=== PATIENT | female | born 1950 | race Caucasian/White ===

== ENCOUNTER 2020-07-03 08:08 | Outpatient (REF) | payer MEDICARE, SELFPAY ==
[2020-07-03 11:16] LABS: MANUAL DIFF FLAG NO
[2020-07-03 11:23] LABS: Basophils Percent Auto 0.4 % (0-2); Eosinophils Absolute Auto 0.3 X10*3/uL (0.0-0.4); Eosinophils Percent Auto 2.9 % (0-4); Hematocrit 43.4 % (37-47); Hemoglobin 14.5 g/dl (12.0-16.0); Imm Gran Abs Auto 0.11 X10*3/uL (0.00-0.03); Imm Gran Pct Auto 1.2 % (0.0-0.4); Lymphocytes Absolute Auto 2.3 X10*3/uL (1.2-4.9); Mean Corpuscular HGB Conc 33.4 g/dl (31.0-35.0); Mean Corpuscular Hemoglobin 30.3 pg (27.0-33.0); Mean Corpuscular Volume 90.6 fL (80-98); Mean Platelet Volume 9.4 fL (9.4-12.3); Monocytes Absolute Auto 0.6 X10*3/uL (0.1-1.2); Monocytes Percent Auto 6.3 % (2-11); Neutrophils Absolute Auto 5.8 X10*3/uL (2.0-8.3); Neutrophils Percent Auto 64.2 % (45-73); Platelet Count 336 X10*3/uL (160-400); Red Blood Count 4.79 X10*6/uL (4.20-5.50); Red Cell Distribution Width 13.3 % (11.0-16.0)
[2020-07-03 11:46] LABS: Alanine Aminotransferase 11 U/L (0-31); Albumin Level 4.7 g/dL (3.5-5.0); Alkaline Phosphatase 91 U/L (39-117); Anion Gap 15 (12-20); Aspartate Amino Transferase 17 U/L (5-31); Bilirubin Total 0.2 mg/dL (0.0-1.0); Blood Urea Nitrogen 10 mg/dL (9-16); Calcium 9.2 mg/dL (8.4-10.2); Carbon Dioxide 30 mmol/L (22-29); Chloride 93 mmol/L (96-108); Cholesterol 216 mg/dL; Estimated Glomerular Filt Rate > 60; Glucose Fasting 99 mg/dL (60-99); HDL Cholesterol 45 mg/dL; LDL Cholesterol Calculated 129 mg/dl; Potassium 4.6 mmol/l (3.3-5.1); Sodium 133 mmol/L (135-145); Total Protein 7.8 g/dL (6.5-8.0); Triglycerides 214 mg/dL
[2020-07-03 11:54] LABS: SARS COV2 IgG Negative (Negative)
[2020-07-03 12:07] LABS: Thyroid Stimulating Hormone 6.79 mIU/mL (0.32-4.0); Vitamin D 25-OH Total 70.8 ng/mL (>30)
== END 2020-07-03 08:09 | disposition home or self-care (01) ==
LOC: HO.HMGCLDS 08:08
PROVIDERS: PCP Internal Medicine; Visit Provider Internal Medicine
DX: I87.2 Venous insufficiency (chronic) (peripheral) (principal); I10 Essential (primary) hypertension; E78.00 Pure hypercholesterolemia, unspecified; E03.9 Hypothyroidism, unspecified; Z01.84 Encounter for antibody response examination
CPT/HCPCS: 36415; 80053; 80061; 82306; 84443; 85025; 86769

== ENCOUNTER 2020-10-31 12:43 | Outpatient (REF) | payer MEDICARE, SELFPAY ==
[2020-10-31 14:16] LABS: Glucose Urine UA NEG (NEG); Leukocyte Esterase Urine NEG (NEG); Nitrite Urine NEG (NEG); Urine Blood NEG (NEG); Urine Ketones 5 MG/DL (NEG); Urine Protein 1+ MG/DL (NEG-TRACE)
[2020-10-31 14:17] LABS: Appearance Urine CLEAR; Color Urine YELLOW
[2020-10-31 14:35] LABS: Bacteria Urine TRACE /LPF; RBC Urine 0 /HPF (0); Squamous Epithelial Cell Urine 2+ /LPF; WBC Urine 0 /HPF (0-4)
== END 2020-10-31 12:44 | disposition home or self-care (01) ==
LOC: HO.HMGCLDS 12:43
PROVIDERS: PCP Internal Medicine; Visit Provider Internal Medicine
DX: R30.0 Dysuria (principal)
CPT/HCPCS: 81001; 87086

== ENCOUNTER 2020-11-10 09:40 | Outpatient (REF) | payer MEDICARE, SELFPAY ==
--- NOTE | ~2020-11-10 | XR_ITS ---
EXAMINATION: XR CHEST CLINICAL INFORMATION: Shortness of breath on exertion COMPARISON: 11/03/2018 TECHNIQUE: 2 views of the chest were obtained. FINDINGS: Heart is mildly enlarged, stable. Mediastinal silhouette is within normal limits. There is airspace opacity in the left lower lung including in the retrocardiac space. Possible small left pleural effusion. No lobar consolidation in the right lung. No pulmonary edema or pneumothorax. Thoracic spine degenerative changes.. XR/XR chest 2V IMPRESSION: Left lower lobe airspace disease, concerning for pneumonia. Possible small left pleural effusion. Recommendation is for a follow-up chest series to be obtained following treatment and/or resolution of symptoms to assure resolution of this appearance.
[2020-11-10 11:10] LABS: MANUAL DIFF FLAG NO
[2020-11-10 11:28] LABS: Glucose Urine UA NEG (NEG); Leukocyte Esterase Urine NEG (NEG); Nitrite Urine NEG (NEG); Urine Blood NEG (NEG); Urine Ketones NEG (NEG); Urine Protein 1+ MG/DL (NEG-TRACE)
[2020-11-10 11:29] LABS: Basophils Percent Auto 0.3 % (0-2); Eosinophils Absolute Auto 0.1 X10*3/uL (0.0-0.4); Eosinophils Percent Auto 0.3 % (0-4); Hematocrit 37.6 % (37-47); Hemoglobin 12.9 g/dl (12.0-16.0); Imm Gran Abs Auto 0.32 X10*3/uL (0.00-0.03); Imm Gran Pct Auto 2.2 % (0.0-0.4); Lymphocytes Absolute Auto 1.7 X10*3/uL (1.2-4.9); Lymphocytes Percent Auto 11.9 % (20-40); Mean Corpuscular HGB Conc 34.3 g/dl (31.0-35.0); Mean Corpuscular Hemoglobin 29.5 pg (27.0-33.0); Mean Platelet Volume 8.8 fL (9.4-12.3); Monocytes Absolute Auto 0.9 X10*3/uL (0.1-1.2); Neutrophils Absolute Auto 11.3 X10*3/uL (2.0-8.3); Neutrophils Percent Auto 79.3 % (45-73); Platelet Count 511 X10*3/uL (160-400); Red Blood Count 4.37 X10*6/uL (4.20-5.50); Red Cell Distribution Width 12.8 % (11.0-16.0); White Blood Count 14.3 X10*3/uL (4.8-10.8)
[2020-11-10 11:30] LABS: Appearance Urine HAZY; Color Urine YELLOW
[2020-11-10 12:01] LABS: Alanine Aminotransferase 17 U/L (0-31); Albumin Level 4.2 g/dL (3.5-5.0); Alkaline Phosphatase 133 U/L (39-117); Anion Gap 16 (12-20); Aspartate Amino Transferase 18 U/L (5-31); Bilirubin Total 0.3 mg/dL (0.0-1.0); Blood Urea Nitrogen 6 mg/dL (9-16); C Reactive Protein 22.43 mg/dL (< or = 0.50); Calcium 9.3 mg/dL (8.4-10.2); Carbon Dioxide 27 mmol/L (22-29); Chloride 87 mmol/L (96-108); Estimated Glomerular Filt Rate > 60; Glucose Random 126 mg/dL (60-115); Lipase 18 U/L (8-78); Potassium 4.1 mmol/L (3.3-5.1); Sodium 126 mmol/L (135-145); Total Protein 7.4 g/dL (6.5-8.0)
[2020-11-10 12:16] LABS: RBC Urine 0-2 /HPF (0); Squamous Epithelial Cell Urine 2+ /LPF
[2020-11-10 13:37] LABS: Erythrocyte Sedimentation Rate 87 MM/HR (0-20)
== END 2020-11-10 09:41 | disposition home or self-care (01) ==
LOC: HO.HMGCLDS 09:40
PROVIDERS: PCP Internal Medicine; Visit Provider Internal Medicine
DX: R10.9 Unspecified abdominal pain (principal); R06.02 Shortness of breath
CPT/HCPCS: 36415; 71046; 80053; 81001; 83690; 85025; 85652; 86140

== ENCOUNTER 2020-12-13 08:03 | Outpatient (REF) | payer MEDICARE, SELFPAY ==
--- NOTE | ~2020-12-13 | XR_ITS ---
EXAMINATION: XR CHEST CLINICAL INFORMATION: Follow-up left lower lobe pneumonia COMPARISON: Previous chest x-ray 11/10/2020 TECHNIQUE: Two-view chest FINDINGS: The cardiac and mediastinal contours are stable. The lungs are clear. The previously identified left lower lobe pneumonia has resolved. There is no pleural effusion or pneumothorax. There are mild degenerative changes of the spine. XR/XR chest 2V IMPRESSION: Resolved left lower lobe pneumonia.
[2020-12-13 11:14] LABS: MANUAL DIFF FLAG NO
[2020-12-13 11:17] LABS: Glucose Urine UA NEG (NEG); Leukocyte Esterase Urine NEG (NEG); Nitrite Urine NEG (NEG); PH 6.5 (5.0-8.0); Specific Gravity - Urine <= 1.005 (1.005-1.025); Urine Blood NEG (NEG); Urine Ketones NEG (NEG); Urine Protein NEG (NEG-TRACE)
[2020-12-13 11:19] LABS: Appearance Urine CLEAR; Color Urine STRAW
[2020-12-13 11:27] LABS: Basophils Percent Auto 0.4 % (0-2); Eosinophils Absolute Auto 0.2 X10*3/uL (0.0-0.4); Eosinophils Percent Auto 2.5 % (0-4); Hemoglobin 13.8 g/dl (12.0-16.0); Imm Gran Abs Auto 0.12 X10*3/uL (0.00-0.03); Imm Gran Pct Auto 1.3 % (0.0-0.4); Lymphocytes Absolute Auto 2.3 X10*3/uL (1.2-4.9); Lymphocytes Percent Auto 25.4 % (20-40); Mean Corpuscular HGB Conc 32.1 g/dl (31.0-35.0); Mean Corpuscular Hemoglobin 29.6 pg (27.0-33.0); Mean Corpuscular Volume 92.1 fL (80-98); Mean Platelet Volume 9.6 fL (9.4-12.3); Monocytes Absolute Auto 0.5 X10*3/uL (0.1-1.2); Monocytes Percent Auto 5.6 % (2-11); Neutrophils Percent Auto 64.8 % (45-73); Platelet Count 320 X10*3/uL (160-400); Red Blood Count 4.67 X10*6/uL (4.20-5.50); Red Cell Distribution Width 14.7 % (11.0-16.0); White Blood Count 9.2 X10*3/uL (4.8-10.8)
[2020-12-13 11:32] LABS: RBC Urine 0-2 /HPF (0); Squamous Epithelial Cell Urine 1+ /LPF; WBC Urine 0 /HPF (0-4)
[2020-12-13 11:47] LABS: Alanine Aminotransferase 12 U/L (0-31); Albumin Level 4.6 g/dL (3.5-5.0); Alkaline Phosphatase 96 U/L (39-117); Anion Gap 18 (12-20); Aspartate Amino Transferase 17 U/L (5-31); Bilirubin Total 0.3 mg/dL (0.0-1.0); Blood Urea Nitrogen 9 mg/dL (9-16); C Reactive Protein 0.83 mg/dL (< or = 0.50); Carbon Dioxide 24 mmol/L (22-29); Chloride 98 mmol/L (96-108); Estimated Glomerular Filt Rate > 60; Glucose Random 95 mg/dL (60-115); Potassium 4.4 mmol/L (3.3-5.1); Sodium 136 mmol/L (135-145); Total Protein 7.6 g/dL (6.5-8.0)
[2020-12-13 13:44] LABS: Erythrocyte Sedimentation Rate 8 MM/HR (0-20)
== END 2020-12-13 08:04 | disposition home or self-care (01) ==
LOC: HO.HMGCX 08:03
PROVIDERS: PCP Internal Medicine; Visit Provider Internal Medicine
DX: J18.9 Pneumonia, unspecified organism (principal)
CPT/HCPCS: 36415; 71046; 80053; 81001; 85025; 85652; 86140

== ENCOUNTER 2021-03-29 08:05 | Outpatient (RCR) | payer MEDICARE, SELFPAY | END 2021-04-12 10:00 | disposition home or self-care (01) | LOC: HO.WCC 08:05 | PROVIDERS: PCP Internal Medicine; Visit Provider Surgery | DX: I87.312 Chronic venous hypertension (idiopathic) with ulcer of left lower extremity (principal); L97.822 Non-pressure chronic ulcer of other part of left lower leg with fat layer exposed; F17.210 Nicotine dependence, cigarettes, uncomplicated; I10 Essential (primary) hypertension; I73.9 Peripheral vascular disease, unspecified; Z79.899 Other long term (current) drug therapy | CPT/HCPCS: 99212; 99213 ==

== ENCOUNTER 2021-07-08 15:23 | Inpatient (IN) | payer MEDICARE, SELFPAY ==
[2021-07-08] VITALS (15 sets, daily range): BP systolic 107–219; BP diastolic 56–116; PULSE 67–135; RESP 16–21; TEMP 36.1–37.1; O2SAT 92–95; BMI 39.4
--- NOTE | 2021-07-08 | ECG_ITS ---
Test Reason : rhythm Blood Pressure : / mmHG Vent. Rate : 070 BPM Atrial Rate : 070 BPM P-R Int : 220 ms QRS Dur : 096 ms QT Int : 420 ms P-R-T Axes : 070 055 071 degrees QTc Int : 453 ms Sinus rhythm with 1st degree A-V block Otherwise normal ECG Sinus tachycardia is no longer Present Referred By: Yasmin Scott Electronically Signed By:MISSY JOHNSON MD
--- NOTE | ~2021-07-08 | XR_ITS ---
EXAMINATION: XR CHEST CLINICAL INFORMATION: SOB. COMPARISON: Chest 12/13/2020 TECHNIQUE: Frontal view of the chest was obtained. FINDINGS: The lungs are well-expanded and clear. The heart size and pulmonary vascularity is normal. No gross bony abnormality seen. XR/XR chest 1V IMPRESSION: Unremarkable chest exam.
--- NOTE | 2021-07-08 15:25 | ECG_ITS ---
Test Reason : TACARDYA Blood Pressure : / mmHG Vent. Rate : 134 BPM Atrial Rate : 268 BPM P-R Int : 000 ms QRS Dur : 096 ms QT Int : 316 ms P-R-T Axes : 256 -18 056 degrees QTc Int : 471 ms Atrial flutter with 2:1 A-V conduction Pulmonary disease pattern Minimal voltage criteria for LVH, may be normal variant ( Dragan product ) Abnormal ECG with 1st degree A-V block is no longer Present Heart rate has increased Referred By: Yasmin Scott Electronically Signed By:MISSY JOHNSON MD
--- NOTE | 2021-07-08 15:41 | ED.ARRPALP ---
HPI - Arrhythmia/Palpitations General Chief Complaint: Arrhythmia/Palpitations Stated Complaint: Tachycardia Time Seen by Provider: 07/08/21 15:25 Source: patient Mode of arrival: ambulatory Limitations: no limitations History of Present Illness HPI narrative: 70-year-old female with a history of hypertension, obesity, hypothyroidism, trigeminal neuralgia who presents to the ER with acute onset of fast heart rate and palpitations that woke her up out of sleep around 3 or 4 this morning. She states she can feel her pulse is rapid and regular, with rate of about 120-130. 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 She felt the rapid heart rate persists throughout the day so she called her doctor. Her doctor instructed her to come to the ER for further evaluation. She is not short of breath, having any chest pain, diaphoretic, or nauseous. She denies any history of AFib or a flutter. She is on atenolol chronically for high blood pressure. Of note patient reports that about a month ago she had noticed that she was starting to lose some hair. She read online that Synthroid can make you lose your hair, so she decided to stop taking it for 10 days. She resumed it at half of her usual dose and takes it 5 days per week. complaint: rapid heart beat Onset (ago): hour(s) (12) Duration: constant Severity: moderate Context: occurred during rest Associated symptoms: anxiety Related Data Home Medications Medication Instructions Recorded Confirmed aspirin 81 mg capsule 81 mg PO DAILY 07/08/21 07/08/21 atenolol 50 mg tablet 1 tab PO BID 07/08/21 07/08/21 carbamazepine 200 mg tablet 1 tab PO BID 07/08/21 07/08/21 levothyroxine 75 mcg tablet 1 tab PO DAILY 07/08/21 07/08/21 pravastatin 20 mg tablet 1 tab PO DAILY 07/08/21 07/08/21 Allergies Allergy/AdvReac Type Severity Reaction Status Date / Time Calcium Channel Blocking Allergy Unknown RESTLESSNES Verified 07/08/21 15:51 Agents-Dih S [CALCIUM CHANNEL BLOCKING AGENTS-DIH] meperidine [From DEMEROL] Allergy Unknown CRYING Verified 07/08/21 15:51 Neuromuscular Blockers, Allergy Unknown MOOD SWINGS Verified 07/08/21 15:51 Steroidal [STEROIDAL NEUROMUSCULAR BLOCKERS] tetracycline [TETRACYCLINE] Allergy Unknown NAUSEA/VOMI Verified 07/08/21 15:51 TING Review of Systems Review of Systems: Constitutional: No Fever, No Chills ENT/Mouth: No sore throat, No Rhinorrhea, No Swallowing Difficulty Cardiovascular: No Chest Pain, No SOB, No Orthopnea, + Edema (chronic), +palpitations Respiratory: No Cough, No Sputum, No Wheezing, No dyspnea Gastrointestinal: No Nausea, No Vomiting, No Diarrhea, No abdominal Pain Genitourinary: No Dysuria, No Urinary Frequency, No Hematuria Musculoskeletal: No joint pain, No Myalgias Skin: No Skin Lesions, No rash Neuro: No Weakness, No Numbness, No Dizziness, No Headache Psych: + Anxiety/Panic, No Depression Heme/Lymph: No Bruising, No Lymphadenopathy Endocrine: No Polyuria, No Polydipsia [facility] Social History Social History Advance Directives: No Advance Directives Information Provided: No Physical Exam Vital Signs: Vital Signs: Last Vital Signs Temp 98.7 F 07/08/21 16:00 Pulse 132 H 07/08/21 16:52 Resp 16 07/08/21 16:52 BP 166/97 H 07/08/21 16:52 Pulse Ox 94 07/08/21 16:03 Body Mass Index 39.4 Appearance: Alert. Oriented X3. No acute distress. Eyes: Pupils equal, round and reactive to light. ENT: Pharynx normal. Neck: Normal inspection. Neck supple. CVS: Tachycardic, regular rhythm.. No appreciable murmur. Pulses normal. Respiratory: No respiratory distress. Breath sounds with expiratory wheezes. Abdomen: Obese, Soft and nontender. +BS x4 Skin: Skin warm and dry. Normal skin color. Normal skin turgor. No rashes. Extremities: 1+ right lower extremity edema, LLE with chronic venous stasis changes and edema. Neuro: Oriented X 3. No motor deficit. No sensory deficit. Course Course Course Narrative: 70-year-old female presenting with acute onset of palpitations and tachycardia that started at 03:00 this morning. They woke her up out of sleep. EKG on arrival showing new onset atrial flutter with 2-1 conduction with a heart rate of 135. Her blood pressure is significantly elevated 214/115. She took her atenolol this morning. She admits to being very anxious and nervous. No headache or chest pain. Will give a dose of IV left Lopressor and reassess. Reevaluation(s) Reevaluation #1: No improvement in her HR after IV Lopressor. Dr. Liu from Cardiology was consulted. He recommends starting IV Cardizem infusion and giving her Eliquis once her blood pressure is stable below 200 systolic. Reevaluation #2: Blood pressure improved to 160 systolic. Will start Eliquis. IV Cardizem 15 mg has been given with minimal response and heart rate. Plan to start Cardizem infusion. TSH is elevated at 8 with normal T4. Will plan for admission. Consultations Consultation #1: Cardiology Dr. Liu MDM - Arrhythmia/Palpitations Differential Diagnosis Differential diagnosis: Likely palpitations, anxiety, sinus tachycardia, artial fibrillation, artial flutter, ventricular premature beats, supraventricular tachycardia, ventricular tachycardia and WPW Medical Records Attestation: I reviewed the patient's medical records. Lab Data Result diagrams: 07/08/21 15:43 07/08/21 15:43 Labs: Lab Results 07/08/21 07/08/21 07/08/21 Range/Units 15:42 15:42 15:42 WBC (4.8-10.8) X10*3/uL RBC (4.20-5.50) X10*6/uL Hgb (12.0-16.0) g/dl Hct (37-47) % MCV (80-98) fL MCH (27.0-33.0) pg MCHC (31.0-35.0) g/dl RDW (11.0-16.0) % Plt Count (160-400) X10*3/uL MPV (9.4-12.3) fL Immature Gran % (Auto) (0.0-0.4) % Neut % (Auto) (45-73) % Lymph % (Auto) (20-40) % [place] % (Auto) (2-11) % Eos % (Auto) (0-4) % Baso % (Auto) (0-2) % Lymph # (Auto) (1.2-4.9) X10*3/uL [place] # (Auto) (0.1-1.2) X10*3/uL Eos # (Auto) (0.0-0.4) X10*3/uL Baso # (Auto) (0.0-0.2) X10*3/uL Abs Immat Gran (auto) (0.00-0.03) X10*3/uL Absolute Neuts (auto) (2.0-8.3) X10*3/uL Absolute Nucleated RBC (0.0-0.012) X10*3/uL Nucleated RBC % (auto) (0.0-0.2) /100WBC Sodium (135-145) mmol/L Potassium (3.3-5.1) mmol/L Chloride (96-108) mmol/L Carbon Dioxide (22-29) mmol/L Anion Gap (12-20) BUN (9-16) mg/dL Creatinine (0.5-1.4) mg/dL Estim Creat Clear Calc Estimated GFR Random Glucose (60-115) mg/dL Calcium (8.4-10.2) mg/dL Magnesium (1.6-2.6) mg/dL Total Bilirubin (0.0-1.0) mg/dL Direct Bilirubin (0.0-0.5) mg/dL AST (5-31) U/L ALT (0-31) U/L Alkaline Phosphatase (39-117) U/L Troponin I High Sens 37.3 H* (<3.5-17.0) ng/L B-Natriuretic Peptide 223 H (<100) pg/mL Total Protein (6.5-8.0) g/dL Albumin (3.5-5.0) g/dL TSH 8.13 H (0.32-4.0) uIU/mL Free T4 0.80 (0.71-1.85) ng/dL COVID-19 (ELLE) Negative (Negative) COVID-19 Clin Com See Note 07/08/21 07/08/21 Range/Units 15:43 15:43 WBC 12.2 H (4.8-10.8) X10*3/uL RBC 5.24 (4.20-5.50) X10*6/uL Hgb 15.9 (12.0-16.0) g/dl Hct 47.5 H (37-47) % MCV 90.6 (80-98) fL MCH 30.3 (27.0-33.0) pg MCHC 33.5 (31.0-35.0) g/dl RDW 13.5 (11.0-16.0) % Plt Count 305 (160-400) X10*3/uL MPV 9.0 L (9.4-12.3) fL Immature Gran % (Auto) 0.7 H (0.0-0.4) % Neut % (Auto) 70.3 (45-73) % Lymph % (Auto) 21.9 (20-40) % [place] % (Auto) 5.9 (2-11) % Eos % (Auto) 0.9 (0-4) % Baso % (Auto) 0.3 (0-2) % Lymph # (Auto) 2.7 (1.2-4.9) X10*3/uL [place] # (Auto) 0.7 (0.1-1.2) X10*3/uL Eos # (Auto) 0.1 (0.0-0.4) X10*3/uL Baso # (Auto) 0.0 (0.0-0.2) X10*3/uL Abs Immat Gran (auto) 0.09 H (0.00-0.03) X10*3/uL Absolute Neuts (auto) 8.5 H (2.0-8.3) X10*3/uL Absolute Nucleated RBC 0.000 (0.0-0.012) X10*3/uL Nucleated RBC % (auto) 0.0 (0.0-0.2) /100WBC Sodium 136 (135-145) mmol/L Potassium 4.3 (3.3-5.1) mmol/L Chloride 99 (96-108) mmol/L Carbon Dioxide 25 (22-29) mmol/L Anion Gap 16 (12-20) BUN 9 (9-16) mg/dL Creatinine 0.76 (0.5-1.4) mg/dL Estim Creat Clear Calc 82.2 Estimated GFR > 60 Random Glucose 119 H (60-115) mg/dL Calcium 9.7 D (8.4-10.2) mg/dL Magnesium 1.9 (1.6-2.6) mg/dL Total Bilirubin 0.3 (0.0-1.0) mg/dL Direct Bilirubin < 0.2 (0.0-0.5) mg/dL AST 16 (5-31) U/L ALT 12 (0-31) U/L Alkaline Phosphatase 104 (39-117) U/L Troponin I High Sens (<3.5-17.0) ng/L B-Natriuretic Peptide (<100) pg/mL Total Protein 8.0 (6.5-8.0) g/dL Albumin 4.8 (3.5-5.0) g/dL TSH (0.32-4.0) uIU/mL Free T4 (0.71-1.85) ng/dL COVID-19 (ELLE) (Negative) COVID-19 Clin Com ECG Data Attestation: I personally reviewed and interpreted this ECG as follows: ECG interpretation date: 07/08/21 ECG interpretation time: 15:46 Prior ECG tracings: not available for review Interpretation: Atrial flutter with 2-1 conduction, heart rate 150 beats per minute, no ST segment elevations or depressions. Critical Care Time Critical Care Time Critical Care Time: Yes Total Critical Care Time: 42 Attestation: I have personally provided critical care time exclusive of time spent on separately billable procedures. Time includes review of lab data, radiology results, discussion with consultants, and monitoring for potential decompensation. Intervention performed as documented.
[2021-07-08 15:47] LABS: MANUAL DIFF FLAG NO
[2021-07-08 15:48] LABS: Basophils Percent Auto 0.3 % (0-2); Eosinophils Absolute Auto 0.1 X10*3/uL (0.0-0.4); Eosinophils Percent Auto 0.9 % (0-4); Hematocrit 47.5 % (37-47); Hemoglobin 15.9 g/dl (12.0-16.0); Imm Gran Abs Auto 0.09 X10*3/uL (0.00-0.03); Imm Gran Pct Auto 0.7 % (0.0-0.4); Lymphocytes Absolute Auto 2.7 X10*3/uL (1.2-4.9); Lymphocytes Percent Auto 21.9 % (20-40); Mean Corpuscular HGB Conc 33.5 g/dl (31.0-35.0); Mean Corpuscular Hemoglobin 30.3 pg (27.0-33.0); Mean Corpuscular Volume 90.6 fL (80-98); Monocytes Absolute Auto 0.7 X10*3/uL (0.1-1.2); Monocytes Percent Auto 5.9 % (2-11); Neutrophils Absolute Auto 8.5 X10*3/uL (2.0-8.3); Neutrophils Percent Auto 70.3 % (45-73); Platelet Count 305 X10*3/uL (160-400); Red Blood Count 5.24 X10*6/uL (4.20-5.50); Red Cell Distribution Width 13.5 % (11.0-16.0); White Blood Count 12.2 X10*3/uL (4.8-10.8)
[2021-07-08] MEDS: Metoprolol Tartrate 5 MG/5 ML VIAL IVPUSH ×2 (15:52→18:52)
[2021-07-08 16:06] LABS: Alanine Aminotransferase 12 U/L (0-31); Albumin Level 4.8 g/dL (3.5-5.0); Alkaline Phosphatase 104 U/L (39-117); Anion Gap 16 (12-20); Aspartate Amino Transferase 16 U/L (5-31); Bilirubin Direct < 0.2 mg/dL (0.0-0.5); Bilirubin Total 0.3 mg/dL (0.0-1.0); Blood Urea Nitrogen 9 mg/dL (9-16); Calcium 9.7 mg/dL (8.4-10.2); Carbon Dioxide 25 mmol/L (22-29); Chloride 99 mmol/L (96-108); Creatinine Clr Calc Pharmacy 82.2; Estimated Glomerular Filt Rate > 60; Glucose Random 119 mg/dL (60-115); Magnesium 1.9 mg/dL (1.6-2.6); Potassium 4.3 mmol/L (3.3-5.1); Sodium 136 mmol/L (135-145)
[2021-07-08 16:09] LABS: COVID-19 Test Negative (Negative)
[2021-07-08 16:14] LABS: B Type Natriuretic Peptide 223 pg/mL (<100); Troponin-I High Sensitivity 37.3 ng/L (<3.5-17.0)
[2021-07-08 16:26] LABS: TSH reflex Free T4 8.13 uIU/mL (0.32-4.0)
[2021-07-08] MEDS: dilTIAZem HCL 50 MG/10 ML VIAL 15 MG IVPUSH (16:39)
[2021-07-08] MEDS: Acetaminophen 325 MG TABLET 650 MG PO (16:53)
[2021-07-08] MEDS: LORazepam 0.5 MG TABLET PO ×2 (16:53→18:24)
[2021-07-08] MEDS: dilTIAZem HCL 125 MG in 0.9 % Sodium Chloride 100 ML 10 MG IVCONT (18:00)
--- NOTE | 2021-07-08 18:20 | PC.NURSE ---
BORIS WILSON [phone]
--- NOTE | 2021-07-08 18:40 | P.HPHOSP_ITS ---
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 She denies any feeling of palpitation before in her life. She feels stressed out since she came to the hospital Denies any new complaint of chest pain or shortness of breath or abdominal pain or fever or chills or nausea or vomiting Has some dry cough cough Denies any weakness or numbness or lightheadedness Past medical history: Hypertension, hypercholesteremia, trigeminal neurologia, smoker Past surgical history: Appendectomy, cholecystectomy, hysterectomy and oophorectomy, tonsillectomy Last surgery are more than 30 years ago. Social history: Lives with her , 50 pack year smoking history , no alcohol or recreation drug use. Allergy gonzalez: Says she has Keflex allergy-itching and numbness in the lips Tetracycline allergy-stomach upset ODILON, calcium channel lesley Body anxiety. family hx:Both parents had high blood pressure, father had amyloidosis related cardiomyopathy, mother due to old age as per the patient. Review of Systems Review of Systems: As above. Yes all other systems are reviewed and are negative PMFSH Pertinent family history: Both parents had high blood pressure, father had amyloidosis related cardiomyopathy, mother due to old age as per the patient. Social History Advance Directives: No Advance Directives Information Provided: No Meds Allergies Allergy/AdvReac Type Severity Reaction Status Date / Time Calcium Channel Blocking Allergy Unknown RESTLESSNES Verified 07/08/21 15:51 Agents-Dih S [CALCIUM CHANNEL BLOCKING AGENTS-DIH] meperidine [From DEMEROL] Allergy Unknown CRYING Verified 07/08/21 15:51 Neuromuscular Blockers, Allergy Unknown MOOD SWINGS Verified 07/08/21 15:51 Steroidal [STEROIDAL NEUROMUSCULAR BLOCKERS] tetracycline [TETRACYCLINE] Allergy Unknown NAUSEA/VOMI Verified 07/08/21 15:51 TING Active Medications: Current Medications Carbamazepine (Carbamazepine 200 Mg Tablet) 200 mg PO BID [facility] Diltiazem HCl 125 mg/ Sodium (Chloride) 125 mls @ 0 mls/hr IVCONT .Q0M [facility]; Protocol Last Titration: 07/08/21 18:20 Dose: 15 mg/hr, 15 mls/hr Documented by: Levothyroxine Sodium (Levothyroxine Sodium 75 Mcg Tablet) 75 mcg PO DAILY [facility] Pravastatin Sodium (Pravastatin Sodium 20 Mg Tablet) 20 mg PO DAILY [facility] Sodium Chloride (0.9 % Sodium Chloride Flush 3 Ml Syringe) 3 ml IVFLUSH QSHIFT [facility] Home Medications Medication Instructions Recorded Confirmed Last Taken Type aspirin 81 mg capsule 81 mg PO DAILY 07/08/21 07/08/21 Unknown History atenolol 50 mg tablet 1 tab PO BID 07/08/21 07/08/21 Unknown History carbamazepine 200 mg tablet 1 tab PO BID 07/08/21 07/08/21 Unknown History levothyroxine 75 mcg tablet 1 tab PO DAILY 07/08/21 07/08/21 Unknown History pravastatin 20 mg tablet 1 tab PO DAILY 07/08/21 07/08/21 Unknown History Physical Exam Vital Signs and Narrative: Vital Signs: Last Vital Signs Temp 98.7 F 07/08/21 16:00 Pulse 135 H 07/08/21 18:13 Resp 21 H 07/08/21 18:02 BP 174/107 H 07/08/21 18:13 Pulse Ox 94 07/08/21 16:03 Body Mass Index 39.4 Physical exam: Appearance: Alert.? Oriented X3.? not in distress.? Eyes: Pupils equal, round and reactive to light.? Sclera nonicteric.? ENT: Pharynx normal.? Moist mucous membranes. cvs: iregular rythem, [id number] , no murmur res: clear to auscultation ,no rhonchii or wheezing abd: no rebound or guarding ,nt, bs present. ext pulses present , no cyanosis ,Gait well balanced well coordinated. neuro: axo3 , nonfocal. psych : anxious Results Labs CBC and Chem 7: 07/08/21 15:43 07/08/21 15:43 Labs: Laboratory Results - last 24 hr 07/08/21 07/08/21 07/08/21 15:42 15:42 15:42 MCV MCH MCHC RDW Plt Count MPV Immature Gran % (Auto) Neut % (Auto) Lymph % (Auto) [place] % (Auto) Eos % (Auto) Baso % (Auto) Lymph # (Auto) [place] # (Auto) Eos # (Auto) Baso # (Auto) Abs Immat Gran (auto) Absolute Neuts (auto) Absolute Nucleated RBC Nucleated RBC % (auto) Anion Gap Estim Creat Clear Calc Estimated GFR Random Glucose Calcium Magnesium Total Bilirubin Direct Bilirubin AST ALT Alkaline Phosphatase Troponin I High Sens 37.3 H* B-Natriuretic Peptide 223 H Total Protein Albumin TSH 8.13 H Free T4 0.80 COVID-19 (ELLE) Negative COVID-19 Clin Com See Note 07/08/21 07/08/21 15:43 15:43 MCV 90.6 MCH 30.3 MCHC 33.5 RDW 13.5 Plt Count 305 MPV 9.0 L Immature Gran % (Auto) 0.7 H Neut % (Auto) 70.3 Lymph % (Auto) 21.9 [place] % (Auto) 5.9 Eos % (Auto) 0.9 Baso % (Auto) 0.3 Lymph # (Auto) 2.7 [place] # (Auto) 0.7 Eos # (Auto) 0.1 Baso # (Auto) 0.0 Abs Immat Gran (auto) 0.09 H Absolute Neuts (auto) 8.5 H Absolute Nucleated RBC 0.000 Nucleated RBC % (auto) 0.0 Anion Gap 16 Estim Creat Clear Calc 82.2 Estimated GFR > 60 Random Glucose 119 H Calcium 9.7 D Magnesium 1.9 Total Bilirubin 0.3 Direct Bilirubin < 0.2 AST 16 ALT 12 Alkaline Phosphatase 104 Troponin I High Sens B-Natriuretic Peptide Total Protein 8.0 Albumin 4.8 TSH Free T4 COVID-19 (ELLE) COVID-19 Clin Com Imaging Radiologist's Impressions: Impressions Chest X-Ray 07/08/21 15:35 IMPRESSION: Unremarkable chest exam. Assessment and Plan 1. New onset AFib, patient has history of hypertension and hypercholesteremia: new onset atrial flutter with 2-1 conduction with a heart rate of 135.? her chadvasc score is at least3. Electrolytes gonzalez potassium 4.3 ,magnesium 1.9 ED physician discussed the case with Cardiology-patient is started on Cardizem drip also received IV metoprolol time 1 does as well as are we Cardizem dose Blood pressure is fluctuating between 150-170 range Continue Cardizem drip, Crow ordered but patient still want to decide about the blood thinner, risk of stroke discussed with her, she still thinking about it if she decides then we can start it. she said she is tolerating cardizem drip fine , just feels anxious because in the hospital. Added IV magnesium since magnesium is 1.9 will keep it about 2. trops : 37.3 next trops pending echo cardio eval 2. Uncontrolled Hypertension: Blood pressure fluctuating also may be having anxiety component Given Ativan. Also received the metoprolol Blood pressure seems fluctuating IV Cardizem drip is to be titrated as per blood pressure/rate control, may need to add additional antihypertensive if blood pressure still persistently high. 3. Hypercholesteremia: Continue statin 4. Trigeminal neuralgia: Continue carbamazepine. 5. Smoker: Will add nicotine patch. 6. Leukocytosis: Probably reactive, UA negative and chest x-ray negative, has dry cough she says it has not changed. 7. Hypothyroidism: TSH is 8, free T4 is normal Continue levothyroxine. DVT prophylaxis: Eliquis ordered for AFib if she agrees will continue that if she does not agree we will need to add subQ Lovenox. Quality Stroke Does the patient have a stroke diagnosis?: No VTE Prior VTE?: No VTE Risk Level:: Medical - moderate - high VTE Device Contraindication: N/A - Device Ordered VTE Drug Contraindication: N/A - Med Ordered
--- NOTE | 2021-07-08 19:40 | PC.NURSE ---
PT CONVERTED TO NTV16-03 BPM AT APPROX 1908. PT DILTIAZEM TITRATED DOWN TO 10MG
[2021-07-08 20:10] LABS: Troponin-I High Sensitivity 68.3 ng/L (<3.5-17.0)
[2021-07-08] MEDS: Magnesium Sulfate/D5W 1 GM/100 ML PIGGYBACK IV (20:33)
[2021-07-08] MEDS: carBAMazepine 200 MG TABLET PO (21:38)
[2021-07-08 22:49] LABS: Troponin-I High Sensitivity 70.5 ng/L (<3.5-17.0)
[2021-07-09] VITALS (10 sets, daily range): BP systolic 129–187; BP diastolic 65–83; PULSE 61–80; RESP 16–19; TEMP 36.1–36.8; O2SAT 90–94
--- NOTE | 2021-07-09 00:21 | PC.NURSE ---
This RN got report from [facility] and was told pt converted to normal sinus at approximately 1900. Pt arrived to floor at 2100 on Cardizem gtt at 5mg/hr and was normal sinus on tele. Pt denied any chest pain, palpitations, dizziness or SOB. made aware, EKG obtained and pt's Cardizem gtt was paused at 2120. Pt is laying in bed, states she is comfortable. Pt is on continuous cardiac monitoring.
[2021-07-09] MEDS: 0.9 % Sodium Chloride Flush 3 ML SYRINGE IVFLUSH ×4 (06:41→21:29)
[2021-07-09 07:15] LABS: Hematocrit 43.2 % (37-47); Hemoglobin 14.3 g/dl (12.0-16.0); Mean Corpuscular HGB Conc 33.1 g/dl (31.0-35.0); Mean Corpuscular Hemoglobin 30.2 pg (27.0-33.0); Mean Corpuscular Volume 91.1 fL (80-98); Mean Platelet Volume 9.2 fL (9.4-12.3); Platelet Count 277 X10*3/uL (160-400); Red Blood Count 4.74 X10*6/uL (4.20-5.50); Red Cell Distribution Width 13.5 % (11.0-16.0); White Blood Count 9.3 X10*3/uL (4.8-10.8)
[2021-07-09 07:49] LABS: Anion Gap 14 (12-20); Blood Urea Nitrogen 9 mg/dL (9-16); Calcium 9.4 mg/dL (8.4-10.2); Carbon Dioxide 28 mmol/L (22-29); Chloride 98 mmol/L (96-108); Creatinine Clr Calc Pharmacy 93.2; Estimated Glomerular Filt Rate > 60; Glucose Random 96 mg/dL (60-115); Potassium 4.5 mmol/L (3.3-5.1); Sodium 135 mmol/L (135-145)
[2021-07-09] MEDS: carBAMazepine 200 MG TABLET PO ×2 (07:53→21:28)
[2021-07-09 08:30] LABS: Alanine Aminotransferase 12 U/L (0-31); Albumin Level 4.4 g/dL (3.5-5.0); Alkaline Phosphatase 92 U/L (39-117); Aspartate Amino Transferase 16 U/L (5-31); Bilirubin Direct 0.2 mg/dL (0.0-0.5); Bilirubin Total 0.5 mg/dL (0.0-1.0); Magnesium 2.1 mg/dL (1.6-2.6); Total Protein 7.2 g/dL (6.5-8.0)
--- NOTE | 2021-07-09 09:30 | CA_ITS ---
Transthoracic Echocardiogram Patient (Last, First, Middle): Mary Beth Ware C Gender: Female Date of : 1950 Age: 70 Procedure Date: 07/09/2021 Procedure Type: Transthoracic Echocardiogram [place] [facility] [place] Height: 162.56 cm Weight: 104.33 kg BSA: 2.08 m2 Heart Rate: bpm BP: 129 / 65 mmHg Extension Service Advisor: CAMILLE/ANGELICA Referring MD: Yasmeen Jernigan MD Symptoms: afib with rvr Study Quality: Fair Conclusions: - is normal left ventricular wall thickness. The left ventricular systolic function is hyperdynamic. The visually estimated ejection fraction is >70%. - Normal right ventricular cavity size and systolic function. - There is mild aortic valve stenosis. Findings Left Ventricle Normal left ventricular cavity size. There is normal left ventricular wall thickness. The left ventricular systolic function is hyperdynamic. The visually estimated ejection fraction is >70%. There is no evidence of regional wall motion abnormalities. Abnormal diastolic function is noted. Spectral Doppler is indicative of a pseudonormal filling pattern. Elevated filling pressures. Right Ventricle Normal right ventricular cavity size and systolic function. Atria The left atrium is mildly dilated. The right atrium is normal in size. Aortic Valve There is a normal trileaflet aortic valve. There is mild calcification of the aortic valve. There is mild aortic valve stenosis. There is no aortic valve regurgitation. Mitral Valve There is moderate mitral annular calcification. There is no mitral valve regurgitation. There is no mitral valve stenosis. Pulmonic Valve The pulmonic valve is likely normal. Tricuspid Valve Normal tricuspid valve structure and function. There is trace tricuspid valve regurgitation. Tricuspid regurgitation envelope is inadequate for calculation of right ventricular systolic pressure. Normal right atrial pressure. Great Vessels All visible segments of the aorta are normal in size. The visualized portions of the pulmonary artery and branches are normal. Venous The inferior vena cava is normal in size and collapses greater than 50% with inspiration. Pericardium/Pleural There is no evidence of pericardial effusion. Prior Study Comparison No significant change compared to prior study dated: 12/09/2017. Measurements 2D Linear Measurements IVSd: 0.86 0.6-0.9/0.6-1.0 cm LVIDd: 5.84 3.9-5.3/4.2-5.9 cm LVIDd Index: 2.81 2.4-3.2/2.2-3.1 cm/m2 LVIDs: 3.56 2.0-3.6 cm LVPWd: 0.87 0.7-1.1 cm Ao Root: 3.30 2.1-3.5 cm LA Diam: 4.30 2.7-3.8/3.0-4.0 cm LAIDs Index: 2.07 1.5-2.3 cm/m2 LV Mass: 243.65 67-162/88-224 g LV Mass Index: 117.14 43-95/49-115 g/m2 LVOT Diam: 2.00 3.0+(-)1.3 cm 2D Systolic Function EF 4C: 57.70 >55% EF 2C: 61.30 >55% EF BiP: 59.50 >55% Mitral Valve MV Pk E: 1.16 MV PK A: 0.86 MV Decel Time: 320.00 E/A: 1.30 E'Lateral: 6.20 E'Medial: 5.55 E/E' Med: 20.90 E/E' Lat: 18.70 PHT: 94.00 MVA PHT: 2.34 Decel Patrick: 3.62 Aortic Valve AoV Pk Lennox: 2.59 AoV Mn Lennox: 1.81 AoV VTI: 0.46 AoV Pk Grad: 27.00 Aov Mn Grad: 14.00 WEN Cont.VTI: 2.34 LVOT LVOT Pk Lennox: 1.64 LVOT Mn Lennox: 1.00 LVOT VTI: 0.34 LVOT Pk Grad: 11.00 LVOT Mn Grad: 5.00 LVOT Diam: 2.00 LVOT Area: 3.14 Diastolic Function MV Pk E: 1.16 MV Pk A: 0.86 E/A: 1.30 E'Medial: 5.55 E/E' Med: 20.90 E' Laterial: 6.20 E/E' Lat: 18.70 Right Ventricle TAPSE (mm): 3.13 TVS' Lennox: 15.00 Tricuspid Valve RA Press: 8.00 Great Vessels Aorta Ao Root-2D: 3.30 2.0-3.7 cm Ao Asc: 3.40 2.1-3.4 cm Ao Arch: 2.30 Updated in Other Vendor System with Status of Final Tera Brooke MD electronically signed on 07/09/2021 3:02:55 PM with status of Final
--- NOTE | 2021-07-09 09:53 | MHC.CM.PN ---
met with pt who expectes to be dcd today pt lives with her hiusband and does not anticipate needing services when dcd
[2021-07-09] MEDS: atenoloL 50 MG TABLET PO ×2 (10:04→21:28)
[2021-07-09] MEDS: LORazepam 0.5 MG TABLET PO (10:09)
--- NOTE | 2021-07-09 11:06 | P.PNIM_ITS ---
Subjective Subjective Date of Service: 07/09/21 Interval History: afib , uncontrolled hypertension Review of Systems Denies any new complaint Denies any new complaint of chest pain or shortness of breath or abdominal pain or fever or chills or nausea or vomiting Denies any cough Denies any weakness or numbness. Physical Exam Vital Signs: Vital Signs: Last Vital Signs Temp 97.3 F 07/09/21 08:00 Pulse 80 07/09/21 08:00 Resp 18 07/09/21 08:00 BP 187/83 H 07/09/21 09:29 Pulse Ox 94 07/09/21 08:00 Body Mass Index 39.4 Appearance: Alert.? Oriented X3.? not in distress.? Eyes: Pupils equal, round and reactive to light.? Sclera nonicteric.? ENT: Pharynx normal.? Moist mucous membranes. cvs: rrr, [id number] , no murmur res: clear to auscultation ,no rhonchii or wheezing abd: no rebound or guarding ,nt, bs present. ext pulses present , no cyanosis ,Gait well balanced well coordinated. neuro: axo3 , nonfocal. Objective Data Active Medications Atenolol (Atenolol 50 Mg Tablet) 50 mg PO BID [facility]; Protocol Last Admin: 07/09/21 10:04 Dose: 50 mg Documented by: CHRISTINA Carbamazepine (Carbamazepine 200 Mg Tablet) 200 mg PO BID [facility] Last Admin: 07/09/21 07:53 Dose: 200 mg Documented by: CHRISTINA Diltiazem HCl 125 mg/ Sodium (Chloride) 125 mls @ 0 mls/hr IVCONT .Q0M [facility]; Protocol Last Titration: 07/08/21 21:20 Dose: 0 mg/hr, 0 mls/hr Documented by: JEWELL Levothyroxine Sodium (Levothyroxine Sodium 75 Mcg Tablet) 75 mcg PO DAILY [facility] Last Admin: 07/09/21 07:54 Dose: Not Given Documented by: CHRISTINA Non-Admin Reason: Patient Refused Pravastatin Sodium (Pravastatin Sodium 20 Mg Tablet) 20 mg PO DAILY [facility] Last Admin: 07/09/21 07:54 Dose: Not Given Documented by: CHRISTINA Non-Admin Reason: Patient Refused Sodium Chloride (0.9 % Sodium Chloride Flush 3 Ml Syringe) [facility] Admin: 07/09/21 07:54 Dose: 3 ml Documented by: CHRISTINA Labs CBC & Chem 7: 07/09/21 06:42 07/09/21 06:42 Labs: Laboratory Results - last 24 hr 07/08/21 07/08/21 07/08/21 15:42 15:42 15:42 MCV MCH MCHC RDW Plt Count MPV Immature Gran % (Auto) Neut % (Auto) Lymph % (Auto) [place] % (Auto) Eos % (Auto) Baso % (Auto) Lymph # (Auto) [place] # (Auto) Eos # (Auto) Baso # (Auto) Abs Immat Gran (auto) Absolute Neuts (auto) Absolute Nucleated RBC Nucleated RBC % (auto) Anion Gap Estim Creat Clear Calc Estimated GFR Random Glucose Calcium Magnesium Total Bilirubin Direct Bilirubin AST ALT Alkaline Phosphatase Troponin I High Sens 37.3 H* B-Natriuretic Peptide 223 H Total Protein Albumin TSH 8.13 H Free T4 0.80 COVID-19 (ELLE) Negative COVID-19 [employer] See Note 07/08/21 07/08/21 07/08/21 15:43 15:43 19:16 MCV 90.6 MCH 30.3 MCHC 33.5 RDW 13.5 Plt Count 305 MPV 9.0 L Immature Gran % (Auto) 0.7 H Neut % (Auto) 70.3 Lymph % (Auto) 21.9 [place] % (Auto) 5.9 Eos % (Auto) 0.9 Baso % (Auto) 0.3 Lymph # (Auto) 2.7 [place] # (Auto) 0.7 Eos # (Auto) 0.1 Baso # (Auto) 0.0 Abs Immat Gran (auto) 0.09 H Absolute Neuts (auto) 8.5 H Absolute Nucleated RBC 0.000 Nucleated RBC % (auto) 0.0 Anion Gap 16 Estim Creat Clear Calc 82.2 Estimated GFR > 60 Random Glucose 119 H Calcium 9.7 D Magnesium 1.9 Total Bilirubin 0.3 Direct Bilirubin < 0.2 AST 16 ALT 12 Alkaline Phosphatase 104 Troponin I High Sens 68.3 H* D B-Natriuretic Peptide Total Protein 8.0 Albumin 4.8 TSH Free T4 COVID-19 (ELLE) COVID-19 [employer] 07/08/21 07/09/21 07/09/21 22:07 06:42 06:42 MCV 91.1 MCH 30.2 MCHC 33.1 RDW 13.5 Plt Count 277 MPV 9.2 L Immature Gran % (Auto) Neut % (Auto) Lymph % (Auto) [place] % (Auto) Eos % (Auto) Baso % (Auto) Lymph # (Auto) [place] # (Auto) Eos # (Auto) Baso # (Auto) Abs Immat Gran (auto) Absolute Neuts (auto) Absolute Nucleated RBC 0.000 Nucleated RBC % (auto) 0.0 Anion Gap 14 Estim Creat Clear Calc 93.2 Estimated GFR > 60 Random Glucose 96 Calcium 9.4 Magnesium 2.1 Total Bilirubin 0.5 Direct Bilirubin 0.2 AST 16 ALT 12 Alkaline Phosphatase 92 Troponin I High Sens 70.5 H* B-Natriuretic Peptide Total Protein 7.2 Albumin 4.4 TSH Free T4 COVID-19 (ELLE) COVID-19 Clin Com Assessment and Plan (1) Atrial flutter: Status: Acute (2) Palpitations: Status: Acute (3) Hypertensive urgency: Status: Acute Assessment and Plan: ?1. New onset AFib, patient has history of hypertension and hypercholesteremia: new onset atrial flutter with 2-1 conduction with a heart rate of 135.? her chadvasc score is at least3. teops flat range 70's, converted back to sinus echo, continue atenolol. 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 2. Uncontrolled Hypertension: Improving,Continued atenolol, added hctz-but patient says that she has hyponatremia due to that and was removed from her list 3-4 months ago by PCP Will add Cardizem for the morning and if she tolerates heart rate gonzalez and her blood pressure stays stable then we can plan discharge. 3. Hypercholesteremia:? Continue statin 4. Trigeminal neuralgia:? Continue carbamazepine. 5. Smoker:? Will add nicotine patch. 6. Leukocytosis:? Probably reactive, UA negative and chest x-ray negative, has dry cough she says it has not changed. 7. Hypothyroidism:? TSH is 8, free T4 is normal 8. anxiety: Refuses care team evaluation. Currently seems less anxious if needed we will add small doses anxiolytics medication Continue levothyroxine. Quality Stroke Does the patient have a stroke diagnosis?: No VTE Prior VTE?: No VTE Risk Level:: Medical - moderate - high VTE Device Contraindication: N/A - Device Ordered VTE Drug Contraindication: N/A - Med Ordered
[2021-07-09] MEDS: Aspirin Enteric Coated 81 MG TABLET.DR PO (11:55)
[2021-07-09] MEDS: Enoxaparin Sodium 40 MG/0.4 ML SYRINGE SUBCUT (11:55)
--- NOTE | 2021-07-09 12:00 | P.CONCA_ITS ---
History of Present Illness History of Present Illness Date of Service: 07/09/21 Requesting physician: Yasmeen Jernigan Chief complaint: uncontrolled htn, new aflutter Narrative: 70-year-old female with background history of hypertension who is here for palpitations. She was found to be in atrial flutter. She was started on Cardizem drip and overnight reverted back to sinus rhythm. Denying any chest discomfort or shortness of breath. Has been on baby aspirin. No bleeding issues. [facility] 3[facility] Social [facility] Social History Household Members: Spouse Housing: House Do you presently have visiting nurse or other home services: No Patient Tobacco Use Status: Current everyday Tobacco user Tobacco use type: Cigarette Cigarettes Per Day: 7 Smoked in Last 30 Days: Yes Patient Interested in Nicotine Replacement: No Use of substances other than those prescribed or required for medical reasons: No Currently Displaying Signs/Symptoms of Drug Intoxication Withdrawal: No Have you been hit, kicked, punched, or otherwise hurt by someone within the past year? If so, by whom?: No Do you feel safe in your current relationship?: Yes Is there a partner from a previous relationship who is making you feel unsafe now?: No Are you made to feel afraid or neglected: No Advance Directives: No Advance Directives Information Provided: No Do you have thoughts of harming others: None Do you have a plan to hurt others: No Plan Recently lost weight without trying: Unsure Eating poorly because of decreased appetite: No Nutrition Risks: No Nutritional Risk Patient : No : No Poor oral hygiene: No service: No Meds Allergies Allergy/AdvReac Type Severity Reaction Status Date / Time Calcium Channel Blocking Allergy Unknown RESTLESSNES Verified 07/08/21 15:51 Agents-Dih S [CALCIUM CHANNEL BLOCKING AGENTS-DIH] meperidine [From DEMEROL] Allergy Unknown CRYING Verified 07/08/21 15:51 Neuromuscular Blockers, Allergy Unknown MOOD SWINGS Verified 07/08/21 15:51 Steroidal [STEROIDAL NEUROMUSCULAR BLOCKERS] tetracycline [TETRACYCLINE] Allergy Unknown NAUSEA/VOMI Verified 07/08/21 15:51 TING Active Medications: Current Medications Aspirin (Aspirin Enteric Coated 81 Mg Tablet.Dr) 81 mg PO DAILY ROD Last Admin: 07/09/21 11:55 Dose: 81 mg Documented by: Atenolol (Atenolol 50 Mg Tablet) 50 mg PO BID [facility]; Protocol Last Admin: 07/09/21 10:04 Dose: 50 mg Documented by: Carbamazepine (Carbamazepine 200 Mg Tablet) 200 mg PO BID [facility] Last Admin: 07/09/21 07:53 Dose: 200 mg Documented by: Enoxaparin Sodium (Enoxaparin Sodium 40 Mg/0.4 Ml Syringe) 40 mg SUBCUT Q24H [facility] Last Admin: 07/09/21 11:55 Dose: 40 mg Documented by: Diltiazem HCl 125 mg/ Sodium (Chloride) 125 mls @ 0 mls/hr IVCONT .Q0M [facility]; Protocol Last Titration: 07/08/21 21:20 Dose: 0 mg/hr, 0 mls/hr Documented by: Levothyroxine Sodium (Levothyroxine Sodium 75 Mcg Tablet) 75 mcg PO DAILY [facility] Last Admin: 07/09/21 07:54 Dose: Not Given Documented by: Pravastatin Sodium (Pravastatin Sodium 20 Mg Tablet) 20 mg PO DAILY [facility] Last Admin: 07/09/21 07:54 Dose: Not Given Documented by: Sodium Chloride (0.9 % Sodium Chloride Flush 3 Ml Syringe) 3 ml IVFLUSH QSHIFT [facility] Last Admin: 07/09/21 07:54 Dose: 3 ml Documented by: Home Medications Medication Instructions Recorded Confirmed Last Taken Type aspirin 81 mg capsule 81 mg PO DAILY 07/08/21 07/08/21 Unknown History atenolol 50 mg tablet 1 tab PO BID 07/08/21 07/08/21 Unknown History carbamazepine 200 mg tablet 1 tab PO BID 07/08/21 07/08/21 Unknown History levothyroxine 75 mcg tablet 1 tab PO DAILY 07/08/21 07/08/21 Unknown History pravastatin 20 mg tablet 1 tab PO DAILY 07/08/21 07/08/21 Unknown History Physical Exam Vital Signs: Vital Signs: Last Vital Signs Temp 97.8 F 07/09/21 11:56 Pulse 65 07/09/21 11:56 Resp 16 07/09/21 11:56 BP 175/78 H 07/09/21 11:56 Pulse Ox 94 07/09/21 11:56 Body Mass Index 39.4 GENERAL APPEARANCE: in no acute distress, pleasant. NECK: no carotid bruit, no jugular venous distention. SKIN: no suspicious lesions, warm and dry. HEART: no murmurs, regular rate and rhythm. LUNGS: Bilateral mild expiratory wheezes. ABDOMEN: soft, nontender. EXTREMITIES: no edema. PERIPHERAL PULSES: equal. NEUROLOGIC: No gross deficits, AAO X 3 Results Labs and Meds Result diagrams: 07/09/21 06:42 07/09/21 06:42 Lab results: Laboratory Results - last 24 hr 07/08/21 07/08/21 07/08/21 15:42 15:42 15:42 WBC RBC Hgb Hct MCV MCH MCHC RDW Plt Count MPV Immature Gran % (Auto) Neut % (Auto) Lymph % (Auto) [place] % (Auto) Eos % (Auto) Baso % (Auto) Lymph # (Auto) [place] # (Auto) Eos # (Auto) Baso # (Auto) Abs Immat Gran (auto) Absolute Neuts (auto) Absolute Nucleated RBC Nucleated RBC % (auto) Sodium Potassium Chloride Carbon Dioxide Anion Gap BUN Creatinine Estim Creat Clear Calc Estimated GFR Random Glucose Calcium Magnesium Total Bilirubin Direct Bilirubin AST ALT Alkaline Phosphatase Troponin I High Sens 37.3 H* B-Natriuretic Peptide 223 H Total Protein Albumin TSH 8.13 H Free T4 0.80 COVID-19 (ELLE) Negative COVID-19 Clin Com See Note 07/08/21 07/08/21 07/08/21 15:43 15:43 19:16 WBC 12.2 H RBC 5.24 Hgb 15.9 Hct 47.5 H MCV 90.6 MCH 30.3 MCHC 33.5 RDW 13.5 Plt Count 305 MPV 9.0 L Immature Gran % (Auto) 0.7 H Neut % (Auto) 70.3 Lymph % (Auto) 21.9 [place] % (Auto) 5.9 Eos % (Auto) 0.9 Baso % (Auto) 0.3 Lymph # (Auto) 2.7 [place] # (Auto) 0.7 Eos # (Auto) 0.1 Baso # (Auto) 0.0 Abs Immat Gran (auto) 0.09 H Absolute Neuts (auto) 8.5 H Absolute Nucleated RBC 0.000 Nucleated RBC % (auto) 0.0 Sodium 136 Potassium 4.3 Chloride 99 Carbon Dioxide 25 Anion Gap 16 BUN 9 Creatinine 0.76 Estim Creat Clear Calc 82.2 Estimated GFR > 60 Random Glucose 119 H Calcium 9.7 D Magnesium 1.9 Total Bilirubin 0.3 Direct Bilirubin < 0.2 AST 16 ALT 12 Alkaline Phosphatase 104 Troponin I High Sens 68.3 H* D B-Natriuretic Peptide Total Protein 8.0 Albumin 4.8 TSH Free T4 COVID-19 (ELLE) COVID-19 Clin Com 07/08/21 07/09/21 07/09/21 22:07 06:42 06:42 WBC 9.3 RBC 4.74 Hgb 14.3 Hct 43.2 MCV 91.1 MCH 30.2 MCHC 33.1 RDW 13.5 Plt Count 277 MPV 9.2 L Immature Gran % (Auto) Neut % (Auto) Lymph % (Auto) [place] % (Auto) Eos % (Auto) Baso % (Auto) Lymph # (Auto) [place] # (Auto) Eos # (Auto) Baso # (Auto) Abs Immat Gran (auto) Absolute Neuts (auto) Absolute Nucleated RBC 0.000 Nucleated RBC % (auto) 0.0 Sodium 135 Potassium 4.5 Chloride 98 Carbon Dioxide 28 Anion Gap 14 BUN 9 Creatinine 0.67 Estim Creat Clear Calc 93.2 Estimated GFR > 60 Random Glucose 96 Calcium 9.4 Magnesium 2.1 Total Bilirubin 0.5 Direct Bilirubin 0.2 AST 16 ALT 12 Alkaline Phosphatase 92 Troponin I High Sens 70.5 H* B-Natriuretic Peptide Total Protein 7.2 Albumin 4.4 TSH Free T4 COVID-19 (ELLE) COVID-19 Clin Com Imaging Radiologist's impression: Impressions Chest X-Ray 07/08/21 15:35 IMPRESSION: Unremarkable chest exam. Assessment and Plan (1) Atrial flutter: Qualifiers: Atrial flutter type: unspecified Qualified Code(s): I48.92 - Unspecified atrial flutter Status: Acute (2) Hypertensive urgency: Status: Acute Pleasant 70-year-old female here for palpitations and atrial flutter. She has reverted back to sinus rhythm at this stage. She has chads Vasc score of 3 and should be anticoagulated. Baby aspirin can be discontinued if she agrees to anticoagulation. Her blood pressure is elevated. Continue the atenolol as before. Would consider adding hydrochlorothiazide 12.5 mg once a day to her regimen. Will check echocardiogram to assess LV for any structural issues. She would benefit from sleep study as outpatient. Thank you for allowing me to participate in the care of your patient. Please feel free to contact me if you have any questions. Procedures Date of Service Date of Service: 07/09/21
--- NOTE | 2021-07-09 12:56 | P.DS_ITS ---
DS: Providers Provider Date of Service: 07/09/21 Date of admission: 07/08/21 18:39 Date of discharge: 07/09/21 Primary care physician: Santos Otoole MD, DO Admitting clinician: Yasmeen Jernigan Consults: 07/08/21 16:44 Consult to Cardiology Stat Consulting Provider: Valente Liu Reason for consultation: new onset aflutter Has provider been notified: Yes 07/08/21 18:19 Consult to Cardiology Routine Consulting Provider: Valente Liu Reason for consultation: new onset afib Has provider been notified: No DS: Diagnosis Discharge Diagnosis (1) Atrial flutter: Status: Acute (2) Palpitations: Status: Acute (3) Hypertensive urgency: Status: Acute DS: Summary Hospital Course Hospital Course: 70-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 She denies any feeling of palpitation before in her life. She feels stressed out since she came to the hospital Denies any new complaint of chest pain or shortness of breath or abdominal pain or fever or chills or nausea or vomiting Has some dry cough cough Denies any weakness or numbness or lightheadedness. Hospital course: Patient came to the hospital with new onset AFib with RVR, hypertension urgency- started on Cardizem drip ,heart rate and blood pressure improved,Elevated troponin thought to be related to AFib and uncontrolled hypertension. Echo showed stable EF greater than 70%, mild aortic stenosis, no evidence of wall motion abnormality noted, since patient chads vascular score is 3 she has been started on Eliquis and aspirin has been discontinued, due to elevated blood pressure Cardizem CD 120 mg has been added, previously patient was on hydrochlorothiazide but due to hyponatremia that was discontinued, patient will require close outpatient blood pressure monitoring therefore recommend close outpatient Cardiology follow-up. TSH within normal range. In regard to smoking she has been strongly recommend to abstain from smoking, Time Spent with Patient Time attestation: Total time spent providing and/or coordinating discharge services: Discharge coordination time: Greater than 30 minutes Physical Exam Vital Signs: Vital Signs: Last Vital Signs Temp 97.8 F 07/09/21 11:56 Pulse 65 07/09/21 11:56 Resp 16 07/09/21 11:56 BP 175/78 H 07/09/21 11:56 Pulse Ox 94 07/09/21 11:56 Body Mass Index 39.4 Physical exam: Appearance: Alert.? Oriented X3.? not in distress.? Eyes: Pupils equal, round and reactive to light.? Sclera nonicteric.? ENT: Pharynx normal.? Moist mucous membranes. cvs: rrr, [id number] , no murmur res: clear to auscultation ,no rhonchii or wheezing abd: no rebound or guarding ,nt, bs present. ext pulses present , no cyanosis ,Gait well balanced well coordinated. neuro: axo3 , nonfocal. DS: Data Data Completed and Pending Labs on day of discharge: Laboratory Results - last 24 hr 07/08/21 07/08/21 07/08/21 15:42 15:42 15:42 WBC RBC Hgb Hct MCV MCH MCHC RDW Plt Count MPV Immature Gran % (Auto) Neut % (Auto) Lymph % (Auto) [place] % (Auto) Eos % (Auto) Baso % (Auto) Lymph # (Auto) [place] # (Auto) Eos # (Auto) Baso # (Auto) Abs Immat Gran (auto) Absolute Neuts (auto) Absolute Nucleated RBC Nucleated RBC % (auto) Sodium Potassium Chloride Carbon Dioxide Anion Gap BUN Creatinine Estim Creat Clear Calc Estimated GFR Random Glucose Calcium Magnesium Total Bilirubin Direct Bilirubin AST ALT Alkaline Phosphatase Troponin I High Sens 37.3 H* B-Natriuretic Peptide 223 H Total Protein Albumin TSH 8.13 H Free T4 0.80 COVID-19 (ELLE) Negative COVID-19 Clin Com See Note 07/08/21 07/08/21 07/08/21 15:43 15:43 19:16 WBC 12.2 H RBC 5.24 Hgb 15.9 Hct 47.5 H MCV 90.6 MCH 30.3 MCHC 33.5 RDW 13.5 Plt Count 305 MPV 9.0 L Immature Gran % (Auto) 0.7 H Neut % (Auto) 70.3 Lymph % (Auto) 21.9 [place] % (Auto) 5.9 Eos % (Auto) 0.9 Baso % (Auto) 0.3 Lymph # (Auto) 2.7 [place] # (Auto) 0.7 Eos # (Auto) 0.1 Baso # (Auto) 0.0 Abs Immat Gran (auto) 0.09 H Absolute Neuts (auto) 8.5 H Absolute Nucleated RBC 0.000 Nucleated RBC % (auto) 0.0 Sodium 136 Potassium 4.3 Chloride 99 Carbon Dioxide 25 Anion Gap 16 BUN 9 Creatinine 0.76 Estim Creat Clear Calc 82.2 Estimated GFR > 60 Random Glucose 119 H Calcium 9.7 D Magnesium 1.9 Total Bilirubin 0.3 Direct Bilirubin < 0.2 AST 16 ALT 12 Alkaline Phosphatase 104 Troponin I High Sens 68.3 H* D B-Natriuretic Peptide Total Protein 8.0 Albumin 4.8 TSH Free T4 COVID-19 (ELLE) COVID-19 [employer] 07/08/21 07/09/21 07/09/21 22:07 06:42 06:42 WBC 9.3 RBC 4.74 Hgb 14.3 Hct 43.2 MCV 91.1 MCH 30.2 MCHC 33.1 RDW 13.5 Plt Count 277 MPV 9.2 L Immature Gran % (Auto) Neut % (Auto) Lymph % (Auto) [place] % (Auto) Eos % (Auto) Baso % (Auto) Lymph # (Auto) [place] # (Auto) Eos # (Auto) Baso # (Auto) Abs Immat Gran (auto) Absolute Neuts (auto) Absolute Nucleated RBC 0.000 Nucleated RBC % (auto) 0.0 Sodium 135 Potassium 4.5 Chloride 98 Carbon Dioxide 28 Anion Gap 14 BUN 9 Creatinine 0.67 Estim Creat Clear Calc 93.2 Estimated GFR > 60 Random Glucose 96 Calcium 9.4 Magnesium 2.1 Total Bilirubin 0.5 Direct Bilirubin 0.2 AST 16 ALT 12 Alkaline Phosphatase 92 Troponin I High Sens 70.5 H* B-Natriuretic Peptide Total Protein 7.2 Albumin 4.4 TSH Free T4 COVID-19 (ELLE) COVID-19 [employer] Discharge Plan Discharge Patient Disposition: Home, Self-Care Discharge Diagnosis: htn urgency, new onset afib Referrals: Santos Otoole MD, DO [Primary Care Provider] - 1 Week Discharge Medications: New Eliquis 5 mg tablet 5 mg PO BID Qty: 60 RF: 0 diltiazem HCl [Cardizem CD] 120 mg Capsule,Extended Release 24hr 120 mg PO DAILY Qty: 30 RF: 0 Continued levothyroxine 75 mcg tablet 1 tab PO DAILY RF: 0 carbamazepine 200 mg tablet 1 tab PO BID RF: 0 pravastatin 20 mg tablet 1 tab PO DAILY RF: 0 atenolol 50 mg tablet 1 tab PO BID RF: 0 Discontinued aspirin 81 mg Capsule 81 mg PO DAILY RF: 0 Discharge Orders: Discharge Order (Routine); Ordered 07/10/21 Ordered By: Andree Batres Diet: advance to usual diet, low fat, low cholesterol and low salt diet Activity on Discharge: As tolerated Stand Alone Forms: Patient Portal Discharge page Care Plan Goals: Patient came to the hospital with new onset AFib with RVR, hypertension urgency- started on Cardizem drip and heart rate and blood pressure improved started on Eliquis /stop aspirin. Hypertension: Continue atenolol/ started on Cardizem CD. Please monitor BMP in 1 week with PCP outpatient. Health Concerns: As above. Plan of Treatment: Outpatient follow-up with primary care physician in [address] Brooke within 1-2 weeks Assessment: As above. Discharge Date/Time: 07/10/21 13:16
[2021-07-09] MEDS: hydroCHLOROthiazide 25 MG TABLET PO (13:51)
[2021-07-09] MEDS: Apixaban 5 MG TABLET PO (21:28)
[2021-07-09] MEDS: Pravastatin Sodium 20 MG TABLET PO (21:28)
[2021-07-09] MEDS: Acetaminophen 325 MG TABLET 650 MG PO (22:11)
[2021-07-10 04:00] VITALS: BP 152/94; O2SAT 95
[2021-07-10 04:06] VITALS: PULSE 64; RESP 20; TEMP 37
[2021-07-10 07:44] VITALS: BP 196/88; PULSE 58; RESP 20; TEMP 36.8; O2SAT 94
[2021-07-10 08:50] VITALS: BP 196/88; PULSE 65
[2021-07-10] MEDS: carBAMazepine 200 MG TABLET PO (08:50)
[2021-07-10] MEDS: atenoloL 50 MG TABLET PO (08:50)
[2021-07-10] MEDS: dilTIAZem HCL CD 120 MG CAP.ER.DEG PO (08:50)
[2021-07-10] MEDS: 0.9 % Sodium Chloride Flush 3 ML SYRINGE IVFLUSH (08:51)
[2021-07-10] MEDS: Apixaban 5 MG TABLET PO (08:51)
[2021-07-10 10:36] VITALS: BP 164/86
--- NOTE | 2021-07-10 11:53 | P.PNCA_ITS ---
Subjective Subjective Date of Service: 07/10/21 Principal diagnosis: atrial flutter, HTN urgency Interval history: cardiology follow up for the above. Seen at 1115. Today she reports feeling well and is hoping to go home. She denies any heart palpitations, chest discomfort or sob. No dizziness, presyncope, syncope, PND, orthopnea. Has chronic lower leg edema, L>R. No reports of bleeding. Does not believe she has any sleep apnea. Describes herself as healthy . Review of Systems Review of Systems as above Yes all other systems are reviewed and are negative Physical Exam Vital Signs: Last Vital Signs Temp 98.2 F 07/10/21 07:44 Pulse 65 07/10/21 08:50 Resp 20 07/10/21 07:44 BP 164/86 H 07/10/21 10:36 Pulse Ox 94 07/10/21 07:44 Body Mass Index 39.4 Const General: cooperative, healthy appearing, no acute distress, alert and awake Orientation/consciousness: patient oriented x3 Neck Neck: Yes normal visual inspection and Yes no JVD Resp Effort & Inspection: normal respiratory effort, able to speak in complete sentences and not labored Auscultation: clear to auscultation bilaterally, no rales, no rhonchi and no wheezes Cardio Palpation: normal PMI Rate: regular rate Rhythm: regular rhythm Heart sounds: S1 normal heart sound present and S2 normal heart sound present GI Inspection: Yes normal to inspection Neuro General: patient oriented x3 Extrem Other: nonpitting lower leg edema, left lower leg with discoloration, venous stasis changes from remote injury Results Labs and Meds Result diagrams: 07/09/21 06:42 07/09/21 06:42 Progress Note: A&P Assessment and plan (1) Atrial flutter: Status: Acute Assessment and Plan: Admit with palpitations and new finding of atrial flutter RVR. She was treated with IV diltiazem initially and converted to SR. She has remained in SB/ SR since then. Tele today shows SB 50-60s. Echo shows EF > 70%, LA mildly dilated, RA normal, mild . No reports of palpitation, dizziness. Has been started on Eliquis for anticoagulation. No reports of bleeding. Ambulating in room without symptoms. Continue on usual home Atenolol 50mg bid and the new Diltiazem CD 120mg daily. Continue Eliquis 5 mg bid. Troponin mildly elevated on admit, which could be related to demand from aflutter RVR. Will plan for outpt Pharmacological nuclear stress test to eval for any ischemia. Pt does not believe she has LEISA as her and her watch each other sleep , looking for apnea issues. Will hold on ordering outpt sleep study at present. Will arrange for cadiology follow up. She is requesting that her follow up be in 1 month. Reviewed diagnosis of aflutter, stroke risk, anticoagulation. ED care if needed for recurrent symptoms. (2) Palpitations: Status: Acute (3) Hypertensive urgency: Status: Acute Assessment and Plan: BP elevated this admit. Diltiazem has been added for heart rate control. Continues on home Atenolol. Plan was to start on HCTZ however she states she was on it in the past and it depleted her sodium. Kidney function is normal. Can start on low dose Avinash/ Arb unless known contraindication. Would then need BMP recheck in 5-7 days. (4) Elevated troponin: Status: Acute Fall Risk Details Current Medications: Current Medications Acetaminophen (Acetaminophen 325 Mg Tablet) 650 mg PO Q6H PRN PRN Reason: pain/fever Last Admin: 07/09/21 22:11 Dose: 650 mg Documented by: Apixaban (Apixaban 5 Mg Tablet) 5 mg PO BID [facility] Last Admin: 07/10/21 08:51 Dose: 5 mg Documented by: Atenolol (Atenolol 50 Mg Tablet) 50 mg PO BID [facility]; Protocol Last Admin: 07/10/21 08:50 Dose: 50 mg Documented by: Carbamazepine (Carbamazepine 200 Mg Tablet) 200 mg PO BID [facility] Last Admin: 07/10/21 08:50 Dose: 200 mg Documented by: Diltiazem HCl (Diltiazem Hcl Cd 120 Mg Cap.Er.Deg) 120 mg PO DAILY [facility]; Protocol Last Admin: 07/10/21 08:50 Dose: 120 mg Documented by: Levothyroxine Sodium (Levothyroxine Sodium 75 Mcg Tablet) 75 mcg PO DAILY [facility] Last Admin: 07/10/21 08:56 Dose: Not Given Documented by: Pravastatin Sodium (Pravastatin Sodium 20 Mg Tablet) 20 mg PO BEDTIME [facility] Last Admin: 07/09/21 21:28 Dose: 20 mg Documented by: Sodium Chloride (0.9 % Sodium Chloride Flush 3 Ml Syringe) 3 ml IVFLUSH QSHIFT [facility] Last Admin: 07/10/21 08:51 Dose: 3 ml Documented by: Time Spent With Patient Time: Total time spent is greater than 50% in coordination of care (as documented) at patient's floor/unit and/or counseling patient: Time with patient: 15 - 24 minutes Progress Note: Quality Stroke Does the patient have a stroke diagnosis?: No Procedures Date of Service Date of Service: 07/10/21
[2021-07-10 11:56] VITALS: BP 170/82; PULSE 55; RESP 20; TEMP 36.9; O2SAT 93
--- NOTE | 2021-07-10 12:04 | MHC.CM.PN ---
pt dcd home no skilled servceis ordered by
--- NOTE | 2021-07-10 14:12 | P.DS_ITS ---
DS: Providers Provider Date of Service: 07/10/21 Date of admission: 07/08/21 18:39 Primary care physician: Santos Otoole MD, DO Consults: 07/08/21 16:44 Consult to Cardiology Stat Consulting Provider: Valente Liu Reason for consultation: new onset aflutter Has provider been notified: Yes 07/08/21 18:19 Consult to Cardiology Routine Consulting Provider: Valente Liu Reason for consultation: new onset afib Has provider been notified: No DS: Diagnosis Discharge Diagnosis (1) Atrial flutter: Status: Acute (2) Palpitations: Status: Acute (3) Hypertensive urgency: Status: Acute (4) Elevated troponin: Status: Acute DS: Summary Hospital Course Hospital Course: 70-year-old female 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 She denies any feeling of palpitation before in her life. She feels stressed out since she came to the hospital Denies any new complaint of chest pain or shortness of breath or abdominal pain or fever or chills or nausea or vomiting Has some dry cough cough Denies any weakness or numbness or lightheadedness. Hospital course: Patient came to the hospital with new onset AFib with RVR, hypertension urgency- started on Cardizem drip ,heart rate and blood pressure improved,Elevated troponin thought to be related to AFib and uncontrolled hypertension. Echo showed stable EF greater than 70%, mild aortic stenosis, no evidence of wall motion abnormality noted, since patient chads vascular score is 3 she has been started on Eliquis and aspirin has been discontinued, due to elevated blood pressure Cardizem CD 120 mg has been added, previously patient was on hydrochlorothiazide but due to hyponatremia that was discontinued, patient will require close outpatient blood pressure monitoring therefore recommend close outpatient Cardiology follow-up. TSH within normal range. In regard to smoking she has been strongly recommend to abstain from smoking, Time Spent with Patient Time attestation: Total time spent providing and/or coordinating discharge services: Discharge coordination time: Greater than 30 minutes Quality: Stroke Does the patient have a stroke diagnosis?: No Physical Exam Vital Signs: Vital Signs: Last Vital Signs Temp 98.4 F 07/10/21 11:56 Pulse 55 07/10/21 11:56 Resp 20 07/10/21 11:56 BP 170/82 H 07/10/21 11:56 Pulse Ox 93 07/10/21 11:56 Body Mass Index 39.4 General alert oriented x3,no acute distress. Neck is supple no JVD. CVS regular rate rhythm, Respiratory lungs clear to auscultation, no respiratory distress, no wheeze, no rhonchi. Gastrointestinal abdomen soft, nontender, bowel sounds audible, no guarding , no rigidity. Extremities no clubbing cyanosis or edema. Neuro nonfocal , speech clear. Skin no rash Psych appropriate affect Discharge Plan Discharge Patient Disposition: Home, Self-Care Discharge Diagnosis: htn urgency, new onset afib Referrals: Santos Otoole MD, DO [Primary Care Provider] - 1 Week Discharge Medications: New Eliquis 5 mg tablet 5 mg PO BID Qty: 60 RF: 0 diltiazem HCl [Cardizem CD] 120 mg Capsule,Extended Release 24hr 120 mg PO DAILY Qty: 30 RF: 0 Continued levothyroxine 75 mcg tablet 1 tab PO DAILY RF: 0 carbamazepine 200 mg tablet 1 tab PO BID RF: 0 pravastatin 20 mg tablet 1 tab PO DAILY RF: 0 atenolol 50 mg tablet 1 tab PO BID RF: 0 Discontinued aspirin 81 mg Capsule 81 mg PO DAILY RF: 0 Discharge Orders: Discharge Order (Routine); Ordered 07/10/21 Ordered By: Andree Batres Diet: advance to usual diet, low fat, low cholesterol and low salt diet Activity on Discharge: As tolerated Stand Alone Forms: Patient Portal Discharge page Care Plan Goals: Patient came to the hospital with new onset AFib with RVR, hypertension urgency- started on Cardizem drip and heart rate and blood pressure improved started on Eliquis /stop aspirin. Hypertension: Continue atenolol/ started on Cardizem CD. Please monitor BMP in 1 week with PCP outpatient. Health Concerns: As above. Plan of Treatment: Outpatient follow-up with primary care physician in 1 week and medical sales associate Dr. Edwardo within 1-2 weeks Assessment: As above. Discharge Date/Time: 07/10/21 13:16
== END 2021-07-10 13:16 | disposition home or self-care (01) | DRG 310 ==
LOC: HO.ED 17:37 → HO.EDOVER 18:55 → HO.IMC 20:03
PROVIDERS: Internal Medicine; Physician Assistant; Admitting Provider Internal Medicine; Emergency Provider Emergency Medicine; PCP Internal Medicine; Visit Provider Hospitalist
DX: I48.92 Unspecified atrial flutter (principal); E03.9 Hypothyroidism, unspecified; I16.0 Hypertensive urgency; F41.9 Anxiety disorder, unspecified; D72.829 Elevated white blood cell count, unspecified; G50.0 Trigeminal neuralgia; R79.89 Other specified abnormal findings of blood chemistry; F17.210 Nicotine dependence, cigarettes, uncomplicated; Z20.822 Contact with and (suspected) exposure to COVID-19; Z71.6 Tobacco abuse counseling; Z79.01 Long term (current) use of anticoagulants; Z79.890 Hormone replacement therapy; Z79.899 Other long term (current) drug therapy
CPT/HCPCS: 36415; 71045; 80048; 80076; 83735; 83880; 84439; 84443; 84484; 85025; 85027; 87635; 93005; 93306; 99285; J1650; J3475

== ENCOUNTER → 2021-07-27 09:20 | Outpatient (REF) | payer MEDICARE, SELFPAY ==
--- NOTE | ~2021-07-27 | NM_ITS ---
Myocardial perfusion study Indication: Atrial fibrillation to evaluate for myocardial ischemia Technique: The patient was brought in for a Lexiscan perfusion study on 07/27/2021. Patient performed low-level exercise and was injected 0.4 mg of Lexiscan intravenously. Within a minute of injection, 35 mCi of sestamibi was given intravenously. Images were obtained using the SPECT gamma camera interlaced with the gating device. Images were obtained in supine position. Resting perfusion study was performed on 07/30/2021. Patient was administered 35 mCi of sestamibi intravenously at rest. Images were then obtained in supine position. Images obtained with and without CT attenuation. Total DLP 132 mGy-cm. Images were processed with the software and compared side to side in short axis, horizontal long axis and vertical long axis views. Findings: The stress perfusion study showed nonattenuated images show minimal thinning of the distal anterior wall of the LV myocardium. Remainder of the LV myocardium is normally perfused. Attenuation corrected images show mildly reduced uptake in the distal septum and apex of the LV myocardium.. The gated study shows normal LV systolic function with calculated LVEF of 66%. LV cavity is normal in size. The gated study shows normal systolic wall thickening and contraction of segments. Resting study shows no change in perfusion pattern compared to stress perfusion study. Gating at rest reveals normal systolic wall motion with ejection fraction at 64%. The findings are consistent with normal myocardial perfusion. NM/NM jammie perf SPECT rest & str Impression: 1. Myocardial perfusion imaging study shows normal myocardial perfusion 2. Gated LVEF is 66% 3. Transient ischemic dilatation not present EKG is nondiagnostic for ischemia
--- NOTE | 2021-07-27 09:24 | CA_ITS ---
Acquisition Time: 2021-07-27 09:31:39 Total Exercise Time: 00:02:00 Test Indications: I48.92, R77.8 Medications: SEE CHART Protocol: LEXISCAN Max HR: 090 BPM 59% of Pred: 151 BPM Max BP: 140/088 mmHG Max Work Load: 1.0 METS Pharmacological stress test with Lexiscan injection, while sitting and kicking her legs, without anginal symptoms, without arrythmia, with normotensive response to injection, with nondiagnostic EKG for ischemia. Nuclear images pending. Test reviewed with Dr Liu. Referred By: Lisa Castrejon Overread By: LISA CASTREJON
== END ==
LOC: HO.CARD 09:20
PROVIDERS: PCP Internal Medicine; Visit Provider Nurse Practitioner Family
DX: R77.8 Other specified abnormalities of plasma proteins (principal); I48.92 Unspecified atrial flutter
CPT/HCPCS: 78452; 93017; A9500; J0280; J2785

== ENCOUNTER 2021-08-03 07:49 | Outpatient (REF) | payer MEDICARE, SELFPAY ==
[2021-08-03 11:28] LABS: MANUAL DIFF FLAG NO
[2021-08-03 11:34] LABS: Basophils Absolute Auto 0.1 X10*3/uL (0.0-0.2); Basophils Percent Auto 0.6 % (0-2); Eosinophils Absolute Auto 0.1 X10*3/uL (0.0-0.4); Eosinophils Percent Auto 1.7 % (0-4); Hematocrit 44.6 % (37.0-47.0); Hemoglobin 14.8 g/dl (12.0-16.0); Imm Gran Abs Auto 0.07 X10*3/uL (0.00-0.03); Imm Gran Pct Auto 0.8 % (0.0-0.4); Lymphocytes Absolute Auto 2.1 X10*3/uL (1.2-4.9); Lymphocytes Percent Auto 25.4 % (20-40); Mean Corpuscular HGB Conc 33.2 g/dl (31.0-35.0); Mean Corpuscular Hemoglobin 30.3 pg (27.0-33.0); Mean Corpuscular Volume 91.2 fL (80.0-98.0); Mean Platelet Volume 9.6 fL (9.4-12.3); Monocytes Absolute Auto 0.5 X10*3/uL (0.1-1.2); Monocytes Percent Auto 5.9 % (2-11); Neutrophils Absolute Auto 5.5 x10*3/uL (2.0-8.3); Neutrophils Percent Auto 65.6 % (45-73); Platelet Count 310 X10*3/uL (160-400); Red Blood Count 4.89 X10*6/uL (4.20-5.50); Red Cell Distribution Width 13.2 % (11.0-16.0); White Blood Count 8.4 X10*3/uL (4.8-10.8)
[2021-08-03 11:58] LABS: Alanine Aminotransferase 12 U/L (0-31); Albumin Level 4.6 g/dL (3.5-5.0); Alkaline Phosphatase 99 U/L (39-117); Anion Gap 15 (12-20); Aspartate Amino Transferase 16 U/L (5-31); Bilirubin Total 0.4 mg/dL (0.0-1.0); Blood Urea Nitrogen 7 mg/dL (9-16); Calcium 9.3 mg/dL (8.4-10.2); Carbon Dioxide 26 mmol/L (22-29); Chloride 99 mmol/L (96-108); Cholesterol 224 mg/dL; Estimated Glomerular Filt Rate > 60; Glucose Fasting 97 mg/dL (60-99); HDL Cholesterol 44 mg/dL; LDL Cholesterol Calculated 141 mg/dl; Potassium 4.2 mmol/L (3.3-5.1); Sodium 136 mmol/L (135-145); Total Protein 7.8 g/dL (6.5-8.0); Triglycerides 198 mg/dL
[2021-08-03 12:21] LABS: Thyroid Stimulating Hormone 7.87 uIU/mL (0.32-4.0)
== END 2021-08-03 07:50 | disposition home or self-care (01) ==
LOC: HO.HMGCLDS 07:49
PROVIDERS: PCP Internal Medicine; Visit Provider Internal Medicine
DX: I48.3 Typical atrial flutter (principal); I10 Essential (primary) hypertension; E03.9 Hypothyroidism, unspecified; E78.00 Pure hypercholesterolemia, unspecified
CPT/HCPCS: 36415; 80053; 80061; 84443; 85025

== ENCOUNTER 2021-10-25 12:36 | Outpatient (RCR) | payer MEDICARE, SELFPAY | END 2021-11-08 15:00 | disposition home or self-care (01) | LOC: HO.WCC 12:36 | PROVIDERS: PCP Internal Medicine; Visit Provider Surgery | DX: I87.312 Chronic venous hypertension (idiopathic) with ulcer of left lower extremity (principal); L97.822 Non-pressure chronic ulcer of other part of left lower leg with fat layer exposed; I73.9 Peripheral vascular disease, unspecified; I48.91 Unspecified atrial fibrillation; J40 Bronchitis, not specified as acute or chronic; F17.210 Nicotine dependence, cigarettes, uncomplicated; Z79.899 Other long term (current) drug therapy | CPT/HCPCS: 29581; 99212 ==

== ENCOUNTER 2021-11-19 07:47 | Outpatient (REF) | payer MEDICARE, SELFPAY ==
[2021-11-19 12:08] LABS: Cholesterol 201 mg/dL; HDL Cholesterol 42 mg/dL; LDL Cholesterol Calculated 120 mg/dl; Triglycerides 195 mg/dL
[2021-11-19 12:37] LABS: Thyroid Stimulating Hormone 7.22 uIU/mL (0.32-4.0)
== END 2021-11-19 07:48 | disposition home or self-care (01) ==
LOC: HO.HMGCLDS 07:47
PROVIDERS: Visit Provider Internal Medicine
DX: I48.3 Typical atrial flutter (principal); I10 Essential (primary) hypertension; E78.00 Pure hypercholesterolemia, unspecified; E03.9 Hypothyroidism, unspecified; E66.01 Morbid (severe) obesity due to excess calories
CPT/HCPCS: 36415; 80061; 84443

== ENCOUNTER → 2021-12-17 12:24 | Outpatient (BNVA) | payer MEDICARE, SELFPAY | PROVIDERS: PCP Internal Medicine; Visit Provider Internal Medicine Cardiovascular Disease | DX: I48.92 Unspecified atrial flutter (principal); I10 Essential (primary) hypertension | CPT/HCPCS: 99212 ==

== ENCOUNTER 2021-12-25 09:22 | Outpatient (REF) | payer MEDICARE, SELFPAY ==
[2021-12-25 11:53] LABS: Anion Gap 13 (12-20); Blood Urea Nitrogen 14 mg/dL (9-16); Calcium 9.9 mg/dL (8.4-10.2); Carbon Dioxide 28 mmol/L (22-29); Chloride 90 mmol/L (96-108); Estimated Glomerular Filt Rate > 60; Glucose Random 114 mg/dL (60-115); Potassium 3.9 mmol/L (3.3-5.1); Sodium 127 mmol/L (135-145)
== END 2021-12-25 09:23 | disposition home or self-care (01) ==
LOC: HO.HMGCLDS 09:22
PROVIDERS: Visit Provider Internal Medicine
DX: I10 Essential (primary) hypertension (principal)
CPT/HCPCS: 36415; 80048

== ENCOUNTER → 2022-03-25 10:51 | Outpatient (BNVA) | payer MEDICARE, SELFPAY | PROVIDERS: PCP Internal Medicine; Referring Provider Internal Medicine; Visit Provider Internal Medicine Cardiovascular Disease | DX: I10 Essential (primary) hypertension (principal); I48.92 Unspecified atrial flutter; Z79.899 Other long term (current) drug therapy | CPT/HCPCS: 93005; 99212 ==

== ENCOUNTER 2022-05-13 08:27 | Outpatient (REF) | payer MEDICARE, SELFPAY ==
[2022-05-13 12:02] LABS: Alanine Aminotransferase 16 U/L (0-31); Albumin Level 4.8 g/dL (3.5-5.0); Alkaline Phosphatase 84 U/L (39-117); Anion Gap 17 (12-20); Aspartate Amino Transferase 21 U/L (5-31); Bilirubin Total 0.5 mg/dL (0.0-1.0); Blood Urea Nitrogen 10 mg/dL (9-16); Calcium 9.5 mg/dL (8.4-10.2); Carbon Dioxide 26 mmol/L (22-29); Chloride 89 mmol/L (96-108); Cholesterol 186 mg/dL; Estimated Glomerular Filt Rate > 60; Glucose Fasting 114 mg/dL (60-99); HDL Cholesterol 50 mg/dL; LDL Cholesterol Calculated 108 mg/dl; Potassium 4.1 mmol/L (3.3-5.1); Sodium 128 mmol/L (135-145); Total Protein 7.9 g/dL (6.5-8.0); Triglycerides 141 mg/dL
[2022-05-13 12:25] LABS: Thyroid Stimulating Hormone 8.87 uIU/mL (0.32-4.0); Vitamin D 25-OH Total 90.9 ng/mL (>30)
== END 2022-05-13 08:28 | disposition home or self-care (01) ==
LOC: HO.HMGCLDS 08:27
PROVIDERS: PCP Internal Medicine; Visit Provider Internal Medicine
DX: I10 Essential (primary) hypertension (principal); I48.3 Typical atrial flutter; E78.00 Pure hypercholesterolemia, unspecified; E03.9 Hypothyroidism, unspecified; E66.01 Morbid (severe) obesity due to excess calories; F41.9 Anxiety disorder, unspecified
CPT/HCPCS: 36415; 80053; 80061; 82306; 84443

== ENCOUNTER 2022-06-06 15:38 | Outpatient (REF) | payer MEDICARE, SELFPAY ==
--- NOTE | ~2022-06-06 | XR_ITS ---
EXAMINATION: XR CHEST CLINICAL INFORMATION: Atrial flutter COMPARISON: 07/08/2021 TECHNIQUE: 2 views of the chest were obtained. FINDINGS: Linear density in the right midlung radiating to the hilum is likely a small area of atelectasis. Right hilum is mildly prominent. Lung huizar are otherwise stable. Density at the medial left base was present previously. No convincing evidence for an acute process otherwise. The cardiac silhouette is within normal limits. XR/XR chest 2V IMPRESSION: No failure or effusion. Some linear change in the right midlung radiating to the hilum may represent a small area of atelectasis. The right hilum is mildly prominent. I would recommend a follow-up film after treatment to assess for resolution and establish this patient's baseline. There is no effusion.
== END 2022-06-06 15:39 | disposition home or self-care (01) ==
LOC: HO.HMGCX 15:38
PROVIDERS: PCP Internal Medicine; Visit Provider Internal Medicine
DX: I48.3 Typical atrial flutter (principal)
CPT/HCPCS: 71046

== ENCOUNTER → 2022-06-10 10:06 | Outpatient (REF) | payer MEDICARE, SELFPAY ==
--- NOTE | 2022-06-10 10:09 | CA_ITS ---
Transthoracic Echocardiogram Patient (Last, First, Middle): Mary Beth Ware C Gender: Female Date of : 1950 Age: 71 Procedure Date: 06/10/2022 Procedure Type: Transthoracic Echocardiogram Location: OP Height: 162.56 cm Weight: 108.86 kg BSA: 2.11 m2 Heart Rate: 74 bpm BP: 154 / 80 mmHg Data Management Specialist: SB Referring MD: Santos Otoole DO Symptoms: TYPICAL ATRIAL FLUTTER Study Quality: Fair, patient declined Definity. ECG Rhythm: Sinus Conclusions: - The left ventricular systolic function is normal. The calculated ejection fraction is 65% by biplane method. - There is mild calcification of the aortic valve. - There is moderate mitral annular calcification. Findings Left Ventricle Normal left ventricular cavity size. There is normal left ventricular wall thickness. The left ventricular systolic function is normal. The calculated ejection fraction is 65% by biplane method. There is no evidence of regional wall motion abnormalities. E/E prime ratio is >15, consistent with elevated filling pressures. Evidence suggests grade I (mild) diastolic dysfunction. Right Ventricle Normal right ventricular cavity size and systolic function. Atria Both atria are normal in size. Aortic Valve There is a normal trileaflet aortic valve. There is mild calcification of the aortic valve. There is no aortic valve stenosis. There is no aortic valve regurgitation. Mitral Valve There is moderate mitral annular calcification. There is no mitral valve regurgitation. There is no mitral valve stenosis. Pulmonic Valve The pulmonic valve is likely normal. Tricuspid Valve There is trace tricuspid valve regurgitation. There is no evidence of pulmonary hypertension. Great Vessels The aortic annulus, sinuses of valsalva, and asc aorta are normal in size. Venous The inferior vena cava is normal in size and collapses greater than 50% with inspiration. Pericardium/Pleural There is no evidence of pericardial effusion. Prior Study Comparison No significant change compared to prior study dated: 07/09/2021. Measurements 2D Linear Measurements IVSd: 0.91 0.6-0.9/0.6-1.0 cm LVIDd: 5.15 3.9-5.3/4.2-5.9 cm LVIDd Index: 2.44 2.4-3.2/2.2-3.1 cm/m2 LVIDs: 3.57 2.0-3.6 cm LVPWd: 0.82 0.7-1.1 cm LA Diam: 4.00 2.7-3.8/3.0-4.0 cm LAIDs Index: 1.90 1.5-2.3 cm/m2 LV Mass: 196.78 67-162/88-224 g LV Mass Index: 93.26 43-95/49-115 g/m2 LVOT Diam: 2.10 3.0+(-)1.3 cm 2D Systolic Function EF 4C: 63.90 >55% EF 2C: 64.10 >55% EF BiP: 64.90 >55% Mitral Valve MV Pk E: 1.18 MV PK A: 1.32 MV Decel Time: 337.00 E/A: 0.90 E'Lateral: 6.53 E'Medial: 5.77 E/E' Med: 20.50 E/E' Lat: 18.10 PHT: 99.00 MVA PHT: 2.22 Decel Addison: 3.51 Aortic Valve AoV Pk Lennox: 2.22 AoV Mn Lennox: 1.55 AoV VTI: 0.45 AoV Pk Grad: 20.00 Aov Mn Grad: 11.00 WEN Cont.VTI: 2.83 LVOT LVOT Pk Lennox: 1.70 LVOT Mn Lennox: 1.16 LVOT VTI: 0.37 LVOT Pk Grad: 12.00 LVOT Mn Grad: 6.00 LVOT Diam: 2.10 LVOT Area: 3.46 Diastolic Function MV Pk E: 1.18 MV Pk A: 1.32 E/A: 0.90 E'Medial: 5.77 E/E' Med: 20.50 E' Laterial: 6.53 E/E' Lat: 18.10 Right Ventricle TAPSE (mm): 27.70 TVS' Lennox: 15.20 Tricuspid Valve RA Press: 3.00 Great Vessels Aorta Sinus of Valsalva: 3.00 2.0-3.5 cm Ao Asc: 3.10 2.1-3.4 cm Pulmonary Veins Pulm Vein S/D 1.70 Pulmonary Valve PV Pk Lennox: 1.26 Peak PV Grad: 6.00 Updated in Other Vendor System with Status of Final Valente Liu MD electronically signed on 06/10/2022 4:08:38 PM with status of Final
--- NOTE | 2022-06-10 10:10 | ECG_ITS ---
Test Reason : atrial flutter Blood Pressure : / mmHG Vent. Rate : 076 BPM Atrial Rate : 076 BPM P-R Int : 242 ms QRS Dur : 118 ms QT Int : 402 ms P-R-T Axes : 073 030 047 degrees QTc Int : 452 ms Sinus rhythm with 1st degree A-V block Non-specific intra-ventricular conduction delay Minimal voltage criteria for LVH, may be normal variant ( Dragan product ) Borderline ECG When compared with ECG of 08-JUL-2021 21:17, No significant change was found Referred By: Santos Otoole Electronically Signed By:SANTOS FLOYD
== END ==
LOC: HO.CARD 10:06
PROVIDERS: PCP Internal Medicine; Visit Provider Internal Medicine
DX: I48.3 Typical atrial flutter (principal)
CPT/HCPCS: 93005; 93306

== ENCOUNTER 2022-08-13 08:45 | Outpatient (REF) | payer MEDICARE, SELFPAY ==
--- NOTE | ~2022-08-13 | XR_ITS ---
EXAMINATION: XR CHEST CLINICAL INFORMATION: Typical atrial flutter. COMPARISON: Chest 06/06/2022 TECHNIQUE: 2 views of the chest were obtained. FINDINGS: The lungs are expanded with left lower lobe posterior basilar segment atelectasis. Heart size and perivascular is normal. No gross bony or the body seen. XR/XR chest 2V IMPRESSION: Chronic left basilar atelectasis and/or scarring. No acute pneumonic process seen.
[2022-08-13 11:36] LABS: MANUAL DIFF FLAG NO
[2022-08-13 11:59] LABS: Basophils Absolute Auto 0.1 X10*3/uL (0.0-0.2); Basophils Percent Auto 0.4 % (0-2); Eosinophils Absolute Auto 0.1 X10*3/uL (0.0-0.4); Eosinophils Percent Auto 0.7 % (0-4); Hemoglobin 13.5 g/dl (12.0-16.0); Imm Gran Abs Auto 0.26 X10*3/uL (0.00-0.03); Imm Gran Pct Auto 1.9 % (0.0-0.4); Lymphocytes Absolute Auto 2.3 X10*3/uL (1.2-4.9); Lymphocytes Percent Auto 16.8 % (20-40); Mean Corpuscular HGB Conc 33.8 g/dl (31.0-35.0); Mean Corpuscular Volume 88.9 fL (80.0-98.0); Mean Platelet Volume 9.2 fL (9.4-12.3); Monocytes Absolute Auto 0.7 X10*3/uL (0.1-1.2); Monocytes Percent Auto 5.4 % (2-11); Neutrophils Absolute Auto 10.3 x10*3/uL (2.0-8.3); Neutrophils Percent Auto 74.8 % (45-73); Platelet Count 420 X10*3/uL (160-400); Red Cell Distribution Width 12.9 % (11.0-16.0); White Blood Count 13.7 X10*3/uL (4.8-10.8)
[2022-08-13 12:27] LABS: Alanine Aminotransferase 16 U/L (0-31); Albumin Level 4.9 g/dL (3.5-5.0); Alkaline Phosphatase 91 U/L (39-117); Anion Gap 18 (12-20); Aspartate Amino Transferase 22 U/L (5-31); Bilirubin Total 0.5 mg/dL (0.0-1.0); Blood Urea Nitrogen 11 mg/dL (9-16); Calcium 9.9 mg/dL (8.4-10.2); Carbon Dioxide 25 mmol/L (22-29); Chloride 88 mmol/L (96-108); Estimated Glomerular Filt Rate > 60; Glucose Fasting 139 mg/dL (60-99); Potassium 3.9 mmol/L (3.3-5.1); Sodium 127 mmol/L (135-145); Total Protein 8.3 g/dL (6.5-8.0)
== END 2022-08-13 08:46 | disposition home or self-care (01) ==
LOC: HO.HMGCX 08:45
PROVIDERS: PCP Internal Medicine; Visit Provider Internal Medicine
DX: I10 Essential (primary) hypertension (principal); I48.3 Typical atrial flutter; E03.9 Hypothyroidism, unspecified
CPT/HCPCS: 36415; 71046; 80053; 84443; 85025

== ENCOUNTER 2022-11-14 10:41 | Outpatient (REF) | payer MEDICARE, SELFPAY ==
[2022-11-14 13:56] LABS: MANUAL DIFF FLAG NO
[2022-11-14 14:26] LABS: Basophils Absolute Auto 0.1 X10*3/uL (0.0-0.2); Basophils Percent Auto 0.7 % (0-2); Eosinophils Absolute Auto 0.2 X10*3/uL (0.0-0.4); Eosinophils Percent Auto 1.6 % (0-4); Hematocrit 39.7 % (37.0-47.0); Hemoglobin 13.1 g/dl (12.0-16.0); Imm Gran Abs Auto 0.13 X10*3/uL (0.00-0.03); Imm Gran Pct Auto 1.2 % (0.0-0.4); Lymphocytes Absolute Auto 2.7 X10*3/uL (1.2-4.9); Lymphocytes Percent Auto 25.5 % (20-40); Mean Corpuscular Volume 87.8 fL (80.0-98.0); Mean Platelet Volume 9.3 fL (9.4-12.3); Monocytes Absolute Auto 0.7 X10*3/uL (0.1-1.2); Monocytes Percent Auto 6.6 % (2-11); Neutrophils Absolute Auto 6.9 x10*3/uL (2.0-8.3); Neutrophils Percent Auto 64.4 % (45-73); Platelet Count 363 X10*3/uL (160-400); Red Blood Count 4.52 X10*6/uL (4.20-5.50); Red Cell Distribution Width 13.3 % (11.0-16.0); White Blood Count 10.7 X10*3/uL (4.8-10.8)
[2022-11-14 14:39] LABS: Alanine Aminotransferase 15 U/L (0-31); Albumin Level 4.6 g/dL (3.5-5.0); Alkaline Phosphatase 65 U/L (39-117); Anion Gap 15 (12-20); Aspartate Amino Transferase 20 U/L (5-31); Bilirubin Total 0.3 mg/dL (0.0-1.0); Blood Urea Nitrogen 13 mg/dL (9-16); C Reactive Protein 1.11 mg/dL (< or = 0.50); Calcium 9.5 mg/dL (8.4-10.2); Carbon Dioxide 26 mmol/L (22-29); Chloride 92 mmol/L (96-108); Estimated Glomerular Filt Rate > 60; Glucose Random 118 mg/dL (60-115); Potassium 3.8 mmol/L (3.3-5.1); Sodium 129 mmol/L (135-145); Total Protein 7.8 g/dL (6.5-8.0)
[2022-11-14 14:57] LABS: Thyroid Stimulating Hormone 8.99 uIU/mL (0.32-4.0)
[2022-11-14 15:31] LABS: Erythrocyte Sedimentation Rate 14 MM/HR (0-20)
== END 2022-11-14 10:42 | disposition home or self-care (01) ==
LOC: HO.HMGCLDS 10:41
PROVIDERS: PCP Internal Medicine; Visit Provider Internal Medicine
DX: I10 Essential (primary) hypertension (principal); E78.00 Pure hypercholesterolemia, unspecified; E03.9 Hypothyroidism, unspecified; I48.3 Typical atrial flutter; F41.9 Anxiety disorder, unspecified; D72.829 Elevated white blood cell count, unspecified
CPT/HCPCS: 36415; 80053; 84443; 85025; 85652; 86140

== ENCOUNTER → 2022-12-19 13:25 | Outpatient (BNVA) | payer MEDICARE, SELFPAY | PROVIDERS: PCP Internal Medicine; Referring Provider Internal Medicine; Visit Provider Nurse Practitioner Family | DX: I48.92 Unspecified atrial flutter (principal); I35.0 Nonrheumatic aortic (valve) stenosis; I10 Essential (primary) hypertension | CPT/HCPCS: 93005; 99212 ==

== ENCOUNTER 2023-01-09 12:41 | Outpatient (RCR) | payer MEDICARE, SELFPAY | END 2023-03-28 09:34 | disposition home or self-care (01) | LOC: HO.WCC 12:41 | PROVIDERS: PCP Internal Medicine; Visit Provider Surgery | DX: Z09 Encounter for follow-up examination after completed treatment for conditions other than malignant neoplasm (principal); I87.302 Chronic venous hypertension (idiopathic) without complications of left lower extremity; Q82.0 Hereditary lymphedema; I73.9 Peripheral vascular disease, unspecified; I48.91 Unspecified atrial fibrillation; Z79.899 Other long term (current) drug therapy; Z87.891 Personal history of nicotine dependence; Z87.2 Personal history of diseases of the skin and subcutaneous tissue | CPT/HCPCS: 11042; 11045; 97597; 99212 ==

== ENCOUNTER 2023-02-15 11:27 | Outpatient (REF) | payer MEDICARE, SELFPAY ==
[2023-02-15 13:56] LABS: Alanine Aminotransferase 15 U/L (0-31); Albumin Level 4.5 g/dL (3.5-5.0); Alkaline Phosphatase 73 U/L (39-117); Anion Gap 17 (12-20); Aspartate Amino Transferase 21 U/L (5-31); Bilirubin Total 0.4 mg/dL (0.0-1.0); Blood Urea Nitrogen 12 mg/dL (9-16); Calcium 9.8 mg/dL (8.4-10.2); Carbon Dioxide 25 mmol/L (22-29); Chloride 93 mmol/L (96-108); Estimated Glomerular Filt Rate > 60; Glucose Random 162 mg/dL (60-115); Potassium 3.9 mmol/L (3.3-5.1); Sodium 131 mmol/L (135-145); Total Protein 7.8 g/dL (6.5-8.0)
[2023-02-15 14:12] LABS: Thyroid Stimulating Hormone 8.52 uIU/mL (0.32-4.0)
== END 2023-02-15 11:28 | disposition home or self-care (01) ==
LOC: HO.HMGCLDS 11:27
PROVIDERS: PCP Internal Medicine; Visit Provider Internal Medicine
DX: I10 Essential (primary) hypertension (principal); E03.9 Hypothyroidism, unspecified
CPT/HCPCS: 36415; 80053; 84443

== ENCOUNTER 2023-05-06 09:46 | Outpatient (REF) | payer MEDICARE, SELFPAY ==
--- NOTE | ~2023-05-06 | XR_ITS ---
EXAMINATION: XR CHEST CLINICAL INFORMATION: Dyspnea on exertion. COMPARISON: 08/13/2022 chest radiographs. TECHNIQUE: 2 views of the chest were obtained. FINDINGS: Increased markings are seen in the left infrahilar region. The right lung is clear. There are no pleural effusions. The heart and mediastinal structures are unremarkable. XR/XR chest 2V IMPRESSION: Increased markings in the left infrahilar region appear increased from the 2021 study. This could be projectional however increased atelectasis/infiltrate cannot be excluded. Short-term PA and lateral views of the chest are recommended in one month to reassess these findings for change.
== END 2023-05-06 09:47 | disposition home or self-care (01) ==
LOC: HO.HMGCX 09:46
PROVIDERS: PCP Internal Medicine; Visit Provider Internal Medicine
DX: R06.09 Other forms of dyspnea (principal)
CPT/HCPCS: 71046

== ENCOUNTER 2023-08-14 13:42 | Outpatient (REF) | payer MEDICARE, SELFPAY ==
--- NOTE | 2023-08-14 14:00 | PFT_ITS ---
Indication: Dyspnea Spirometry [FEV1 to FVC 64% predicted; FEV1 0.99 L which is 104% predicted; FVC 1.5 L which is 102% predicted. No significant response to bronchodilators noted. Maximum voluntary ventilation 52% predicted.] Lung Volumes [Total lung capacity 66% predicted; expiratory reserve volume 22% predicted. Patient noted to have an elevated BMI] Diffusion Capacity [DLCO 61% predicted] Comparisons [None] Interpretation [There is an obstructive ventilatory defect consistent mild COPD. No significant response to bronchodilators noted. There is a moderate decrease in the maximum voluntary ventilation secondary to likely deconditioning. The patient also has a restrictive ventilatory defect consistent moderate restrictive lung disease. Need to consider underlying neuromuscular conditions and or parenchymal lung disease. Although he has a significantly decreased expiratory reserve volume a likely his elevated BMI is contributing to some degree of his restriction. The patient does have a mild diffusion impairment, but, it does correct to normal when corrected for potential hypo-expansion of the lungs. Clinical correlation warranted.] MTDD
--- NOTE | 2023-08-14 15:39 | PFT_ITS ---
Spirometry [] Lung Volumes [] Diffusion Capacity [] Methacholine Challenge [] Flow Volume Loops [] MVV [] MIP/MEP(Max inspiratory pressure/Max expiratory pressure) [] 6 Minute Walk Test [] ABG [] Interpretation [] MTDD
== END 2023-08-14 13:43 | disposition home or self-care (01) ==
LOC: HO.RESP 13:42
PROVIDERS: PCP Internal Medicine; Visit Provider Internal Medicine
DX: R06.09 Other forms of dyspnea (principal)
CPT/HCPCS: 94010; 94727; 94729

== ENCOUNTER 2023-08-25 12:01 | Emergency (ER) | payer MEDICARE, SELFPAY ==
--- NOTE | ~2023-08-25 | XR_ITS ---
EXAMINATION: X-ray left shoulder X-ray left humerus X-ray left elbow CLINICAL INFORMATION: Injury COMPARISON: None TECHNIQUE: Shoulder 3 views. Humerus 2 views. Elbow 3 views. FINDINGS: Left shoulder: Mild acromioclavicular arthritis. Slight inferior subluxation of the humeral head with respect to the glenoid. This could reflect sequela of intra-articular derangement/soft tissue injury or joint effusion. There is apparent bony irregularity and cortical disruption of the inferior glenoid, concerning for a glenoid fracture. Subcortical cysts and sclerosis in the greater tuberosity, could reflect degenerative changes. Left clavicle appears intact. No acute displaced rib fracture is identified. Left humerus: No evidence of acute humeral fracture or malalignment. Greater tuberosity subcortical cyst/sclerosis. Left elbow: Anatomic alignment. No acute fracture or dislocation is identified. No significant joint effusion is seen. Medial humeral epicondyle spurring. XR/XR humerus LT IMPRESSION: Left shoulder: *Findings suspicious for a fracture. Further evaluation with CT scan, as clinically indicated. *Inferior subluxation of the humeral head, could reflect joint effusion, soft tissue injury/derangement. Left humerus: No radiographic evidence of acute fracture or malalignment. Left elbow: No radiographic evidence of acute fracture or dislocation.
--- NOTE | ~2023-08-25 | XR_ITS ---
EXAMINATION: X-ray left shoulder X-ray left humerus X-ray left elbow CLINICAL INFORMATION: Injury COMPARISON: None TECHNIQUE: Shoulder 3 views. Humerus 2 views. Elbow 3 views. FINDINGS: Left shoulder: Mild acromioclavicular arthritis. Slight inferior subluxation of the humeral head with respect to the glenoid. This could reflect sequela of intra-articular derangement/soft tissue injury or joint effusion. There is apparent bony irregularity and cortical disruption of the inferior glenoid, concerning for a glenoid fracture. Subcortical cysts and sclerosis in the greater tuberosity, could reflect degenerative changes. Left clavicle appears intact. No acute displaced rib fracture is identified. Left humerus: No evidence of acute humeral fracture or malalignment. Greater tuberosity subcortical cyst/sclerosis. Left elbow: Anatomic alignment. No acute fracture or dislocation is identified. No significant joint effusion is seen. Medial humeral epicondyle spurring. XR/XR elbow LT 2V IMPRESSION: Left shoulder: *Findings suspicious for a fracture. Further evaluation with CT scan, as clinically indicated. *Inferior subluxation of the humeral head, could reflect joint effusion, soft tissue injury/derangement. Left humerus: No radiographic evidence of acute fracture or malalignment. Left elbow: No radiographic evidence of acute fracture or dislocation.
--- NOTE | ~2023-08-25 | CT_ITS ---
EXAMINATION: CT left shoulder CLINICAL INFORMATION: Question fracture, dislocation, fall. COMPARISON: X-rays 08/25/2023 TECHNIQUE: Axial imaging. Sagittal and coronal reconstruction. FINDINGS: There is an acute, comminuted displaced intra-articular fracture of the anterior/inferior glenoid. There are comminuted displaced fracture fragments.. This includes a fracture fragment having a maximum measurement of 2.1 cm craniocaudal, is displaced medially and inferiorly. There is marked disruption of the glenoid articular surface. No coracoid fracture or scapular body fracture is identified. The humeral head articulates with the glenoid. Greater tuberosity subcortical cysts and sclerosis. No acute humeral fracture is identified. Mild glenohumeral joint arthritis. Moderate-large glenohumeral joint effusion. Mild acromioclavicular arthritis. The acromioclavicular distance is maintained. Intact right clavicle. Mild right sternoclavicular arthritis. No acute displaced rib fracture is seen. No adenopathy in the left axilla or partially visualized mediastinum. Mild nonspecific stranding in the left axilla. CT/CT shoulder LT wo IV con IMPRESSION: 1. Comminuted displaced intra-articular fracture of the anterior/inferior glenoid. Marked disruption of the glenoid articular surface, detailed above. 2. Mild glenohumeral joint arthritis. Moderate-large glenohumeral joint effusion.
--- NOTE | ~2023-08-25 | XR_ITS ---
EXAMINATION: X-ray left shoulder X-ray left humerus X-ray left elbow CLINICAL INFORMATION: Injury COMPARISON: None TECHNIQUE: Shoulder 3 views. Humerus 2 views. Elbow 3 views. FINDINGS: Left shoulder: Mild acromioclavicular arthritis. Slight inferior subluxation of the humeral head with respect to the glenoid. This could reflect sequela of intra-articular derangement/soft tissue injury or joint effusion. There is apparent bony irregularity and cortical disruption of the inferior glenoid, concerning for a glenoid fracture. Subcortical cysts and sclerosis in the greater tuberosity, could reflect degenerative changes. Left clavicle appears intact. No acute displaced rib fracture is identified. Left humerus: No evidence of acute humeral fracture or malalignment. Greater tuberosity subcortical cyst/sclerosis. Left elbow: Anatomic alignment. No acute fracture or dislocation is identified. No significant joint effusion is seen. Medial humeral epicondyle spurring. XR/XR shoulder LT min 2V IMPRESSION: Left shoulder: *Findings suspicious for a fracture. Further evaluation with CT scan, as clinically indicated. *Inferior subluxation of the humeral head, could reflect joint effusion, soft tissue injury/derangement. Left humerus: No radiographic evidence of acute fracture or malalignment. Left elbow: No radiographic evidence of acute fracture or dislocation.
[2023-08-25 12:12] VITALS: BP 196/105; PULSE 112; RESP 21; TEMP 36.6; O2SAT 94; BMI 39.5
--- NOTE | 2023-08-25 12:16 | ED.EXTPRO ---
HPI - Extremity Problem General Chief complaint: Fall Stated complaint: Fall/L shoulder inj Time Seen by Provider: 08/25/23 15:48 Source: patient Mode of arrival: ambulatory Limitations: no limitations History of Present Illness HPI Narrative: 73 yold female with pmh of HTN, paroxysmal atrial flutter, and aortic stenosis presents to the ED for left shoulder pain after fall unto left shoulder 6 days ago. Patient states she tripped and fell unto her left shoulder. Patient denies hitting head or loss of concssiousness. Patient denies any abdominal pain, chest pain, vomiting blood, rectal bleeding bloody urine, back pain, nausea, or vomiting. Patient states no fever or chills. Patient denies any chest pain, shortness of breath, headache, or abdominal pain before falling. Patient states she tripped and fell onto left shoulder. Related Data Home Medications Medication Instructions Recorded Confirmed pravastatin 40 mg tablet 40 mg PO DAILY 12/17/21 12/19/22 chlorthalidone 50 mg tablet 50 mg PO DAILY 03/25/22 12/19/22 levothyroxine 75 mcg tablet 37.5 mcg PO DAILY 03/25/22 12/19/22 valsartan 80 mg tablet 80 mg PO DAILY 03/25/22 12/19/22 amlodipine 10 mg tablet 10 mg PO DAILY 12/19/22 12/19/22 atenolol 50 mg tablet 50 mg PO BID 12/19/22 12/19/22 carbamazepine 200 mg tablet 200 mg PO BID 12/19/22 12/19/22 Previous Rx's Medication Instructions Recorded apixaban 5 mg tablet 5 mg PO BID 30 days #60 tabs 08/04/23 oxycodone 5 mg capsule 5 mg PO TID PRN pain 3 days #9 caps 08/25/23 oxycodone 5 mg tablet 5 mg PO Q6H PRN pain #9 tabs 08/26/23 Allergies Allergy/AdvReac Type Severity Reaction Status Date / Time Calcium Channel Blocking Allergy Unknown RESTLESSNES Verified 08/25/23 12:18 Agents-Dih S [CALCIUM CHANNEL BLOCKING AGENTS-DIH] meperidine [From DEMEROL] Allergy Unknown CRYING Verified 08/25/23 12:18 Neuromuscular Blockers, Allergy Unknown MOOD SWINGS Verified 08/25/23 12:18 Steroidal [STEROIDAL NEUROMUSCULAR BLOCKERS] tetracycline [TETRACYCLINE] Allergy Unknown NAUSEA/VOMI Verified 08/25/23 12:18 TING Review of Systems Review of Systems: left shoulder pain after falling Yes all other systems are reviewed and are negative FORMERLY [facility] Past Medical History Surgical History History of appendectomy History of cholecystectomy History of hysterectomy History of tonsillectomy Family History Family History Mother Graves' disease Father English type familial amyloid cardiomyopathy Renal failure Social History Social History Household Members: Spouse Housing: House Do you presently have visiting nurse or other home services: No Alcohol intake: never Patient Tobacco Use Status: Former Tobacco user Quit Date: 2021 Smoked: 50 +/- Advance Directives: Yes Advance Directives on File: Yes Advance Directives Date on File: 07/11/21 service: No Physical Exam Vital Signs: Vital Signs: Last Vital Signs Temp 97.9 F 08/25/23 12:12 Pulse 96 08/25/23 18:35 Resp 18 08/25/23 18:35 BP 187/86 H 08/25/23 18:35 Pulse Ox 95 08/25/23 18:35 O2 Del Method Room Air 08/25/23 18:35 BMI result Body Mass Index 39.5 Const: General: cooperative, healthy appearing, comfortable, no acute distress, well developed, alert, awake and Physically active Orientation/consciousness: oriented to person, oriented to place, oriented to time and patient oriented x3 HEENT: Head: Yes normal to inspection, Yes No palpable skull fracture present, Yes normocephalic and Yes atraumatic Ears: hearing grossly normal bilaterally, external ears normal, TM's normal bilaterally, TM normal on the right, TM normal on the left, EAC's normal, mastoids normal and no periauricular adenopathy Eyes: General: appearance normal, both eyes and all related structures Neck: Neck: Yes normal visual inspection, Yes full ROM, Yes no lymphadenopathy, Yes no meningeal signs, Yes trachea midline, Yes supple, No anterior neck swelling and No tender Chest: Chest palpation & inspection: normal inspection of the chest and normal palpation of entire chest wall Resp: Effort & Inspection: normal respiratory effort and able to speak in complete sentences Auscultation: clear to auscultation bilaterally Cardio: Jugular venous distension: no JVD Heart sounds: S1 normal heart sound present and S2 normal heart sound present GI: Inspection: Yes normal to inspection Palpation (GI): Soft to palpation, not firm, nontender, no guarding and not rigid : General: No CVA tenderness and Yes no CVA tenderness Back/Spine/Pelvis: Back: no CVA tenderness, No CVA tenderness and No back tenderness Skin: General skin exam: no rashes or lesions noted, elasticity normal and turgor normal Neuro: General: oriented to person, oriented to place, oriented to time, patient oriented x3, gait normal, tone normal, moves all extremities, Normal light touch and pain sensation, no meningeal signs, no focal motor deficits, CN's II-XI intact bilaterally and normal sensation to monofilament Extrem: General: Yes normal to inspection and Yes full ROM Shoulder/upper arm images: 1. Positive for tenderness on palpation. Negative for crepitus, ecchymosis, or obvious deformity. motor exam intact but limited due to pain. Vascular neuro exam intact of extremity intact. 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 Oxycodone tablets sent over to her pharmacy. Medications Administered Discontinued Medications Generic Name Dose Route Start Last Admin Trade Name Oriq PRN Reason Stop Dose Admin Acetaminophen 975 mg 08/25/23 14:40 08/25/23 14:43 Acetaminophen 325 Mg Tablet PO 08/25/23 14:41 975 mg ONCE ONE Administration Medical Decision Making Medical Decision Making [facility] Narrative: 73 Year old female with history of atrial flutter, index noses, and hypertension and baseline elevated troponins presents to ED for left shoulder pain after falling onto the shoulder due to mechanical fall. Patient states she slipped. Patient states this occurred 6 days ago. Patient denies any other complaints. X-ray states suspecting shoulder fracture with slight inferior humeral head subluxation possible joint effussion. radiologist recommend CT scan of shoulder. Patient pain improved with Tylenol. Case and imaging was discussed with Dr. Knott of Orthopedic surgeon who states if shoulder CT scan confirms fracture and slight inferior humeral head subluxation patient can be discharged with sling. 7:06pm: CT scan shows committed glenoid for intra-ocular fracture. Case was discussed with Dr. Knott of Orthopedic surgeon who states patient could be discharged in a sling with follow-up. Patient's blood pressure elevated due to patient not taking her blood pressure meds today and patient in pain. will discharge with pain medication. Patient is able to take oxycodone. Negative any neuro deficits. Differential Diagnosis Differential Diagnoses: The differential diagnosis associated with the presentation includes ( Shoulder fracture, shoulder dislocation, humerus fracture) Consult Healthcare Provider Management of the patient was discussed with: Car Repairer (Dr. [facility]) Independent Interpretation I performed an independent interpretation of an: Plain X-Ray and CT Scan Radiology Impression Discussion of test interpretation with radiology: I have reviewed the radiologist's reading. External Record Review External record reviewed: Other (Prior Visits) Prescription Management I considered prescription management with: Pain Medication Discharge Plan Discharge Clinical Impression: Glenoid fracture of shoulder, Comminuted fracture Patient Disposition: Home, Self-Care Instructions: Scapular Fracture (ED) Additional Instructions: recommend follow-up with Dr. Knott of [facility]. CT scan shows comminuted anterior/inferior glenoid fracture. You will be placed in the sling. Return to the ED immediately for worsening pain, bluish black discoloration of the extremity, swelling, chest pain, shortness of breath, redness, or any other concerning symptoms. Prescriptions: New oxycodone 5 mg capsule 5 mg PO TID PRN (Reason: pain) 3 Days Qty: 9 0RF Rx Instructions: Partial Fill upon patient request. Side effect is drowsiness. oxycodone 5 mg tablet 5 mg PO Q6H PRN (Reason: pain) Qty: 9 0RF Rx Instructions: Partial Fill upon patient request. No Action apixaban 5 mg tablet 5 mg PO BID 30 Days Qty: 60 6RF levothyroxine 75 mcg tablet 37.5 mcg PO DAILY atenolol 50 mg tablet 50 mg PO BID carbamazepine 200 mg tablet 200 mg PO BID pravastatin 40 mg tablet 40 mg PO DAILY chlorthalidone 50 mg tablet 50 mg PO DAILY valsartan 80 mg tablet 80 mg PO DAILY amlodipine 10 mg tablet 10 mg PO DAILY Referrals: [facility] [Provider Group] (GLenoid comminuted fracture) Stand Alone Forms: Work/School Release Interventions: ED Discharge Assessment Last Done: 08/25/23 19:38 Discharge Date/Time: 08/25/23 19:38 Print Language: Indonesian
[2023-08-25] MEDS: Acetaminophen 325 MG TABLET 975 MG PO (14:43)
[2023-08-25 18:35] VITALS: BP 187/86; PULSE 96; RESP 18; O2SAT 95
== END 2023-08-25 19:38 | disposition home or self-care (01) ==
PROVIDERS: Emergency Provider Emergency Medicine; PCP Internal Medicine
DX: S42.142A Displaced fracture of glenoid cavity of scapula, left shoulder, initial encounter for closed fracture (principal); W01.0XXA Fall on same level from slipping, tripping and stumbling without subsequent striking against object, initial encounter; I48.0 Paroxysmal atrial fibrillation; I10 Essential (primary) hypertension; Z87.891 Personal history of nicotine dependence; Z79.01 Long term (current) use of anticoagulants; Z79.899 Other long term (current) drug therapy; Y93.9 Activity, unspecified; Y92.018 Other place in single-family (private) house as the place of occurrence of the external cause; Y99.9 Unspecified external cause status
CPT/HCPCS: 73030; 73060; 73070; 73200; 99284

== ENCOUNTER 2023-09-04 14:13 | Outpatient (AMB) | payer MEDICARE, SELFPAY ==
--- NOTE | 2023-09-04 14:45 | A.OFFVIS_ITS ---
Intake Intake Visit Reasons: FC-Lt shoulder glenoid fracture ER follow up Intake Note: Mary Beth is a 73 year old female who presents today for a evaluation of her left shoulder pain, DOI 08/29/23. Allergies Calcium Channel Blocking Agents-Dih [CALCIUM CHANNEL BLOCKING AGENTS-DIH] Allergy (Unknown, Verified 08/25/23 12:18) RESTLESSNESS meperidine [From DEMEROL] Allergy (Unknown, Verified 08/25/23 12:18) CRYING Neuromuscular Blockers, Steroidal [STEROIDAL NEUROMUSCULAR BLOCKERS] Allergy (Unknown, Verified 08/25/23 12:18) MOOD SWINGS tetracycline [TETRACYCLINE] Allergy (Unknown, Verified 08/25/23 12:18) NAUSEA/VOMITING HPI FC-Lt shoulder glenoid fracture ER follow up HPI Details 73-year-old female who presents in the [facility] today, as a new patient, for an evaluation of left shoulder pain. The patient presented to the ED on 08/25/2023 status post a trip and fall onto her left shoulder which occurred on 08/19/2023. X-rays and CT of the left shoulder were obtained. She was placed in a sling and referred to orthopedics. FORMERLY [facility], [facility] Surgical History History of appendectomy History of cholecystectomy History of hysterectomy History of tonsillectomy Family History Mother Graves' disease Father [place] type familial amyloid cardiomyopathy Renal failure Social History Household Members: Spouse Housing: House Do you presently have visiting nurse or other home services: No Alcohol intake: never Patient Tobacco Use Status: Former Tobacco user Quit Date: 2021 Years Smoked: 50 +/- Advance Directives Date on File: 07/11/21 service: No Review of Systems Const All systems reviewed & are unremarkable except as noted in HPI and below Physical Exam Const General: cooperative, healthy appearing and no acute distress Resp Effort & Inspection: normal respiratory effort and able to speak in complete sentences Cardio Rate: regular rate Peripheral pulses: Peripheral pulses 2+ throughout GI Palpation (GI): Soft to palpation Skin Lesions: no lesions Rashes: no rashes Extrem Other: Left shoulder: Normal to inspection. No ecchymosis, erythema, or edema. Patient is unable to demonstrate any active shoulder ROM forward flexion or abduction due to pain. Able to perform external rotation to neutral. Left hand: Normal to inspection. No ecchymosis, erythema, or edema. Full wrist flexion and extension. Able to perform full finger flexion, extension, abduction, adduction, finger cross, okay sign, and thumbs up without deficit. Able to make a closed fist. Sensation intact. Capillary refill is brisk. Radial pulse intact. Office Procedures Fracture Care Fracture Billing Code: Fracture Billing Code Assessment & Plan Assessment & Plan (1) Fracture of glenoid cavity of left scapula: Code(s): S42.142A - Displaced fracture of glenoid cavity of scapula, left shoulder, initial encounter for closed fracture Qualifiers: Encounter type: initial encounter Fracture alignment: nondisplaced Fra cture type: closed Qualified Code(s): S42.145A - Nondisplaced fracture of glenoid cavity of scapula, left shoulder, initial encounter for closed fracture Plan Ms. Ware is a 73-year-old female who presents in the office today, as a new patient, for an evaluation of left shoulder pain. The patient presented to the ED on 08/25/2023 status post a trip and fall onto her left shoulder which occurred on 08/19/2023. X-rays and CT of the left shoulder were obtained. She was placed in a sling and referred to orthopedics. Dr. Knott was available to review the CT and x-rays with me and a collaborative treatment plan was made. It was recommend for the patient to remain in the sling for comfort and physical therapy. I discussed with the patient the role of physical therapy and she is hesitant for any outpatient physical therapy due to a per-existing left lower extremity injury that makes ambulating difficult. I discussed the role of home VNA, but she is uncomfortable with having anyone coming to her house. I demonstrated shoulder pendulums while in the office today for her to work on at home. I educated the patient on motions she should avoid at this time such as external rotation or abduction with external rotation. She was explained this may compromise the stability of the left shoulder. Follow up will be in 4-6 weeks, or sooner if needed. CT of the left shoulder, obtained on 08/25/2023, revealed: 1. Comminuted displaced intra-articular fracture of the anterior/inferior glenoid. Marked disruption of the glenoid articular surface, detailed above. 2. Mild glenohumeral joint arthritis. Moderate-large glenohumeral joint effusion. X-rays of the left shoulder, obtained on 08/25/2023, revealed: *Findings suspicious for a fracture. Further evaluation with CT scan, as clinically indicated. *Inferior subluxation of the humeral head, could reflect joint effusion, soft tissue injury/derangement. Left humerus: No radiographic evidence of acute fracture or malalignment. Left elbow: No radiographic evidence of acute fracture or dislocation. Patient Instructions: Scribed for Heather Molina PA-C by dena Cedeño scribe, on 09/04/2023 at 2:14 pm, EST. Coding Level of Care Code New Pt Level 4 (06926) Diagnoses Closed nondisplaced fracture of glenoid cavity of left scapula, initial encounter S42.145A Encounter type: initial encounter Fracture alignment: nondisplaced Fracture type: closed CPT Codes Fracture Care - Fracture Billing Code: Fracture Billing Code ([id number])
== END 2023-09-04 15:04 | disposition home or self-care (01) ==
PROVIDERS: PCP Internal Medicine; Visit Provider Physician Assistant
DX: S42.145A Nondisplaced fracture of glenoid cavity of scapula, left shoulder, initial encounter for closed fracture (principal); W01.0XXA Fall on same level from slipping, tripping and stumbling without subsequent striking against object, initial encounter
CPT/HCPCS: 99204

== ENCOUNTER → 2023-09-04 14:13 | Outpatient (BNVA) | payer MEDICARE, SELFPAY | PROVIDERS: PCP Internal Medicine; Visit Provider Physician Assistant | DX: S42.145A Nondisplaced fracture of glenoid cavity of scapula, left shoulder, initial encounter for closed fracture (principal) | CPT/HCPCS: 99202 ==

== ENCOUNTER 2023-10-09 12:43 | Outpatient (REF) | payer MEDICARE, SELFPAY | END 2023-10-09 12:44 | disposition home or self-care (01) | LOC: HO.HOSX 12:43 | PROVIDERS: Visit Provider Physician Assistant | DX: Z13.89 Encounter for screening for other disorder (principal) ==

== ENCOUNTER 2023-10-13 06:21 | Outpatient (REF) | payer MEDICARE, SELFPAY | END 2023-10-13 06:22 | disposition home or self-care (01) | LOC: HO.HOSX 06:21 | PROVIDERS: Visit Provider Physician Assistant | DX: Z13.89 Encounter for screening for other disorder (principal) ==

== ENCOUNTER 2023-10-16 09:38 | Outpatient (REF) | payer MEDICARE, SELFPAY ==
--- NOTE | ~2023-10-16 | XR_ITS ---
EXAMINATION: XR SHOULDER, LEFT CLINICAL INFORMATION: Left shoulder pain COMPARISON: 08/25/2023 TECHNIQUE: AP external rotation, Grashey, scapular Y, and axillary views of the left shoulder. FINDINGS: Redemonstration of minimally displaced fracture of the glenoid surface, predominantly at inferiorly. Degenerative changes of the glenohumeral joint again noted. XR/XR shoulder LT min 2V IMPRESSION: Redemonstration of minimally displaced fracture of the glenoid surface, predominantly at inferiorly.
== END 2023-10-16 09:39 | disposition home or self-care (01) ==
LOC: HO.HOSX 09:38
PROVIDERS: Visit Provider Physician Assistant
DX: S42.145D Nondisplaced fracture of glenoid cavity of scapula, left shoulder, subsequent encounter for fracture with routine healing (principal)
CPT/HCPCS: 73030; 99212

== ENCOUNTER 2023-10-16 13:20 | Outpatient (AMB) | payer MEDICARE, SELFPAY ==
[2023-10-16 13:37] VITALS: BMI 39.5
--- NOTE | 2023-10-16 13:37 | A.OFFVIS_ITS ---
Intake Vital Signs 10/16/23 13:37 Height 5 ft 4 in Weight 230 lb BMI 39.5 Intake Visit Reasons: OV - Lt scapula glenoid fx,DOI 08/29/23 Intake Note: Mary Beth is a 73 year old right hand dominant female who presents today for a follow up of her Lt scapula glenoid fx,DOI 08/29/23. Patient reports she is doing well, however she rates her pain 1-2/10 on the pain scale. Allergies Calcium Channel Blocking Agents-Dih [CALCIUM CHANNEL BLOCKING AGENTS-DIH] Allergy (Unknown, Verified 10/16/23 13:42) RESTLESSNESS meperidine [From DEMEROL] Allergy (Unknown, Verified 10/16/23 13:42) CRYING Neuromuscular Blockers, Steroidal [STEROIDAL NEUROMUSCULAR BLOCKERS] Allergy (Unknown, Verified 10/16/23 13:42) MOOD SWINGS tetracycline [TETRACYCLINE] Allergy (Unknown, Verified 10/16/23 13:42) NAUSEA/VOMITING HPI OV - Lt scapula glenoid fx,DOI 08/29/23 2 HPI Details 73-year-old right hand dominant female w michel presents in the office today for a follow up of a left scapula glenoid cavity fracture, which occurred on 08/19/2023 status post a trip and fall on to the left shoulder. I last saw the patient in the office on 09/04/2023 where the sling was recommended for comfort and physical therapy. I discussed with the patient the role of physical therapy and she is hesitant for any outpatient physical therapy due to a per-existing left lower extremity injury that makes ambulating difficult. I discussed the role of home VNA, but she is uncomfortable with having anyone coming to her house. I demonstrated shoulder pendulums while in the office today for her to work on at home. I educated the patient on motions she should avoid at this time such as external rotation or abduction with external rotation. She was explained this may compromise the stability of the left shoulder. The patient reports she is doing well. She rates her pain as a 1-2/140 while in the office today. [facility] Surgical History History of appendectomy History of cholecystectomy History of hysterectomy History of tonsillectomy Family History Mother Graves' disease Father [place] type familial amyloid cardiomyopathy Renal failure Social History Household Members: Spouse Housing: House Do you presently have visiting nurse or other home services: No Alcohol intake: never Patient Tobacco Use Status: Former Tobacco user Quit Date: 2021 Years Smoked: 50 +/- Advance Directives Date on File: 07/11/21 service: No Review of Systems Const All systems reviewed & are unremarkable except as noted in HPI and below Physical Exam Vital Signs: BMI result Body Mass Index 39.5 Const General: cooperative, healthy appearing and no acute distress Resp Effort & Inspection: normal respiratory effort and able to speak in complete sentences Cardio Rate: regular rate Peripheral pulses: Peripheral pulses 2+ throughout GI Palpation (GI): Soft to palpation Skin Lesions: no lesions Rashes: no rashes Extrem Other: Left shoulder: Forward flexion to 90 degrees. Abduction to 80 degrees. Able to reach back pocket. NVI. Assessment & Plan Assessment & Plan (1) Fracture of glenoid cavity of left scapula: Code(s): S42.142A - Displaced fracture of glenoid cavity of scapula, left shoulder, initial encounter for closed fracture Qualifiers: Encounter type: initial encounter Fracture alignment: nondisplaced Fracture type: closed Qualified Code(s): S42.145A - Nondisplaced fracture of glenoid cavity of scapula, left shoulder, initial encounter for closed fracture Plan Ms. Ware is a 73-year-old right hand dominant female who presents in the office today for a follow up of a left scapula glenoid cavity fracture, which occurred on 08/19/2023 status post a trip and fall on to the left shoulder. I last saw the patient in the office on 09/04/2023 where the sling was recommended for comfort and physical therapy. I discussed with the patient the role of physical therapy and she is hesitant for any outpatient physical therapy due to a per-existing left lower extremity injury that makes ambulating difficult. I discussed the role of home VNA, but she is uncomfortable with having anyone coming to her house. I demonstrated shoulder pendulums while in the office today for her to work on at home. I educated the patient on motions she should avoid at this time such as external rotation or abduction with external rotation. She was explained this may compromise the stability of the left shoulder. The patient reports she is doing well. She rates her pain as a 1-2/140 while in the office today. I recommended physical therapy to the patient, however she did not want to attend out patient therapy at this time. I offered the patient home physical therapy, but she declined for any one come to her home. I demonstrated exercises to work on while in the office today. At this point with the patient performing exercises on her own should she be disappointed with her progress or not happy overall she should reach out to me and we will send a referral to formal physical therapy. Follow up will be PRN, or sooner if needed. X-rays of the left shoulder which were obtained while in the office today and were reviewed by me, Heather Molina PA-C, revealed routine healing of a left scapula glenoid cavity fracture. Orders: Orders XR shoulder LT min 2V Today M25.519 - Pain in unspecified shoulder Patient Instructions: Scribed for Heather Molina PA-C by Coty Nichole medical records specialist, on 10/16/2023 at 1:30 pm, EST. Coding Level of Care Code Global (78070) Diagnoses Closed nondisplaced fracture of glenoid cavity of left scapula, initial enco unter S42.145A Encounter type: initial encounter Fracture alignment: nondisplaced Fracture type: closed
== END 2023-10-16 13:54 | disposition home or self-care (01) ==
PROVIDERS: PCP Internal Medicine; Visit Provider Physician Assistant
DX: S42.145A Nondisplaced fracture of glenoid cavity of scapula, left shoulder, initial encounter for closed fracture (principal)
CPT/HCPCS: 99213

== ENCOUNTER 2024-01-12 07:58 | Outpatient (AMB) | payer MEDICARE, SELFPAY ==
[2024-01-12 08:11] VITALS: BP 150/72; PULSE 95; BMI 43.4
--- NOTE | 2024-01-12 08:11 | MHC.OFFVIS ---
Vital Signs 01/12/24 08:11 Height 5 ft 4 in Weight 252 lb 10.396 oz BMI 43.4 BP 150/72 H Blood Pressure Location Rt brachial Position Sitting Pulse 95 Pulse Source Monitor Intake Visit Reasons: r/s 1 year followup w/ekg Claim Attorney Required: No Allergies Calcium Channel Blocking Agents-Dih [CALCIUM CHANNEL BLOCKING AGENTS-DIH] Allergy (Unknown, Verified 01/12/24 08:15) RESTLESSNESS meperidine [From DEMEROL] Allergy (Unknown, Verified 01/12/24 08:15) CRYING Neuromuscular Blockers, Steroidal [STEROIDAL NEUROMUSCULAR BLOCKERS] Allergy (Unknown, Verified 01/12/24 08:15) MOOD SWINGS tetracycline [TETRACYCLINE] Allergy (Unknown, Verified 01/12/24 08:15) NAUSEA/VOMITING Medication List - Last Reconciled 01/12/24 by Lisa Castrejon NP-C amlodipine 10 mg PO DAILY apixaban 5 mg PO BID 30 days atenolol 50 mg PO BID carbamazepine 200 mg PO BID chlorthalidone 50 mg PO DAILY levothyroxine 37.5 mcg PO DAILY pravastatin 40 mg PO DAILY valsartan 80 mg PO DAILY HPI HPI r/s 1 year followup w/ekg: Details: Mary Beth is a 73 yo female with past medical history of morbid obesity, HTN, HLD, mild calcification of aortic valve, PAF who presents for follow up. Today she states that she believe she went into atrial fibrillation in August. She did not feel heart palpitations. She noticed she had difficulty feeling her radial pulse and was able to get it brachial only. She notices that it is. She tells me her heart rates typically are in the 70s and 80s. She has not recorded heart rates over 100. She denies chest discomfort at rest or with activity. No concerning shortness of breath, lightheadedness, presyncope, syncope, PND, orthopnea. Chronic lower leg edema, left greater than right due to prior injury. No bleeding issues reported. Taking meds as directed. [facility] Surgical History History of tonsillectomy History of cholecystectomy History of hysterectomy History of appendectomy Family History Mother Graves' disease Father [place] type familial amyloid cardiomyopathy Renal failure Social History Household Members: Spouse Housing: House Do you presently have visiting nurse or other home services: No Alcohol intake: never Patient Tobacco Use Status: Former Tobacco user Quit Date: 2021 Smoked: 50 +/- Advance Directives Date on File: 07/11/21 service: No Review of Systems Const All systems reviewed & are unremarkable except as noted in HPI and below ENT Denies dizziness Card Details: irregular pulse, not feeling palpitations Denies chest pain, Denies chest pain at rest, Denies chest pain with activity, Denies rapid heart rate, Denies pedal edema, Denies edema, Denies leg edema, Denies lightheadedness, Denies palpitations, Reports dyspnea, Denies dyspnea on exertion and Denies orthopnea Resp Denies cough, Reports dyspnea and Denies dyspnea on exertion GI Denies hematochezia and Denies change in stool character Musc Denies abnormal gait, Denies limited range of motion, Denies muscle cramps, Denies muscle weakness, Denies numbness, Denies radiating pain into limb, Denies stiffness and Denies tingling Neuro Denies abnormal gait, Denies dizziness, Denies numbness and Denies tingling Endo Denies palpitations Physical Exam Vital Signs: Last Vital Signs Pulse 95 01/12/24 08:11 BP 150/72 H 01/12/24 08:11 BMI result Body Mass Index 43.4 Const General: cooperative, healthy appearing, comfortable and no acute distress Orientation/consciousness: patient oriented x3 Neck Neck: Yes normal visual inspection and Yes no JVD Resp Effort & Inspection: normal respiratory effort Auscultation: clear to auscultation bilaterally, no crackles, no rales, no rhonchi and no wheezes Cardio Jugular venous distension: no JVD Rate: regular rate Rhythm: abnormal rhythm Heart sounds: S1 normal heart sound present, S2 normal heart sound present, no gallops, no murmurs and no rubs Neuro General: patient oriented x3 Extrem Other: Bilateral lower leg edema, left greater than right. Psych Appearance: grossly normal Mental Status: mental status grossly normal Speech and movement: Normal speech and movement present Office Procedures EKG Details: Today, read by me, atrial fibrillation, right axis deviation, septal Q-wave, rate 95, QTC 444 milliseconds [id number], Complete Assessment & Plan Assessment & Plan (1) Paroxysmal atrial flutter: Code(s): I48.92 - Unspecified atrial flutter Category: Medical Plan: History of paroxysmal atrial flutter, last documented in 2020. Echocardiogram done 07/09/2021 shows EF greater than 70%, hyperdynamic, mild aortic stenosis. Last echo 06/10/2022 shows EF 65%, mild calcification of the aortic valve, no stenosis and moderate mitral annular calcification. Today she reports she believe she has been in atrial fibrillation since August 2023. She feels that her brachial pulse is irregular with controlled heart rate. She does not notice heart palpitations, chest discomfort or shortness of breath. EKG done today showing atrial fibrillation, right axis, septal Q-wave, rate 95. She is on atenolol for heart rate control. She is on Eliquis for anticoagulation. Last labs done 02/15/2023 showed creatinine 0.75. No bleeding issues reported. Will continue on current meds. Will check a Holter monitor to assess for paroxysmal nature to her rhythm and average heart rates. Will check echocardiogram to assess EF and wall motion. Going forward she may benefit from cardioversion to restore rhythm control. Informed her of this and she is agreeable. Cardiology follow-up in 4-6 weeks, sooner if needed. (2) Aortic stenosis: Code(s): I35.0 - Nonrheumatic aortic (valve) stenosis Category: Medical Plan: Echo from 2020 does show mild however repeat on 06/10/2022 only shows mild calcification of the aortic valve with no stenosis. There is a faint systolic murmur noted on examination. Will be updating echo. (3) Essential hypertension: Code(s): I10 - Essential (primary) hypertension Category: Medical Plan: Mild elevation today. Discussed her current med management and she does not wish to change anything. She says her meds are managed by her PCP. She will continue on her usual chlorthalidone, atenolol, valsartan and amlodipine. She tells me she has an upcoming visit with her PCP and will be having updated labs. (4) Paroxysmal atrial fibrillation: Code(s): I48.0 - Paroxysmal atrial fibrillation Category: Medical Plan: History of paroxysmal atrial flutter. Now with atrial fibrillation which may be persistent. Checking Holter. Plan Time spent on chart review, documentation, interview and assessment. Orders: Orders CA echo transthoracic complete Today I48.0 - Paroxysmal atrial fibrillation ECG 3 day holter monitor Today I48.0 - Paroxysmal atrial fibrillation Coding Level of Care Code Est Pt Level 4 (07631) Diagnoses Paroxysmal atrial flutter I48.92 Aortic stenosis I35.0 Essential hypertension I10 Paroxysmal atrial fibrillation I48.0 CPT Codes EKG - CPT: 45236-[id number], Complete ([id number]) Time Spent (min) 30
== END 2024-01-12 08:49 | disposition home or self-care (01) ==
PROVIDERS: PCP Internal Medicine; Visit Provider Nurse Practitioner Family
DX: I48.92 Unspecified atrial flutter (principal); I35.0 Nonrheumatic aortic (valve) stenosis; I10 Essential (primary) hypertension; I48.0 Paroxysmal atrial fibrillation
CPT/HCPCS: 93010; 99214

== ENCOUNTER → 2024-01-12 07:58 | Outpatient (BNVA) | payer MEDICARE, SELFPAY | PROVIDERS: PCP Internal Medicine; Visit Provider Nurse Practitioner Family | DX: I48.92 Unspecified atrial flutter (principal); I35.0 Nonrheumatic aortic (valve) stenosis; I48.0 Paroxysmal atrial fibrillation; I10 Essential (primary) hypertension; Z79.01 Long term (current) use of anticoagulants; Z79.899 Other long term (current) drug therapy | CPT/HCPCS: 93005; 99212 ==

== ENCOUNTER 2024-01-30 08:52 | Outpatient (REF) | payer MEDICARE, SELFPAY ==
--- NOTE | ~2024-01-30 | XR_ITS ---
EXAMINATION: XR CHEST 2 VIEW CLINICAL INFORMATION: Hypertension COMPARISON: Prior studies dating to 2018 TECHNIQUE: PA and lateral views of the chest obtained. FINDINGS: The lungs are clear. There are no pleural effusions. The cardiomediastinal silhouette is normal. Rounded opacity is evident in the retrocardiac left lower lobe, measuring up to 6 cm. There are no pleural effusions. The cardiac silhouette is not enlarged. Hilar and mediastinal contours are normal. XR/XR chest 2V IMPRESSION: 1. Retrocardiac 6 cm masslike opacity in the left lower lung zone for which thoracic CT is recommended for further assessment and characterization.
[2024-01-30 10:32] LABS: MANUAL DIFF FLAG NO
[2024-01-30 10:37] LABS: Basophils Absolute Auto 0.1 X10*3/uL (0.0-0.2); Basophils Percent Auto 0.5 % (0-2); Eosinophils Absolute Auto 0.1 X10*3/uL (0.0-0.4); Eosinophils Percent Auto 0.8 % (0-4); Hematocrit 40.6 % (37.0-47.0); Hemoglobin 13.8 g/dl (12.0-16.0); Imm Gran Abs Auto 0.11 X10*3/uL (0.00-0.03); Lymphocytes Absolute Auto 2.1 X10*3/uL (1.2-4.9); Lymphocytes Percent Auto 19.8 % (20-40); Mean Corpuscular Hemoglobin 29.2 pg (27.0-33.0); Mean Corpuscular Volume 85.8 fL (80.0-98.0); Mean Platelet Volume 9.7 fL (9.4-12.3); Monocytes Absolute Auto 0.7 X10*3/uL (0.1-1.2); Monocytes Percent Auto 6.6 % (2-11); Neutrophils Absolute Auto 7.7 x10*3/uL (2.0-8.3); Neutrophils Percent Auto 71.3 % (45-73); Platelet Count 364 X10*3/uL (160-400); Red Blood Count 4.73 X10*6/uL (4.20-5.50); White Blood Count 10.8 X10*3/uL (4.8-10.8)
[2024-01-30 10:50] LABS: Appearance Urine Clear; Color Urine Yellow; Glucose Urine UA Negative (Negative); Leukocyte Esterase Urine Negative (Negative); Nitrite Urine Negative (Negative); PH 6.5 (5.0-9.0); Specific Gravity - Urine 1.015 (1.005-1.025); UMIC TRIGGER UA YES; Urine Blood Negative (Negative); Urine Ketones Negative (Negative); Urine Protein 30 (1+) mg/dL (Neg-Trace)
[2024-01-30 10:55] LABS: Bacteria Urine None Seen (None Seen); Hyaline Casts Urine 0-2 /LPF (0-2); RBC Urine 0-2 /HPF (0-2); WBC Urine 0-5 /HPF (0-5)
[2024-01-30 11:02] LABS: Estimated Average Glucose 128 mg/dL; Hemoglobin A1c % 6.1 % (<6.0)
[2024-01-30 11:19] LABS: Alanine Aminotransferase 13 U/L (0-31); Albumin Level 4.7 g/dL (3.5-5.0); Alkaline Phosphatase 68 U/L (39-117); Anion Gap 17 (12-20); Aspartate Amino Transferase 20 U/L (5-31); Bilirubin Total 0.6 mg/dL (0.0-1.0); Blood Urea Nitrogen 12 mg/dL (9-16); Calcium 9.8 mg/dL (8.4-10.2); Carbon Dioxide 23 mmol/L (22-29); Chloride 91 mmol/L (96-108); Cholesterol 159 mg/dL (<200); Estimated Glomerular Filt Rate > 60; Glucose Fasting 122 mg/dL (60-99); HDL Cholesterol 45 mg/dL (>40); LDL Cholesterol Calculated 87 mg/dL (<100); Sodium 127 mmol/L (135-145); Total Protein 8.3 g/dL (6.5-8.0); Triglycerides 135 mg/dL (<150)
[2024-01-30 11:21] LABS: Thyroid Stimulating Hormone 6.28 uIU/mL (0.32-4.0)
[2024-01-30 11:35] LABS: Creatinine Urine 82.81 mg/dL
== END 2024-01-30 08:53 | disposition home or self-care (01) ==
LOC: HO.HMGCX 08:52
PROVIDERS: PCP Internal Medicine; Visit Provider Internal Medicine
DX: Z13.89 Encounter for screening for other disorder (principal)
CPT/HCPCS: 36415; 71046; 80053; 80061; 81001; 82043; 82570; 83036; 84443; 85025

== ENCOUNTER → 2024-01-30 10:57 | Outpatient (REF) | payer MEDICARE, SELFPAY ==
--- NOTE | 2024-01-30 11:02 | CA_ITS ---
Transthoracic Echocardiogram Patient (Last, First, Middle): Mary Beth Ware C Gender: Female Date of : 1950 Age: 73 Procedure Date: 01/30/2024 Procedure Type: Transthoracic Echocardiogram Location: OP Height: 162.56 cm Weight: 104.33 kg BSA: 2.08 m2 Heart Rate: bpm BP: 150 / 70 mmHg Forestry Professor: TO Referring MD: Lisa ALEXANDER Power Saw Mechanic: Robert Davis MD Symptoms: I48.0 - Paroxysmal atrial fibrillation Study Quality: Technically Difficult ECG Rhythm: Atrial Fibrillation Conclusions: - 1. Normal LV ejection fraction 55-60% 2. Moderate left atrial enlargement 3. Severe mitral annular calcification with cardiac valvular Doppler is within normal limits 4. Technically limited study Findings Procedure Information The patient declines contrast. Left Ventricle Normal left ventricular size, thickness, and systolic function. The visually estimated ejection fraction is between 55-60%. Regional wall motion abnormalities can not be excluded due to suboptimal endocardial definition. Diastolic function is indeterminate on the basis of available data. There is mild septal asymmetric hypertrophy. Right Ventricle The right ventricle was not well visualized. Atria The left atrium is moderately dilated. Interatrial shunt cannot be excluded. The right atrium was not well visualized. Aortic Valve The aortic valve was not well visualized. There is no aortic valve stenosis. There is no aortic valve regurgitation. Mitral Valve The mitral valve was not well visualized. There is severe posterior mitral leaflet thickening. There is severe mitral annular calcification. There is trace mitral valve regurgitation. There is no mitral valve stenosis. Pulmonic Valve The pulmonic valve was not well visualized. Tricuspid Valve The tricuspid valve was not well visualized. Tricuspid regurgitation envelope is inadequate for calculation of right ventricular systolic pressure. Indeterminate right atrial pressure. Great Vessels The aorta was not well visualized. The pulmonary artery was not well visualized. Venous The inferior vena cava was not well visualized. Pericardium/Pleural The pericardium was not well visualized. Prior Study Comparison No significant change compared to prior study dated: 06/10/2022. Measurements 2D Linear Measurements IVSd: 1.39 0.6-0.9/0.6-1.0 cm LVIDd: 4.48 3.9-5.3/4.2-5.9 cm LVIDd Index: 2.15 2.4-3.2/2.2-3.1 cm/m2 LVIDs: 2.64 2.0-3.6 cm LVPWd: 1.01 0.7-1.1 cm LA Diam: 4.70 2.7-3.8/3.0-4.0 cm LAIDs Index: 2.26 1.5-2.3 cm/m2 LV Mass: 245.18 67-162/88-224 g LV Mass Index: 117.87 43-95/49-115 g/m2 LVOT Diam: 2.00 3.0+(-)1.3 cm 2D Systolic Function EF 4C: 59.40 >55% Mitral Valve MV VTI: 0.39 MV Pk Lennox: 1.66 MV Mn Lennox: 0.90 MV Pk Grad: 11.00 MV Mn Grad: 4.00 MV Pk E: 1.26 MV Decel Time: 232.00 E'Lateral: 8.52 E'Medial: 6.89 E/E' Med: 18.30 E/E' Lat: 14.80 PHT: 68.00 MVA PHT: 3.24 MVA Continuity: 2.02 Decel [place]: 5.48 Aortic Valve AoV Pk Lennox: 1.95 AoV Mn Lennox: 1.33 AoV VTI: 0.40 AoV Pk Grad: 15.00 Aov Mn Grad: 8.00 WEN Cont.VTI: 1.97 LVOT LVOT Pk Lennox: 1.21 LVOT Mn Lennox: 0.81 LVOT VTI: 0.25 LVOT Pk Grad: 6.00 LVOT Mn Grad: 3.00 LVOT Diam: 2.00 LVOT Area: 3.14 Diastolic Function MV Pk E: 1.26 E'Medial: 6.89 E/E' Med: 18.30 E' Laterial: 8.52 E/E' Lat: 14.80 Right Ventricle TAPSE (mm): 19.40 TVS' Lennox: 10.70 Tricuspid Valve RA Press: 3.00 Great Vessels Aorta Sinus of Valsalva: 3.00 2.0-3.5 cm Ao Asc: 3.30 2.1-3.4 cm Updated in Other Vendor System with Status of Final Robert Davis MD electronically signed on 01/31/2024 4:19:32 PM with status of Final
--- NOTE | 2024-01-30 11:02 | HM_ITS ---
* Total monitoring time 3 days. * Underlying rhythm is atrial fibrillation. Average ventricular rate 73/Min. * About 8 pauses noted, longest 3.3 seconds at 10:33. * Rare ventricular ectopy. * Patient marker used once in association with atrial fibrillation. * Mild shortness of breath described in diary associated with atrial fibrillation. MTDD
== END ==
LOC: HO.CARD 10:57
PROVIDERS: PCP Internal Medicine; Visit Provider Nurse Practitioner Family
DX: I48.0 Paroxysmal atrial fibrillation (principal); I10 Essential (primary) hypertension; E03.9 Hypothyroidism, unspecified; E78.00 Pure hypercholesterolemia, unspecified; I48.3 Typical atrial flutter
CPT/HCPCS: 36415; 71046; 80053; 80061; 81001; 82043; 82570; 83036; 84443; 85025; 93242; 93306

== ENCOUNTER → 2024-01-30 11:02 | Outpatient (BNV) | payer MEDICARE, SELFPAY | PROVIDERS: PCP Internal Medicine; Visit Provider Internal Medicine Cardiovascular Disease | DX: I48.91 Unspecified atrial fibrillation (principal) | CPT/HCPCS: 93244; 93306 ==

== ENCOUNTER 2024-02-24 09:18 | Outpatient (AMB) | payer MEDICARE, SELFPAY ==
[2024-02-24 09:42] VITALS: BP 160/82; PULSE 80; BMI 43.9
--- NOTE | 2024-02-24 09:42 | MHC.OFFVIS ---
Vital Signs 02/24/24 09:42 Height 5 ft 4 in Weight 255 lb 11.779 oz BMI 43.9 BP 160/82 H Blood Pressure Location Lt brachial Position Sitting Pulse 80 Pulse Source Pulse Oximeter Intake Visit Reasons: 6 wk f/up echo/ holter Materials Handling Equipment Operator Required: No Allergies Calcium Channel Blocking Agents-Dih [CALCIUM CHANNEL BLOCKING AGENTS-DIH] Allergy (Unknown, Verified 02/24/24 09:45) RESTLESSNESS meperidine [From DEMEROL] Allergy (Unknown, Verified 02/24/24 09:45) CRYING Neuromuscular Blockers, Steroidal [STEROIDAL NEUROMUSCULAR BLOCKERS] Allergy (Unknown, Verified 02/24/24 09:45) MOOD SWINGS tetracycline [TETRACYCLINE] Allergy (Unknown, Verified 02/24/24 09:45) NAUSEA/VOMITING Medication List - Last Reconciled 02/24/24 by Lisa Castrejon, DRY WALL FINISHER-C amlodipine 10 mg PO DAILY apixaban 5 mg PO BID 30 days atenolol 50 mg PO BID carbamazepine 100 mg PO BID chlorthalidone 50 mg PO DAILY levothyroxine 37.5 mcg PO DAILY pravastatin 40 mg PO DAILY valsartan 80 mg PO DAILY HPI HPI 6 wk f/up echo/ holter: Details: Mary Beth is a 73 yo female with past medical history of morbid obesity, HTN, HLD, mild calcification of aortic valve, PAF who presents for follow up. Today she states that she has been doing well since her last visit in December. She believes she has been in AFib right along since August. She monitors her heart rate regularly and is very familiar with AFib and the pulse variations. She does have some shortness of breath but relates this to allergies and asthma. She does not feel the AFib is causing her any symptoms. She denies any heart palpitations. She tells me her heart rates typically are in the 70s and 80s. She has not recorded heart rates over 100. She denies chest discomfort at rest or with activity. No lightheadedness, presyncope, syncope, PND, orthopnea. Chronic lower leg edema, left greater than right due to prior injury. No bleeding issues reported. Taking meds as directed. [facility] Surgical History History of tonsillectomy History of cholecystectomy History of hysterectomy History of appendectomy Family History Mother Graves' disease Father [place] type familial amyloid cardiomyopathy Renal failure Social History Household Members: Spouse Housing: House Do you presently have visiting nurse or other home services: No Alcohol intake: never Patient Tobacco Use Status: Former Tobacco user Years Smoked: 50 +/- Advance Directives Date on File: 07/11/21 service: No Review of Systems Const All systems reviewed & are unremarkable except as noted in HPI and below ENT Denies dizziness Card Details: sob related to asthma and allergies, no palpitations. Denies chest pain, Denies chest pain at rest, Denies chest pain with activity, Denies rapid heart rate, Denies pedal edema, Denies edema, Denies leg edema, Denies lightheadedness, Denies palpitations, Reports dyspnea, Reports dyspnea on exertion and Denies orthopnea Resp Denies cough, Reports dyspnea and Reports dyspnea on exertion GI Denies hematochezia and Denies change in stool character Musc Reports abnormal gait, Reports limited range of motion, Denies muscle cramps, Denies muscle weakness, Denies numbness, Denies radiating pain into limb, Denies stiffness and Denies tingling Neuro Reports abnormal gait, Denies dizziness, Denies numbness and Denies tingling Endo Denies palpitations Physical Exam Vital Signs: Last Vital Signs Pulse 80 02/24/24 09:42 BP 160/82 H 02/24/24 09:42 BMI result Body Mass Index 43.9 Const General: cooperative, healthy appearing, comfortable and no acute distress Orientation/consciousness: patient oriented x3 Neck Neck: Yes normal visual inspection and Yes no JVD Resp Effort & Inspection: normal respiratory effort Auscultation: clear to auscultation bilaterally, no crackles, no rales, no rhonchi and no wheezes Cardio Jugular venous distension: no JVD Rate: regular rate Rhythm: abnormal rhythm Heart sounds: S1 normal heart sound present, S2 normal heart sound present, no gallops, no murmurs and no rubs Neuro General: patient oriented x3 Extrem Other: nonpitting, Bilateral lower leg edema, left greater than right. Psych Appearance: grossly normal Mental Status: mental status grossly normal Speech and movement: Normal speech and movement present Assessment & Plan Assessment & Plan (1) Paroxysmal atrial flutter: Code(s): I48.92 - Unspecified atrial flutter Category: Medical Plan: History of paroxysmal atrial flutter, last documented in 2020. On last visit she did report the belief that she was in atrial fibrillation since August 2023. She noted that her heart rate was irregular but did not notice any other symptoms. EKG done last visit confirmed atrial fibrillation, right axis, septal Q-wave, rate 95. She was on atenolol for heart rate control which was continued. She has been on on Eliquis for anticoagulation. Last labs done 01/30/2024 shows creatinine 0.71. No bleeding issues reported. Holter monitor done on 01/30/2024 for 3 days shows atrial fibrillation with average heart rate 73, longest pause 3.3 seconds. Echocardiogram done 01/30/2024 shows EF 55-60%, moderate left atrial enlargement , severe mitral annular calcification. Spent time discussing treatment options for atrial fibrillation and pursuit of rhythm control. At this time she tells me she is feeling well and would like to just continue what she is on. She is not interested in cardioversion procedure. Discussed use of anti arrhythmics and again she declines. Will have her continue on current atenolol and Eliquis. Cardiology follow-up in 6 months, sooner if needed. (2) Aortic stenosis: Code(s): I35.0 - Nonrheumatic aortic (valve) stenosis Category: Medical Plan: Echocardiogram done 07/09/2021 shows EF greater than 70%, hyperdynamic, mild aortic stenosis. Last echo 06/10/2022 shows EF 65%, mild calcification of the aortic valve, no stenosis and moderate mitral annular calcification. Echocardiogram done 01/30/2024 shows EF 55-60%, no aortic stenosis, severe mitral annular calcification. At this time no definitive aortic stenosis. (3) Essential hypertension: Code(s): I10 - Essential (primary) hypertension Category: Medical Plan: Mild elevation today. She reports compliance with her medications however does not take her chlorthalidone when she is going out. She says she will take it when she gets home. Otherwise she has been taking her amlodipine, atenolol, valsartan. She is not interested in medication changes at this time. She says she is very sensitive to medications and does not want to disrupt anything. Instructed on low-salt diet, home blood pressure monitoring, increasing physical activity, weight loss. She states understanding. She is followed closely by her PCP as well. (4) Paroxysmal atrial fibrillation: Code(s): I48.0 - Paroxysmal atrial fibrillation Category: Medical Plan: History of paroxysmal atrial flutter. Now with atrial fibrillation which may be persistent. Checking Holter. Plan Time spent on chart review, documentation, interview and assessment. Coding Level of Care Code Est Pt Level 4 (48766) Diagnoses Paroxysmal atrial flutter I48.92 Aortic stenosis I35.0 Essential hypertension I10 Paroxysmal atrial fibrillation I48.0 Time Spent (min) 30
== END 2024-02-24 10:29 | disposition home or self-care (01) ==
PROVIDERS: PCP Internal Medicine; Visit Provider Nurse Practitioner Family
DX: I48.92 Unspecified atrial flutter (principal); I35.0 Nonrheumatic aortic (valve) stenosis; I10 Essential (primary) hypertension; I48.0 Paroxysmal atrial fibrillation
CPT/HCPCS: 99214

== ENCOUNTER → 2024-02-24 09:18 | Outpatient (BNVA) | payer MEDICARE, SELFPAY | PROVIDERS: PCP Internal Medicine; Visit Provider Nurse Practitioner Family | DX: I48.92 Unspecified atrial flutter (principal); I35.0 Nonrheumatic aortic (valve) stenosis; I10 Essential (primary) hypertension; I48.0 Paroxysmal atrial fibrillation | CPT/HCPCS: 99212 ==

== ENCOUNTER 2024-03-12 10:52 | Outpatient (REF) | payer MEDICARE, SELFPAY ==
--- NOTE | ~2024-03-12 | CT_ITS ---
EXAMINATION: CT CHEST WITHOUT CONTRAST CLINICAL INFORMATION: Left lung mass. COMPARISON: Chest x-ray of 01/30/2024. TECHNIQUE: Multidetector volumetric CT imaging of the chest was done. Axial MIP volume rendering provided. Sagittal and coronal reformatted images were obtained. This CT examination was performed using dose optimization techniques as appropriate, variously including the following: *Automated exposure control *Adjustment of mA and/or kV according to patient size (this includes techniques or standardized protocols for targeted exams where dose is matched to indication/reason for exam; i.e. extremities or head) *Use of iterative reconstruction technique DLP: 267 mGy-cm FINDINGS: LUNGS: The central airways are patent. No bronchiectasis appreciated. There are numerous sub-4 mm densities seen with a few, which appear to be calcified. Within the left lower lobe, there is an approximately 7.5 x 6.2 x 8.5 cm soft tissue density, which extends to the posterior and medial pleural surface and left infrahilar region. There is some adjacent pleural and lobular densities present. MEDIASTINUM: Heart mildly enlarged. No pericardial effusion. Mild thoracic aortic calcification. No thoracic aortic aneurysm. There is a 1.3 cm azygos lymph node. There is an approximately 7 mm left prevascular space lymph node. No internal mammary lymphadenopathy is seen. Mitral annular calcification present. Visualized thyroid gland unremarkable. CORONARY ARTERY CALCIFICATION: Present. PLEURA: There is no pleural effusion. AXILLA: No lymphadenopathy. Question possible 1 cm left breast lesion. UPPER ABDOMEN: Unremarkable. No adrenal gland mass. Status post cholecystectomy. OSSEOUS STRUCTURES: No destructive bony lesions identified. CT/CT chest wo IV con IMPRESSION: Left lower lobe mass density, which could represent malignancy or consolidated lung and for which PET/CT or biopsy is recommended. Cardiomegaly. A 1.3 cm azygous lymph node. Fleischner guidelines were followed.
== END 2024-03-12 10:53 | disposition home or self-care (01) ==
LOC: HO.CT 10:52
PROVIDERS: PCP Internal Medicine; Visit Provider Internal Medicine
DX: R91.8 Other nonspecific abnormal finding of lung field (principal)
CPT/HCPCS: 71250

== ENCOUNTER 2024-05-10 12:56 | Outpatient (AMB) | payer MEDICARE, SELFPAY ==
--- NOTE | 2024-05-10 13:10 | MHC.OFFVIS ---
Vital Signs 05/10/24 13:19 Height 5 ft 4 in Weight 255 lb BMI 43.8 Blood Pressure Location Rt brachial Position Sitting Intake Visit Reasons: Lung mass Intake Note: Patient referred by pcp Dr. Otoole for Lt lower lobe mass. Found on recent chest CT on 03-12-2024. Patietn c/o: SOB. Wheezing. Train Starter Required: No Allergies Calcium Channel Blocking Agents-Dih [CALCIUM CHANNEL BLOCKING AGENTS-DIH] Allergy (Unknown, Verified 05/10/24 13:17) RESTLESSNESS meperidine [From DEMEROL] Allergy (Unknown, Verified 05/10/24 13:17) CRYING Neuromuscular Blockers, Steroidal [STEROIDAL NEUROMUSCULAR BLOCKERS] Allergy (Unknown, Verified 05/10/24 13:17) MOOD SWINGS tetracycline [TETRACYCLINE] Allergy (Unknown, Verified 05/10/24 13:17) NAUSEA/VOMITING Medication List - Last Reconciled 05/10/24 by Roland Luque MD amlodipine 10 mg PO DAILY apixaban 5 mg PO BID 30 days atenolol 50 mg PO BID carbamazepine 100 mg PO BID chlorthalidone 50 mg PO DAILY levothyroxine 37.5 mcg PO DAILY pravastatin 40 mg PO DAILY valsartan 80 mg PO DAILY HPI Comments Details: Patient presents here for evaluation status post incidental finding of left lower lobe lung mass on workup for other issues. 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 She now presents here with the above-mentioned problem. She has moderate shortness of breath secondary to marked emphysema . Patient has 55+ year history of 1 pack per day. She discontinued smoking 2 years ago. Aside from the dyspnea on exertion, patient has no history of chronic cough, hemoptysis, chest pain, and occasional wheeze. Her weight, energy and appetite are stable. Chart was reviewed and patient evaluated [facility] Surgical History History of tonsillectomy History of cholecystectomy History of hysterectomy History of appendectomy Family History Mother Graves' disease Father [place] type familial amyloid cardiomyopathy Renal failure Social History Household Members: Spouse Housing: House Do you presently have visiting nurse or other home services: No Alcohol intake: never Patient Tobacco Use Status: Former Tobacco user Years Smoked: 50 +/- Advance Directives Date on File: 07/11/21 service: No Physical Exam Vital Signs: BMI result Body Mass Index 43.8 Neck Other: No obvious cervical, periclavicular, or axillary adenopathy bilaterally. Chest Other: Chest breath sounds bilaterally, consistent with COPD, HS 1 in 2 GI Other: Abdomen Dhaval, soft, benign Assessment & Plan Assessment & Plan (1) Cavitating mass in left lower lung lobe: Code(s): J98.4 - Other disorders of lung Category: Surgical Plan: The reviewed with the patient's CT scan findings which is highly suggestive of a neoplastic process involving left lower lobe. Current plan is to arrange for a PET scan for staging as well as a CT-guided biopsy for tissue diagnosis. Patient will see me after the studies. Patient had pulmonary function tests last which were consistent with mild COPD. Orders: Orders PET CT fusion skull to thigh Today J98.4 - Other disorders of lung CT biopsy lung LT Today J98.4 - Other disorders of lung Coding Level of Care Code New Pt Level 4 (13307) Diagnoses Cavitating mass in left lower lung lobe J98.4
[2024-05-10 13:19] VITALS: BMI 43.8
== END 2024-05-10 13:33 | disposition home or self-care (01) ==
PROVIDERS: PCP Internal Medicine; Visit Provider Surgery
DX: J98.4 Other disorders of lung (principal)
CPT/HCPCS: 99204

== ENCOUNTER → 2024-05-10 12:56 | Outpatient (BNVA) | payer MEDICARE, SELFPAY | PROVIDERS: PCP Internal Medicine; Visit Provider Surgery | DX: J98.4 Other disorders of lung (principal) | CPT/HCPCS: 99202 ==

== ENCOUNTER 2024-06-22 08:59 | Outpatient (REF) | payer MEDICARE, SELFPAY ==
--- NOTE | ~2024-06-22 | PE_ITS ---
EXAMINATION: Fluorine-18 FDG PET/CT Scan CLINICAL INDICATION: Initial treatment management. Left lung mass. PROCEDURE: 68 minutes following the intravenous administration of 22.3 mCi of fluorine 18 FDG, images from the base of the skull to the mid thighs were obtained using a combined PET/CT scanner with CT scan based attenuation correction. No oral contrast was administered. No intravenous contrast was administered. Transverse, coronal, sagittal, and volume reconstruction projections were obtained. The patient's blood glucose as determined by a finger stick, was 128 mg/dl immediately prior to injection. Total CT exam dose-length product 1146.17 mGy-cm * These CT images were obtained using dose optimization techniques as appropriate, variously including the following: Automated exposure control * Adjustment of mA and/or kV according to patient size (this includes techniques or standardized protocols for targeted exams where dose is matched to indication/reason for exam; i.e. extremities or head) * Use of iterative reconstruction technique COMPARISON: No previous PET CT scan is available for comparison. CT scan of the chest dated 03/12/2024 is available for comparison. FINDINGS: NECK AND VISUALIZED HEAD: No foci of abnormal FDG activity are noted. The distribution of FDG activity is physiological. There is no cervical lymphadenopathy. THORAX: An intensely FDG avid left lower lobe lung mass is present. This shows SUVmax 19.6, slice 77/223. On the CT images this measures 6.9 x 5.7 cm in largest transverse dimensions, and approximately 8.5 cm cephalocaudal. This abuts the medial and posterior pleural surfaces of the left lower lobe. This does not appear significantly changed on the CT images compared to the 03/12/[address] There are no additional foci of abnormal FDG activity in the chest. No additional suspicious pulmonary nodules are visualized. There is no pleural or pericardial fluid, or pneumothorax. There is a single enlarged mediastinal lymph node, and upper right pretracheal 1.6 x 1.2 cm lymph node that shows no abnormal FDG activity, slice 49/223. There is no additional mediastinal, supraclavicular, or axillary lymphadenopathy. ABDOMEN AND PELVIS: There are no foci of abnormal FDG activity in the abdomen or pelvis. There is mild FDG activity throughout the gastrointestinal tract without a suspicious focal component. There is diverticulosis without evidence of diverticulitis. The hollow viscera are otherwise unremarkable. The liver and spleen are unremarkable. The gallbladder has been resected and there are metallic surgical clips in the gallbladder bed. The kidneys, adrenal glands, and pancreas are unremarkable. There is no retroperitoneal, mesenteric, pelvic or inguinal lymphadenopathy. MUSCULOSKELETAL: There are no foci of abnormal FDG activity in the osseous structures. There are mild degenerative changes in the spine, most prominently in the mid thoracic spine. There are no suspicious sclerotic or lytic lesions visualized. There is some mild FDG activity bilaterally in musculature posterolaterally in the lower cervical and upper thoracic levels, probably physiological. VASCULAR: Diffuse vascular calcifications including coronary are noted. There is ectasia of the infrarenal abdominal aorta measuring 2.7 cm in largest AP diameter. Reference SUVmax Levels: Mediastinal Blood Pool: 2.3, Slice 62/223 Liver: 5.3, Slice 111/223 PET/PET CT fusion skull to thigh IMPRESSION: 1. An intensely FDG avid left lower lobe pulmonary mass is present and is most likely a primary malignancy. Biopsy is recommended, if clinically indicated. 2. No additional abnormalities suspicious for metastatic or other malignant lesions are noted. 3. Diffuse vascular calcifications including coronary. Electronically signed by: Haresh Kaiser MD 06/29/2024 02:10 PM EDT
== END 2024-06-22 09:00 | disposition home or self-care (01) ==
LOC: HO.PET 08:59
PROVIDERS: PCP Internal Medicine; Visit Provider Surgery
DX: Z13.89 Encounter for screening for other disorder (principal)

== ENCOUNTER 2024-07-19 08:58 | Day surgery (SDC) | payer MEDICARE, SELFPAY ==
[2024-07-19] VITALS (9 sets, daily range): BP systolic 113–165; BP diastolic 72–92; PULSE 76–92; RESP 18–20; TEMP 36.6–36.7; O2SAT 91–94; BMI 42.9
--- NOTE | ~2024-07-19 | CT_ITS ---
73-year-old female with a PET avid left lower lobe lung mass PROCEDURES: 1. Limited preprocedure CT of the chest. Permanent images saved in PACS. 2. CT-guided biopsy of the left lung mass. 3. Limited postprocedure CT of the chest. Permanent images saved in PACS. CLINICIANS: Abner Weems PA-C MEDICATIONS: -Versed 1.5 mg, Fentanyl 75 mcg, and lidocaine 1% 10 mL SQ -Antibiotics: None -For additional details, please see nursing flowsheet. COMPLICATIONS: None ESTIMATED BLOOD LOSS: < 5 ml CONTRAST: None SPECIMENS: 5 x 20 g cores were sent for pathology. 22-gauge FNA was sent for cytology. MODERATE SEDATION TIME: 23 min PROCEDURE NOTE: The procedure, risks, benefits, and alternatives were carefully explained to the patient and written informed consent was obtained. The patient was placed in the right lateral decubitus position on the CT table. A timeout was performed. A limited CT of the chest was performed to localize the left lower lobe lung mass and choose appropriate needle entry and trajectory. The patient was prepped and draped in usual sterile fashion. The skin and deeper soft tissues were anesthetized with lidocaine. Under CT guidance, a19 gauge trocar needle was advanced to the left lung mass. A 20 gauge biopsy device was inserted through the trocar needle and advanced into the mass. A total of 5 cores were performed. The specimens were placed in formalin and sent to pathology. Next, a 22-gauge Chiba needle was inserted through the trocar needle advanced into the lesion. A fine-needle aspiration was performed and sent for cytology. The biopsy needle was removed. A dry dressing was applied and secured with Tegaderm. A limited postprocedure CT of the chest was performed, which did not demonstrate any pneumothorax or hemothorax. There were no immediate complications. The patient was stable after the procedure and was transferred to the post anesthesia care unit. The procedure was done under moderate sedation with a dedicated nurse for monitoring of vital signs. CT/CT guided FNA Impression: CT-guided left lung mass biopsy This procedure was performed by Abner Weems PA-C and supervised by Dr. Grant. Electronically signed by: Amador Dooley MD 07/20/2024 01:44 PM [facility] [place]
--- NOTE | ~2024-07-19 | CT_ITS ---
73-year-old female with a PET avid left lower lobe lung mass PROCEDURES: 1. Limited preprocedure CT of the chest. Permanent images saved in PACS. 2. CT-guided biopsy of the left lung mass. 3. Limited postprocedure CT of the chest. Permanent images saved in PACS. CLINICIANS: Abner Weems PA-C MEDICATIONS: -Versed 1.5 mg, Fentanyl 75 mcg, and lidocaine 1% 10 mL SQ -Antibiotics: None -For additional details, please see nursing flowsheet. COMPLICATIONS: None ESTIMATED BLOOD LOSS: < 5 ml CONTRAST: None SPECIMENS: 5 x 20 g cores were sent for pathology. 22-gauge FNA was sent for cytology. MODERATE SEDATION TIME: 23 min PROCEDURE NOTE: The procedure, risks, benefits, and alternatives were carefully explained to the patient and written informed consent was obtained. The patient was placed in the right lateral decubitus position on the CT table. A timeout was performed. A limited CT of the chest was performed to localize the left lower lobe lung mass and choose appropriate needle entry and trajectory. The patient was prepped and draped in usual sterile fashion. The skin and deeper soft tissues were anesthetized with lidocaine. Under CT guidance, a19 gauge trocar needle was advanced to the left lung mass. A 20 gauge biopsy device was inserted through the trocar needle and advanced into the mass. A total of 5 cores were performed. The specimens were placed in formalin and sent to pathology. Next, a 22-gauge Chiba needle was inserted through the trocar needle advanced into the lesion. A fine-needle aspiration was performed and sent for cytology. The biopsy needle was removed. A dry dressing was applied and secured with Tegaderm. A limited postprocedure CT of the chest was performed, which did not demonstrate any pneumothorax or hemothorax. There were no immediate complications. The patient was stable after the procedure and was transferred to the post anesthesia care unit. The procedure was done under moderate sedation with a dedicated nurse for monitoring of vital signs. CT/CT biopsy lung LT Impression: CT-guided left lung mass biopsy This procedure was performed by Abner Weems PA-C and supervised by Dr. Grant. Electronically signed by: Amador Dooley MD 07/20/2024 01:44 PM [facility] [place]
[2024-07-19 09:31] LABS: MANUAL DIFF FLAG NO
[2024-07-19 09:34] LABS: Basophils Percent Auto 0.2 % (0-2); Eosinophils Percent Auto 0.2 % (0-4); Hematocrit 40.6 % (37.0-47.0); Hemoglobin 13.9 g/dl (12.0-16.0); Imm Gran Abs Auto 0.11 X10*3/uL (0.00-0.03); Imm Gran Pct Auto 0.9 % (0.0-0.4); Lymphocytes Absolute Auto 1.5 X10*3/uL (1.2-4.9); Lymphocytes Percent Auto 12.4 % (20-40); Mean Corpuscular HGB Conc 34.2 g/dl (31.0-35.0); Mean Corpuscular Hemoglobin 30.2 pg (27.0-33.0); Mean Corpuscular Volume 88.3 fL (80.0-98.0); Mean Platelet Volume 8.8 fL (9.4-12.3); Monocytes Absolute Auto 0.6 X10*3/uL (0.1-1.2); Monocytes Percent Auto 5.2 % (2-11); Neutrophils Absolute Auto 9.8 x10*3/uL (2.0-8.3); Neutrophils Percent Auto 81.1 % (45-73); Platelet Count 307 X10*3/uL (160-400); Red Cell Distribution Width 14.3 % (11.0-16.0); White Blood Count 12.1 X10*3/uL (4.8-10.8)
[2024-07-19 09:41] LABS: Prothrombin Time 11.9 SEC (10.9-12.4)
[2024-07-19 09:43] LABS: Partial Thromboplastin Time 27.9 SEC (26.0-36.8)
--- NOTE | 2024-07-19 10:38 | MHC.SHP ---
Pre-Procedural Eval Section A - 24 Hr Update-Section A only Date of Service: 07/19/24 Section B - Complete if H&P > 30 days Chief Complaint: CAVITATING MASS IN LEFT LOWER LUNG LOBE Details of Present Illness: 73 y/o female with a PET avid LLL lung mass. Relevant Family History (Specify if Yes): No Relevant Social History: Tobacco Use (quit 2 yr ago) Present Medications: see Short Stay Collaborative assessment Medical History: Significant History History of Previous Operations: Relevant previous surgery/procedure and date(s) Allergies: Allergies Allergy/AdvReac Type Severity Reaction Status Date / Time Calcium Channel Blocking Allergy Unknown RESTLESSNES Verified 07/19/24 09:19 Agents-Dih S [CALCIUM CHANNEL BLOCKING AGENTS-DIH] meperidine [From DEMEROL] Allergy Unknown CRYING Verified 07/19/24 09:19 Neuromuscular Blockers, Allergy Unknown MOOD SWINGS Verified 07/19/24 09:19 Steroidal [STEROIDAL NEUROMUSCULAR BLOCKERS] tetracycline [TETRACYCLINE] Allergy Unknown NAUSEA/VOMI Verified 07/19/24 09:19 TING Review of Systems Sugical H&P ROS: Negative: Constitution, Cardiovascular and Integumentary and Yes, Specify: Respiratory (chronic dyspnea) Exam Surgical H&P Exam: Normal: Heart, Normal: Lungs, Normal: Skin and Normal: Neurological Exam Comment: BMI>40 Plan Diagnosis/Plan: Unchanged 73 y/o female with PET avid LLL lung mass -CT Left lung mass biopsy Time Spent With Patient Time: Total time managing care of this patient today ____ minutes.
== END 2024-07-19 14:17 | disposition home or self-care (01) ==
LOC: HO.SSS 09:00
PROVIDERS: Physician Assistant Surgical; Radiology Vascular & Interventional Radiology; PCP Internal Medicine; Visit Provider Surgery
DX: C34.32 Malignant neoplasm of lower lobe, left bronchus or lung (principal); J98.4 Other disorders of lung; Z87.891 Personal history of nicotine dependence
CPT/HCPCS: 10009; 32408; 36415; 71045; 85025; 85610; 85730; 88173; 88305; 88341; 88342; 99152; 99153; J2003; J2250; J2310; J3010

== ENCOUNTER → 2024-07-19 10:26 | Outpatient (BNV) | payer MEDICARE, SELFPAY | PROVIDERS: PCP Internal Medicine; Visit Provider Physician Assistant Surgical | DX: J98.4 Other disorders of lung (principal) | CPT/HCPCS: 10009; 32408; 99152 ==

== ENCOUNTER 2024-08-03 11:03 | Outpatient (AMB) | payer MEDICARE, SELFPAY ==
[2024-08-03 11:10] VITALS: BP 162/80; PULSE 80
--- NOTE | 2024-08-03 11:10 | MHC.OFFVIS ---
Vital Signs 08/03/24 11:10 Weight 255 lb BP 162/80 H Blood Pressure Location Lt brachial Position Sitting Pulse 80 Intake Visit Reasons: s/p Ct lung biopsy Intake Note: Patient here to discuss fine needle Lt lower lobe bx from 07-19-2024. Reports incision healing well. Patient c/o: shortness of breath. 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 She admits/week's appointment because she was feeling unwell. Patient presents here. She is very anxious short of breath but once she calmed down she was able to converse with no dyspnea. O2 saturation was 96%. In the meantime, we discussed the results of her lung biopsy which is consistent with lung cancer. PET scan demonstrates this to be an isolated process. Pulmonary function tests are actually not too bad . [facility] Medical History (Updated 07/19/24 @ 09:18 by Shanique Henderson RN) Hypercholesteremia Hypothyroid Atrial fibrillation Hypertension Surgical History (Updated 08/03/24 @ 11:26 by Roland Luque MD) History of tonsillectomy History of cholecystectomy History of hysterectomy History of appendectomy Family History Mother Graves' disease Father Georgian type familial amyloid cardiomyopathy Renal failure Social History Household Members: Spouse Housing: House Are you a primary care connector to a significant other at home: No Do you presently have visiting nurse or other home services: No Alcohol intake: never Patient Tobacco Use Status: Former Tobacco user Years Smoked: 50 +/- Advance Directives Date on File: 07/11/21 service: No Physical Exam Vital Signs: Last Vital Signs Pulse 80 08/03/24 11:10 BP 162/80 H 11/19/24 11:10 Chest Other: Exam is status quo Assessment & Plan Assessment & Plan (1) Primary cancer of left lower lobe of lung: Code(s): C34.32 - Malignant neoplasm of lower lobe, left bronchus or lung Category: Surgical (2) Cavitating mass in left lower lung lobe: Code(s): J98.4 - Other disorders of lung Category: Surgical Plan In broad terms, I discussed with the patient therapeutic options which include surgery, radiation therapy, chemotherapy or combination of these. Based on preoperative studies, she has a localized left lower lobe lung lesion which from a surgical perspective would be a left lower lobectomy with mediastinal lymph node sampling. Patient would like to consider her options. Arrangements will be made for oncologic consultation with Dr. Cruz per patient's request and further plan will be formulated based on consensus of opinion. Coding Level of Care Code Est Pt Level 4 (69968) Diagnoses Primary cancer of left lower lobe of lung C34.32 Cavitating mass in left lower lung lobe J98.4
== END 2024-08-03 11:26 | disposition home or self-care (01) ==
PROVIDERS: PCP Internal Medicine; Visit Provider Surgery
DX: C34.32 Malignant neoplasm of lower lobe, left bronchus or lung (principal); J98.4 Other disorders of lung
CPT/HCPCS: 99214

== ENCOUNTER → 2024-08-03 11:03 | Outpatient (BNVA) | payer MEDICARE, SELFPAY | PROVIDERS: PCP Internal Medicine; Visit Provider Surgery | DX: C34.32 Malignant neoplasm of lower lobe, left bronchus or lung (principal); J98.4 Other disorders of lung | CPT/HCPCS: 99212 ==

== ENCOUNTER → 2024-08-09 09:52 | Outpatient (BNV) | payer MEDICARE, SELFPAY | PROVIDERS: PCP Internal Medicine; Referring Provider Internal Medicine; Visit Provider Internal Medicine | DX: C34.32 Malignant neoplasm of lower lobe, left bronchus or lung (principal); Z87.891 Personal history of nicotine dependence | CPT/HCPCS: 99205 ==

== ENCOUNTER → 2024-08-23 14:04 | Outpatient (BNVA) | payer MEDICARE, SELFPAY | PROVIDERS: PCP Internal Medicine; Visit Provider Nurse Practitioner Family ==

== ENCOUNTER 2024-08-23 14:53 | Outpatient (AMB) | payer MEDICARE, SELFPAY ==
--- NOTE | 2024-08-23 12:18 | A.OFFVIS_ITS ---
Intake Visit Reasons: COPD/Lung CA Allergies cephalexin [From Keflex] Allergy (Mild, Verified 08/23/24 14:11) Numbness of the Lips Calcium Channel Blocking Agents-Dih [CALCIUM CHANNEL BLOCKING AGENTS-DIH] Allergy (Unknown, Verified 08/23/24 14:10) RESTLESSNESS meperidine [From DEMEROL] Allergy (Unknown, Verified 08/23/24 14:10) CRYING Neuromuscular Blockers, Steroidal [STEROIDAL NEUROMUSCULAR BLOCKERS] Allergy (Unknown, Verified 08/23/24 14:10) MOOD SWINGS tetracycline [TETRACYCLINE] Allergy (Unknown, Verified 08/23/24 14:10) NAUSEA/VOMITING HPI HPI COPD/Lung CA: Details: Mary Beth is a pleasant 74-year-old female, former smoker with 50 pyh, quit 2 years ago with underlying invasive squamous cell carcinoma dx 07/2024, atrial fibrillation on eliquis dx 2022, HTN and hypothyroidism. She was referred by oncology for pulmonary evaluation. She requested telephone visit to be performed today due to issues with transportation. She reports dyspnea on minimal exertion affecting ADLs with associated productive cough with white sputum. She feels since dx with afib respiratory symptoms have become more noticeable. 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 CT chest without contrast on 03/12/2024 revealed a 6.2 x 7.5 x 8.5 cm soft tissue density extending to posterior and medial pleural surface and left infrahilar region. PET-CT on 06/22/2024 revealed intensely FDG avid left lower lobe mass measuring 8.5 x 6.9 x 5.7 cm, SUV 19.6. Not significantly changed from CT scan of February. No FDG avid lymphadenopathy, no FDG activity in abdomen/pelvis or musculoskeletal system. Oncology recommended surgery and chemotherapy/radiation however at this time patient has decided against these options and unfortunately she is not a candidate for immunotherapy. Per the last note she was requesting referral to [facility] radiation oncology. Prior PFT revealed mild obstructive defect consistent with COPD and patient not currently on any inhalers. Per pt PCP recommended against any albuterol components as she has atrial fibrillation and is not on any rate controlling mediations, only eliquis. She also notes significant mood changes with oral steroids and would like to avoid any ICS if possible. She reports h/o seasonal allergies however mild after completing allergent immunotherapy years ago. She denies any occupational exposures, worked as a RN for many years. She reports maternal cousin never smoker with lung cancer otherwise no pertinent family history. [facility] Medical History (Updated 08/23/24 @ 12:19 by Audrey Pierre NP) Hypercholesteremia Hypothyroid Atrial fibrillation Hypertension Surgical History (Updated 08/09/24 @ 10:16 by Annette Hampton MD) History of tonsillectomy History of cholecystectomy History of hysterectomy History of appendectomy Family History Mother Graves' disease Father [place]or[place] type familial amyloid cardiomyopathy Renal failure Social History Household Members: Spouse Housing: House Are you a primary career professional to a significant other at home: No Do you presently have visiting nurse or other home services: No Alcohol intake: never Patient Tobacco Use Status: Former Tobacco user Tobacco use type: Cigarette Years Smoked: 50 +/- Advance Directives Date on File: 07/11/21 service: No Current occupational status: retired Gender identity: Female Review of Systems Const All systems reviewed & are unremarkable except as noted in HPI and below Denies excessive sweating, Denies fever(s) and Denies headache(s) Eyes Denies dry eyes, Denies irritation and Denies itchy eyes ENT Reports Normal hearing present, Denies headache(s), Denies nasal congestion, Denies nasal discharge, Denies post nasal drip and Denies sore throat Card Denies chest pain, Denies chest pain at rest, Denies chest pain with activity, Denies claudication, Denies leg edema, Denies orthopnea and Denies paroxysmal nocturnal dyspnea Resp Denies chest congestion, Denies excessive phlegm production, Denies pain on inspiration, Denies pain with cough, Denies stridor and Denies wheezing Musc Denies myalgias Neuro Reports Normal hearing present and Denies headache(s) Endo Denies excessive sweating Aller/Immun Denies itchy eyes, Denies seasonal rhinorrhea and Denies wheezing Physical Exam Const General: cooperative and no acute distress Orientation/consciousness: patient oriented x3 Resp Effort & Inspection: normal respiratory effort, able to speak in complete sentences and no audible wheezes Neuro General: patient oriented x3 Cranial nerves: Yes Normal hearing present Psych Mental Status: mental status grossly normal Speech and movement: Clear speech present Attitude: cooperative Thought process: Normal thought process present Thought content: Normal thought content present Insight: Good insight present (Psych) Judgement: Good judgement present (Psych) Telehealth Telehealth Telehealth Platform: Telephone Location of provider rendering services: practice address Location of patient: address on file Patient Identification confirmed using: Name, : Yes Telehealth method: voice only Patient verbally consented to treatment: Yes Patient verbally consented to billing insurance company: Yes Patient informed of any privacy concerns related to visit: Yes Assessment & Plan Assessment & Plan (1) Non-small cell cancer of left lung: Code(s): C34.92 - Malignant neoplasm of unspecified part of left bronchus or lung Category: Medical (2) COPD (chronic obstructive pulmonary disease): Code(s): J44.9 - Chronic obstructive pulmonary disease, unspecified Category: Medical Plan Mary Beth's symptoms are likely multifactorial with contribution from COPD and lung cancer. Will trial Spiriva as patient would like to avoid steroid component due to mood changes and LABA due to atrial fibrillation. Will also send levalbuterol 1 inhalation q4-6 hours PRN. Advised to discuss with PCP regarding LABA component as spiriva may not provide significant benefit, as triple therapy inhalers are best for COPD patients. No further imaging needed at this time. All questions were answered and patient is in agreement of plan. Will follow up in office in 6-8 weeks or sooner if needed. Medications: New tiotropium bromide 2.5 mcg/actuation (Spiriva Respimat) 2 puffs inhalation DAILY 4 grams 6RF levalbuterol tartrate 45 mcg/actuation 1 puff inhalation Q4-6H PRN 15 grams 3RF shortness of breath Scribe Plan - Not visible on output: I spent 24 minutes speaking with the patient on the phone plus an additional 10 minutes reviewing and updating records for a total of 34 minutes Coding Level of Care Code Tele New Pt Level 4 (80495) Diagnoses Non-small cell cancer of left lung C34.92 COPD (chronic obstructive pulmonary disease) J44.9
== END 2024-08-23 14:59 | disposition home or self-care (01) ==
PROVIDERS: PCP Internal Medicine; Visit Provider Nurse Practitioner Family
DX: C34.92 Malignant neoplasm of unspecified part of left bronchus or lung (principal); J44.9 Chronic obstructive pulmonary disease, unspecified
CPT/HCPCS: 99443

== ENCOUNTER 2024-10-12 12:00 | Outpatient (REF) | payer MEDICARE, SELFPAY ==
--- NOTE | ~2024-10-12 | PE_ITS ---
EXAMINATION: FLUORINE-18 FDG PET/CT SCAN CLINICAL INFORMATION: Left lung mass. Restaging. TECHNIQUE: 90 minutes following the intravenous administration of 21.3 mCi of fluorine 18 FDG, images from the skull base to proximal thigh were obtained using a combined PET/CT scanner with CT scan based attenuation correction. No intravenous or oral contrast was administered. Transverse, coronal, sagittal, and volume reconstruction projections were obtained. The patient's blood glucose as determined by a finger stick, was 107 mg/dL immediately prior to injection. The radiotracer was injected intravenously through left antecubital vein, without any complications. Total CT exam dose-length product 1158 mGy-cm. * These CT images were obtained using dose optimization techniques as appropriate, variously including the following: Automated exposure control * Adjustment of mA and/or kV according to patient size (this includes techniques or standardized protocols for targeted exams where dose is matched to indication/reason for exam; i.e. extremities or head) * Use of iterative reconstruction technique COMPARISON: PET/CT 06/22/2024. FINDINGS: HEAD AND NECK: No abnormal radiotracer uptake. No large intracranial hemorrhage, acute territorial infarct or significant shift of midline structures. No neck mass or abnormal lymphadenopathy seen. The pharyngeal airway is widely patent. There are dental amalgam hardware related artifact on CT. CHEST: Ports and Devices: None Lungs: There is a large area of FDG avid mass in the left lower lobe similar intensity to previous study. The size of the mass is slightly larger. It measures 6.5 x 5.[address] slice 144/2. At the same level previously it measured 4.9 x 4.9 cm. There is atelectatic changes posterior to the large mass likely from compression of the bronchial and infrahilar segment. No additional areas of FDG activity seen. No active mediastinal or hilar lymph nodes seen. No metabolic active axillary lymph nodes seen. Pleura: No significant pleural effusion. Lymph Nodes: No tracer-avid mediastinal, hilar or internal mammary or axillary lymphadenopathy. Mediastinum: Size and the great vessels are normal caliber. Dense mitral valve calcification. No pericardial effusion seen. Central trachea and the bronchi are widely patent. Breasts/Chest Wall: No abnormal radiotracer uptake. ABDOMEN/PELVIS: Liver/Biliary System: No focal tracer-avid liver lesion. The gallbladder appears unremarkable. Pancreas: Normal. Spleen: No abnormal radiotracer uptake. No evidence of splenomegaly. Adrenal Glands: No abnormal radiotracer uptake. Kidneys: No hydronephrosis, hydroureter or renal calculi bilaterally. Bowel: There is no significant bowel dilatation to suggest obstruction. Lymph Nodes: No tracer avid retroperitoneal, mesenteric or pelvic and/or groin lymphadenopathy. Pelvic Organs: The urinary bladder is underdistended. MUSCULOSKELETAL: No abnormal FDG activity seen. Mild degenerative disc changes L4-5 and L5-S1 disc levels with spondylosis and vacuum disc phenomenon noted. There is ventral spondylosis throughout mid and lower dorsal spine. VASCULAR: Unremarkable PET/PET CT fusion skull to thigh IMPRESSION: Again visualizes a intensely FDG avid left lower lobe mass which has increased in size on CT compared to previous PET CT exam 06/22/2024. Postobstructive atelectasis or consolidation seen in the left lower lobe. No FDG active abnormal chest, neck or abdomen lymphadenopathy. No osseous caliectasis seen. Mild degenerative disc changes L4-5 and L5-S1 disc levels. Electronically signed by: Ezra Sutton MD 10/12/2024 04:38 PM EST
--- OUTSIDE RECORDS SUMMARY | 2024-10-12 13:03 | XMS_ITS ---
Author Organization Santos Otoole DO, FACP Address [address], [place] [id number] Care Team Providers Care Shrub Grower Name Role Phone Santos Otoole Primary Care Provider ALLERGIES Allergen (clinical drug ingredient) Drug/Non Drug Allergy documented on EMR Reaction Allergy Type Onset Date Status calcium channel lesley (FN) calcium channel blockers (uncoded) akathesia Allergy Active meperidine demerol (uncoded) crying Allergy A ctive talwin (uncoded) hallucinations Allergy Active cephalexin Cephalexin itchy roof of mo uth, numbness of lips Drug Allergy Active tetracycline Tetracycline HCl abdominal cramps Drug Allergy Active losartan Losartan Potassium depression, hopelessness Drug Allergy Active Steroids steroids (uncoded) mood swings Allergy Active REASON FOR VISIT 3 month f/u, Follow up Lung mass, Typical atrial flutter MEDICATIONS Medication SIG (Take, Route, Frequency, Duration) Notes Start Date End Date Status amLODIPine Besylate 10 MG 1 tablet Orall y Once a day for 30 day(s) 09/01/2024 Active Chlorthalidone 25 MG 2 tablets in the mo rning with food Orally Once a day Active amLODIPine Besylate 10 MG 1 tablet Orall y Once a day for 90 days Active Valsartan 80 MG 1 tablet Orally Once a day Active Pravastatin Sodium 20 MG tablet Orally Once a day Active carBAMazepine 200 MG 0.5 tablet Orally T wice a day Active Levothyroxine Sodium 75 MCG 1 tablet in the morning on an empty stomach Orally Once a day Active Apixaban 5 MG 1 tablet Orally Twic e a day Active D3-50 1.25 MG (32296 UT) 1 capsule Orall y Twice a week Active ALPRAZolam 0.5 MG 1 tablet as needed Orally Once a day 05/12/2024 Active Atenolol 50 MG 2 tablets Orally Onc e a day Active SOCIAL HISTORY Tobacco Use: Social History Observation Description Date Details (start date - stop date) Former Smoker NA - NA Sex Assigned At : Social History Observation Description Sex Assigned At Unknown Tobacco Use/Smoking Question Answer Notes Patient is a former smoker How long has it been since y ou last smoked? 1-5 years Additional Findings: Tobacco Non-User Fo rmer smoker, currently using no form of tobacco Alcohol Screen Question Answer Notes Did you have a drink containing alcohol in the p ast year? No Points 0 Interpretation Negative PROBLEMS Problem Type ICD Code Onset Dates Problem Status W/U Status Risk SNOMED Code Notes Problem Malignant neoplasm of lower lobe of left lung (C34.32) Active confirmed 361658024 VITAL SIGNS BMI 44.63 kg/m2 09/01/2024 Blood pressure systolic 154 mm Hg 09/01/20 24 Blood pressure diastolic 72 mm Hg 024 Height 63.50 in 09/01/2024 Weight 256 lbs 09/01/2024 Encounters Encounter Location Date Provider Diagnosis Santos Otoole DO, [address] [phone] 09/01/2024 Santos Brooksman Malignant neoplasm o f lower lobe of left lung C34.32 ; Essential hypertension I10 ; Hypercholesterolemia E78.00 ; Acquired hypothyroidism E03.9 ; Typical atrial flutter I48.3 and Anxiety F41.9 ASSESSMENTS Encounter Date Diagnosis Assessment Notes Treatment Notes Treatment Clinical Notes 09/01/2024 Malignant neoplasm o f lower lobe of left lung (ICD-10 - C34.32) Follow up with Oncology, Dr. Hampton 09/01/2024 Essential hypertensi on (ICD-10 - I10) 09/01/2024 Hypercholesterolemia (ICD-10 - E78.00) 09/01/2024 Acquired hypothyroid ism (ICD-10 - E03.9) 09/01/2024 Typical atrial flutt er (ICD-10 - I48.3) 09/01/2024 Anxiety (ICD-10 - F41.9) PLAN OF TREATMENT Medication Medication Name Sig Start Date Stop Date Notes amLODIPine Besylate 10 MG 1 tablet Orall y Once a day for 30 day(s) 09/01/2024 Chlorthalidone 25 MG 2 tablets in the mo rning with food Orally Once a day Valsartan 80 MG 1 tablet Orally Once a day Pravastatin Sodium 20 MG tablet Orally Once a day carBAMazepine 200 MG 0.5 tablet Orally Twice a day Levothyroxine Sodium 75 MCG 1 tablet in the morning on an empty stomach Orally Once a day Apixaban 5 MG 1 tablet Orally Twice a day D3-50 1.25 MG (78114 UT) 1 capsule Orally Twice a week ALPRAZolam 0.5 MG 1 tablet as needed O rally Once a day 05/12/2024 Atenolol 50 MG 2 tablets Orally Once a day Treatment Notes Assessment Notes Malignant neoplasm of lower lobe of left lung Follow up with Oncology, Dr. Hampton Next Appt Details Follow Up: 2 Months, Reason: follow up visit Provider Name:Santos crawford, 11/03/2024 01:30:00 PM, [address] [place] [address], [phone], Progress Notes * Examination Category Sub-Category Detail Notes General Examination GENERAL APPEARANCE: in no ac wilton distress, well developed, well nourished HEAD: normocephalic, atrau matic HEART: no murmurs, regular rate and rhythm, S1, S2 normal LUNGS: clear to auscultatio n bilaterally ABDOMEN: normal, bowel sounds present, soft, nontender, nondistended SKIN: warm and dry EXTREMITIES: no edema PSYCH: alert, oriented, cog nitive function intact
--- OUTSIDE RECORDS SUMMARY | 2024-10-12 13:03 | XMS_ITS ---
Author Organization [facility] Address [address] [facility] [place] [address] [facility] [place] [address] Care Team Providers Care Senior Sales Director Name Role Phone Santos Otoole MD Primary Care Provider Unavail able Meg Rasheed Unavailable [phone] Sourav Tang Unavailable [phone] Allergies Allergen (clinical drug ingredient) Drug/Non Drug Allergy documented on EMR Reaction Allergy Type Onset Date Status Calcium & Magnesium Carbonates Unknown Drug Allergy Active meperidine Demerol Unknown Drug Allergy Active Keflex Unknown Drug Allergy Active lisinopril Lisinopril Unknown Drug Allergy Activ e tetracycline Tetracycline HCl Unknown Drug Allergy Active angiotensin-converting enzyme inhibitor (FN) ODILON Inhibitors Unknown Drug Allergy Acti ve dexamethasone Dexamethasone Unknown Drug Allergy Active REASON FOR VISIT Pcp-03/01/24, Wart(s), Painful nail(s) aggrevated by shoes and causing difficulty standing/walking. Medications Medication SIG (Take, Route, Frequency, Duration) Notes Start Date End Date Status Chlorthalidone Not-T aking Pravachol 20 MG 1 tablet Orally Once a day for 30 day(s) Not-Taking Aspirin 81 MG 1 tablet Orally Once a day for 30 day(s) Not-Taking Vitamin D (Ergocalciferol) vit D2 Not-Taking Synthroid Not-Taking Pravastatin Sodium A ctive TEGretol 200 MG Orally Twice a day Active Vitamin D Active Valsartan Active carBAMazepine 120mg once a day Not-Taking Levothyroxine Sodium 25 MCG 1 tablet every morning on an empty stomach Orally Once a day for 30 day(s) Active amLODIPine Besylate Active Eliquis 5 MG Oral for 90 Activ e Atenolol 25 MG 1 tablet Orally Once a day for 30 day(s) Active Social History Tobacco Use: Social History Observation Description Date Details (start date - stop date) Former Smoker NA - NA Tobacco Use/Smoking Question Answer Notes Are you a: former smoker Additional Findings: Tobacco Non-User Current no n-smoker Tobacco use other than smoking: Question Answer Notes Are you an other tobacco user? 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, bilateral legs I70.203 Assessments Encounter Date Diagnosis (ICD Code) Assessment Notes Treatment Notes Treatment Clinical Notes Section Notes 04/22/2024 Tinea unguium (ICD-10 - B35.1) 04/22/2024 Pain in right toe(s) (ICD-10 - M79.674) 04/22/2024 Pain in left toe(s) (ICD-10 - M79.675) 04/22/2024 Other viral warts (ICD-10 - B07.8) 04/22/2024 Pain in left foot (ICD-10 - M79.672) 04/22/2024 Pain in right foot (ICD-10 - M79.671) 04/22/2024 Unspecified atherosclerosis of hughes arteries of extremities, bilateral legs (ICD-10 - I70.203) Plan Of Treatment Next Appt Details Follow Up: 4 Months, Reason: Provider Name:Meg damian, 01/03/2025 11:30:00 AM, [address] [place], [address], Procedure Notes * Category Sub-Category Detail Notes Wart Treatment Procedure Verrucae(s) were debrided to pin-point bleeding margins with sterile surgical blade (08298), silver nitrate chemocautery applied Debride Nail 6-10 Nail debridement Nail debridem ent performed extensively to reduce/remove overall nail length and girth, subungual debris, and necrotic tissue, by manual and electrical means with use of a nail nipper and/or dremel, to more viable healthy nail plate or bed tissue 6-10. Silver nitrate used for any petechial bleeding as necessary. Patient chooses, no pharmaceutical tx (10364) Keratoma Treatment Parring or Cutting o f Benign Hyperkeratotic Lesion(s) 85234 (2-4 Lesions) - The Benign hyperkeratotic lesions, as described above were pared, and/or cut utilizing a sterile #15 blade, tissue nippers, and/or dremel, Q8 Progress Notes * BALDOCecelia Linan CDOB:[birth year] (73 yo F)Acc No.[id number]:04/22/2024 Progress Note Patient:?Mary Beth Ware Provider:?Sourav Tang DPM :1950???Age:73 Y???Sex:Female D ate:04/22/2024 Address:[address] [place], [place] [id number] Pcp:Santos Otoole MD Subjective: * Chief Complaints: * ???Pcp-03/01/24Wart(s) Painf ul nail(s) aggrevated by shoes and causing difficulty standing/walking. * HPI: ???Wart:?Pt States Last PCP Visit:?Date:?06/16/2023 ???Skin problems:?Nature:?dryness.?Location:?B/L , Heel/Rearfoot, Midfoot.?Duration:?several months.?Treatments:?poor compliance with moisturizer.? * ROS:?General/Constitutional:?Nausea?denies, denies.?Vomiting?denies, denies.?Hunger Thirst?denies, denies.?Loss appetite?denies, denies.?Chills?denies, denies.?Fatigue?denies, denies.?Fever?denies, denies.?Night Sweats denies, denies.?Unexplained weight loss?denies, denies.?Unexplained weight gain?denies, denies.?HEENTM:?Dentures?denies, denies.?Dizziness?denies, denies.?Glasses/contacts?denies, denies.?Retinopathy?denies, denies.?Blurred/double vision?denies, denies.?TMJ?denies, denies.?Discharge/drainage?denies, denies.?Implants?denies, denies.?Sore throat?denies, denies.?Dental implants?denies, denies.?Hard of hearing ?denies, denies.?Difficulty chewing/swallowing/speaking?denies, denies.?Nose bleeds?denies, denies.?Sore mouth?denies, denies.?Respiratory:?On Oxygen?denies, denies.?Pneumonia/pleurisy?denies, denies.?Bronchitis?denies, denies.?Emphysema?denies, denies.?Coughing?denies, denies.?Cough blood?denies, denies.?Shortness of breath?denies, denies.?Wheezing?denies, denies.?Cardiovascular:?Pacemaker?denies, denies.?MVP?denies, denies.?WPW?denies, denies.?CHF?denies, denies.?Heart attack?denies, denies.?Septal defect?denies, denies.?Rapid beat?denies, denies.?Chest pain ?denies, denies.?Atrial Fib.?denies, denies.?Murmur/Palpitations?denies, denies.?Gastrointestinal:?Hemorrhoids?denies, denies.?Stomach/Abdominal pain?denies, denies.?Dark blood stool?denies, denies.?Irritable bowel ?denies, denies.?Constipation?denies, denies.?Diarrhea?denies, denies.?Hematology:?Swelling?admits, admits.?Clots?denies, denies.?Varicose Veins?denies, denies.?Bruising?denies, denies.?Bleeding problem?denies, denies.?Genitourinary:?Blood urine?denies, denies.?Frequent/Painfu/urination/bladder control?denies, denies.?Kidney stones?denies, denies.?Infection (UTI)?denies, denies.?Nephropathy?denies, denies.?sex trans dis (STD)?denies, denies.?Prostate?denies, denies.?Musculoskeletal:?Hammertoes?denies, denies.?Bunions?denies, denies.?Back Pain?denies, denies.?Muscle Cramps/ Resting?denies, denies.?Muscle cramps / walking?denies, denies.?Generalized aches and pains?admits, admits.?Weakness?denies, denies.?Integ.:?Harvey?denies, denies.?Scars?denies, denies.?Corns/calluses?admits, admits.?Ingrown nails?denies, denies.?Painful nails?denies, denies.?Open Sores?denies, denies.?Rashes?denies, denies.?Neurologic:?Difficulty sleeping?denies, denies.?Brain disorder?denies, denies.?Numbness?denies, denies.?Balance trouble?denies, denies.?Confusion?denies, denies.?Fainting/blackouts?denies, denies.?Tingling?denies, denies.?Tremors?denies, denies.? * Medical History:? * Surgical History:?appendecto my tonsillectomy colon/intestinal surgery hysterectomy Lens replacement * [place]/Major Diagno stic [place] [place] [place]- left 09/06 * Family History:?Mother: dece ased, diagnosed with Unspecified essential hypertension.?Father: , diagnosed with Unspecified essential hypertension.? * Social History:?Tobacco Use:?Tobacco Use/Smoking?Are you a:?former smoker ?Additional Findings: Tobacco Non-User?Current non-smoker ?Tobacco use other than smoking?Are you an other tobacco user??No ???Miscellaneous:?Caffeine: yes, 2-3 cups per day. ?no Children. ?no Exercise. ?Marital status: . ?Occupation: Retired, RN,. * Medications:?TakingamLODIPin e Besylate Atenolol 25 MG Tablet 1 tablet Orally Once a dayEliquis 5 MG Tablet Oral Levothyroxine Sodium 25 MCG Tablet 1 tablet every morning on an empty stomach Orally Once a dayPravastatin Sodium TEGretol 200 MG Tablet Orally Twice a dayValsartan Vitamin D Taking amLODIPine Besylate Taking Atenolol 25 MG Tablet 1 tablet Orally Once a dayTaking Eliquis 5 MG Tablet Oral Taking Levothyroxine Sodium 25 MCG Tablet 1 tablet every morning on an empty stomach Orally Once a dayTaking Pravastatin Sodium Taking TEGretol 200 MG Tablet Orally Twice a dayTaking Valsartan Taking Vitamin D Not-Taking/PRNcarBAMazepine , Notes: 120mg once a dayChlorthalidone Aspirin 81 MG Tablet Chewable 1 tablet Orally Once a dayPravachol 20 MG Tablet 1 tablet Orally Once a daySynthroid Vitamin D (Ergocalciferol) , Notes: vit [id number] List reviewed and reconciled with the patientNot-Taking/PRN carBAMazepine , Notes: 120mg once a dayNot-Taking/PRN Chlorthalidone Not- Taking/PRN Aspirin 81 MG Tablet Chewable 1 tablet Orally Once a dayNot-Taking/PRN Pravachol 20 MG Tablet 1 tablet Orally Once a dayNot-Taking/PRN Synthroid Not-Taking/PRN Vitamin D (Ergocalciferol) , Notes: vit [id number] List reviewed and reconciled with the patient * Allergies:?Tetracycline HClD emerolCalcium & Magnesium CarbonatesLisinoprilKeflexACE InhibitorsDexamethasoneyes[Allergies Verified] Objective: * Vitals:?Ht: 5ft4in, Wt:230, BMI:39.48, Shoe size: 8, BP:150/70 mm Hg, Ht-cm: 162.56 cm, Wt-k.33 kg. * Examination: ???Vascular: ?DP PULSES:? 1/4, B/L.?PT PULSES:? 0/4, B/L.?CAPILLARY FILL TIME:?3 secs. per digit, B/L.?SKIN TEMPERTURE GRADIENT OF THE LOWER EXTERMITIES:?warm to cool, proximal to distal, B/L.?HAIR GROWTH/TEXTURE/ELASTICITY/TURGOR:?normal, B/L.?PIGMENTATION:? rubrous, B/L.?EDEMA:? 3/4, Left, 2/4, Right, B/L, Feet, Ankle(s), Leg(s) , no edema.?TELANGECTASIA:? severe .?VARICOSITIES:? present, moderate, nonpainful, B/L .?Neurological: ?SENSORY:?Neurological exam reveals intact sensorium, pain sensation normal, vibration sensation intact, pinprick sensation is normal in the lower extremities, Pt denies, anesthesia, burning, paresthesia, tingling, B/L , Neurological exam reveals intact sensorium, pain sensation normal, vibration sensation intact, pinprick sensation is normal in the lower extremities, pt denies, anesthesia, burning, paresthesia, tingling, B/L.?TINEL'S COMPRESSION:?Negative tarsal tunnel, magui pedis, and medial calcaneal nerves, B/L.?BABINSKI REFLEX:?Absent, B/L.?Nails: ?NAILS are:?Elongated, overgrown, dystrophic, lytic, greater than 3mm thick, discolored and friable with crumbly malodorous subungual debris, with pain on palpation, 1-5 Left foot, T5, T9 .?General Examination: ?GENERAL APPEARANCE:?pleasant, alert, well nourished, well developed, well hydrated, with good attention to hygene/body habitus, and in no acute distress.?ORIENTED:?person,place, and time.?Orthopedic: ?MUSCLE STRENGTH:?5/5 all groups in a symmetrical fashion B/L.?GAIT ABNORMALITY:?pronated, abducted, B/L.?Dermatologic: ?SKIN FINDINGS:?Skin shows sign(s) of, dryness, scaling, in a stocking fashion, no fissure(s) present, B/L, Skin exam reveals Keratotic lesion(s) located at, Plantar, Heel(s), B/L .?VERRUCA:?Reveals a Single , multi-loculated , mosaically patterned, round, raised, flat-topped, petechial bleeding papulae(s), with cauliflower appearance and interrruption of skin lines, pain to lateral compression, and size estimated at __3__ mm diameter, plantar Forefoot, RIGHT.? Assessment: * Assessment: 1.?Tinea unguium - B35.1 (Pr imary)?2.?Pain in right toe(s) - M79.674?3.?Pain in left toe(s) - M79.675?4.?Other viral warts - B07.8?5.?Pain in left foot - M79.672?6.?Pain in right foot - M79.671?7.?Unspecified atherosclerosis of hughes arteries of extremities, bilateral legs - I70.203? Plan: * Treatment: * Procedures:?Debride Nail 6-10:?Nail debridement?Nail debridement performed extensively to reduce/remove overall nail length and girth, subungual debris, and necrotic tissue, by manual and electrical means with use of a nail nipper and/or dremel, to more viable healthy nail plate or bed tissue 6-10. Silver nitrate used for any petechial bleeding as necessary. Patient chooses, no pharmaceutical tx (39532).?Keratoma Treatment:?Parring or Cutting of Benign Hyperkeratotic Lesion(s)?22607 (2-4 Lesions) - The Benign hyperkeratotic lesions, as described above were pared, and/or cut utilizing a sterile #15 blade, tissue nippers, and/or dremel, Q8.?Wart Treatment:?Procedure?Verrucae(s) were debrided to pin-point bleeding margins with sterile surgical blade (35199), silver nitrate chemocautery applied.? * Procedure Codes:?73181 DEBRI DE NAIL, 6 OR MORE, Modifiers: XS 80523 Wart Destruction, 1-14, Modifiers: XS 04907 TRIM SKIN LESIONS, 2 TO 4, Modifiers: Q8 * Follow Up:?4 Months * Images: * Sign off status: Completed true * Provider:?oSurav Tang DPM Date:? 024 Generated for Seng sears/Candy/Marilyn on:?10/12/2024 01:03 PM EST History and Physical Notes * [...]
--- OUTSIDE RECORDS SUMMARY | 2024-10-12 13:04 | XMS_ITS ---
Author Organization [facility] Address [address] [facility] [place] [address] Care Team Providers Care Furnace Feeder Name Role Phone Santos Otoole MD Primary Care Provider Unavail able Meg Rasheed Unavailable [phone] Allergies Allergen (clinical drug ingredient) Drug/Non Drug [...] Unknown Drug Allergy Active REASON FOR VISIT At Risk Footcare, Painful Nail(s) aggravated by shoes and causing difficulty standing/walking., Wart(s) Medications Medication SIG (Take, Route, Frequency, Duration) Notes Start Date End Date Status Vitamin D (Ergocalciferol) vit D2 Not-Taking Synthroid Not-Taking amLODIPine Besylate Active Pravachol 20 MG 1 tablet Orally Once a day for 30 day(s) Not-Taking Aspirin 81 MG 1 tablet Orally Once a day for 30 day(s) Not-Taking TEGretol 200 MG Orally Twice a day Active Chlorthalidone Not-T aking carBAMazepine 120mg once a day Not-Taking Vitamin D Active Valsartan Active Eliquis 5 MG Oral for 90 Activ e Atenolol 25 MG 1 tablet Orally Once a day for 30 day(s) Active Pravastatin Sodium A ctive Levothyroxine Sodium 25 MCG 1 tablet every morning on an empty stomach Orally Once a day for 30 day(s) Active Social History Tobacco Use: Social History Observation Description Date Details (start date - stop date) Former Smoker NA - NA Tobacco Use/Smoking Question Answer Notes Are you a: former smoker Additional Findings: Tobacco Non-User Current no n-smoker Alcohol Screen Question Answer Notes Did you have a drink containing alcohol in the p ast year? No Points 0 Interpretation Negative Tobacco use other than smoking: Question Answer Notes Are you an other tobacco user? No Problems Problem Type SNOMED Code ICD Code Onset Dates Problem Status W/U Status Risk Notes Problem Atherosclerosis of pilot point artery of both lower extremities, with unspecified presence of clinical manifestation (I70.203) Active confirmed Q7(A), Q8(2B), Q9(1B,2C ) Problem Plantar wart (15003020) Plantar wart (B07.0) Active confirmed Vital Signs Height 5ft4in in 2024 Weight 230 lbs 2024 BMI 39.48 kg/m2 2024 Blood pressure systolic 150 mm Hg 08/23/20 24 Blood pressure diastolic 70 mm Hg 024 Procedures Procedure Date Ordered Date Performed Result Body Sit e 57071-XNHHVJC NAIL, 6 OR MORE 2024 N/A 26291-Astp Destruction, 1-14 2024 N/A 85755-NXAV SKIN LESIONS, 2 TO 4 2024 N/A Encounters Encounter Location Date Provider Diagnosis [facility] [address] [place] [address] 2024 Meg Rasheed Atherosclerosis of pilot point artery of both lower extremities, with unspecified presence of clinical manifestation I70.203 ; Tinea unguium B35.1 ; Pain in right toe(s) M79.674 ; Pain in left toe(s) M79.675 ; Right foot pain M79.671 and Plantar wart B07.0 Assessments Encounter Date Diagnosis (ICD Code) Assessment Notes Treatment Notes Treatment Clinical Notes Section Notes 2024 Atherosclerosis of pilot point artery of both lower extremities, with unspecified presence of clinical manifestation (ICD-10 - I70.203) Q7(A), Q8(2B), Q9(1B,2C) 2024 Tinea unguium (ICD-10 - B35.1) 2024 Pain in right toe(s) (ICD-10 - M79.674) 2024 Pain in left toe(s) (ICD-10 - M79.675) 2024 Right foot pain (ICD-10 - M79.671) 2024 Plantar wart (ICD-10 - B07.0) Plan Of Treatment Pending Test Test Name Order Date 54824-VZHDUIQ NAIL, 6 OR MORE 2024 86020-Rizz Destruction, 1-14 2024 63689-LPJI SKIN LESIONS, 2 TO 4 08/23/20 24 Next Appt Details Follow Up: 3 Months, Reason: Provider Name:Meg damian, 01/03/2025 11:30:00 AM, [address] [place] [address], [phone], Procedure Notes * Category Sub-Category Detail Notes Wart Treatment Procedure Verruca, as desc ribed in exam, were debrided to pin-point bleeding margins with sterile 15 surgical blade, silver nitrate chemocautery applied, recomm. immune-boosting meds such as zinc, recomm. follow up with topical chemosurgical agents, Pt defers any other forms of tx - 36296 Debride Nail 6-10 Nail debridement Due to the cl inical pathology outlined in the exam findings, performance of this nail treatment is medically necessary as its management by an unskilled/untrained nonprofessional would put this patients foot and overall health at risk. Therefore, debridement to affected nail(s), as described in exam, was performed extensively to reduce/remove overall nail length, girth, thickness, subungual debris, and necrotic tissue, by manual and/or electrical means through the use of a nail nipper and/or dremel-type bark grinder, to a more viable healthy nail plate or bed tissue 6-10 nails in total. Silver nitrate was used for any petechial bleeding as necessary. Definitive antifungal treatment options, both pharmaceutical and surgical, have been reviewed and discussed with the patient. The patient solely prefers the use of intermittent/as needed professional debridement services for their nail condition and understands the need for additional periodic treatments to maintain effectiveness in symptomatic relief - Keratoma Treatment Parring or Cutting o f Benign Hyperkeratotic Lesion(s) (-56) 2-4 Lesions - Due to the at risk nature of the patients medical condition as documented in the exam findings, performance of this keratoderma treatment is medically necessary as its management by an unskilled/untrained nonprofessional would put this patients foot and overall health at risk. Therefore, the benign hyperkeratotic lesions, ( 2_ ) in total, locations as stated and described in the exam, were pared, and/or cut utilizing a sterile 15 blade, tissue nippers, and/or power dremel instrumentation - 45499, Q8 Progress Notes * Mary Beth ROSENTHAL CDOB:[birth year] (74 yo F)Acc No.[id number]:[id number] Progress Note Patient:?Mary Beth ROSENTHAL Provider:?Meg Rasheed DPM :1950???Age:74 Y???Sex:Female D ate:2024 Address:[address] [place], [place] [id number] Pcp:Santos Otoole MD Subjective: * Chief Complaints: * ???At Risk FootcarePainful N ail(s) aggravated by shoes and causing difficulty standing/walking.Wart(s) * HPI: ???At Risk footcare:?Pt States Last PCP Visit:?Date?07/13/2024 ???Skin problems:?Pt States PCP Visit: ?DATE?07/13/2024 * ROS:?General/Constitutional:?Nausea?denies, denies.?Vomiting?denies, denies.?Hunger Thirst?denies, denies.?Loss appetite?denies, [...] hysterectomy Lens replacement * Hospitalization/Major Diagno stic Procedure:?[facility] - AFib 2 days 06/2021[facility]- Fx shoulder- left 09/06 * Family History:?Mother: dece ased, diagnosed with Unspecified essential hypertension.?Father: , diagnosed with Unspecified essential hypertension.? * Social History:?Tobacco Use:?Tobacco Use/Smoking?Are you a:?former smoker ?Additional Findings: Tobacco Non-User?Current non-smoker ?Tobacco use other than smoking?Are you an other tobacco user??No ???Drugs/Alcohol:?Drugs?Have you used drugs other than those for medical reasons in the past 12 months??No ?Alcohol Screen?Did you have a drink containing alcohol in the past year??No ?Points?0 ?Interpretation?Negative ???Miscellaneous:?Caffeine: yes, 2-3 cups per day. ?Children: no. ?Exercise: no. ?Marital status: . ?Occupation: Retired, RN,. * Medications:?TakingamLODIPin e Besylate Atenolol 25 MG Tablet 1 tablet Orally Once a day Eliquis 5 MG Tablet Oral Levothyroxine Sodium 25 MCG Tablet 1 tablet every morning on an empty stomach Orally Once a day Pravastatin Sodium TEGretol 200 MG Tablet Orally Twice a day Valsartan Vitamin D Taking amLODIPine Besylate Taking Atenolol 25 MG Tablet 1 tablet Orally Once a day Taking Eliquis 5 MG Tablet Oral Taking Levothyroxine Sodium 25 MCG Tablet 1 tablet every morning on an empty stomach Orally Once a day Taking Pravastatin Sodium Taking TEGretol 200 MG Tablet Orally Twice a day Taking Valsartan Taking Vitamin D Not-Taking/PRNcarBAMazepine , Notes to Pharmacist: 120mg once a dayChlorthalidone Aspirin 81 MG Tablet Chewable 1 tablet Orally Once a day Pravachol 20 MG Tablet 1 tablet Orally Once a day Synthroid Vitamin D (Ergocalciferol) , Notes to Pharmacist: vit [id number] List reviewed and reconciled with the patientNot-Taking/PRN carBAMazepine , Notes to Pharmacist: 120mg once a dayNot-Taking/PRN Chlorthalidone Not-Taking/PRN Aspirin 81 MG Tablet Chewable 1 tablet Orally Once a day Not-Taking/PRN Pravachol 20 MG Tablet 1 tablet Orally Once a day Not-Taking/PRN Synthroid Not-Taking/PRN Vitamin D (Ergocalciferol) , Notes to Pharmacist: vit [id number] List reviewed and reconciled with the patient * Allergies:?Tetracycline HClD emerolCalcium & Magnesium CarbonatesLisinoprilKeflexACE InhibitorsDexamethasoneyes[Allergies Verified] Objective: * Vitals:?Ht:5ft4in, Wt:230, B VT:39.48, Shoe size:8, BP:150/70mm Hg, Ht-cm: 162.56 cm, Wt-k.33 kg. * Examination: ???General Examination: ?GENERAL APPEARANCE:?Reveals a pleasant, alert, well nourished, well- developed, well hydrated individual, who demonstrates proper attention to hygiene/body habitus, and is in no acute distress, Pt serves as own historian for office visit today.?ORIENTED:?person, place, and time.?Vascular: ?DP PULSES(B):? 0/4, B/L.?PT PULSES(B):? 0/4, B/L.?CAPILLARY FILL TIME:? delayed, all digits, B/L.?TROPHIC CONDITION-TEXTURE/ELASTICITY/TURGOR/HAIR GROWTH(B):? decreased, fragile, thin, shiny skin, with sparse to absent hair growth, B/L.?TEMPERTURE GRADIENT(C):? decreased, cool to cool, proximal to distal, B/L.?PIGMENTATION:?rubrous, B/L.?EDEMA(C):?3/4, pitting, without aching pain.?CLAUDICATION(C):?denies, B/L.?REST PAIN:?denies, B/L.?PARESTHESIA(C):?absent, B/L.?BURNING(C):?absent, B/L.?Nails: ?NAILS are:?Elongated, overgrown, dystrophic, lytic, greater than 3mm thick, discolored and friable with crumbly malodorous subungual debris, with pain on palpation, 1-5 B/L.?Dermatologic: ?SKIN FINDINGS:?Skin exam reveals Keratotic lesion(s) located at plantar heels B/L.?VERRUCA:?Reveals a Single , multi-loculated , mosaic-patterned, round, raised, flat-topped, petechial bleeding papule(s), with cauliflower appearance and interruption of skin lines, pain to lateral compression, and size estimated at _4_ mm diameter, plantar lateral right forefoot.?Orthopedic: ?MUSCLE STRENGTH:?5/5 all groups in a symmetrical fashion, B/L.?Neurological: ?SENSORY:?Neurological exam reveals intact sensorium, pain sensation normal, vibration sensation intact, pinprick sensation is normal in the lower extremities, Pt denies, anesthesia, burning, paresthesia, tingling, B/L.? Assessment: * Assessment: 1.?Tinea unguium - B35.1???2 .?Atherosclerosis of pilot point artery of both lower extremities, with unspecified presence of clinical manifestation - I70.203 (Primary)???Notes :Q7(A), Q8(2B), Q9(1B,2C)???3.?Pain in right toe(s) - M79.674???4.?Pain in left toe(s) - M79.675???5.?Right foot pain - M79.671???6.?Plantar wart - B07.0??? Plan: * Treatment: 2.?Tinea unguium?Procedure: 92708-KECADUH NAIL, 6 OR MORE 3.?Plantar wart?Procedure: 33287-Oyay Destruction, 1-14 * Procedures:?Debride Nail 6-10:?Nail debridement?Due to the clinical pathology outlined in the exam findings, performance of this nail treatment is medically necessary as its management by an unskilled/untrained nonprofessional would put this patients foot and overall health at risk. Therefore, debridement to affected nail(s), as described in exam, was performed extensively to reduce/remove overall nail length, girth, thickness, subungual debris, and necrotic tissue, by manual and/or electrical means through the use of a nail nipper and/or dremel-type bark grinder, to a more viable healthy nail plate or bed tissue 6-10 nails in total. Silver nitrate was used for any petechial bleeding as necessary. Definitive antifungal treatment options, both pharmaceutical and surgical, have been reviewed and discussed with the patient. The patient solely prefers the use of intermittent/as needed professional debridement services for their nail condition and understands the need for additional periodic treatments to maintain effectiveness in symptomatic relief - 86331.?Keratoma Treatment:?Parring or Cutting of Benign Hyperkeratotic Lesion(s)?(-56) 2-4 Lesions - Due to the at risk nature of the patients medical condition as documented in the exam findings, performance of this keratoderma treatment is medically necessary as its management by an unskilled/untrained nonprofessional would put this patients foot and overall health at risk. Therefore, the benign hyperkeratotic lesions, ( 2_ ) in total, locations as stated and described in the exam, were pared, and/or cut utilizing a sterile 15 blade, tissue nippers, and/or power dremel instrumentation - 10562, Q8.?Wart Treatment:?Procedure?Verruca, as described in exam, were debrided to pin-point bleeding margins with sterile 15 surgical blade, silver nitrate chemocautery applied, recomm. immune-boosting meds such as zinc, recomm. follow up with topical chemosurgical agents, Pt defers any other forms of tx - 46914.? * Procedure Codes:?85412 DEBRI DE NAIL, 6 OR MORE, Modifiers: XS 66079 Wart Destruction, 1-14, Modifiers: XS 06170 TRIM SKIN LESIONS, 2 TO 4, Modifiers: XS , Q8 * Follow Up:?3 Months * Images: * Sign off status: Completed true * Provider:?Meg Rasheed DPM Date:?1 10/24/2023 Generated for Seng sears/Candy/eTsukhjinder on:?10/12/2024 01:04 PM EST History and Physical Notes * HPI (History of Present Illness) Category Sub-Category Detail Notes Category Not es Skin problems Pt States PCP Visit: DATE: 07/13/2024 At Risk footcare Pt States Last PCP Visit: Date: Examination Category Sub-Category Detail Notes Category Not es Neurological SENSORY: Neurological exa m reveals intact sensorium, pain sensation normal, vibration sensation intact, pinprick sensation is normal in the lower extremities, Pt denies, anesthesia, burning, paresthesia, tingling, B/L Dermatologic SKIN FINDINGS: Skin exam reveal s Keratotic lesion(s) located at plantar heels B/L VERRUCA: Reveals a Single , m ulti-loculated , mosaic-patterned, round, raised, flat-topped, petechial bleeding papule(s), with cauliflower appearance and interruption of skin lines, pain to lateral compression, and size estimated at _4_ mm diameter, plantar lateral right forefoot Orthopedic MUSCLE STRENGTH: 5/5 all groups in a symm etrical fashion, B/L General Examination GENERAL APPEARANCE: Reveals a pleasant, alert, well nourished, well-developed, well hydrated individual, who demonstrates proper attention to hygiene/body habitus, and is in no acute distress, Pt serves as own historian for office visit today ORIENTED: person, place, and t parviz Vascular DP PULSES (B): 0/4, B/L PT PULSES (B): 0/4, B/L CAPILLARY FILL TIME: delayed, all digits , B/L TEMPERTURE GRADIENT (C): decreased, cool to cool, proximal to distal, B/L TROPHIC CONDITION-TEXTURE/ELASTICITY/TURGOR/HAIR GROWTH (B): decreased, fragile, thin, shiny skin, wi th sparse to absent hair growth, B/L EDEMA (C): 3/4, pitting, withou t aching pain CLAUDICATION (C): denies, B/L REST PAIN: denies, B/L PIGMENTATION: rubrous, B/L PARESTHESIA (C): absent, B/L BURNING (C): absent, B/L Nails NAILS are: Elongated, overg rown, dystrophic, lytic, greater than 3mm thick, discolored and friable with crumbly malodorous subungual debris, with pain on palpation, 1-5 B/L
--- OUTSIDE RECORDS SUMMARY | 2024-10-12 13:04 | XMS_ITS ---
Author Organization Santos Otoole DO, FACP Address [address] [place] [phone] Care Team Providers Care Medical Or Surgical Instrument Maker Name Role Phone Santos Otoole Primary Care Provider [phone] REASON FOR VISIT Needs call back from MD Encounters Encounter Location Date Provider Diagnosis Santos Otoole DO, FACP [address] [place] [phone] 06/30/2024 Santos Otoole PLAN OF TREATMENT Next Appt Details Provider Name:Santos crawford, 11/03/2024 01:30:00 PM, [address] [place] [address], [phone],
--- OUTSIDE RECORDS SUMMARY | 2024-10-12 13:04 | XMS_ITS ---
Author Organization Santos Otoole DO, FACP Address [address] [place], [place] [id number] Care Team Providers Care Radio Performer Name Role Phone Santos Otoole Primary Care [...] mood swings Allergy Active REASON FOR VISIT Follow up Lung mass MEDICATIONS Medication SIG (Take, Route, Frequency, Duration) Notes Start Date End Date Status amLODIPine Besylate 10 MG 1 tablet Orall y Once a day Active amLODIPine Besylate 10 MG 1 tablet Orall y Once a day for 30 day(s) 06/02/2024 Active Valsartan 80 MG 1 tablet Orally Once a day Active Chlorthalidone 25 MG 2 tablets in the mo rning with food Orally Once a day Active ALPRAZolam 0.5 MG 1 tablet as needed Orally Once a day 05/12/2024 Active Apixaban 5 MG 1 tablet Orally Twic e a day Active Levothyroxine Sodium 75 MCG 1 tablet in the morning on an empty stomach Orally Once a day Active D3-50 1.25 MG (12420 UT) 1 capsule Orall y Twice a week Active carBAMazepine 200 MG 0.5 tablet Orally T wice a day Active Pravastatin Sodium 40 MG 1 tablet Orally Once a day Active Atenolol 50 MG 2 tablets Orally [...] smoker, currently using no form of tobacco VITAL SIGNS BMI 44.46 kg/m2 06/02/2024 Blood pressure systolic 140 mm Hg 06/02/20 24 Blood pressure diastolic 82 mm Hg 024 Height 63.50 in 06/02/2024 Weight 255 lbs 06/02/2024 Encounters Encounter Location Date Provider Diagnosis Santos Otoole DO, [address] [phone] 06/02/2024 Santos Otoole Lung mass R91.8 ; Es sential hypertension I10 ; Hypercholesterolemia E78.00 ; Acquired hypothyroidism E03.9 ; Typical atrial flutter I48.3 ; Vitamin D deficiency, unspecified E55.9 and Anxiety F41.9 ASSESSMENTS Encounter Date Diagnosis Assessment Notes Treatment Notes Treatment Clinical Notes 06/02/2024 Lung mass (ICD-10 - R91.8) F ollow up with Surgery. PET scan and CT guided lung biopsy are being scheduled 06/02/2024 Essential hypertensi on (ICD-10 - I10) 06/02/2024 Hypercholesterolemia (ICD-10 - E78.00) 06/02/2024 Acquired hypothyroid ism (ICD-10 - E03.9) 06/02/2024 Typical atrial flutt er (ICD-10 - I48.3) 06/02/2024 Vitamin D deficiency , unspecified (ICD-10 - E55.9) 06/02/2024 Anxiety (ICD-10 - F41.9) PLAN OF TREATMENT Medication Medication Name Sig Start Date Stop Date Notes amLODIPine Besylate 10 MG 1 tablet Orall y Once a day for 30 day(s) 06/02/2024 Valsartan 80 MG 1 tablet Orally Once a day Chlorthalidone 25 MG 2 tablets in the mo rning with food Orally Once a day ALPRAZolam 0.5 MG 1 tablet as needed O rally Once a day 05/12/2024 Apixaban 5 MG 1 tablet Orally Twice a day Levothyroxine Sodium 75 MCG 1 tablet in the morning on an empty stomach Orally Once a day D3-50 1.25 MG (36303 UT) 1 capsule Orally Twice a week carBAMazepine 200 MG 0.5 tablet Orally Twice a day Pravastatin Sodium 40 MG 1 tablet Orally Once a day Atenolol 50 MG 2 tablets Orally Once a day Treatment Notes Assessment Notes Lung mass Follow up with [facility]. PET scan and CT guided lung biopsy are being scheduled Next Appt Details Follow Up: 3 Months, Reason: follow up visit Provider Name:Santos Lesly crawford, 11/03/2024 01:30:00 PM, [address] [place] [address], [phone], Progress Notes * Examination Category Sub-Category Detail Notes General Examination GENERAL APPEARANCE: in no ac emerson distress, well developed, well nourished HEAD: normocephalic, atrau matic HEART: no murmurs, regular rate and rhythm, S1, S2 normal LUNGS: clear to auscultatio n bilaterally ABDOMEN: normal, bowel sounds present, soft, nontender, nondistended SKIN: warm and dry EXTREMITIES: no edema PSYCH: alert, oriented, cog nitive function intact
--- OUTSIDE RECORDS SUMMARY | 2024-10-12 13:04 | XMS_ITS ---
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 Encounters Encounter Location Date Provider Diagnosis [facility] [address] [place] [address] 03/04/2024 Sourav Tang Tinea unguium B35.1 ; Pain in right toe(s) M79.674 ; Pain in left toe(s) M79.675 ; Other viral warts B07.8 ; Pain in left foot M79.672 ; Pain in right foot M79.671 and Unspecified atherosclerosis of [place] arteries of extremities, bilateral legs I70.203 Assessments [...] (ICD-10 - M79.671) 03/04/2024 Unspecified atherosclerosis of [place] arteries of extremities, bilateral legs (ICD-10 - I70.203) Plan Of Treatment Next Appt Details Follow Up: 4 Months, Reason: Provider Name:Meg damian, 01/03/2025 11:30:00 AM, [address] [place], [address], Procedure Notes * Category Sub-Category Detail Notes Wart Treatment Procedure Verrucae(s) were debrided to pin-point bleeding margins with sterile surgical blade (21377), silver nitrate chemocautery applied Debride Nail 6-10 Nail debridement Nail debridem ent performed extensively to reduce/remove overall nail length and girth, subungual debris, and necrotic tissue, by manual and electrical means with use of a nail nipper and/or dremel, to more viable healthy nail plate or bed tissue 6-10. Silver nitrate used for any petechial bleeding as necessary. Patient chooses, no pharmaceutical tx (99007) Keratoma Treatment Parring or Cutting o f Benign Hyperkeratotic Lesion(s) 41457 (2-4 Lesions) - The Benign hyperkeratotic lesions, as described above were pared, and/or cut utilizing a sterile #15 blade, tissue nippers, and/or dremel, Q8 Progress Notes * Mary Beth ROSENTHAL CDOB:[birth year] (74 yo F)Acc No.[id number]:03/04/2024 Progress Note Patient:?BALDOCecelia Linty Servin Provider:?Sourav Tang DPM :1950???Age:73 Y???Sex:Female D ate:03/04/2024 Address:[address] [place] [id number] Pcp:Santos Otoole MD Subjective: * Chief Complaints: * ???1. Wart(s). 2. Painful na il(s) aggrevated by shoes and causing difficulty standing/walking.. * HPI: ???Wart:?Pt States Last PCP Visit:?Date:?06/16/2023 ???Skin problems:?Nature:?dryness.?Location:?B/L , Heel/Rearfoot, Midfoot.?Duration:?several months.?Treatments:?poor compliance with moisturizer.? * ROS:?General/Constitutional:?Nausea?denies.?Vomiting?denies.?Hunger Thirst?denies.?Loss appetite?denies.?Chills?denies.?Fatigue?denies.?Fever?denies.?Night Sweats?denies.?Unexplained weight loss?denies.?Unexplained weight gain?denies.?HEENTM:?Dentures?denies.?Dizziness?denies.?Glasses/contacts?denies.?Retinopathy?de nies.?Blurred/double vision?denies.?TMJ?denies.?Discharge/drainage?denies.?Implants?denies.?Sore throat?denies.?Dental implants?denies.?Hard of hearing ?denies.?Difficulty chewing/swallowing/speaking?denies.?Nose bleeds?denies.?Sore mouth?denies.?Respiratory:?On Oxygen?denies.?Pneumonia/pleurisy?denies.?Bronchitis?denies.?Emphysema?denies.?C oughing?denies.?Cough blood?denies.?Shortness of breath?denies.?Wheezing?denies.?Cardiovascular:?Pacemaker?denies.?MVP?denies.?WPW?denies.?CHF?denies.?Heart attack?denies.?Septal defect?denies.?Rapid beat?denies.?Chest pain ?denies.?Atrial Fib.?denies.?Murmur/Palpitations?denies.?Gastrointestinal:?Hemorrhoids?denies.?Stomach/Abdominal pain?denies.?Dark blood stool?denies.?Irritable bowel ?denies.?Constipation?denies.?Diarrhea?denies.?Hematology:?Swelling?admits.?Clots?denies.?Varicose Veins?denies.?Bruising?denies.?Bleeding problem?denies.?Genitourinary:?Blood urine?denies.?Frequent/Painfu/urination/bladder control?denies.?Kidney stones?denies.?Infection (UTI)?denies.?Nephropathy?denies.?sex trans dis (STD)?denies.?Prostate?denies.?Musculoskeletal:?Hammertoes?denies.?Bunions?denies.?Back Pain?denies.?Muscle Cramps/ Resting?denies.?Muscle cramps / walking?denies.?Generalized aches and pains?admits.?Weakness?denies.?Integ.:?Harvey?denies.?Scars?denies.?Corns/calluses?admits.?Ingrown nails?denies.?Painful nails?denies.?Open Sores?denies.?Rashes?denies.?Neurologic:?Difficulty sleeping?denies.?Brain disorder?denies.?Numbness?denies.?Balance trouble?denies.?Confusion?denies.?Fainting/blackouts?denies.?Tingling?denies.?Tr emors?denies.? * Medical History:? Objective: * Vitals:? * Examination: ???Vascular: ?DP PULSES (B):? 1/4, B/L.?PT PULSES (B):? 0/4, B/L.?CAPILLARY FILL TIME:?3 secs. per digit, B/L.?TROPHIC CONDITION-TEXTURE/ELASTICITY/TURGOR/HAIR GROWTH (B):?normal, B/L.?TEMPERTURE GRADIENT (C):?warm to cool, proximal to distal, B/L.?PIGMENTATION:? rubrous, B/L.?EDEMA (C):? 3/4, Left, 2/4, Right, B/L, Feet, Ankle(s), Leg(s) , no edema.?TELANGECTASIA:? severe.?VARICOSITIES:? present, moderate, nonpainful, B/L.?Neurological: ?SENSORY:?Neurological exam reveals intact sensorium, pain [...] pain on palpation, 1-5 Left foot, T5, T9.?General Examination: ?GENERAL APPEARANCE:?pleasant, alert, well nourished, well [...] * Assessment: 1.?Tinea unguium - B35.1 (Pr imary)???2.?Pain in right toe(s) - M79.674???3.?Pain in left toe(s) - M79.675???4.?Other viral warts - B07.8???5.?Pain in left foot - M79.672???6.?Pain in right foot - M79.671???7.?Unspecified atherosclerosis of [place] arteries of extremities, bilateral legs - I70.203??? Plan: * Treatment: * Procedures:?Debride Nail 6-10:?Nail debridement?Nail debridement performed extensively to reduce/remove overall nail length and girth, subungual debris, and necrotic tissue, by manual and electrical means with use of a nail nipper and/or dremel, to more viable healthy nail plate or bed tissue 6-10. Silver nitrate used for any petechial bleeding as necessary. Patient chooses, no pharmaceutical tx (53445).?Keratoma Treatment:?Parring or Cutting of Benign Hyperkeratotic Lesion(s)?62750 (2-4 Lesions) - The Benign hyperkeratotic lesions, as described above were pared, and/or cut utilizing a sterile #15 blade, tissue nippers, and/or dremel, Q8.?Wart Treatment:?Procedure?Verrucae(s) were debrided to pin-point bleeding margins with sterile surgical blade (23885), silver nitrate chemocautery applied.? * Procedure Codes:?80040 DEBRI DE NAIL, 6 OR MORE, Modifiers: XS , 99906 Wart Destruction, 1-14, Modifiers: XS , 39819 TRIM SKIN LESIONS, 2 TO 4, Modifiers: Q8 * Follow Up:?4 Months * Images: * The named appointment provid er may or may not be the originator of this progress note, and it is not deemed complete until electronically signed by the appointment provider. Sign off status: Pending * Provider:Mendez Tang DPM Date:? 024 Generated for Seng sears/Candy/eTransmitting on:?10/12/2024 01:03 PM EST History and Physical [...]
== END 2024-10-12 12:01 | disposition home or self-care (01) ==
LOC: HO.PET 12:00
PROVIDERS: PCP Internal Medicine; Visit Provider Internal Medicine
DX: Z13.89 Encounter for screening for other disorder (principal)

== ENCOUNTER 2025-02-02 11:47 | Outpatient (AMB) | payer MEDICARE, SELFPAY ==
[2025-02-02 11:38] VITALS: BP 139/63; PULSE 90; RESP 16; TEMP 36.4; O2SAT 94; BMI 45.1
--- NOTE | 2025-02-02 11:38 | MHC.PC.OV ---
Vital Signs 02/02/25 11:38 Height 5 ft 4 in Weight 263 lb BMI 45.1 BP 139/63 Blood Pressure Location Rt brachial Position Sitting Respiration 16 Pulse 90 Pulse Source Pulse Oximeter Temp 97.5 F Temp Source Temporal Artery Scan Pulse Oximetry (%) 94 Oxygen Delivery Method Room Air Intake Visit Reasons: follow up Transactional Attorney Required: No Accompanied by: Self / Same As Patient Allergies cephalexin [From Keflex] Allergy (Mild, Verified 02/02/25 13:56) Numbness of the Lips Calcium Channel Blocking Agents-Dih [CALCIUM CHANNEL BLOCKING AGENTS-DIH] Allergy (Unknown, Verified 02/02/25 13:56) RESTLESSNESS meperidine [From DEMEROL] Allergy (Unknown, Verified 02/02/25 13:56) CRYING Neuromuscular Blockers, Steroidal [STEROIDAL NEUROMUSCULAR BLOCKERS] Allergy (Unknown, Verified 02/02/25 13:56) MOOD SWINGS tetracycline [TETRACYCLINE] Allergy (Unknown, Verified 02/02/25 13:56) NAUSEA/VOMITING Medication List - Last Reconciled 02/02/25 by Zahraa Singleton PA-C alprazolam 0.5 mg PO DAILY PRN amlodipine 10 mg PO DAILY apixaban (Eliquis) 5 mg PO BID 90 days atenolol 50 mg PO BID 90 days carbamazepine 100 mg (1/2 x 200 mg) PO BID 90 days chlorthalidone 50 mg (2 x 25 mg) PO DAILY 90 days cholecalciferol (vitamin D3) 1,250 mcg PO 2XW levalbuterol tartrate 45 mcg/actuation 1 puff inhalation Q4-6H PRN levothyroxine 75 mcg PO DAILY pravastatin 20 mg PO BEDTIME tiotropium bromide 1.25 mcg/actuation (Spiriva Respimat) 2 puffs inhalation DAILY valsartan 80 mg PO DAILY Tobacco use date assessed: 02/02/25 Fall risk assessment: No Falls in past year Last assessed Fall Risk: 02/02/25 Dental Screening Dental Screen Date: 02/02/25 Did you have a dental visit in the last 12 months?: Yes Did you have a dental problem in the last 6 months where you did not have access to dental care?: No Was dental information given to patient?: Patient has dentist HPI follow up HPI Details The patient is a 74-year-old female presenting for a follow-up appointment and to establish a new primary care provider due to her primary care provider Dr. Otoole retired September of 2024. She has a longstanding history of essential hypertension, hyperlipidemia, hypothyroidism, trigeminal neuralgia, venous insufficiency, and COPD, which have been managed over time. Following cessation of smoking in March 2022, she began experiencing respiratory symptoms likely attributed to the development of COPD. Eighteen months ago, she was diagnosed with lung cancer, and in July 2023, her atrial fibrillation became permanent after two prior episodes. This has led to increased anxiety levels for which she seeks a refill of her Xanax prescription. She experienced a significant left leg injury decades ago, resulting in persistent swelling and avoidance of sodium to manage edema. She has recent laboratory findings indicating sodium levels on the lower side and prediabetes with an A1c of 6.1%. No acute distress is reported, and she continues her medications divided between the morning and evening. Social History - Former smoker, quit in March 2022. - Avoids sodium due to previous leg injury and persistent edema. 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 - Resides with supportive family but has chosen not to disclose her lung cancer diagnosis to them. [facility] Medical History (Updated 02/02/25 @ 14:00 by Zahraa Singleton PA-C) Chronic hyponatremia Prediabetes Anxiety Mammogram declined (~02/02/25) Colonoscopy refused (~02/02/25) Morbid obesity with BMI of 45.0-49.9, adult History of mammogram (~02/07/23) Venous insufficiency Trigeminal neuralgia Mild hypercholesterolemia Establishing care with new doctor, encounter for Hypercholesteremia Hypothyroid Atrial fibrillation Hypertension Surgical History History of colonoscopy (~04/19/14) History of tonsillectomy History of cholecystectomy History of hysterectomy History of appendectomy Family History Mother Graves' disease Father Serbian type familial amyloid cardiomyopathy Renal failure Social History Household Members: Spouse Housing: House Are you a primary career technical education instructor to a significant other at home: No Do you presently have visiting nurse or other home services: No Alcohol intake: never Patient Tobacco Use Status: Former Tobacco user Tobacco use type: Cigarette Years Smoked: 50 +/- Advance Directives Date on File: 07/11/21 service: No Current occupational status: retired Gender identity: Female Cognitive needs: No Hearing needs: No Vision needs: No Questionnaire PHQ-9 Over the last 2 weeks, how often have you been bothered by any of the following problems? 1. Little interest or pleasure in doing things: not at all 2. Feeling down, depressed, or hopeless: not at all 3. Trouble falling or staying asleep, or sleeping too much: not at all 4. Feeling tired or having little energy: not at all 5. Poor appetite or overeating: not at all 6. Feeling bad about yourself - or that you are a failure or have let yourself or your family down: not at all 7. Trouble concentrating on things, such as reading the newspaper or watching television: not at all 8. Moving or speaking so slowly that other people could have noticed. Or the opposite - being so fidgety or restless that you have been moving around a lot more than usual: not at all 9. Thoughts that you would be better off or of hurting yourself in some way: not at all Total score: 0 Depression Screening Interpretation: Negative Depression Screening Done: Yes 28001 - PHQ-9 Billing: Yes Source: Developed by Drs. Santos Beasley, Gilda Oreilly, Jhony Wallis and colleagues, with an educational jeyson from [employer]. Thrive Questionnaire Date Thrive assessed: 02/02/25 I am a: Patient What is your living situation today?: I have a steady place to live Within the past 12 months, did the food you bought not last and you didn't have the money to get more?: Never true Within the past 12 months, did you worry whether your food would run out before you got money to buy more?: Never true Do you have trouble paying for medicines?: No Do you have trouble getting transportation to medical appointments?: No Do you have trouble paying your heating and electricity bill?: No Do you have trouble taking care of your child, family member or friend?: No Do you have trouble with day-to-day activities such as bathing, preparing meals, shopping, managing finances, etc.?: No Are you currently unemployed and looking for a job?: No Are you interested in more education?: No Please select the resources that you would like help with: None THRIVE Score: 0 AUDIT C Alcohol Use Questionnaire (AUDIT-C) 1. How often do you have a drink containing alcohol?: Never 3. How often do you have six or more drinks on one occasion?: Never Total Score: 0 Score Reviewed/Action Taken: No EDWIN-7 AMB Questionnaire EDWIN-7 Date EDWIN - 7 assessed: 02/02/25 Feeling nervous, anxious, or on edge: 0 = Not at all Not being able to stop or control worryin = Not at all Worrying too much about different things: 0 = Not at all Trouble relaxin = Not at all Being so restless that it is hard to sit still: 0 = Not at all Becoming easily annoyed or irritable: 0 = Not at all Feeling afraid as if something awful might happen: 0 = Not at all Total EDWIN-7 score (0-4 normal; 5-9 mild; 10-14 moderate; 15-21 severe): 0 Source: Developed by Drs. Santos Beasley, Gilda Oreilly, Jhony Wallis and colleagues, with an educational jeyson from [employer]. EDWIN-7 Assessment Billing EDWIN-7 Assessment Tool: EDWIN-7 Assessment 16023 Review of Systems Const Details: - Cardiovascular: Reports dyspnea on exertion. Denies chest pain and recent falls. - Respiratory: Denies shortness of breath at rest. - Neurological: Denies reports of dizziness outside of adjusting for low sodium. - Gastrointestinal: Denies abdominal pain. - Musculoskeletal: Reports chronic left leg swelling. - Psychiatric: Reports increased anxiety. - Endocrine/Metabolism: Sodium levels sometimes low; reports feeling better slightly hypothyroid. Physical exam (Primary Care) Vital Signs: Last Vital Signs Temp 97.5 F 02/02/25 11:38 Pulse 90 02/02/25 11:38 Resp 16 02/02/25 11:38 BP 139/63 02/02/25 11:38 Pulse Ox 94 02/02/25 11:38 Oxygen Delivery Method Room Air 02/02/25 11:38 Care Plan Goal for BP management: <140/90 at Goal BMI result Body Mass Index 45.1 BMI Assessment/Plan discussion: High BMI High, discussed plan: lifestyle, weight reduction, dietary, physical activity and alcohol moderation Tobacco/Smoking Status: Tobacco use Status Tobacco use date assessed 02/02/25 02/02/25 11:40 Patient Tobacco Use Status Former Tobacco user 02/02/25 11:40 Tobacco use type Cigarette 02/02/25 11:40 PHQ-9: PHQ-9 Score PHQ-9: Total score 0 02/02/25 12:21 Depression Screening Interpretation: Negative Thrive Assessment: Date of Thrive Assessment Date Thrive assessed 02/02/25 02/02/25 11:40 Const Other: Appearance: Alert. Oriented X3. No acute distress. Head: Normal external exam. Normocephalic. Atraumatic. Eyes: Pupils are equal, round, and reactive to light. Extraocular movements intact. Conjunctiva and sclera normal. Eyelids normal. Ears: External auditory canal normal. Tympanic membranes normal. Throat: Pharynx normal. Uvula midline. Moist mucous membranes. Neck: Normal inspection. Neck supple. Full range of motion. No adenopathy. Thyroid Normal. No meningeal signs. No neck mass noted. Cardiovascular: Normal heart rate and rhythm. Heart sound normal. No murmurs noted. Pulses normal throughout. Respiratory: No respiratory distress. Painless inspiration. Breath sounds normal. No wheezes/rales/rhonchi noted. Chest nontender. No accessory muscle usage noted or decreased air movement noted. Abdomen: Soft and nontender. Bowel sounds normal in all 4 quadrants. No distention noted. No organomegaly noted. No visible injury noted. Back: No costovertebral angle tenderness. Full range of motion noted. Skin: Skin warm and dry. Normal skin color. Normal skin turgor. No rashes/lesions/lacerations noted. Extremities: Extremities exhibit normal range of motion. Bilateral lower extremity edema which is chronic for the patient. No calf tenderness. Neuro: Oriented X 3. No motor deficit. No sensory deficit. Reflexes normal. Results Reviewed Results Reviewed: - Labs: Low sodium levels; prediabetes with a hemoglobin A1c of 6.1%. - Tests: Two PET scans in the past several months; results not elaborated during the visit. Coding Level of Care Code New Pt Level 4 (21512) Complex EM visit Add On G2211 Diagnoses Establishing care with new doctor, encounter for Z76.89 Essential hypertension I10 Paroxysmal atrial flutter I48.92 Paroxysmal atrial fibrillation I48.0 Cavitating mass in left lower lung lobe J98.4 Primary cancer of left lower lobe of lung C34.32 Non-small cell cancer of left lung C34.92 COPD (chronic obstructive pulmonary disease) J44.9 Venous insufficiency I87.2 Hypothyroid E03.9 Trigeminal neuralgia G50.0 Mild hypercholesterolemia E78.00 Morbid obesity with BMI of 45.0-49.9, adult E66.01; Z68.42 Anxiety F41.9 Prediabetes R73.03 Chronic hyponatremia E87.1 Additional Codes EDWIN-7 Assessment Billing - EDWIN-7 Assessment Tool: EDWIN-7 Assessment 79107 ([id number]) PHQ-9 - 21911 - PHQ-9 Billing: Yes ([id number]) Time Spent (min) 50 Assessment & Plan Assessment & Plan (1) Establishing care with new doctor, encounter for: Code(s): Z76.89 - Persons encountering health services in other specified circumstances Category: Medical (2) Essential hypertension: Code(s): I10 - Essential (primary) hypertension Category: Medical Plan: Continue current medications and blood pressure monitoring. Condition is chronic and stable continue to monitor. (3) Paroxysmal atrial flutter: Code(s): I48.92 - Unspecified atrial flutter Category: Medical Plan: Continue existing regimen, ensuring regular cardiology follow-ups. Condition is chronic and stable continue to monitor. (4) Paroxysmal atrial fibrillation: Code(s): I48.0 - Paroxysmal atrial fibrillation Category: Medical Plan: Continue existing regimen, ensuring regular cardiology follow-ups. Condition is chronic and stable continue to monitor. (5) Cavitating mass in left lower lung lobe: Code(s): J98.4 - Other disorders of lung Category: Surgical Plan: Ongoing management without further family disclosure is patient's choice. Condition is chronic and stable will continue to monitor. (6) Primary cancer of left lower lobe of lung: Code(s): C34.32 - Malignant neoplasm of lower lobe, left bronchus or lung Category: Surgical Plan: Ongoing management without further family disclosure is patient's choice. Condition is chronic and stable will continue to monitor. (7) Non-small cell cancer of left lung: Code(s): C34.92 - Malignant neoplasm of unspecified part of left bronchus or lung Category: Medical Plan: Ongoing management without further family disclosure is patient's choice. Condition is chronic and stable will continue to monitor. (8) COPD (chronic obstructive pulmonary disease): Code(s): J44.9 - Chronic obstructive pulmonary disease, unspecified Category: Medical Plan: Maintain Spiriva inhaler as treatment; report exacerbations. Condition is chronic and stable continue to monitor. (9) Venous insufficiency: Code(s): I87.2 - Venous insufficiency (chronic) (peripheral) Category: Medical Plan: Condition is chronic and stable will continue to monitor. (10) Hypothyroid: Comment: Patient declines treatment reports she feels great when her TSH is at 6 or above Code(s): E03.9 - Hypothyroidism, unspecified Category: Medical Plan: Patient denies treatment. Will continue monitoring TSH levels. Condition is chronic and stable continue to monitor. (11) Trigeminal neuralgia: Code(s): G50.0 - Trigeminal neuralgia Category: Medical Plan: Condition is chronic and stable continue to monitor. (12) Mild hypercholesterolemia: Code(s): E78.00 - Pure hypercholesterolemia, unspecified Category: Medical Plan: Patient to improve diet and exercise regimen. Continue pravastatin 20 mg at bedtime. Condition is chronic and stable continue to monitor. (13) Morbid obesity with BMI of 45.0-49.9, adult: Code(s): E66.01 - Morbid (severe) obesity due to excess calories; Z68.42 - Body mass index [BMI] 45.0-49.9, adult Category: Medical Plan: Patient to improve her diet and exercise regimen. Condition is chronic and stable continue to monitor. (14) Anxiety: Code(s): F41.9 - Anxiety disorder, unspecified Category: Medical Plan: Refill Xanax 0.5 mg PRN for increased anxiety management. Condition is chronic and stable will continue to monitor. (15) Prediabetes: Code(s): R73.03 - Prediabetes Category: Medical Plan: Monitor glucose levels and haemoglobin A1c regularly. Condition is chronic and stable will continue to monitor. (16) Chronic hyponatremia: Code(s): E87.1 - Hypo-osmolality and hyponatremia Category: Medical Plan: Continue monitoring sodium intake and levels. Condition is chronic and stable will continue to monitor. Plan Plan Patient was informed and verbally consented to the use of an ambient scribe for clinic note documentation during this visit. 1. Essential Hypertension Continue current medications and blood pressure monitoring. 2. Chronic Obstructive Pulmonary Disease Copd Maintain Spiriva inhaler as treatment; report exacerbations. 3. Lung Cancer Ongoing management without further family disclosure is patient's choice. 4. Atrial Fibrillation Continue existing regimen, ensuring regular cardiology follow-ups. 5. Anxiety Refill Xanax 0.5 mg PRN for increased anxiety management. 6. Hypothyroidism Continue current levothyroxine dosage. 7. Prediabetes Monitor glucose levels and haemoglobin A1c regularly. 8. Low Sodium Levels Continue monitoring sodium intake and levels. I discussed the management and treatment options for the patient's multiple conditions. For essential hypertension and atrial fibrillation, the benefits of continued medications were reviewed. The patient expressed a clear preference for maintaining her inhaler as-is for COPD, despite the costs, due to its effectiveness. The potential hypothyroid state and its impact on her anxiety were explained, highlighting why no dosage change is indicated at this time. Options for anxiety management were explored, leading to the decision to refill Xanax. We also talked about the dynamics of disclosing her lung cancer diagnosis to family, and she reasoned against it at this time. I emphasized the importance of regular blood work, particularly focusing on her sodium levels and glycemic control. We agreed on a follow-up in three months, ensuring her active engagement in managing her health conditions. Orders: Orders Lipid Panel Today Z00.00 - Encounter for general adult medical examination without abnormal findings Hemoglobin A1c Today Z00.00 - Encounter for general adult medical examination without abnormal findings Vitamin B12 and Folate Today Z00.00 - Encounter for general adult medical examination without abnormal findings C Reactive Protein Today Z00.00 - Encounter for general adult medical examination without abnormal findings Complete Blood Count Auto Diff Today Z00.00 - Encounter for general adult medical examination without abnormal findings Comprehensive Collins. Panel Fast Today Z00.00 - Encounter for general adult medical examination without abnormal findings TSH reflex Free T4 Today Z00.00 - Encounter for general adult medical examination without abnormal findings Liver Panel Today Z00.00 - Encounter for general adult medical examination without abnormal findings Magnesium Today Z00.00 - Encounter for general adult medical examination without abnormal findings Microalbumin, Random (w Creat) Today E11.9 - Type 2 diabetes mellitus without complications Vitamin D 25-OH Total Today Z00.00 - Encounter for general adult medical examination without abnormal findings Medications: New alprazolam 0.5 mg PO DAILY PRN 30 tabs 0RF anxiety Changed From chlorthalidone 50 mg PO DAILY 90 tabs 1RF To chlorthalidone 50 mg (2 x 25 mg) PO DAILY 180 tabs 1RF 90 days Patient Instructions: - Keep taking your prescribed medications as directed. - Get your blood work done fasting before the next visit. - Monitor your blood pressure and report any unusual findings. - Continue avoiding high sodium foods; remain cautious about dizziness. - Use your Spiriva inhaler as instructed and report any increase in breathing difficulties. - Consider consulting if anxiety or other symptoms worsen. - Schedule a follow-up appointment in three months.
== END 2025-02-02 12:37 | disposition home or self-care (01) ==
LOC: HO.HMCSH 11:47
PROVIDERS: PCP Internal Medicine; Visit Provider Physician Assistant Medical
DX: Z76.89 Persons encountering health services in other specified circumstances (principal); I10 Essential (primary) hypertension; I48.92 Unspecified atrial flutter; I48.0 Paroxysmal atrial fibrillation; J98.4 Other disorders of lung; C34.32 Malignant neoplasm of lower lobe, left bronchus or lung; C34.92 Malignant neoplasm of unspecified part of left bronchus or lung; J44.9 Chronic obstructive pulmonary disease, unspecified; I87.2 Venous insufficiency (chronic) (peripheral); E03.9 Hypothyroidism, unspecified; G50.0 Trigeminal neuralgia; E78.00 Pure hypercholesterolemia, unspecified; E66.01 Morbid (severe) obesity due to excess calories; Z68.42 Body mass index [BMI] 45.0-49.9, adult; F41.9 Anxiety disorder, unspecified; R73.03 Prediabetes; E87.1 Hypo-osmolality and hyponatremia

== ENCOUNTER → 2025-02-02 11:47 | Outpatient (BNVA) | payer MEDICARE, SELFPAY | PROVIDERS: PCP Internal Medicine; Visit Provider Physician Assistant Medical | DX: I10 Essential (primary) hypertension (principal); E78.5 Hyperlipidemia, unspecified; E03.9 Hypothyroidism, unspecified; I87.2 Venous insufficiency (chronic) (peripheral); J44.9 Chronic obstructive pulmonary disease, unspecified; I48.92 Unspecified atrial flutter; I48.0 Paroxysmal atrial fibrillation; J98.4 Other disorders of lung; C34.32 Malignant neoplasm of lower lobe, left bronchus or lung; G50.0 Trigeminal neuralgia; E78.00 Pure hypercholesterolemia, unspecified; E66.01 Morbid (severe) obesity due to excess calories; F41.9 Anxiety disorder, unspecified; R73.03 Prediabetes; E87.1 Hypo-osmolality and hyponatremia; Z68.42 Body mass index [BMI] 45.0-49.9, adult; Z87.891 Personal history of nicotine dependence; Z76.89 Persons encountering health services in other specified circumstances | CPT/HCPCS: 96127; 99202 ==

== ENCOUNTER 2025-05-21 17:13 | Emergency (ER) | payer MEDICARE, SELFPAY ==
--- NOTE | ~2025-05-21 | XR_ITS ---
CLINICAL HISTORY: chest tightness 2 view chest x-ray Comparison: CR/SR - XR CHEST 1 VIEW - 07/19/2024 01:24 PM EST Findings: Cardiomegaly. Cephalization of pulmonary vasculature and central pulmonary vascular engorgement. Increased interstitial markings in both lungs, with central/perihilar predominance. Scattered hazy alveolar opacities in both lungs. No visible pleural effusion or findings of pneumothorax. No gross evidence of acute fracture. IMPRESSION: 1. Cardiomegaly with findings of moderate interstitial and alveolar edema. This document has been electronically signed by: Deshawn Bloom MD on 05/21/2025 19:33:39
[2025-05-21 17:25] VITALS: BP 170/95; PULSE 110; O2SAT 96
[2025-05-21 17:29] VITALS: BP 140/52; PULSE 92; RESP 26; TEMP 36.6; O2SAT 95; BMI 43.5
[2025-05-21 17:36] VITALS: BP 140/52; PULSE 92; RESP 19; O2SAT 96
--- NOTE | 2025-05-21 17:46 | ECG_ITS ---
Test Reason : sob Blood Pressure : */* mmHG Vent. Rate : 91 BPM Atrial Rate : * BPM P-R Int : * ms QRS Dur : 104 ms QT Int : 350 ms P-R-T Axes : * 50 8 degrees QTcB Int : 430 ms Atrial fibrillation Septal infarct , age undetermined Abnormal ECG When compared with ECG of 10-Jun-2022 10:55, Atrial fibrillation has replaced Sinus rhythm Questionable change in QRS duration Referred By: Jayla Flannery Electronically Signed By: INGA ESPINO MD
--- NOTE | 2025-05-21 17:47 | ED_ITS ---
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 Patient states that she was experiencing chest tightness and shortness of breath at home worse than her baseline. Patient reports she is not on home oxygen. She saw a rubber down in 08/2024 and was prescribed Spiriva daily and levalabuterol PRN inhalers. Patient declined treatment for lung cancer due to not wanting to experience side effects. Patient denies any dizziness, lightheadedness, abdominal pain, nausea, vomiting, fever, chills, blurry vision, double vision, loss of vision, chest pain, back pain, night sweats, pain with urination, increased urinary frequency, recent falls or any other symptoms at this time. Related Data Previous Rx's ?Medication ?Instructions ?Recorded levalbuterol tartrate 45 1 puff inhalation Q4-6H PRN 08/23/24 mcg/actuation aerosol inhaler shortness of breath #15 grams apixaban 5 mg tablet (Eliquis) 5 mg PO BID 90 days #18 0 tabs 09/13/24 cholecalciferol (vitamin D3) 1,250 1,250 mcg PO 2XW #9 0 caps 12/06/24 mcg (50,000 unit) capsule valsartan 80 mg tablet 80 mg PO DAILY #90 tabs 11/15 10/09 atenolol 50 mg tablet 50 mg PO BID 90 days #180 ta bs 01/05/25 levothyroxine 75 mcg tablet 75 mcg PO DAILY #90 tabs 0 01/05/25 amlodipine 10 mg tablet 10 mg PO DAILY #90 tabs 01/13 11/09 alprazolam 0.5 mg tablet 0.5 mg PO DAILY PRN anxiety #30 02/02/25 tabs chlorthalidone 25 mg tablet 50 mg (2 x 25 mg) PO DAILY 90 days 02/02/25 #180 tabs tiotropium bromide 2.5 2 puff PO DAILY #4 grams mcg/actuation mist for inhalation (Spiriva Respimat) carbamazepine 200 mg tablet 100 mg (1/2 x 200 mg) PO B ID #90 04/04/25 tabs pravastatin 20 mg tablet 20 mg PO BEDTIME #90 tabs omeprazole magnesium 20 mg 20 mg PO DAILY #90 tabs 02/06 tablet,delayed release (Prilosec OTC) azithromycin 250 mg tablet See Rx Instructions PO .COM PLEX #6 05/21/25 tabs Allergies Allergy/AdvReac Type Severity Reaction Status Date / Time cephalexin (From Keflex) Allergy Mild Numbness Verified 05/21/25 17:30 of the Lips Calcium Channel Blocking Allergy Unknown RESTLESSNES Verified 05/21/25 17:30 Agents-Dih (CALCIUM CHANNEL S BLOCKING AGENTS-DIH) meperidine (From DEMEROL) Allergy Unknown CRYING Verified 05/21/25 17:30 Neuromuscular Blockers, Allergy Unknown MOOD SWINGS Verified 05/21/25 17:30 Steroidal (STEROIDAL NEUROMUSCULAR BLOCKERS) tetracycline (TETRACYCLINE) Allergy Unknown NAUSEA/VOMI Verified 05/21/25 17:30 TING Review of Systems 2 Constitutional: Constitutional: Reports as per HPI Eyes: Eyes: Reports as per HPI ENT: Reports as per HPI Cardiovascular: Cardiovascular: Reports as per HPI Respiratory: Respiratory: Reports as per HPI Gastrointestinal: Gastrointestinal: Reports as per HPI Genitourinary: Genitourinary: Reports as per HPI Musculoskeletal: Musculoskeletal: Reports as per HPI Integumentary/Breasts: Skin/Breast: Reports as per HPI Neurologic: Reports as per HPI Psychiatric: Psychiatric: Reports as per HPI Endocrine: Endocrine: Reports as per HPI Hematologic/Lymphatic: Hematologic/Lymphatic: Reports as per HPI Allergic/Immunologic: Allergic/Immunologic: Reports as per HPI PMF Past Medical History Attestation statement: The following information was validated with the patient. Source: old records reviewed and nursing notes reviewed Medical History Chronic hyponatremia Prediabetes Anxiety Mammogram declined (~02/02/25) Colonoscopy refused (~02/02/25) Morbid obesity with BMI of 45.0-49.9, adult History of mammogram (~02/07/23) Venous insufficiency Trigeminal neuralgia Mild hypercholesterolemia Establishing care with new doctor, encounter for Hypercholesteremia Hypothyroid Atrial fibrillation Hypertension Surgical History History of colonoscopy (~04/19/14) History of tonsillectomy History of cholecystectomy History of hysterectomy History of appendectomy Family History Family History Mother Graves' disease Father Indonesian type familial amyloid cardiomyopathy Renal failure Social History Social History Household Members: Spouse Housing: House Are you a primary laboratory animal caretaker to a significant other at home: No Do you presently have visiting nurse or other home services: No Alcohol intake: former Patient Tobacco Use Status: Former Tobacco user Tobacco use type: Cigarette Years Smoked: 50 +/- Smoked in Last 30 Days: No Use of substances other than those prescribed or required for medical reasons: No Advance Directives: Yes Advance Directives on File: Yes Advance Directives Date on File: 07/11/21 Do you have a plan to hurt others: No Plan service: No Current occupational status: retired Gender identity: Female Cognitive needs: No Hearing needs: No Vision needs: No Physical Exam ED Vital Signs: Vital Signs - 24 hr 05/21/25 17:29 05/21/25 17:36 05/21/25 19:28 Temperature 97.8 F Pulse Rate 92 92 93 Respiratory Rate 26 H 19 12 Blood Pressure 140/52 H 140/52 H Pulse Oximetry 95 96 Oxygen Delivery Method Room Air Room Air BMI result Body Mass Index 43.5 Const General: cooperative, no acute distress, alert and awake Nutritional Appearance: well nourished Orientation/consciousness: patient oriented x3 HENMT Head: Yes normal to inspection and Yes atraumatic Ears: hearing grossly normal bilaterally and external ears normal General nose exam: Normal external nose present, no nasal discharge noted and no epistaxis Face and sinus: Yes normal facial exam, No abrasion and No laceration Mouth: Normal oral and palatal mucosa present, no drooling and no muffled voice Eyes General: appearance normal, both eyes and all related structures Periorbital: periorbital findings normal Eyelids: Yes eyelids normal Conjunctivae: conjunctivae normal Pupils: Equal, round and reactive pupils present EOM: EOMs intact bilaterally Neck Neck: Yes normal visual inspection and Yes full ROM Resp Effort & Inspection: able to speak in complete sentences and labored Neuro General: patient oriented x3, moves all extremities and CN's II-XI intact bilaterally Cranial nerves: Yes Equal, round and reactive pupils present Cognition (Neuro): normal cognition Extrem General: Yes normal to inspection, Yes full ROM and Yes capillary refill normal Psych Appearance: grossly normal Mental Status: mental status grossly normal Affect: normal affect Attitude: cooperative Thought process: Normal thought process present Thought content: Normal thought content present Insight: Good insight present (Psych) Medications Administered Discontinued Medications Generic Name Dose Route Start Last Admin Trade Name Freq PRN Reason Stop Dose Admin Levalbuterol HCl 2.5 mg/ 0 mg 05/21/25 19:19 05/21/25 19:26 Ipratropium [place] 0.5 mg INHALE 05/21/25 19:20 1 dose ONCE ONE Administration Medical Decision Making Medical Decision Making MDM Narrative: Patient is a 74 year old assigned female at with a history of atrial fibrillation on Eliquis, HTN, hypothyroidism, 50 pack year history quit 2 years ago, COPD (not on home oxygen), 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 Patient's physical exam was as noted in the physical exam portion of this note. Patient was dyspneic with exertion while in the department. Patient's blood work showed a WBC count of 12.1 and a sodium of 123. Patient's EKG showed atrial fibrillation which is chronic for the patient. Patient's chest x-ray showed cardiomegaly with moderate interstitial + alveolar edema. Patient stated that she is on a diuretic and that is why her sodium sometimes runs low. I explained my physical exam findings as well as all test results to the patient. I answered all questions asked by the patient. I had an extensive conversation with the patient about goals of care and treatment plans. The patient again declined any treatment for her lung cancer, citing concerns of side effects and possible decreased quality of life. Patient stated that she would also like to decline steroids at this time stating they make her sob uncontrollably and she'd prefer to avoid them. Patient states that she is willing to have a Xopenex breathing treatment and be admitted to the hospital for continued monitoring and breathing treatments. Patient's clinical presentation is NOT consistent with sepsis (@2000). I spoke with the hospitalist team who agreed to admission. Patient verbalized agreement and understanding with this treatment plan and admission. When the hospitalist team came to evaluate the patient - she ultimately declined admission and requested to be discharged. I explained to the patient that I recommend she be admitted and she is signing out against medical advice. Patient verbalized understanding and agreement. I explained to the patient that her leaving could result in , disability, or permanent decreased quality of life. Patient verbalized understanding of the risks and requested to be discharged anyway. Differential Diagnosis Differential Diagnoses: The differential diagnosis associated with the presentation includes COPD exacerbation CHF New onset CHF CHF exacerbation Fluid overload Hyponatremia Admission/Observation Consideration of admission/observation: Escalation of care including admission/observation considered Attempted to admit the patient as noted in the MDM Rationale portion of this note - patient ultimately signed out AMA. Consult Healthcare Provider Management of the patient was discussed with: Hospitalist (agreed to admission as noted in the MDM Rationale portion of this note. ) Lab Data [facility] Lab Attestation statement: I reviewed the patient's lab results. My interpretation of these results are in the MDM Rationale portion of this note. 05/21/25 18:51 05/21/25 18:51 Labs: Lab Results 05/21/25 Range/Units 18:51 WBC 12.1 H (4.8-10.8) X10*3/uL RBC 3.71 L (4.20-5.50) X10*6/uL Hgb 10.1 L D (12.0-16.0) g/dl Hct 29.0 L D (37.0-47.0) % MCV 78.2 L (80.0-98.0) fL MCH 27.2 (27.0-33.0) pg MCHC 34.8 (31.0-35.0) g/dl RDW 14.6 (11.0-16.0) % Plt Count 409 H D (160-400) X10*3/uL MPV 8.1 L (9.4-12.3) fL Immature Gran % (Auto) 1.0 H (0.0-0.4) % Neut % (Auto) 82.7 H (45-73) % Lymph % (Auto) 10.0 L (20-40) % Todd % (Auto) 5.9 (2-11) % Eos % (Auto) 0.2 (0-4) % Baso % (Auto) 0.2 (0-2) % Lymph # (Auto) 1.2 (1.2-4.9) X10*3/uL Todd # (Auto) 0.7 (0.1-1.2) X10*3/uL Eos # (Auto) 0.0 (0.0-0.4) X10*3/uL Baso # (Auto) 0.0 (0.0-0.2) X10*3/uL Abs Immat Gran (auto) 0.12 H (0.00-0.03) X10*3/uL Absolute Neuts (auto) 10.0 H (2.0-8.3) x10*3/uL Absolute Nucleated RBC 0.000 (0.0-0.012) X10*3/uL Nucleated RBC % (auto) 0.0 (0.0-0.2) /100WBC Sodium 123 L (135-145) mmol/L Potassium 3.8 (3.3-5.1) mmol/L Chloride 87 L (96-108) mmol/L Carbon Dioxide 25 (22-29) mmol/L Anion Gap 15 (12-20) BUN 10 (9-16) mg/dL Creatinine 0.61 (0.5-1.4) mg/dL Estim Creat Clear Calc 102.2 Estimated GFR > 60 Random Glucose 127 H (60-115) mg/dL Calcium 9.9 (8.4-10.2) mg/dL Total Bilirubin 0.5 (0.0-1.0) mg/dL AST 29 (5-31) U/L ALT 12 (0-31) U/L Alkaline Phosphatase 93 (39-117) U/L Troponin I High Sens 2.9 (<3.5-17.0) ng/L Total Protein 7.4 (6.5-8.0) g/dL Albumin 4.1 (3.5-5.0) g/dL COVID-19 (ELLE) Negative (Negative) COVID-19 Clin Com See Note Influenza Type A (ARSH) Negative (Negative) Influenza Type B (ARSH) Negative (Negative) Influenza A & B Note See Note Independent Interpretation I performed an independent interpretation of an: EKG and Plain X-Ray Interpretation: My interpretation is in agreement with the radiologist's impression of this imaging study. L CLINICAL HISTORY: chest tightness 2 view chest x-ray Comparison: CR/SR - XR CHEST 1 VIEW - 07/19/2024 01:24 PM EST Findings: Cardiomegaly. Cephalization of pulmonary vasculature and central pulmonary vascular engorgement. Increased interstitial markings in both lungs, with central/perihilar predominance. Scattered hazy alveolar opacities in both lungs. No visible pleural effusion or findings of pneumothorax. No gross evidence of acute fracture. IMPRESSION: 1. Cardiomegaly with findings of moderate interstitial and alveolar edema. This document has been electronically signed by: Deshawn Bloom MD on 05/21/2025 19:33:39 Dictated By: Deshawn Bloom MD Signed By: Electronically signed by Deshawn Bloom MD 05/21/251934 I independently interpreted this EKG and am in agreement with the below findings: Vent. Rate: 91 BPM Atrial Rate: * BPM P-R Int: * ms QRS Dur: 104 ms QT Int: 350 ms P-R-T Axes: * 50 8 degrees QTcB Int: 430 ms Atrial fibrillation Septal infarct, age undetermined When compared with ECG of 10-Jun-2022 10:55, Atrial fibrillation has replaced Sinus rhythm Questionable change in QRS duration DD/ 1838 Radiology Impression Discussion of test interpretation with radiology: I have reviewed the radiologist's reading. Independent Historian Clinical information obtained from an independent historian. History obtained from or confirmed by: Other (patient's partner provided additional history and confirmed the history provided by the patient. ) Critical Care Time Critical Care Time Critical Care Time: Yes Total Critical Care Time: 48 Attestation: I spent 48 minutes of Critical Care Time with this patient. This does not include time spent on separately reported billable procedures. Discharge Plan Discharge Clinical Impression: COPD exacerbation Patient Disposition: Left Against Medical Advice
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
--- OUTSIDE RECORDS SUMMARY | 2025-05-21 18:33 | XMS_ITS | Clinical Summary ---
Author Organization [facility] Address [address] [place] [id number] Phone Care Team Providers Care Functional Mental Disability Teacher Name Role Phone Santos Otoole DO Primary Care Provider Social History Tobacco Use Types Packs/Day Years Used Date Smoking Tobacco: Never Assessed Education Answer Date Recorded Are you interested in more education? Not on clem e 08/09/2024 Are you concerned about learning? Not on file 08/09/2024 No 08/09/2024 No 08/09/2024 Digital Access Answer Date Recorded No 08/09/2024 No 08/09/2024 Reliable internet access at home? Not on file 08/09/2024 Device with a working camera? Not on file Comments Unknown Sex and Gender Information Value Date Recorded Sex Assigned at Not on file Legal Sex Female 2:53 PM EST Gender Identity Not on file Sexual Orientation Not on file Plan of Treatment Health Maintenance Due Date Last Done Comments Adult Td,Tdap Booster 1951 LIPID PANEL 1951 DEPRESSION SCREENING 1963 SMOKING Hx and SMOKELESS TOB ACCO SCREENING 1964 HEPATITIS C SCREENING 1969 MAMMOGRAM 1991 COLOGUARD 1996 COLONOSCOPY 1996 COLORECTAL CANCER SCREENING 1996 FIT TEST 1996 FOBT 1996 SIGMOIDOSCOPY 1996 VIRTUAL COLONOSCOPY 1996 PNEUMOCOCCAL VACCINES (50+ y ears) (1 of 1 - PCV) 2001 ZOSTER VACCINES (1 of 2) 2001 OSTEOPOROSIS SCREENING INITI AL (ONE-TIME) 2016 COVID-19 VACCINE (2023-2 5 season) 2024 RSV VACCINE (1 - 1-dose 75+ series) 2026 HEPATITIS A VACCINES Aged Out No long er eligible based on patient's age to complete this topic HIB VACCINES Aged Out No longer eligi ble based on patient's age to complete this topic MENINGOCOCCAL VACCINES (ACWY) Aged Out No longer eligible based on patient's age to complete this topic MENINGOCOCCAL VACCINES (B) Aged Out N o longer eligible based on patient's age to complete this topic Medical Devices Not on file Insurance [facility] MEDICARE PPO BLUE REPLACEMENT [facility] MEDICARE PPO BLUE REPLACEMENT [facility] MEDICARE PPO BLUE [place]ACEMENT [place] [address] [address] MEDICARE PPO BLUE REPLACEMENT [facility] MEDICARE PPO BLUE REPLACEMENT [employer] [place] [place] MEDIC[place] PPO BLUE REPLACEMENT Care Teams Functional Mental Disability Teacher Relationship Specialty Start Date End Date Santos Otoole DO [address] [place] [id number] PCP - General Internal Medicine 08/09/24 Additional Source Comments The information contained in this document represents components of the legal health record. It is not the complete legal health record.[facility]
[2025-05-21 18:56] LABS: MANUAL DIFF FLAG NO
[2025-05-21 18:57] LABS: Hematocrit 29.0 % (37.0-47.0); Hemoglobin 10.1 g/dl (12.0-16.0); Imm Gran Abs Auto 0.12 X10*3/uL (0.00-0.03); Imm Gran Pct Auto 1.0 % (0.0-0.4); Lymphocytes Absolute Auto 1.2 X10*3/uL (1.2-4.9); Mean Corpuscular HGB Conc 34.8 g/dl (31.0-35.0); Mean Corpuscular Hemoglobin 27.2 pg (27.0-33.0); Mean Corpuscular Volume 78.2 fL (80.0-98.0); NRBC Abs Auto 0.000 X10*3/uL (0.0-0.012); NRBC Pct Auto 0.0 /100WBC (0.0-0.2); Platelet Count 409 X10*3/uL (160-400); Red Blood Count 3.71 X10*6/uL (4.20-5.50); White Blood Count 12.1 X10*3/uL (4.8-10.8)
--- NOTE | 2025-05-21 19:22 | PC.NURSE ---
Patient out of bed with standby assist by this RN to bathroom and back. Patient is able to take 5-10 steps before requiring a brief pause to catch her breath. 'Hugh' at bedside. RT Seferino also at bedside. Care ongoing by this RN.
[2025-05-21] MEDS: levalbuterol HCL 2.5 MG, Ipratropium Bromide 0.5 MG INHALE (19:26)
[2025-05-21 19:27] LABS: Alanine Aminotransferase 12 U/L (0-31); Albumin Level 4.1 g/dL (3.5-5.0); Alkaline Phosphatase 93 U/L (39-117); Anion Gap 15 (12-20); Aspartate Amino Transferase 29 U/L (5-31); Blood Urea Nitrogen 10 mg/dL (9-16); Calcium 9.9 mg/dL (8.4-10.2); Carbon Dioxide 25 mmol/L (22-29); Chloride 87 mmol/L (96-108); Creatinine Clr Calc Pharmacy 102.2; Estimated Glomerular Filt Rate > 60; Potassium 3.8 mmol/L (3.3-5.1); Sodium 123 mmol/L (135-145); Total Protein 7.4 g/dL (6.5-8.0)
[2025-05-21 19:28] VITALS: PULSE 93; RESP 12; O2SAT 98
[2025-05-21 19:30] LABS: COVID-19 Test Negative (Negative); IDNOW Serial# 08D9AD1C
[2025-05-21 19:31] LABS: IDNOW Serial# 55D5AD1C; Influenza B2 Negative (Negative)
[2025-05-21 19:34] LABS: Troponin-I High Sensitivity 2.9 ng/L (<3.5-17.0)
[2025-05-21 20:26] LABS: B Type Natriuretic Peptide 145 pg/mL (<100)
[2025-05-21 20:31] VITALS: BP 137/80; PULSE 96; RESP 18; TEMP 36.4; O2SAT 96
[2025-05-21 21:17] VITALS: BP 137/80; PULSE 96; RESP 18; TEMP 36.4; O2SAT 96
== END 2025-05-21 21:00 | disposition left against medical advice (07) ==
LOC: HO.ED 20:30 → HO.EDOVER 20:46 → HO.ED 21:20
PROVIDERS: Physician Assistant Medical; Emergency Provider Emergency Medicine; PCP Internal Medicine
DX: J44.1 Chronic obstructive pulmonary disease with (acute) exacerbation (principal); I10 Essential (primary) hypertension; I48.91 Unspecified atrial fibrillation; C34.92 Malignant neoplasm of unspecified part of left bronchus or lung; Z79.01 Long term (current) use of anticoagulants; Z86.79 Personal history of other diseases of the circulatory system; Z53.29 Procedure and treatment not carried out because of patient's decision for other reasons
CPT/HCPCS: 71046; 80053; 83880; 84484; 85025; 87502; 87635; 93005; 94640; 99285

== ENCOUNTER → 2025-05-21 17:46 | Outpatient (BNV) | payer MEDICARE, SELFPAY | PROVIDERS: Emergency Provider Emergency Medicine; PCP Internal Medicine; Visit Provider Radiology Diagnostic Radiology | DX: I51.7 Cardiomegaly (principal) | CPT/HCPCS: 71046 ==

== ENCOUNTER → 2025-05-21 17:46 | Outpatient (BNV) | payer MEDICARE, SELFPAY | PROVIDERS: Emergency Provider Emergency Medicine; PCP Internal Medicine; Visit Provider Internal Medicine Cardiovascular Disease | DX: I48.91 Unspecified atrial fibrillation (principal) | CPT/HCPCS: 93010 ==

== ENCOUNTER 2025-05-30 10:04 | Emergency (ER) | payer MEDICARE, SELFPAY ==
--- NOTE | ~2025-05-30 | XR_ITS ---
EXAMINATION: XR SHOULDER, LEFT CLINICAL INFORMATION: fall onto left shoulder COMPARISON: October 16, 2023 x-ray in August 25, 2020 CT TECHNIQUE: Two views of the left shoulder. FINDINGS: There is an oblique fracture of the proximal humeral diaphysis extending into the metaphysis with mild valgus deformity. No dislocation is demonstrated. AC joint is intact and unchanged from the prior. XR/XR shoulder LT min 2V IMPRESSION: Proximal left humeral metadiaphysis fracture. Electronically signed by: Itz Newman MD 05/30/2025 11:49 AM EDT
[2025-05-30 10:11] VITALS: BP 126/65; BP 152/93; PULSE 80; PULSE 94; RESP 15; TEMP 36.6; O2SAT 100; O2SAT 99; BMI 42.4
--- NOTE | 2025-05-30 10:51 | ED.GENADULT ---
HPI - General Adult General Chief complaint: Fall Stated complaint: fall, arm pain, +thinners Time Seen by Provider: 05/30/25 10:36 Source: patient and EMS Mode of arrival: EMS Limitations: no limitations History of Present Illness ED Provider: MITZY READ PA-C HPI narrative: 74 yo F with PMH obesity, HLD, HTN, hypothyroid, and AFib on Eliquis presents to the ED today with left shoulder pain s/p mechanical fall this morning. Patient reports tripping over her shoes and falling onto her left side, landing directly onto her left shoulder. She did not extend her left arm. Denies head strike or LOC. She is anticoagulated on Eliquis. Denies any symptoms precipitating the fall. Reports 7/10 pain localized to her left shoulder. No radiation. Reports having to hold the extremity against her body. Reports making a make-shift sling with a towel to hold her arm. Admits to prior fracture of the left shoulder approximately 2 years ago. No surgical intervention at that time. She denies numbness/tingling to the LUE. Related Data Previous Rx's ?Medication ?Instructions ?Recorded levalbuterol tartrate 45 1 puff inhalation Q4-6H PRN 08/23/24 mcg/actuation aerosol inhaler shortness of breath #15 grams apixaban 5 mg tablet (Eliquis) 5 mg PO BID 90 days #180 tabs 09/13/24 cholecalciferol (vitamin D3) 1,250 1,250 mcg PO 2XW #90 caps 12/06/24 mcg (50,000 unit) capsule valsartan 80 mg tablet 80 mg PO DAILY #90 tabs 12/13/24 atenolol 50 mg tablet 50 mg PO BID 90 days #180 tabs 01/05/25 levothyroxine 75 mcg tablet 75 mcg PO DAILY #90 tabs 01/05/25 amlodipine 10 mg tablet 10 mg PO DAILY #90 tabs 01/24/25 alprazolam 0.5 mg tablet 0.5 mg PO DAILY PRN anxiety #30 02/02/25 tabs chlorthalidone 25 mg tablet 50 mg (2 x 25 mg) PO DAILY 90 days 02/02/25 #180 tabs tiotropium bromide 2.5 2 puff PO DAILY #4 grams 06/23/25 mcg/actuation mist for inhalation (Spiriva Respimat) carbamazepine 200 mg tablet 100 mg (1/2 x 200 mg) PO BID #90 04/04/25 tabs pravastatin 20 mg tablet 20 mg PO BEDTIME #90 tabs 05/09/25 omeprazole magnesium 20 mg 20 mg PO DAILY #90 tabs 05/20/25 tablet,delayed release (Prilosec OTC) azithromycin 250 mg tablet See Rx Instructions PO .COMPLEX #6 05/21/25 tabs oxycodone 5 mg tablet 5 mg PO Q8H PRN pain (scale score 05/30/25 7-10) 3 days #9 tabs Allergies Allergy/AdvReac Type Severity Reaction Status Date / Time cephalexin (From Keflex) Allergy Mild Numbness Verified 05/30/25 10:16 of the Lips Calcium Channel Blocking Allergy Unknown RESTLESSNES Verified 05/30/25 10:16 Agents-Dih (CALCIUM CHANNEL S BLOCKING AGENTS-DIH) meperidine (From DEMEROL) Allergy Unknown CRYING Verified 05/30/25 10:16 Neuromuscular Blockers, Allergy Unknown MOOD SWINGS Verified 05/30/25 10:16 Steroidal (STEROIDAL NEUROMUSCULAR BLOCKERS) tetracycline (TETRACYCLINE) Allergy Unknown NAUSEA/VOMI Verified 05/30/25 10:16 TING Review of Systems Review of Systems: Yes all other systems are reviewed and are negative PMFSH Past Medical History Attestation statement: The following information was validated with the patient. Source: old records reviewed and nursing notes reviewed Medical History Chronic hyponatremia Prediabetes Anxiety Mammogram declined (~02/02/25) Colonoscopy refused (~02/02/25) Morbid obesity with BMI of 45.0-49.9, adult History of mammogram (~02/07/23) Venous insufficiency Trigeminal neuralgia Mild hypercholesterolemia Establishing care with new doctor, encounter for Hypercholesteremia Hypothyroid Atrial fibrillation Hypertension Surgical History History of colonoscopy (~04/19/14) History of tonsillectomy History of cholecystectomy History of hysterectomy History of appendectomy Family History Family History Mother Graves' disease Father Cymro type familial amyloid cardiomyopathy Renal failure Social History Social History Household Members: Spouse Housing: House Are you a primary care technician to a significant other at home: No Do you presently have visiting nurse or other home services: No Alcohol intake: former Patient Tobacco Use Status: Former Tobacco user Tobacco use type: Cigarette Years Smoked: 50 +/- Advance Directives Date on File: 07/11/21 service: No Current occupational status: retired Gender identity: Female Cognitive needs: No Hearing needs: No Vision needs: No Physical Exam ED Vital Signs: Vital Signs - 24 hr 05/30/25 11:17 05/30/25 12:03 05/30/25 15:20 Temperature 97.8 F 98 F Pulse Rate 80 88 88 Respiratory Rate 15 20 20 Blood Pressure 126/65 141/71 H 141/71 H Pulse Oximetry 99 97 97 Oxygen Delivery Method Room Air Room Air Room Air 05/30/25 17:43 Temperature 98 F Pulse Rate 88 Respiratory Rate 20 Blood Pressure 141/71 H Pulse Oximetry 97 Oxygen Delivery Method Room Air BMI result Body Mass Index 42.4 hypertensive, vitals are otherwise wnl General: well appearing, in no acute distress. Skin: Warm, dry, intact. No rashes or lesions. Head: Normocephalic, atraumatic. EENT: Hearing is intact b/l. Conjunctiva clear. PERRLA. EOM intact. Moist mucous membranes.? Cardiac: Chest wall symmetric. RRR Lungs: Normal respiratory effort without accessory muscle use. CTA bilaterally. No rales, rhonchi, or wheezes.? Abdomen: Soft, non-tender, non-distended. No rebound tenderness or guarding. Positive BS x4. Back: No midline spinous or paraspinal tenderness. No step off deformity. Ext: +LUE held in internal rotation and adduction, will not perform any ROM of left shoulder, FROM intact to L elbow/ L wrist/ all digits. sensation intact. 2+radial/ulnar pulse intact. Neuro: AOx3. Normal speech. Ambulating with steady gait. Course Course Course Narrative: 1500 -- x-ray of left shoulder demonstrates a proximal left humeral metadiaphysis fracture, there is a mild valgus deformity. AC joint intact and unchanged from priors. > pain well-controlled with Tylenol and oxycodone. > I reached out to orthopedic GREGORY Smith who agrees with pain control + sling and outpatient follow up. sling ordered. There have been multiple attempts at scanning patient's head - patient states that she can not lay flat due to her COPD. She refuses to lie flat even when offered supplemental oxygen, an extra pillow, and even PO anxiolytics. She is declining imaging of the head at this time. > patient appears well and her exam is nonfocal. I encouraged imaging as she is on eliquis, even though she did not hit her head, as there can be tearing of the bridging veins. she verbalizes understanding and is declining scan at this time. risks discussed. > I had my attending dr. haley evaluate patient at bedside. ok to discontinue scans. Patient will be discharged on pain control with outpatient ortho referral. dr. haley recommending patient skip her next 4 doses of eliquis to minimize bruising/bleeding. Patient has remained stable throughout ED visit today. Discussed worrisome signs and symptoms and when to return to the ED. All questions answered at this time. Patient is agreeable with disposition and stable for discharge. Medications Administered Discontinued Medications Generic Name Dose Route Start Last Admin Trade Name Freq PRN Reason Stop Dose Admin Acetaminophen 975 mg 05/30/25 11:48 05/30/25 11:59 Acetaminophen 325 Mg Tablet PO 05/30/25 11:49 975 mg ONCE ONE Administration Naloxone HCl 8 mg 05/30/25 15:02 05/30/25 15:12 Naloxone Hcl Nasal Take Home 4 Mg [place] NOSTRILALT 05/30/25 15:03 8 mg ONCE ONE Administration Oxycodone HCl 5 mg 05/30/25 11:48 05/30/25 11:59 Oxycodone Hcl Immed Release 5 Mg Tablet PO 05/30/25 11:49 5 mg ONCE ONE Administration Procedures Orthopedic Splinting/Casting Injury #1: Side: left Upper Extremity Injury Location: shoulder Upper Extremity Immobilizer: sling/shoulder immobilizer Medical Decision Making Medical Decision Making [facility] Narrative: 74 yo F with PMH obesity, HLD, HTN, hypothyroid, and AFib on Eliquis presents to the ED today with left shoulder pain s/p mechanical fall this morning. vital signs stable, she is well appearing and in NAD. her exam is nonfocal. head is normocephalic, atraumatic. LUE held in internal rotation and adduction, will not perform any ROM of left shoulder, FROM intact to L elbow/ L wrist/ all digits. sensation intact. 2+radial/ulnar pulse intact. Differential diagnosis includes shoulder sprain/strain, dislocation, fracture. unlikely nv compromise, threat to limb, compartment syndrome. Plan for imaging, pain control, and re-evaluation. Given patient's age, SHAMA, and anticoag status, will order ct head/brain/cspine. Medicated with tylenol + oxycodone. Differential Diagnosis Differential Diagnoses: The differential diagnosis associated with the presentation includes As above Admission/Observation Not indicated Consult Healthcare Provider Management of the patient was discussed with: Organizational Psychologist ortho gregory smith - recommends sling + pain control + outpatient follow up Independent Interpretation I performed an independent interpretation of an: Plain X-Ray Interpretation: X-ray left shoulder showing fracture proximal humerus. Radiology Impression Discussion of test interpretation with radiology: I have reviewed the radiologist's reading. Radiologist Impression: Reason for Exam: fall onto left shoulder EXAMINATION: XR SHOULDER, LEFT CLINICAL INFORMATION: fall onto left shoulder COMPARISON: October 16, 2023 x-ray in August 25, 2020 CT TECHNIQUE: Two views of the left shoulder. FINDINGS: There is an oblique fracture of the proximal humeral diaphysis extending into the metaphysis with mild valgus deformity. No dislocation is demonstrated. AC joint is intact and unchanged from the prior. XR/XR shoulder LT min 2V IMPRESSION: Proximal left humeral metadiaphysis fracture. Electronically signed by: Itz Newman MD 05/30/2025 11:49 AM EDT Independent Historian Clinical information obtained from an independent historian. History obtained from or confirmed by: Spouse External Record Review External record reviewed: Inpatient record Prescription Management I considered prescription management with: Pain Medication Chronic Conditions Patient?s care impacted by: Hypertension and Other (afib) Social Determinants Patient?s care significantly limited by Social Determinants of Health including: Other Social Determinant of Health Critical Care Time Critical Care Time Critical Care Time: No Discharge Plan Discharge Clinical Impression: Fracture of proximal end of left humerus, Fall Patient Disposition: Home, Self-Care Instructions: Arm Fracture in Adults (ED), Fall Prevention (ED) Additional Instructions: You have been evaluated in the Emergency Department today for left shoulder pain following a fall this morning. Your evaluation showed a fracture of your (). I have placed your arm in a sling. Please rest the affected area. I recommend you take tylenol 650mg every 6 hours as needed for pain. I am sending oxycodone, a controlled pain medication, to your pharmacy for you to take for breakthrough pain control. Please use this with caution as opioid pain medications have addictive properties. I have also provided you with Narcan as accidental overdoses on oxycodone can occur. Opioid pain medications can often cause constipation. I recommend taking this with an over the counter laxative and/or stool softener to help move your bowels. As recommended by Dr. Haley, please skip your next 4 doses of eliquis to minimize bruising/bleeding. Please follow-up with an orthopedic surgeon in 1 week. You have been provided with a referral. Call them to make an appointment, they will not call you. Return to the Emergency Department if you experience worsening pain, numbness, tingling, change of color in your toes/fingers, or any other concerning symptoms. Prescriptions: New oxycodone 5 mg tablet 5 mg PO Q8H PRN (Reason: pain (scale score 7-10)) 3 Days Qty: 9 0RF Rx Instructions: Partial Fill upon patient request. No Action Eliquis 5 mg tablet 5 mg PO BID 90 Days Qty: 180 3RF cholecalciferol (vitamin D3) 1,250 mcg (50,000 unit) capsule 1,250 mcg PO 2XW Qty: 90 1RF valsartan 80 mg tablet 80 mg PO DAILY Qty: 90 1RF atenolol 50 mg tablet 50 mg PO BID 90 Days Qty: 180 1RF levothyroxine 75 mcg tablet 75 mcg PO DAILY Qty: 90 1RF amlodipine 10 mg tablet 10 mg PO DAILY Qty: 90 1RF Spiriva Respimat 2.5 mcg/actuation mist 2 puff PO DAILY Qty: 4 6RF carbamazepine 200 mg tablet 100 mg PO BID Qty: 90 1RF pravastatin 20 mg tablet 20 mg PO BEDTIME Qty: 90 3RF omeprazole magnesium [Prilosec OTC] 20 mg tablet,delayed release (DR/EC) 20 mg PO DAILY Qty: 90 3RF azithromycin 250 mg tablet See Rx Instructions .ROUTE .COMPLEX Qty: 6 0RF Rx Instructions: For 250 mg dose pack: take 500 mg today (day 1), then 250 mg for 4 days (days 2-5) levalbuterol tartrate 45 mcg/actuation HFA aerosol inhaler 1 puff inhalation Q4-6H PRN (Reason: shortness of breath) Qty: 15 3RF chlorthalidone 25 mg tablet 50 mg PO DAILY 90 Days Qty: 180 1RF alprazolam 0.5 mg tablet 0.5 mg PO DAILY PRN (Reason: anxiety) Qty: 30 0RF [place] [facility] [place] [facility] [place]Provider Group] Referral Note: proximal humerus fracture Vaibhav Martin MD [Primary Care Provider, Internal Medicine] Interventions: ED Discharge Assessment Last Done: 05/30/25 17:43 Discharge Date/Time: 05/30/25 17:44 Print Language: Bulgarian
[2025-05-30 11:17] VITALS: BP 126/65; PULSE 80; RESP 15; TEMP 36.6; O2SAT 99
[2025-05-30] MEDS: oxyCODONE HCl Immed Release 5 MG TABLET PO (11:59)
[2025-05-30 12:03] VITALS: BP 141/71; PULSE 88; RESP 20; O2SAT 97
--- OUTSIDE RECORDS SUMMARY | 2025-05-30 13:08 | XMS_ITS | Clinical Summary ---
Author Organization [facility] Address [address] [place] [id number] Phone Care Team Providers Care Inspector Timers Name Role Phone Santos Otoole DO Primary Care Provider [phone] Social History Tobacco Use Types Packs/Day Years [...] 2001 OSTEOPOROSIS SCREENING INITI AL (ONE-TIME) 2016 INFLUENZA VACCINE (#1) 2025 COVID-19 VACCINE ( - 2023-2 5 season) 2025 RSV VACCINE (1 - 1-dose 75+ series) [...] topic Medical Devices Not on file Insurance [place] MEDIC[place] P[place] BLUE REPLACEMENT MEDICARE PPO BLUE [place] [address] [place] [address] MEDICARE PPO [address]UE [place] [address] [place] [place] [address] MEDICARE PPO [address] [place] [place] [place] [address] MEDICARE PPO BLUE REPLACEMENT [place] MED[place] P[place] BLUE REPLACEMENT Care Teams Inspector Timers Relationship Specialty Start Date End Date Santos Otoole DO [address] [place] [phone] PCP - General Internal Medicine 08/09/24 Additional Source Comments The information contained in this document represents components of the legal health record. It is not the complete legal health record.[facility]
[2025-05-30] MEDS: Naloxone HCl Nasal TAKE HOME 4 MG SPRAY 8 MG NOSTRILALT (15:12)
--- NOTE | 2025-05-30 15:19 | PC.NURSE ---
Pt ok for discharge. Given discharge instructions and received take home Narcan. Pt and instructed on how/when to administer narcan. Pt requesting ambulance ride home. journeyman carpenter notified. Pending transport. VSS
[2025-05-30 15:20] VITALS: BP 141/71; PULSE 88; RESP 20; TEMP 36.6; O2SAT 97
[2025-05-30 17:43] VITALS: BP 141/71; PULSE 88; RESP 20; TEMP 36.6; O2SAT 97
== END 2025-05-30 17:44 | disposition home or self-care (01) ==
PROVIDERS: Emergency Provider Emergency Medicine; PCP Internal Medicine
DX: S42.202A Unspecified fracture of upper end of left humerus, initial encounter for closed fracture (principal); I48.91 Unspecified atrial fibrillation; I10 Essential (primary) hypertension; W01.10XA Fall on same level from slipping, tripping and stumbling with subsequent striking against unspecified object, initial encounter; Y93.01 Activity, walking, marching and hiking; Y92.9 Unspecified place or not applicable; Z79.01 Long term (current) use of anticoagulants; Y99.8 Other external cause status; Z79.899 Other long term (current) drug therapy; Z87.891 Personal history of nicotine dependence
CPT/HCPCS: 29105; 73030; 93005; 99283; 99284

== ENCOUNTER → 2025-05-30 11:13 | Outpatient (BNV) | payer MEDICARE, SELFPAY | PROVIDERS: Emergency Provider Emergency Medicine; PCP Internal Medicine; Visit Provider Radiology Diagnostic Radiology | DX: S42.202A Unspecified fracture of upper end of left humerus, initial encounter for closed fracture (principal); W19.XXXA Unspecified fall, initial encounter | CPT/HCPCS: 73030 ==

== ENCOUNTER 2025-06-05 15:15 | Inpatient (IN) | payer MEDICARE, SELFPAY ==
[2025-06-05] VITALS (10 sets, daily range): BP systolic 117–178; BP diastolic 51–82; PULSE 61–92; RESP 12–24; TEMP 36.4–37.1; O2SAT 92–100; BMI 42.0
--- NOTE | ~2025-06-05 | XR_ITS ---
CLINICAL HISTORY: sob 1 view chest x-ray Comparison: CR - XR CHEST 2V - 05/21/25 18:09 EDT Findings: The heart is enlarged. Atherosclerotic vascular disease of the aortic arch. Mild pulmonary vascular congestion. Bilateral interstitial thickening. No definite consolidation, significant pleural effusion or significant pneumothorax. Displaced proximal left humeral shaft fracture. IMPRESSION: 1. Stable findings suggestive of congestive heart failure. 2. Displaced proximal left humeral shaft fracture. Correlate with history and follow-up left shoulder x-rays could be obtained as indicated. This document has been electronically signed by: [email or web address] Hicks MD on 06/05/2025 17:28:05
--- NOTE | 2025-06-05 15:31 | ED.GENADULT ---
HPI - General Adult General Chief complaint: Dyspnea Stated complaint: SOB,WEAK,LUE FX /FALL A WEEK AGO UNABLE TO CARE Time Seen by Provider: 06/05/25 15:25 Source: patient Mode of arrival: ambulatory Limitations: no limitations History of Present Illness ED Provider: Dr. Knott HPI narrative: 74-year-old female history of hyperlipidemia, COPD, non-small cell lung cancer, left lung mass, hypertension, AFib on Eliquis presenting to ER today for evaluation of shortness of breath, weakness, difficulty with her concentration. Patient stated that she does have lung cancer. She is choosing not to pursue treatment for this lung cancer. This is a left-sided lung cancer. She is uncertain of staging of her cancer. She does feel short of breath however stated that this is chronic in nature. She has not been eating or drinking. Patient stated that she does not have much of an appetite. She has been taking her Eliquis. Recent fall with left humeral fracture currently in her sling. Related Data Home Medications ?Medication ?Instructions ?Recorded ?Confirmed atenolol 50 mg tablet 25 mg PO BEDTIME 06/05/25 06/05/25 atenolol 50 mg tablet 50 mg PO DAILY 06/05/25 06/05/25 chlorthalidone 25 mg tablet 25 mg PO DAILY 06/05/25 06/05/25 cholecalciferol (vitamin D3) 1,250 1,250 mcg PO WESA 06/05/25 06/05/25 mcg (50,000 unit) capsule levothyroxine 75 mcg tablet 37.5 mcg PO DAILY 06/05/25 06/05/25 valsartan 80 mg tablet 80 mg PO BEDTIME 06/05/25 06/05/25 Previous Rx's ?Medication ?Instructions ?Recorded apixaban 5 mg tablet (Eliquis) 5 mg PO BID 90 days #180 tabs 09/13/24 amlodipine 10 mg tablet 10 mg PO DAILY #90 tabs 01/24/25 alprazolam 0.5 mg tablet 0.5 mg PO DAILY PRN anxiety #30 02/02/25 tabs tiotropium bromide 2.5 2 puff PO DAILY #4 grams 03/07/25 mcg/actuation mist for inhalation (Spiriva Respimat) carbamazepine 200 mg tablet 100 mg (1/2 x 200 mg) PO BID #90 04/04/25 tabs pravastatin 20 mg tablet 20 mg PO BEDTIME #90 tabs 05/09/25 Allergies Allergy/AdvReac Type Severity Reaction Status Date / Time cephalexin (From Keflex) Allergy Mild Numbness Verified 06/05/25 16:06 of the Lips Calcium Channel Blocking Allergy Unknown RESTLESSNES Verified 06/05/25 16:06 Agents-Dih (CALCIUM CHANNEL S BLOCKING AGENTS-DIH) meperidine (From DEMEROL) Allergy Unknown CRYING Verified 06/05/25 16:06 Neuromuscular Blockers, Allergy Unknown MOOD SWINGS Verified 06/05/25 16:06 Steroidal (STEROIDAL NEUROMUSCULAR BLOCKERS) tetracycline (TETRACYCLINE) Allergy Unknown NAUSEA/VOMI Verified 06/05/25 16:06 TING Review of Systems Review of Systems: Pertinent review of systems as mentioned in HPI. All other system otherwise negative. [facility] Past Medical History [facility] Narrative: Medical history as mentioned in HPI Medical History Chronic hyponatremia Prediabetes Anxiety Mammogram declined (~02/02/25) Colonoscopy refused (~02/02/25) Morbid obesity with BMI of 45.0-49.9, adult History of mammogram (~02/07/23) Venous insufficiency Trigeminal neuralgia Mild hypercholesterolemia Establishing care with new doctor, encounter for Hypercholesteremia Hypothyroid Atrial fibrillation Hypertension Surgical History History of colonoscopy (~04/19/14) History of tonsillectomy History of cholecystectomy History of hysterectomy History of appendectomy Family History Family History Mother Graves' disease Father [place] type familial amyloid cardiomyopathy Renal failure Social History Social History Household Members: Spouse Housing: House Are you a primary reservoir caretaker to a significant other at home: No Do you presently have visiting nurse or other home services: No Alcohol intake: former Patient Tobacco Use Status: Former Tobacco user Tobacco use type: Cigarette Years Smoked: 50 +/- Smoked in Last 30 Days: No Use of substances other than those prescribed or required for medical reasons: No Advance Directives: Yes Advance Directives on File: Yes Advance Directives Date on File: 07/11/21 Do you have a plan to hurt others: No Plan service: No Current occupational status: retired Gender identity: Female Cognitive needs: No Hearing needs: No Vision needs: No Physical Exam ED Exam Exam: General: Pleasant, no distress, interacting appropriately Head: Normacephalic, atraumatic ENT: oral mucosa moist, neck supple, no tracheal deviation Cardiovascular: regular rate, regular rhythm, no murmurs, rubbing, gallops Respiratory: Diminished lung sounds bilaterally slight wheeze Gastrointestinal: Soft, non distended, non tender, non guarding Extremities: +3 pitting edema lower extremities , redness of the left lower extremities Neurological: Awake and alert, no facial droop noted Skin: Warm and dry Psychiatric: Appropriate mood and thoughts Vital Signs: Vital Signs - 24 hr 06/05/25 15:39 06/05/25 16:02 06/05/25 16:07 Temperature 97.5 F 97.5 F Pulse Rate 69 74 74 Respiratory Rate 22 H 20 20 Blood Pressure 178/78 H 178/78 H Pulse Oximetry 100 100 Oxygen Delivery Method Nasal Cannula Nasal Cannula Oxygen Flow Rate 06/05/25 18:17 Temperature Pulse Rate 68 Respiratory Rate 22 H Blood Pressure 145/53 H Pulse Oximetry Oxygen Delivery Method Nasal Cannula Oxygen Flow Rate 2 BMI result Body Mass Index 42.0 Medications Administered Generic Name Dose Route Start Last Admin Trade Name Freq PRN Reason Stop Dose Admin Apixaban 5 mg 06/05/25 21:00 06/05/25 21:21 Apixaban 5 Mg Tablet PO 5 mg BID ROD Administration Trimethoprim/Sulfamethoxazole 1 tab 06/05/25 21:00 06/05/25 21:21 Sulfamethox/Trimeth 400/80 Tablet PO 1 tab BID ROD Administration Discontinued Medications Generic Name Dose Route Start Last Admin Trade Name Freq PRN Reason Stop Dose Admin Albuterol Sulfate 5 mg/ 0 mg 06/05/25 15:35 06/05/25 15:37 Albuterol/Ipratropium 3 ml INHALE 06/05/25 15:36 1 each ONCE ONE Administration Sodium Chloride 500 mls @ 500 mls/hr 06/05/25 16:45 06/05/25 18:00 Ns IV 06/05/25 17:44 Infused .Q1H ROD Infusion Piperacillin Sod/Tazobactam 100 mls @ 200 mls/hr 06/05/25 17:51 06/05/25 19:45 Sod 4.5 gm/ Sodium Chloride IV 06/05/25 18:20 Infused ONCE ONE Infusion Medical Decision Making Medical Decision Making [facility] Narrative: 74-year-old female presented hospital today for evaluation of shortness of breath, difficulty eating weakness recent left humeral fracture and sling. History of lung cancer on Eliquis. Chest x-ray will be obtained. Discussed the patient on obtain a CT imaging of her chest to rule out PE however patient stated that she does not think this is necessary at this time. She understands the risk of not obtaining the CT imaging. EKG will be obtained. We will obtain basic lab on patient including troponin and BNP. Patient does appear to be retaining fluid in her lower extremities. Reviewing the patient's lab work she does have leukocytosis 17.2. She has had some anemia at hemoglobin 10.8. Patient's sodium level was 114. We will start patient on 500 cc of normal saline, we will obtain a serum Osmalility and urine osmalality. Patient's BNP is elevated at 1463. Patient does have leukocytosis 17.2. We will plan to obtain lactic acid and blood cultures for the patient. Patient's lactic acid is not elevated at 1.4. Troponin is negative. BNP slightly up at 1463. We will plan to start patient on IV Zosyn. She is able to tolerate penicillin in the past. Patient will be admitted to the ICU due to her sodium level. For close monitoring. ICU has accepted the patient. Differential Diagnosis Differential Diagnoses: The differential diagnosis associated with the presentation includes Electrolyte abnormality, COPD exacerbation, pneumonia, pulmonary edema Consult Healthcare Provider Management of the patient was discussed with: Software Tools Engineer (ICU) Lab Data [facility] Lab Attestation statement: I reviewed the patient's lab results. 06/05/25 16:11 06/05/25 18:49 Labs: Lab Results 06/05/25 06/05/25 06/05/25 Range/Units 16:11 16:16 17:20 WBC 17.2 H (4.8-10.8) X10*3/uL RBC 4.12 L (4.20-5.50) X10*6/uL Hgb 10.8 L (12.0-16.0) g/dl Hct 31.7 L (37.0-47.0) % MCV 76.9 L (80.0-98.0) fL MCH 26.2 L (27.0-33.0) pg MCHC 34.1 (31.0-35.0) g/dl RDW 14.7 (11.0-16.0) % Plt Count 445 H (160-400) X10*3/uL MPV 8.3 L (9.4-12.3) fL Immature Gran % (Auto) 1.4 H (0.0-0.4) % Neut % (Auto) 85.2 H (45-73) % Lymph % (Auto) 7.9 L (20-40) % [place] % (Auto) 5.2 (2-11) % Eos % (Auto) 0.1 (0-4) % Baso % (Auto) 0.2 (0-2) % Lymph # (Auto) 1.4 (1.2-4.9) X10*3/uL [place] # (Auto) 0.9 (0.1-1.2) X10*3/uL Eos # (Auto) 0.0 (0.0-0.4) X10*3/uL Baso # (Auto) 0.0 (0.0-0.2) X10*3/uL Abs Immat Gran (auto) 0.24 H (0.00-0.03) X10*3/uL Absolute Neuts (auto) 14.7 H (2.0-8.3) x10*3/uL Absolute Nucleated RBC 0.000 (0.0-0.012) X10*3/uL Nucleated RBC % (auto) 0.0 (0.0-0.2) /100WBC PT 17.1 H D (10.9-12.4) SEC INR 1.5 H (0.9-1.1) VBG pH 7.44 H (7.32-7.43) VBG pCO2 47 mmHg VBG pO2 38 mmHg VBG HCO3 32 H (22-26) mmol/L VBG O2 Saturation 53.0 % VBG Base Excess 7.0 mmol/L Sodium 114 L* (135-145) mmol/L Potassium 4.0 (3.3-5.1) mmol/L Chloride 76 L (96-108) mmol/L Carbon Dioxide 26 (22-29) mmol/L Anion Gap 16 (12-20) BUN 11 (9-16) mg/dL Creatinine 0.50 (0.5-1.4) mg/dL Estim Creat Clear Calc 122.1 Estimated GFR > 60 Random Glucose 115 (60-115) mg/dL Osmolality (281-305) mosm/kg Lactic Acid 1.4 (0.5-2.0) mmol/L Calcium 10.1 (8.4-10.2) mg/dL Troponin I High Sens < 2.7 (<3.5-17.0) ng/L NT-Pro-B Natriuret Pep 1463.3 H (<300) pg/mL 06/05/25 Range/Units 17:48 WBC (4.8-10.8) X10*3/uL RBC (4.20-5.50) X10*6/uL Hgb (12.0-16.0) g/dl Hct (37.0-47.0) % MCV (80.0-98.0) fL MCH (27.0-33.0) pg MCHC (31.0-35.0) g/dl RDW (11.0-16.0) % Plt Count (160-400) X10*3/uL MPV (9.4-12.3) fL Immature Gran % (Auto) (0.0-0.4) % Neut % (Auto) (45-73) % Lymph % (Auto) (20-40) % [place] % (Auto) (2-11) % Eos % (Auto) (0-4) % Baso % (Auto) (0-2) % Lymph # (Auto) (1.2-4.9) X10*3/uL [place] # (Auto) (0.1-1.2) X10*3/uL Eos # (Auto) (0.0-0.4) X10*3/uL Baso # (Auto) (0.0-0.2) X10*3/uL Abs Immat Gran (auto) (0.00-0.03) X10*3/uL Absolute Neuts (auto) (2.0-8.3) x10*3/uL Absolute Nucleated RBC (0.0-0.012) X10*3/uL Nucleated RBC % (auto) (0.0-0.2) /100WBC PT (10.9-12.4) SEC INR (0.9-1.1) VBG pH (7.32-7.43) VBG pCO2 mmHg VBG pO2 mmHg VBG HCO3 (22-26) mmol/L VBG O2 Saturation % VBG Base Excess mmol/L Sodium (135-145) mmol/L Potassium (3.3-5.1) mmol/L Chloride (96-108) mmol/L Carbon Dioxide (22-29) mmol/L Anion Gap (12-20) BUN (9-16) mg/dL Creatinine (0.5-1.4) mg/dL Estim Creat Clear Calc Estimated GFR Random Glucose (60-115) mg/dL Osmolality 239 L (281-305) mosm/kg Lactic Acid (0.5-2.0) mmol/L Calcium (8.4-10.2) mg/dL Troponin I High Sens (<3.5-17.0) ng/L NT-Pro-B Natriuret Pep (<300) pg/mL Independent Interpretation I performed an independent interpretation of an: Plain X-Ray Radiology Impression Discussion of test interpretation with radiology: I have reviewed the radiologist's reading. Critical Care Time Critical Care Time Critical Care Time: Yes Total Critical Care Time: 50 Attestation: Time is exclusive of separately billable procedures. Time includes: direct patient care, patient reassessment, coordination of patient care, interpretation of data (laboratory data, pulse oximetry, arterial blood gases and chest xrays), review of patient's medical records, medical consultation and documentation of patient care. Procedures excluded from critical care time: central intravenous line placement and electrocardiography. Discharge Plan Discharge Clinical Impression: Hyponatremia, Pulmonary edema, COPD (chronic obstructive pulmonary disease) Patient Disposition: Admitted As Inpatient Discharge Date/Time: 06/05/25 19:35
[2025-06-05] MEDS: Albuterol Sulfate 5 MG, Albuterol/Iprat 2.5/0.5MG 3 ML 3 ML INHALE (15:37)
--- NOTE | 2025-06-05 15:38 | ECG_ITS ---
Test Reason : shortness of breath Blood Pressure : */* mmHG Vent. Rate : 71 BPM Atrial Rate : * BPM P-R Int : * ms QRS Dur : 94 ms QT Int : 400 ms P-R-T Axes : * 67 7 degrees QTcB Int : 434 ms Atrial fibrillation Low voltage QRS Septal infarct (cited on or before 21-May-2025) Abnormal ECG When compared with ECG of 21-May-2025 18:38, T wave amplitude has decreased in Lateral leads Referred By: Dilma Knott Electronically Signed By: Tera Brooke
[2025-06-05 16:17] LABS: MANUAL DIFF FLAG NO
[2025-06-05 16:20] LABS: VBG HCO3 32 mmol/L (22-26); VBG O2 % Saturation 53.0 %
[2025-06-05 16:20] LABS: Venous Blood Gas Refer to POC result
[2025-06-05 16:21] LABS: Hematocrit 31.7 % (37.0-47.0); Hemoglobin 10.8 g/dl (12.0-16.0); Imm Gran Abs Auto 0.24 X10*3/uL (0.00-0.03); Imm Gran Pct Auto 1.4 % (0.0-0.4); Lymphocytes Absolute Auto 1.4 X10*3/uL (1.2-4.9); Mean Corpuscular HGB Conc 34.1 g/dl (31.0-35.0); Mean Corpuscular Hemoglobin 26.2 pg (27.0-33.0); Mean Corpuscular Volume 76.9 fL (80.0-98.0); NRBC Abs Auto 0.000 X10*3/uL (0.0-0.012); NRBC Pct Auto 0.0 /100WBC (0.0-0.2); Platelet Count 445 X10*3/uL (160-400); Red Blood Count 4.12 X10*6/uL (4.20-5.50); White Blood Count 17.2 X10*3/uL (4.8-10.8)
[2025-06-05 16:26] LABS: INTERNATIONAL NORM RATIO 1.5 (0.9-1.1); Prothrombin Time 17.1 SEC (10.9-12.4)
[2025-06-05 16:35] LABS: Anion Gap 16 (12-20); Blood Urea Nitrogen 11 mg/dL (9-16); Calcium 10.1 mg/dL (8.4-10.2); Carbon Dioxide 26 mmol/L (22-29); Chloride 76 mmol/L (96-108); Creatinine Clr Calc Pharmacy 122.1; Estimated Glomerular Filt Rate > 60; Potassium 4.0 mmol/L (3.3-5.1); Sodium 114 mmol/L (135-145)
[2025-06-05 16:40] LABS: NT Pro B Type Natriuretic Pept 1463.3 pg/mL (<300)
--- OUTSIDE RECORDS SUMMARY | 2025-06-05 16:43 | XMS_ITS | Clinical Summary ---
Author Organization [facility] Address [address] [place] [id number] Phone Care Team Providers Care Metal Smelter Name Role Phone Santos Otoole DO Primary Care Provider [phone] Social History Tobacco Use Types Packs/Day Years [...] PPO BLUE REPLACEMENT MEDICARE PPO BLUE [place]PLAC[place] [address] MEDICARE PPO BLUE [place]PLACEMENT [place] [address] [address] MEDICARE PPO BLUE [place]PLACEMENT [place] [address] MEDICARE PPO BLUE REPLACEMENT [place] MEDICARE PPO BLUE REPLACEMENT Care Teams Metal Smelter Relationship Specialty Start Date End Date Santos Otoole DO [address] [place] [id number] PCP - General Internal Medicine 08/09/24 Additional Source Comments The information contained in this document represents components of the legal health record. It is not the complete legal health record.[facility]
[2025-06-05 16:45] LABS: Troponin-I High Sensitivity < 2.7 ng/L (<3.5-17.0)
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
[2025-06-05 18:13] LABS: Osmolality, Serum 239 mosm/kg (281-305)
--- NOTE | 2025-06-05 18:28 | PHA.MEDREC ---
Addendum entered by Carri Altamirano RPh 06/05/25 18:39: MED REC REVIEWED BY [facility] Original Note: Pharmacy Consult ? Medication Reconciliation Pharmacy has completed the medication reconciliation. Patient was able to name all of her medications. Patient states she is no longer taking Levalbuterol tart 45 mg, and omeprazole. Patient confirmed Atenolol 50 mg QAM and 25 mg QPM even though claims has Atenolol 50 mg BID, Levothyroxine 37.54 (1/2 t of 75 mg) daily Even though claims has Levothyroxine 75 mg daily. Patient states she decided to cut her medications in half. Vitamin D3 1,250 every Wednesdays and Saturdays, last dose yesterday. Patient had all her morning medications today.
--- NOTE | 2025-06-05 18:30 | PM.CCHP ---
History of Present Illness Date of Service: 06/05/25 Attending physician on admission: Libertad Canas Chief Complaint: Weakness Patient is a 74 Y F w/ hypertension, hyperlipidemia, atrial fibrillation on apixaban, COPD, and non-small cell lung cancer who deferred treatment presenting to ED on 06/05 w/ weakness, found to have subacute hyponatremia in setting of decreased PO intake Review of Systems Review of Systems: Yes all other systems are reviewed and are negative [facility] Past Medical History Medical History Chronic hyponatremia Prediabetes Anxiety Mammogram declined (~02/02/25) Colonoscopy refused (~02/02/25) Morbid obesity with BMI of 45.0-49.9, adult History of mammogram (~02/07/23) Venous insufficiency Trigeminal neuralgia Mild hypercholesterolemia Establishing care with new doctor, encounter for Hypercholesteremia Hypothyroid Atrial fibrillation Hypertension Family History Family History Mother Graves' disease Father Citizen Of [place] type familial amyloid cardiomyopathy Renal failure Surgical History Surgical History History of colonoscopy (~04/19/14) History of tonsillectomy History of cholecystectomy History of hysterectomy History of appendectomy Social History Social History Household Members: Spouse Housing: House Are you a primary patient care secretary to a significant other at home: No Do you presently have visiting nurse or other home services: No Alcohol intake: former Patient Tobacco Use Status: Former Tobacco user Tobacco use type: Cigarette Years Smoked: 50 Smoked in Last 30 Days: No Use of substances other than those prescribed or required for medical reasons: No Have you been hit, kicked, punched, or otherwise hurt by someone within the past year? If so, by whom?: No Do you feel safe in your current relationship?: Yes Is there a partner from a previous relationship who is making you feel unsafe now?: No Are you made to feel afraid or neglected: No Advance Directives: Yes Advance Directives on File: Yes Advance Directives Date on File: 07/11/21 Do you have a plan to hurt others: No Plan Recently lost weight without trying: No How much weight loss: Not applicable Eating poorly because of decreased appetite: Yes Nutrition screen score: 1 Nutrition Risks: Poor intake 0-25% >4 days Patient : No : No Poor oral hygiene: No service: No Current occupational status: retired Gender identity: Female Cognitive needs: No Hearing needs: No Vision needs: No Meds Allergies Allergy/AdvReac Type Severity Reaction Status Date / Time cephalexin (From Keflex) Allergy Mild Numbness Verified 06/05/25 16:06 of the Lips Calcium Channel Blocking Allergy Unknown RESTLESSNES Verified 06/05/25 16:06 Agents-Dih (CALCIUM CHANNEL S BLOCKING AGENTS-DIH) meperidine (From DEMEROL) Allergy Unknown CRYING Verified 06/05/25 16:06 Neuromuscular Blockers, Allergy Unknown MOOD SWINGS Verified 06/05/25 16:06 Steroidal (STEROIDAL NEUROMUSCULAR BLOCKERS) tetracycline (TETRACYCLINE) Allergy Unknown NAUSEA/VOMI Verified 06/05/25 16:06 TING Active Medications: Current Medications Alprazolam (Alprazolam 0.5 Mg Tablet) 0.5 mg PO DAILY PRN PRN Reason: Anxiety Apixaban (Apixaban 5 Mg Tablet) 5 mg PO BID [facility] Levothyroxine Sodium (Levothyroxine Sodium 75 Mcg Tablet) 75 mcg PO DAILY [facility] Home Medications ?Medication ?Instructions ?Recorded ?Confirmed ?Last Taken ?Type atenolol 50 mg tablet 25 mg PO BEDTIME 06/05/25 06/05/25 06/04/25 History atenolol 50 mg tablet 50 mg PO DAILY 06/05/25 06/05/25 06/05/25 History chlorthalidone 25 mg tablet 25 mg PO DAILY 06/05/25 06/05/25 06/05/25 History cholecalciferol (vitamin D3) 1,250 1,250 mcg PO WESA 06/05/25 06/05/25 06/04/25 History mcg (50,000 unit) capsule levothyroxine 75 mcg tablet 37.5 mcg PO DAILY 06/05/25 06/05/25 06/05/25 History valsartan 80 mg tablet 80 mg PO BEDTIME 06/05/25 06/05/25 06/04/25 History Physical Exam Vital Signs: Vital Signs: Last Vital Signs Temp 97.5 F 06/05/25 16:07 Pulse 68 06/05/25 18:17 Resp 22 H 06/05/25 18:17 BP 145/53 H 06/05/25 18:17 Pulse Ox 100 06/05/25 16:07 O2 Del Method Nasal Cannula 06/05/25 18:17 O2 Flow Rate 2 06/05/25 18:17 Oxygen Flow Rate 2 06/05/25 16:02 BMI result Body Mass Index 42.0 Const: General: cooperative, healthy appearing, comfortable, no acute distress, well developed, alert and awake Orientation/consciousness: patient oriented x3 HEENT: Head: Yes normal to inspection, Yes normocephalic and Yes atraumatic Eyes: General: appearance normal, both eyes and all related structures Neck: Neck: Yes normal visual inspection, Yes full ROM, Yes no meningeal signs, Yes trachea midline and Yes supple Chest: Chest palpation & inspection: normal inspection of the chest Resp: Other: no appreciable rales, rhonchi, wheezing Effort & Inspection: normal respiratory effort GI: Inspection: Yes normal to inspection, No Abdominal wall edema and No distended Palpation (GI): Soft to palpation, not firm, nontender, no guarding and not rigid Skin: General skin exam: no rashes or lesions noted Neuro: General: patient oriented x3, tone normal, no meningeal signs and no focal motor deficits Extrem: General: Yes normal to inspection, Yes full ROM, Yes capillary refill normal and Yes no clubbing, cyanosis or edema Psych: Appearance: grossly normal Results Labs 06/06/25 05:37 06/06/25 05:37 Labs: Laboratory Results - last 24 hr 06/05/25 06/05/25 06/05/25 16:11 16:16 17:20 MCV 76.9 L MCH 26.2 L MCHC 34.1 RDW 14.7 Plt Count 445 H MPV 8.3 L Immature Gran % (Auto) 1.4 H Neut % (Auto) 85.2 H Lymph % (Auto) 7.9 L [place] % (Auto) 5.2 Eos % (Auto) 0.1 Baso % (Auto) 0.2 Lymph # (Auto) 1.4 [place] # (Auto) 0.9 Eos # (Auto) 0.0 Baso # (Auto) 0.0 Abs Immat Gran (auto) 0.24 H Absolute Neuts (auto) 14.7 H Absolute Nucleated RBC 0.000 Nucleated RBC % (auto) 0.0 PT 17.1 H D INR 1.5 H VBG pH 7.44 H VBG pCO2 47 VBG pO2 38 VBG HCO3 32 H VBG O2 Saturation 53.0 VBG Base Excess 7.0 Anion Gap 16 Estim Creat Clear Calc 122.1 Estimated GFR > 60 Random Glucose 115 Osmolality Lactic Acid 1.4 Calcium 10.1 Troponin I High Sens < 2.7 NT-Pro-B Natriuret Pep 1463.3 H 06/05/25 17:48 MCV MCH MCHC RDW Plt Count MPV Immature Gran % (Auto) Neut % (Auto) Lymph % (Auto) [place] % (Auto) Eos % (Auto) Baso % (Auto) Lymph # (Auto) [place] # (Auto) Eos # (Auto) Baso # (Auto) Abs Immat Gran (auto) Absolute Neuts (auto) Absolute Nucleated RBC Nucleated RBC % (auto) PT INR VBG pH VBG pCO2 VBG pO2 VBG HCO3 VBG O2 Saturation VBG Base Excess Anion Gap Estim Creat Clear Calc Estimated GFR Random Glucose Osmolality 239 L Lactic Acid Calcium Troponin I High Sens NT-Pro-B Natriuret Pep Assessment and Plan (1) Hyponatremia: Status: Acute Plan Patient is a 74 Y F w/ hypertension, hyperlipidemia, atrial fibrillation on apixaban, COPD, and non-small cell lung cancer who deferred treatment presenting to ED on 06/05 w/ weakness, found to have subacute hyponatremia in setting of decreased PO intake N: weakness, likely d/t hyponatremia CV: no acute issues, to monitor hemodynamics R: no acute issues; COPD and non-small cell lung cancer not on treatment GI: no acute issues; regular diet w/ fluid restriction : hyponatremia, judicious use of IVF, q2h Na, q1h ins/outs H: no acute issues; atrial fibrillation on apixaban ID: c/f lower extremity cellulitis, on bactrim E: to monitor hypo-/hyper-glycemia P: no acute issues
--- NOTE | 2025-06-05 18:35 | HO.NURTONUR ---
Pt admitted with hyponatremia, dyspnea, weakness. Pt has lung necrosis but has refused chemo, radiation, surgical interventions. Legs are edematous, warm, red. Pt has a humerus fracture on the left side, it is in a sling, no splint. Bruising noted above left eye and on broken arm. A&O x 4 She reports difficulty caring for herself at home and reports that her has difficulty caring for her too. She has several allergies and is particular about her medications and her cares. She is a retired nurse.
[2025-06-05 20:08] LABS: Anion Gap 14 (12-20); Blood Urea Nitrogen 10 mg/dL (9-16); Calcium 9.3 mg/dL (8.4-10.2); Carbon Dioxide 26 mmol/L (22-29); Chloride 78 mmol/L (96-108); Creatinine Clr Calc Pharmacy 122.1; Estimated Glomerular Filt Rate > 60; Magnesium 1.5 mg/dL (1.6-2.6); Potassium 3.8 mmol/L (3.3-5.1); Sodium 114 mmol/L (135-145)
[2025-06-05] MEDS: Sulfamethox/Trimeth 400/80 TABLET 1 TAB PO (21:21)
[2025-06-05 22:30] LABS: Anion Gap 14 (12-20); Blood Urea Nitrogen 10 mg/dL (9-16); Calcium 9.4 mg/dL (8.4-10.2); Carbon Dioxide 28 mmol/L (22-29); Chloride 76 mmol/L (96-108); Creatinine Clr Calc Pharmacy 124.6; Estimated Glomerular Filt Rate > 60; Potassium 3.5 mmol/L (3.3-5.1); Sodium 114 mmol/L (135-145)
--- NOTE | 2025-06-05 22:45 | W.MHC.ACPN ---
Advanced Care Planning Note Advanced Care Planning Note Discussed with: patient Time spent (in minutes): 30 Narrative: I introduced myself to Mary Beth and I offered updates and clarifications to her treatment plan.?We discussed her non-small cell lung cancer and her decision to defer treatment. The pt stated that she and her oncologist discussed her options; she is not a good surgical candidate and she does not want to endure the debilitating side effects of chemotherapy and radiation. She voiced her desire to have her code status changed as she does not want to be intubated or to have CPR performed in the event of an arrest. She has discussed her goals of care with friends and family who she says are supportive of her decision. Mary Beth expressed relief at knowing that her code status would be changed to DNR/DNI Problems Discussed (1) Hyponatremia: (2) Primary cancer of left lower lobe of lung: (3) Non-small cell cancer of left lung:
[2025-06-06] VITALS (24 sets, daily range): BP systolic 109–163; BP diastolic 44–81; PULSE 55–89; RESP 12–26; TEMP 36.1–36.4; O2SAT 90–97; BMI 47.3
[2025-06-06 01:28] LABS: Anion Gap 15 (12-20); Blood Urea Nitrogen 9 mg/dL (9-16); Calcium 9.7 mg/dL (8.4-10.2); Carbon Dioxide 26 mmol/L (22-29); Chloride 77 mmol/L (96-108); Creatinine Clr Calc Pharmacy 122.1; Estimated Glomerular Filt Rate > 60; Potassium 3.9 mmol/L (3.3-5.1); Sodium 114 mmol/L (135-145)
[2025-06-06 03:22] LABS: Anion Gap 11 (12-20); Blood Urea Nitrogen 9 mg/dL (9-16); Calcium 8.6 mg/dL (8.4-10.2); Carbon Dioxide 25 mmol/L (22-29); Chloride 84 mmol/L (96-108); Creatinine Clr Calc Pharmacy 135.7; Estimated Glomerular Filt Rate > 60; Potassium 3.2 mmol/L (3.3-5.1); Sodium 117 mmol/L (135-145)
[2025-06-06 05:51] LABS: MANUAL DIFF FLAG NO
[2025-06-06 05:54] LABS: Hematocrit 30.7 % (37.0-47.0); Hemoglobin 10.6 g/dl (12.0-16.0); Imm Gran Abs Auto 0.27 X10*3/uL (0.00-0.03); Imm Gran Pct Auto 1.7 % (0.0-0.4); Lymphocytes Absolute Auto 1.8 X10*3/uL (1.2-4.9); Mean Corpuscular HGB Conc 34.5 g/dl (31.0-35.0); Mean Corpuscular Hemoglobin 26.4 pg (27.0-33.0); Mean Corpuscular Volume 76.4 fL (80.0-98.0); NRBC Abs Auto 0.000 X10*3/uL (0.0-0.012); NRBC Pct Auto 0.0 /100WBC (0.0-0.2); Platelet Count 463 X10*3/uL (160-400); Red Blood Count 4.02 X10*6/uL (4.20-5.50); White Blood Count 15.7 X10*3/uL (4.8-10.8)
[2025-06-06] MEDS: Potassium Chloride ER 20 MEQ TAB.ER.PRT 40 MEQ PO (06:06)
[2025-06-06 06:17] LABS: Albumin Level 3.9 g/dL (3.5-5.0); Anion Gap 16 (12-20); Blood Urea Nitrogen 9 mg/dL (9-16); Calcium 9.7 mg/dL (8.4-10.2); Carbon Dioxide 24 mmol/L (22-29); Chloride 78 mmol/L (96-108); Creatinine Clr Calc Pharmacy 128.4; Estimated Glomerular Filt Rate > 60; Magnesium 1.7 mg/dL (1.6-2.6); Potassium 3.8 mmol/L (3.3-5.1); Sodium 114 mmol/L (135-145)
--- NOTE | 2025-06-06 07:14 | PC.ADMIT ---
Pt arrived to unit via stretcher from ED at approx 1915. Pt A&O x 4. THAKUR, however pt is very weak. Pt reports difficulty breathing and states she must be in high fowlers position in bed. Pt maintaining sats >92%. Fluids started for low sodium level. Pt was encouraged by OUMAR Valdez to eat, pt reports she has no appetite. OUMAR Cortez recommended Ensure drink which was obtained and given to pt. Pt drank a few sips of ensure. Pt refuses to be repositioned from left to right, or to be laying flat. Wound consult placed for old closed wound on leg. Left arm in sling. Meds administered per MAR. See flowsheets, worklist tasks, and MAR for more details. Plan of care ongoing.
[2025-06-06 08:21] LABS: Anion Gap 18 (12-20); Blood Urea Nitrogen 8 mg/dL (9-16); Calcium 9.3 mg/dL (8.4-10.2); Carbon Dioxide 24 mmol/L (22-29); Chloride 79 mmol/L (96-108); Creatinine Clr Calc Pharmacy 136.3; Estimated Glomerular Filt Rate > 60; Potassium 4.5 mmol/L (3.3-5.1); Sodium 116 mmol/L (135-145)
[2025-06-06] MEDS: Sodium Chloride Tab 1 GM TABLET 2 GM PO ×3 (09:17→20:06)
[2025-06-06] MEDS: Sulfamethox/Trimeth 400/80 TABLET 1 TAB PO ×2 (09:17→20:06)
--- NOTE | 2025-06-06 12:23 | P.PNCC_ITS ---
Subjective Subjective Date of Service: 06/06/25 Interval History: 74-year-old lady with underlying hypertension, hyperlipidemia, AFib on apixaban, COPD, [id number] lung cancer not on treatment per patient choice admitted on 06/05/2025 with malaise secondary to subacute hyponatremia secondary to poor p.o. intake with no neurologic symptoms. No events overnight. Critical Care Time (minutes): 0 Physical Exam 2 Vital Signs: Vital Signs: Last Vital Signs Temp 97.5 F 06/06/25 08:00 Pulse 87 06/06/25 12:00 Resp 21 H 06/06/25 12:00 BP 142/69 H 06/06/25 11:00 Pulse Ox 95 06/06/25 12:00 O2 Del Method Room Air 06/06/25 12:00 O2 Flow Rate 2 06/05/25 18:17 Oxygen Flow Rate 2 06/05/25 16:02 BMI result Body Mass Index 47.3 Const: General: no acute distress, alert and awake Eyes: Sclerae: sclerae normal EOM: EOMs intact bilaterally Neck: Neck: Yes no lymphadenopathy, Yes trachea midline and Yes supple Resp: Effort & Inspection: normal respiratory effort and no respiratory distress Auscultation: clear to auscultation bilaterally Cardio: Rate: regular rate Rhythm: regular rhythm Heart sounds: no gallops, no murmurs and no rubs GI: Palpation (GI): Soft to palpation and Other GI palpation findings present ( Nontender) Auscultation: normal bowel sounds Extrem: General: Yes no pedal edema, No clubbing and No cyanosis Objective Data Labs 06/06/25 05:37 06/06/25 07:42 Labs: Laboratory Results - last 24 hr 06/05/25 06/05/25 06/05/25 16:11 16:16 17:20 WBC 17.2 H RBC 4.12 L Hgb 10.8 L Hct 31.7 L MCV 76.9 L MCH 26.2 L MCHC 34.1 RDW 14.7 Plt Count 445 H MPV 8.3 L Immature Gran % (Auto) 1.4 H Neut % (Auto) 85.2 H Lymph % (Auto) 7.9 L [place] % (Auto) 5.2 Eos % (Auto) 0.1 Baso % (Auto) 0.2 Lymph # (Auto) 1.4 [place] # (Auto) 0.9 Eos # (Auto) 0.0 Baso # (Auto) 0.0 Abs Immat Gran (auto) 0.24 H Absolute Neuts (auto) 14.7 H Absolute Nucleated RBC 0.000 Nucleated RBC % (auto) 0.0 PT 17.1 H D INR 1.5 H VBG pH 7.44 H VBG pCO2 47 VBG pO2 38 VBG HCO3 32 H VBG O2 Saturation 53.0 VBG Base Excess 7.0 Sodium 114 L* Potassium 4.0 Chloride 76 L Carbon Dioxide 26 Anion Gap 16 BUN 11 Creatinine 0.50 Estim Creat Clear Calc 122.1 Estimated GFR > 60 Random Glucose 115 Osmolality Lactic Acid 1.4 Calcium 10.1 Phosphorus Magnesium Troponin I High Sens < 2.7 NT-Pro-B Natriuret Pep 1463.3 H Albumin TSH Urine Osmolality Ur Random Sodium 06/05/25 06/05/25 06/05/25 17:48 18:49 18:49 WBC RBC Hgb Hct MCV MCH MCHC RDW Plt Count MPV Immature Gran % (Auto) Neut % (Auto) Lymph % (Auto) [place] % (Auto) Eos % (Auto) Baso % (Auto) Lymph # (Auto) [place] # (Auto) Eos # (Auto) Baso # (Auto) Abs Immat Gran (auto) Absolute Neuts (auto) Absolute Nucleated RBC Nucleated RBC % (auto) PT INR VBG pH VBG pCO2 VBG pO2 VBG HCO3 VBG O2 Saturation VBG Base Excess Sodium 114 L* Cancelled Potassium 3.8 Chloride Carbon Dioxide Anion Gap BUN Creatinine Estim Creat Clear Calc Estimated GFR Random Glucose Osmolality 239 L Lactic Acid Calcium Phosphorus Magnesium Troponin I High Sens NT-Pro-B Natriuret Pep Albumin TSH Urine Osmolality Ur Random Sodium 06/05/25 06/05/25 06/05/25 18:49 18:49 18:49 WBC RBC Hgb Hct MCV MCH MCHC RDW Plt Count MPV Immature Gran % (Auto) Neut % (Auto) Lymph % (Auto) [place] % (Auto) Eos % (Auto) Baso % (Auto) Lymph # (Auto) [place] # (Auto) Eos # (Auto) Baso # (Auto) Abs Immat Gran (auto) Absolute Neuts (auto) Absolute Nucleated RBC Nucleated RBC % (auto) PT INR VBG pH VBG pCO2 VBG pO2 VBG HCO3 VBG O2 Saturation VBG Base Excess Sodium Potassium Cancelled Chloride 78 L Cancelled Carbon Dioxide 26 Cancelled Anion Gap 14 BUN Creatinine Estim Creat Clear Calc Estimated GFR Random Glucose Osmolality Lactic Acid Calcium Phosphorus Magnesium Troponin I High Sens NT-Pro-B Natriuret Pep Albumin TSH Urine Osmolality Ur Random Sodium 06/05/25 06/05/25 06/05/25 18:49 18:49 18:49 WBC RBC Hgb Hct MCV MCH MCHC RDW Plt Count MPV Immature Gran % (Auto) Neut % (Auto) Lymph % (Auto) [place] % (Auto) Eos % (Auto) Baso % (Auto) Lymph # (Auto) [place] # (Auto) Eos # (Auto) Baso # (Auto) Abs Immat Gran (auto) Absolute Neuts (auto) Absolute Nucleated RBC Nucleated RBC % (auto) PT INR VBG pH VBG pCO2 VBG pO2 VBG HCO3 VBG O2 Saturation VBG Base Excess Sodium Potassium Chloride Carbon Dioxide Anion Gap Cancelled BUN 10 Cancelled Creatinine 0.50 Cancelled Estim Creat Clear Calc 122.1 Estimated GFR Random Glucose Osmolality Lactic Acid Calcium Phosphorus Magnesium Troponin I High Sens NT-Pro-B Natriuret Pep Albumin TSH Urine Osmolality Ur Random Sodium 06/05/25 06/05/25 06/05/25 18:49 18:49 18:49 WBC RBC Hgb Hct MCV MCH MCHC RDW Plt Count MPV Immature Gran % (Auto) Neut % (Auto) Lymph % (Auto) [place] % (Auto) Eos % (Auto) Baso % (Auto) Lymph # (Auto) [place] # (Auto) Eos # (Auto) Baso # (Auto) Abs Immat Gran (auto) Absolute Neuts (auto) Absolute Nucleated RBC Nucleated RBC % (auto) PT INR VBG pH VBG pCO2 VBG pO2 VBG HCO3 VBG O2 Saturation VBG Base Excess Sodium Potassium Chloride Carbon Dioxide Anion Gap BUN Creatinine Estim Creat Clear Calc Cancelled Estimated GFR > 60 Cancelled Random Glucose 109 Cancelled Osmolality Lactic Acid Calcium 9.3 D Phosphorus Magnesium Troponin I High Sens NT-Pro-B Natriuret Pep Albumin TSH Urine Osmolality Ur Random Sodium 06/05/25 06/05/25 06/05/25 18:49 19:02 21:58 WBC RBC Hgb Hct MCV MCH MCHC RDW Plt Count MPV Immature Gran % (Auto) Neut % (Auto) Lymph % (Auto) [place] % (Auto) Eos % (Auto) Baso % (Auto) Lymph # (Auto) [place] # (Auto) Eos # (Auto) Baso # (Auto) Abs Immat Gran (auto) Absolute Neuts (auto) Absolute Nucleated RBC Nucleated RBC % (auto) PT INR VBG pH VBG pCO2 VBG pO2 VBG HCO3 VBG O2 Saturation VBG Base Excess Sodium 114 L* Potassium 3.5 Chloride 76 L Carbon Dioxide 28 Anion Gap 14 BUN 10 Creatinine 0.49 L Estim Creat Clear Calc 124.6 Estimated GFR > 60 Random Glucose 107 Osmolality Lactic Acid Calcium Cancelled 9.4 Phosphorus 2.8 Magnesium 1.5 L Troponin I High Sens NT-Pro-B Natriuret Pep Albumin TSH 2.73 Urine Osmolality 515 Ur Random Sodium 22.0 06/06/25 06/06/25 06/06/25 00:44 02:55 05:37 WBC 15.7 H RBC 4.02 L Hgb 10.6 L Hct 30.7 L MCV 76.4 L MCH 26.4 L MCHC 34.5 RDW 14.6 Plt Count 463 H MPV 8.4 L Immature Gran % (Auto) 1.7 H Neut % (Auto) 79.5 H Lymph % (Auto) 11.5 L [place] % (Auto) 6.6 Eos % (Auto) 0.4 Baso % (Auto) 0.3 Lymph # (Auto) 1.8 [place] # (Auto) 1.0 Eos # (Auto) 0.1 Baso # (Auto) 0.0 Abs Immat Gran (auto) 0.27 H Absolute Neuts (auto) 12.5 H Absolute Nucleated RBC 0.000 Nucleated RBC % (auto) 0.0 PT INR VBG pH VBG pCO2 VBG pO2 VBG HCO3 VBG O2 Saturation VBG Base Excess Sodium 114 L* 117 L* 114 L* Potassium 3.9 3.2 L Chloride 77 L 84 L Carbon Dioxide 26 25 Anion Gap 15 11 L BUN 9 9 Creatinine 0.50 0.45 L Estim Creat Clear Calc 122.1 135.7 Estimated GFR > 60 > 60 Random Glucose 109 90 Osmolality Lactic Acid Calcium 9.7 8.6 D Phosphorus Magnesium Troponin I High Sens NT-Pro-B Natriuret Pep Albumin TSH Urine Osmolality Ur Random Sodium 06/06/25 06/06/25 06/06/25 05:37 05:37 05:37 WBC RBC Hgb Hct MCV MCH MCHC RDW Plt Count MPV Immature Gran % (Auto) Neut % (Auto) Lymph % (Auto) [place] % (Auto) Eos % (Auto) Baso % (Auto) Lymph # (Auto) [place] # (Auto) Eos # (Auto) Baso # (Auto) Abs Immat Gran (auto) Absolute Neuts (auto) Absolute Nucleated RBC Nucleated RBC % (auto) PT INR VBG pH VBG pCO2 VBG pO2 VBG HCO3 VBG O2 Saturation VBG Base Excess Sodium Cancelled Potassium 3.8 Cancelled Chloride 78 L Cancelled Carbon Dioxide 24 Anion Gap BUN Creatinine Estim Creat Clear Calc Estimated GFR Random Glucose Osmolality Lactic Acid Calcium Phosphorus Magnesium Troponin I High Sens NT-Pro-B Natriuret Pep Albumin TSH Urine Osmolality Ur Random Sodium 06/06/25 06/06/25 06/06/25 05:37 05:37 05:37 WBC RBC Hgb Hct MCV MCH MCHC RDW Plt Count MPV Immature Gran % (Auto) Neut % (Auto) Lymph % (Auto) [place] % (Auto) Eos % (Auto) Baso % (Auto) Lymph # (Auto) [place] # (Auto) Eos # (Auto) Baso # (Auto) Abs Immat Gran (auto) Absolute Neuts (auto) Absolute Nucleated RBC Nucleated RBC % (auto) PT INR VBG pH VBG pCO2 VBG pO2 VBG HCO3 VBG O2 Saturation VBG Base Excess Sodium Potassium Chloride Carbon Dioxide Cancelled Anion Gap 16 Cancelled BUN 9 Cancelled Creatinine 0.51 Estim Creat Clear Calc Estimated GFR Random Glucose Osmolality Lactic Acid Calcium Phosphorus Magnesium Troponin I High Sens NT-Pro-B Natriuret Pep Albumin TSH Urine Osmolality Ur Random Sodium 06/06/25 06/06/25 06/06/25 05:37 05:37 05:37 WBC RBC Hgb Hct MCV MCH MCHC RDW Plt Count MPV Immature Gran % (Auto) Neut % (Auto) Lymph % (Auto) [place] % (Auto) Eos % (Auto) Baso % (Auto) Lymph # (Auto) [place] # (Auto) Eos # (Auto) Baso # (Auto) Abs Immat Gran (auto) Absolute Neuts (auto) Absolute Nucleated RBC Nucleated RBC % (auto) PT INR VBG pH VBG pCO2 VBG pO2 VBG HCO3 VBG O2 Saturation VBG Base Excess Sodium Potassium Chloride Carbon Dioxide Anion Gap BUN Creatinine Cancelled Estim Creat Clear Calc 128.4 Cancelled Estimated GFR > 60 Cancelled Random Glucose 103 Osmolality Lactic Acid Calcium Phosphorus Magnesium Troponin I High Sens NT-Pro-B Natriuret Pep Albumin TSH Urine Osmolality Ur Random Sodium 06/06/25 06/06/25 06/06/25 05:37 05:37 07:42 WBC RBC Hgb Hct MCV MCH MCHC RDW Plt Count MPV Immature Gran % (Auto) Neut % (Auto) Lymph % (Auto) [place] % (Auto) Eos % (Auto) Baso % (Auto) Lymph # (Auto) [place] # (Auto) Eos # (Auto) Baso # (Auto) Abs Immat Gran (auto) Absolute Neuts (auto) Absolute Nucleated RBC Nucleated RBC % (auto) PT INR VBG pH VBG pCO2 VBG pO2 VBG HCO3 VBG O2 Saturation VBG Base Excess Sodium 116 L* Potassium 4.5 Chloride 79 L Carbon Dioxide 24 Anion Gap 18 BUN 8 L Creatinine 0.48 L Estim Creat Clear Calc 136.3 Estimated GFR > 60 Random Glucose Cancelled 88 Osmolality Lactic Acid Calcium 9.7 D Cancelled 9.3 Phosphorus 3.0 Magnesium 1.7 Troponin I High Sens NT-Pro-B Natriuret Pep Albumin 3.9 TSH Urine Osmolality Ur Random Sodium Progress Note: A&P Assessment and plan (1) Paroxysmal atrial fibrillation: Status: Acute (2) Anxiety: Status: Acute (3) Morbid obesity with BMI of 45.0-49.9, adult: Status: Acute (4) Hyponatremia: Status: Acute (5) Primary cancer of left lower lobe of lung: Status: Acute Plan Assessment: 74-year-old lady with advanced lung cancer not on treatment per patient's choice admitted with malaise secondary to subacute hyponatremia, improving slowly Plan: Neuro: No acute issues. Cardiac: No acute issues. Underlying AFib on Eliquis. Pulmonary: No acute issues. Renal: Subacute hyponatremia secondary to poor p.o. intake, improving. Continue sodium tabs. Continue to monitor electrolytes. Endo: No acute issues. GI: No acute issues. ID: No acute issues Heme/Onc: No acute issues. Underlying advanced lung cancer on no treatment per patient's choice. Psych: No acute issues. Miscellaneous: No acute issues. Prophylaxis: Eliquis Diet: Regular Quality Stroke Does the patient have a stroke diagnosis?: No VTE Prior VTE?: No VTE Risk Level:: Medical - moderate - high VTE Device Contraindication: N/A - Device Ordered VTE Drug Contraindication: N/A - Med Ordered
--- NOTE | 2025-06-06 14:05 | MHC.CM.PN ---
Met with pt to review d/c planning needs: Pt states she resides w/spouse and has no services or DME at this time. Pt has a fx to left arm and her spouse is unable to assist with her care needs. Pt is interested in [facility] in [place] - referral made. HCP on file and verified: IMM in chart.
[2025-06-06 15:17] LABS: Anion Gap 11 (12-20); Blood Urea Nitrogen 9 mg/dL (9-16); Calcium 9.4 mg/dL (8.4-10.2); Carbon Dioxide 28 mmol/L (22-29); Chloride 81 mmol/L (96-108); Creatinine Clr Calc Pharmacy 128.4; Estimated Glomerular Filt Rate > 60; Potassium 4.1 mmol/L (3.3-5.1); Sodium 116 mmol/L (135-145)
--- NOTE | 2025-06-06 16:52 | HO.WOUND ---
Wound Consult: Initial 74yr [place] [facility] [place] See progress notes and H&P for detailed history.? Wound consult placed for Left Lower Leg.? Patient agreeable to assessment and photo documentation.? Patient reports she has sough care for her chronic left lower leg wounds in the past from outpt wound center -more recently when a wound occurs she treats with durafiber AG and wraps her legs. She does not wear compression at this time. She was educated on Edema wear and will be provided information at time of d/c. Left Lower Leg Etiology: ?Venous Dermatitis Wound Bed: no open wounds at this time - thickened dry scaling skin Drainage / Odor: None Edges: ? irregular and attached [place] wound: ?red pink dry thickened tissue No Induration, Fluctuance or Warmth noted Pain: denies Goals of Treatment: ? 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 Turn and Reposition every 2 hours and as needed for patient comfort.? Use pillows or wedges to support off loading positions. 2. Off Load all bony prominences with use of pillows and heel boots if needed.? Apply Preventative foams where needed. ? 3. Monitor for incontinence and moisture control, use barrier creams when needed for prevention and treatment. 4. Provide adequate and supplemental nutrition.? 5. Order low air loss mattress. 6. When applicable maintain blood glucose levels per Providers order. Bilateral Lower Legs - Elevate throughout the day with use of pillows. Routine cleansing. Apply Ammonium Lactate cream daily. Re-consult wound care Nurse for wound deterioration or wound changes.
--- NOTE | 2025-06-06 18:28 | PC.NURSE ---
Assumed care at 0700 - NS discontinued by ARTURO RAY tab TID ordered and administered per NOV. 1499 NA 116 - MD aware, no new orders. Care ongoing.
[2025-06-06 20:24] LABS: Anion Gap 12 (12-20); Blood Urea Nitrogen 10 mg/dL (9-16); Calcium 9.4 mg/dL (8.4-10.2); Carbon Dioxide 28 mmol/L (22-29); Chloride 81 mmol/L (96-108); Creatinine Clr Calc Pharmacy 119.0; Estimated Glomerular Filt Rate > 60; Potassium 4.0 mmol/L (3.3-5.1); Sodium 117 mmol/L (135-145)
[2025-06-07] VITALS (26 sets, daily range): BP systolic 92–166; BP diastolic 45–82; PULSE 15–82; RESP 14–27; TEMP 35.9–36.2; O2SAT 90–96; BMI 47.6
[2025-06-07 05:35] LABS: Hematocrit 28.7 % (37.0-47.0); Hemoglobin 9.8 g/dl (12.0-16.0); Mean Corpuscular Volume 77.6 fL (80.0-98.0); Platelet Count 455 X10*3/uL (160-400); Red Blood Count 3.70 X10*6/uL (4.20-5.50)
[2025-06-07 05:56] LABS: Calcium 9.8 mg/dL (8.4-10.2); Chloride 81 mmol/L (96-108); Potassium 4.0 mmol/L (3.3-5.1); Sodium 118 mmol/L (135-145)
--- NOTE | 2025-06-07 06:44 | PC.NURSE ---
Assumed care of pt at 1900. Pt A&O x 4. Pt cooperative with care. Sodium levels continue to be low, salt tabs given per MAR. THAKUR, continues to be weak. Sling in place to L arm. At approx 0400, Pt woke from her sleep and was disoriented. Pt re-oriented by this RN. After about 1 hr, pt back to her baseline. See flowsheets, MAR, and worklist for more information. Plan of care continues.
[2025-06-07] MEDS: Sulfamethox/Trimeth 400/80 TABLET 1 TAB PO ×2 (08:02→20:04)
[2025-06-07] MEDS: Sodium Chloride Tab 1 GM TABLET 2 GM PO (08:03)
[2025-06-07] MEDS: Tiotropium Bromide 2.5 mcg 1 PUFF/2.5 MCG MIST.INHAL 2 PUFF INHALE (08:16)
--- NOTE | 2025-06-07 09:54 | P.PNCC_ITS ---
Subjective Subjective Date of Service: 06/07/25 Interval History: 74-year-old lady with underlying hypertension, hyperlipidemia, AFib on apixaban, COPD, [id number] lung cancer not on treatment per patient choice admitted on 06/05/2025 with malaise secondary to subacute hyponatremia secondary to poor p.o. intake with no neurologic symptoms. No events overnight. Sodium level is slowly improving. Critical Care Time (minutes): 0 Physical Exam 2 Vital Signs: Vital Signs: Last Vital Signs Temp 97.1 F 06/07/25 08:00 Pulse 77 06/07/25 09:00 Resp 19 06/07/25 09:00 BP 149/67 H 06/07/25 09:00 Pulse Ox 92 06/07/25 09:00 O2 Del Method Room Air 06/07/25 09:00 O2 Flow Rate 2 06/05/25 18:17 Oxygen Flow Rate 2 06/05/25 16:02 BMI result Body Mass Index 47.6 Const: General: no acute distress and alert Nutritional Appearance: not obese Orientation/consciousness: Other orientation findings ( oriented) HEENT: Head: Yes atraumatic Eyes: General: appearance normal, both eyes and all related structures S clerae: sclerae normal EOM: EOMs intact bilaterally Neck: Neck: Yes supple Lymphatic: no lymphadenopathy noted Resp: Effort & Inspection: normal respiratory effort and no use of accessory muscles Auscultation: clear to auscultation bilaterally Cardio: Rate: regular rate Rhythm: regular rhythm Heart sounds: no gallops, no murmurs and no rubs Skin: General skin exam: other ( warm) Extrem: General: No clubbing, No cyanosis and No edema Objective Data Labs 06/07/25 04:55 06/07/25 04:55 Labs: Laboratory Results - last 24 hr 06/06/25 06/06/25 06/07/25 14:52 19:57 04:55 WBC 12.9 H RBC 3.70 L Hgb 9.8 L Hct 28.7 L MCV 77.6 L MCH 26.5 L MCHC 34.1 RDW 15.0 Plt Count 455 H MPV 8.4 L Immature Gran % (Auto) 1.8 H Neut % (Auto) 79.3 H Lymph % (Auto) 10.7 L [place] % (Auto) 7.5 Eos % (Auto) 0.5 Baso % (Auto) 0.2 Lymph # (Auto) 1.4 [place] # (Auto) 1.0 Eos # (Auto) 0.1 Baso # (Auto) 0.0 Abs Immat Gran (auto) 0.23 H Absolute Neuts (auto) 10.2 H Absolute Nucleated RBC 0.000 Nucleated RBC % (auto) 0.0 Sodium 116 L* 117 L* 118 L* Potassium 4.1 4.0 4.0 Chloride 81 L 81 L 81 L Carbon Dioxide 28 28 27 Anion Gap 11 L 12 14 BUN 9 10 11 Creatinine 0.51 0.55 0.57 Estim Creat Clear Calc 128.4 119.0 114.8 Estimated GFR > 60 > 60 > 60 Random Glucose 112 109 93 Calcium 9.4 9.4 9.8 Phosphorus 3.0 Magnesium 1.6 Albumin 3.7 Microbiology Microbiology Results: Microbiology 06/05/25 17:48 Blood - Venous Blood Culture - Preliminary No growth after 24 hours. 06/05/25 17:48 Blood - Venous Blood Culture - Preliminary No growth after 24 hours. Progress Note: A&P Assessment and plan (1) Primary cancer of left lower lobe of lung: Status: Acute (2) COPD (chronic obstructive pulmonary disease): Status: Acute (3) Hyponatremia: Status: Acute (4) Morbid obesity with BMI of 45.0-49.9, adult: Status: Acute Plan Assessment: 74-year-old lady with advanced lung cancer not on treatment per patient's choice admitted with malaise secondary to subacute hyponatremia, improving slowly Plan: Neuro: No acute issues. Cardiac: No acute issues. Underlying AFib on Eliquis. Pulmonary: No acute issues. Renal: Subacute hyponatremia secondary to poor p.o. intake, improving. Continue sodium tabs. Continue to monitor electrolytes. Endo: No acute issues. GI: No acute issues. ID: No acute issues Heme/Onc: No acute issues. Underlying advanced lung cancer on no treatment per patient's choice. Psych: No acute issues. Miscellaneous: No acute issues. Prophylaxis: Eliquis Diet: Regular Quality Stroke Does the patient have a stroke diagnosis?: No VTE Prior VTE?: No VTE Risk Level:: Medical - moderate - high VTE Device Contraindication: N/A - Device Ordered VTE Drug Contraindication: N/A - Med Ordered
[2025-06-07 15:00] LABS: Anion Gap 11 (12-20); Blood Urea Nitrogen 12 mg/dL (9-16); Calcium 10.6 mg/dL (8.4-10.2); Carbon Dioxide 28 mmol/L (22-29); Chloride 82 mmol/L (96-108); Creatinine Clr Calc Pharmacy 124.0; Estimated Glomerular Filt Rate > 60; Potassium 3.9 mmol/L (3.3-5.1); Sodium 117 mmol/L (135-145)
[2025-06-07] MEDS: Sodium Chloride Tab 1 GM TABLET 3 GM PO ×2 (16:00→20:02)
--- NOTE | 2025-06-07 16:22 | PC.NURSE ---
Assumed care at 0700 - patient A&O x3, no complaints. NA tablets increased from 2g to 3g - repeat BMP obtained at 1400 - see results. 3% saline ordered and second IV established - patient informed by this rn of plan of care and initially agreeable. Prior to starting 3% saline infusion, patient states when I first came in I asked for hospice type care. I would like to hold off on the 3% but I dont want to be a bitch . MD spoke with patient via phone regarding treatment plan of 3% saline - patient continuing to refuse 3% saline with MD at this time stating I want to hold off on this medication 25hrs, continue the salt tablets and try and eat more first . Handoff given to PALAK Noble.
[2025-06-07] MEDS: Magnesium Hydrox/Alum Hydrox 30 ML ORAL.SUSP 15 ML PO (16:57)
--- NOTE | 2025-06-07 17:10 | PC.NURSE ---
Assumed care of patient 16:45. Patient refused 3% IV saline infusion, MD aware. Patient spoke with MD via phone per previous RN. Patient ordered new meal from kitchen, plan to encourage PO intake and continue sodium tablets PO TID. Patient is a 1-2 assist pivot to commode. Left arm fracture in sling. High fall precautions in place.
[2025-06-07 20:27] LABS: Anion Gap 15 (12-20); Blood Urea Nitrogen 11 mg/dL (9-16); Calcium 9.7 mg/dL (8.4-10.2); Carbon Dioxide 25 mmol/L (22-29); Chloride 84 mmol/L (96-108); Creatinine Clr Calc Pharmacy 119.4; Estimated Glomerular Filt Rate > 60; Potassium 3.6 mmol/L (3.3-5.1); Sodium 120 mmol/L (135-145)
[2025-06-08] VITALS (15 sets, daily range): BP systolic 103–157; BP diastolic 43–82; PULSE 53–91; RESP 15–25; TEMP 36.2–36.7; O2SAT 91–100; BMI 47.2
[2025-06-08 05:39] LABS: MANUAL DIFF FLAG NO
[2025-06-08 05:42] LABS: Hematocrit 26.5 % (37.0-47.0); Hemoglobin 9.2 g/dl (12.0-16.0); Imm Gran Abs Auto 0.25 X10*3/uL (0.00-0.03); Imm Gran Pct Auto 1.9 % (0.0-0.4); Lymphocytes Absolute Auto 1.2 X10*3/uL (1.2-4.9); Mean Corpuscular HGB Conc 34.7 g/dl (31.0-35.0); Mean Corpuscular Hemoglobin 26.9 pg (27.0-33.0); Mean Corpuscular Volume 77.5 fL (80.0-98.0); NRBC Abs Auto 0.000 X10*3/uL (0.0-0.012); NRBC Pct Auto 0.0 /100WBC (0.0-0.2); Platelet Count 346 X10*3/uL (160-400); Red Blood Count 3.42 X10*6/uL (4.20-5.50); White Blood Count 13.4 X10*3/uL (4.8-10.8)
[2025-06-08 05:47] LABS: INTERNATIONAL NORM RATIO 1.5 (0.9-1.1); Prothrombin Time 16.9 SEC (10.9-12.4)
[2025-06-08 05:59] LABS: Albumin Level 3.4 g/dL (3.5-5.0); Anion Gap 12 (12-20); Blood Urea Nitrogen 11 mg/dL (9-16); Calcium 9.5 mg/dL (8.4-10.2); Carbon Dioxide 27 mmol/L (22-29); Chloride 85 mmol/L (96-108); Creatinine Clr Calc Pharmacy 116.8; Estimated Glomerular Filt Rate > 60; Magnesium 1.6 mg/dL (1.6-2.6); Potassium 4.1 mmol/L (3.3-5.1); Sodium 120 mmol/L (135-145)
[2025-06-08] MEDS: Tiotropium Bromide 2.5 mcg 1 PUFF/2.5 MCG MIST.INHAL 2 PUFF INHALE (08:17)
[2025-06-08] MEDS: 0.9 % Sodium Chloride Flush 3 ML SYRINGE IVFLUSH ×3 (08:34→21:02)
[2025-06-08] MEDS: Sulfamethox/Trimeth 400/80 TABLET 1 TAB PO ×2 (08:35→21:02)
--- NOTE | 2025-06-08 09:24 | MHC.CM.PN ---
EMR reviewed and per ICU rounds, pt is not medically cleared for discharge at this time, anticipating pt will downgrade to med surg today and be ready for discharge tomorrow. This CM met with pt to review STR options, pt has accepted a bed offer at [facility] at [place], will request they pursue insurance auth today.
[2025-06-08] MEDS: Sodium Chloride Tab 1 GM TABLET 3 GM PO ×3 (10:07→21:03)
--- NOTE | 2025-06-08 10:09 | PM.CCPN ---
Subjective Subjective Date of Service: 06/08/25 Interval History: 74-year-old lady with underlying hypertension, hyperlipidemia, AFib on apixaban, COPD, [id number] lung cancer not on treatment per patient choice admitted on 06/05/2025 with malaise secondary to subacute hyponatremia secondary to poor p.o. intake with no neurologic symptoms. No events overnight. Sodium level continues to slowly improve. Critical Care Time (minutes): 0 Physical Exam Vital Signs: Vital Signs: Last Vital Signs Temp 98.0 F 06/08/25 08:00 Pulse 72 06/08/25 10:00 Resp 18 06/08/25 10:00 BP 128/69 06/08/25 10:00 Pulse Ox 93 06/08/25 10:00 O2 Del Method Room Air 06/08/25 10:00 O2 Flow Rate 2 06/08/25 05:53 Oxygen Flow Rate 2 06/05/25 16:02 BMI result Body Mass Index 47.2 Const: General: no acute distress, alert and awake Eyes: Sclerae: sclerae normal EOM: EOMs intact bilaterally Neck: Neck: Yes no lymphadenopathy, Yes trachea midline and Yes supple Resp: Effort & Inspection: normal respiratory effort and no respiratory distress Auscultation: clear to auscultation bilaterally Cardio: Rate: regular rate Rhythm: regular rhythm Heart sounds: no gallops, no murmurs and no rubs GI: Palpation (GI): Soft to palpation and Other GI palpation findings present ( Nontender) Auscultation: normal bowel sounds Extrem: General: Yes no pedal edema, No clubbing and No cyanosis Objective Data Labs 06/08/25 05:33 06/08/25 05:33 Labs: Laboratory Results - last 24 hr 06/07/25 06/07/25 06/08/25 14:26 19:51 05:33 WBC 13.4 H RBC 3.42 L Hgb 9.2 L Hct 26.5 L MCV 77.5 L MCH 26.9 L MCHC 34.7 RDW 15.1 Plt Count 346 MPV 8.2 L Immature Gran % (Auto) 1.9 H Neut % (Auto) 80.5 H Lymph % (Auto) 9.2 L [place] % (Auto) 7.7 Eos % (Auto) 0.5 Baso % (Auto) 0.2 Lymph # (Auto) 1.2 [place] # (Auto) 1.0 Eos # (Auto) 0.1 Baso # (Auto) 0.0 Abs Immat Gran (auto) 0.25 H Absolute Neuts (auto) 10.8 H Absolute Nucleated RBC 0.000 Nucleated RBC % (auto) 0.0 PT 16.9 H INR 1.5 H Sodium 117 L* 120 L* 120 L* Potassium 3.9 3.6 4.1 Chloride 82 L 84 L 85 L Carbon Dioxide 28 25 27 Anion Gap 11 L 15 12 BUN 12 11 11 Creatinine 0.53 0.55 0.56 Estim Creat Clear Calc 124.0 119.4 116.8 Estimated GFR > 60 > 60 > 60 Random Glucose 113 116 H 94 Calcium 10.6 H D 9.7 D 9.5 Phosphorus 3.2 Magnesium 1.6 Albumin 3.4 L Microbiology Microbiology Results: Microbiology 06/05/25 17:48 Blood - Venous Blood Culture - Preliminary No growth after 48 hours. 06/05/25 17:48 Blood - Venous Blood Culture - Preliminary No growth after 48 hours. Progress Note: A&P Assessment and plan (1) Primary cancer of left lower lobe of lung: Status: Acute (2) Hyponatremia: Status: Acute (3) Morbid obesity with BMI of 45.0-49.9, adult: Status: Acute (4) Paroxysmal atrial fibrillation: Status: Acute (5) COPD (chronic obstructive pulmonary disease): Status: Acute Plan Assessment: 74-year-old lady with advanced lung cancer not on treatment per patient's choice admitted with malaise secondary to subacute hyponatremia, improving slowly Plan: Neuro: No acute issues. Cardiac: No acute issues. Underlying AFib on Eliquis. Pulmonary: No acute issues. Renal: Subacute hyponatremia secondary to poor p.o. intake, improving. Continue sodium tabs. Continue to monitor electrolytes. Endo: No acute issues. GI: No acute issues. ID: No acute issues Heme/Onc: No acute issues. Underlying advanced lung cancer on no treatment per patient's choice. Psych: No acute issues. Miscellaneous: No acute issues. Prophylaxis: Eliquis Diet: Regular Quality Stroke Does the patient have a stroke diagnosis?: No VTE Prior VTE?: No VTE Risk Level:: Medical - moderate - high VTE Device Contraindication: N/A - Device Ordered VTE Drug Contraindication: N/A - Med Ordered
--- NOTE | 2025-06-08 11:03 | PM.EVENT ---
Event Note Date of Service: 06/08/25 Event Note: ICU transfer. Discussed with ICU attending. Patient with history of end-stage lung cancer not on treatment with chronic hyponatremia. Sodium initially 114 on admission, slowly trended up and now 120, treated with sodium tabs. Plan is for patient to go to rehab secondary to broken arm and then likely hospice when she gets home. Time Spent With Patient Time: Total time managing care of this patient today ____ minutes.
[2025-06-09 04:00] VITALS: BP 145/71; PULSE 66; RESP 18; TEMP 36.8; O2SAT 98
[2025-06-09 06:00] VITALS: BMI 47.3
[2025-06-09 06:11] LABS: MANUAL DIFF FLAG NO
[2025-06-09 06:12] LABS: Hematocrit 26.8 % (37.0-47.0); Hemoglobin 9.4 g/dl (12.0-16.0); Imm Gran Abs Auto 0.27 X10*3/uL (0.00-0.03); Imm Gran Pct Auto 2.2 % (0.0-0.4); Lymphocytes Absolute Auto 1.2 X10*3/uL (1.2-4.9); Mean Corpuscular HGB Conc 35.1 g/dl (31.0-35.0); Mean Corpuscular Hemoglobin 27.2 pg (27.0-33.0); Mean Corpuscular Volume 77.7 fL (80.0-98.0); NRBC Abs Auto 0.000 X10*3/uL (0.0-0.012); NRBC Pct Auto 0.0 /100WBC (0.0-0.2); Platelet Count 366 X10*3/uL (160-400); Red Blood Count 3.45 X10*6/uL (4.20-5.50); White Blood Count 12.1 X10*3/uL (4.8-10.8)
[2025-06-09 06:26] LABS: Albumin Level 3.4 g/dL (3.5-5.0); Anion Gap 13 (12-20); Blood Urea Nitrogen 9 mg/dL (9-16); Calcium 9.4 mg/dL (8.4-10.2); Carbon Dioxide 27 mmol/L (22-29); Chloride 88 mmol/L (96-108); Creatinine Clr Calc Pharmacy 128.4; Estimated Glomerular Filt Rate > 60; Magnesium 1.5 mg/dL (1.6-2.6); Potassium 4.0 mmol/L (3.3-5.1); Sodium 124 mmol/L (135-145)
[2025-06-09 07:19] VITALS: BP 173/83; PULSE 84; RESP 18; TEMP 36.2; O2SAT 93
[2025-06-09] MEDS: Sodium Chloride Tab 1 GM TABLET 3 GM PO ×3 (07:32→21:13)
[2025-06-09] MEDS: Sulfamethox/Trimeth 400/80 TABLET 1 TAB PO ×2 (07:32→21:24)
[2025-06-09] MEDS: 0.9 % Sodium Chloride Flush 3 ML SYRINGE IVFLUSH ×3 (07:35→21:24)
[2025-06-09] MEDS: Tiotropium Bromide 2.5 mcg 1 PUFF/2.5 MCG MIST.INHAL 2 PUFF INHALE (07:56)
[2025-06-09 07:59] VITALS: PULSE 85; RESP 18; O2SAT 94
--- NOTE | 2025-06-09 12:55 | PM.PNNEP ---
Subjective Subjective Date of Service: 06/09/25 Interval history: Events noted Physical Exam Vital Signs: Vital Signs: Last Vital Signs Temp 97.2 F 06/09/25 07:19 Pulse 85 06/09/25 07:59 Resp 18 06/09/25 07:59 BP 173/83 H 06/09/25 07:19 Pulse Ox 93 06/09/25 07:19 O2 Del Method Room Air 06/09/25 07:19 O2 Flow Rate 2 06/08/25 05:53 Oxygen Flow Rate 2 06/05/25 16:02 BMI result Body Mass Index 47.3 Comfortable Neck supple no JVD. Lungs entry equal no rales. Heart S1-S2 heard no gallop or rub. Abdomen soft nontender. Neuro alert awake oriented. No asterixis. Extremities no edema. Objective Data Labs 06/09/25 05:50 06/09/25 05:50 Labs: Laboratory Results - last 24 hr 06/09/25 05:50 WBC 12.1 H RBC 3.45 L Hgb 9.4 L Hct 26.8 L MCV 77.7 L MCH 27.2 MCHC 35.1 H RDW 15.2 Plt Count 366 MPV 8.3 L Immature Gran % (Auto) 2.2 H Neut % (Auto) 80.4 H Lymph % (Auto) 9.6 L [place] % (Auto) 7.4 Eos % (Auto) 0.2 Baso % (Auto) 0.2 Lymph # (Auto) 1.2 [place] # (Auto) 0.9 Eos # (Auto) 0.0 Baso # (Auto) 0.0 Abs Immat Gran (auto) 0.27 H Absolute Neuts (auto) 9.7 H Absolute Nucleated RBC 0.000 Nucleated RBC % (auto) 0.0 Sodium 124 L Potassium 4.0 Chloride 88 L Carbon Dioxide 27 Anion Gap 13 BUN 9 Creatinine 0.51 Estim Creat Clear Calc 128.4 Estimated GFR > 60 Random Glucose 99 Calcium 9.4 Phosphorus 3.0 Magnesium 1.5 L Albumin 3.4 L Microbiology Microbiology Results: Microbiology 06/05/25 17:48 Blood - Venous Blood Culture - Preliminary No growth after 48 hours. 06/05/25 17:48 Blood - Venous Blood Culture - Preliminary No growth after 48 hours. Procedures Date of Service Date of Service: 06/09/25 Assessment & Plan Assessment and plan (1) Hyponatremia: Status: Acute Plan Due to non osmotic ADH release. Serum sodium is gradually improving. Rate of correction acceptable. Keep on oral free water restriction. Correct sodium at a rate of 0.5-1 millimole per L/hr and not more than 10 mEq in a 24 hour. Avoid thiazide type diuretics. No indication for hypertonic saline at this time Time Spent With Patient Time: Total time managing care of this patient today ____ minutes. Progress Note: Quality Stroke Does the patient have a stroke diagnosis?: No
--- NOTE | 2025-06-09 14:51 | HO.PM.IMPN ---
Subjective Subjective Date of Service: 06/09/25 Interval History: No acute issues overnight. Sodium slowly correcting Review of Systems Denies chest pain Denies shortness of breath Denies nausea vomiting diarrhea Denies fever chills Physical Exam Vital Signs: Vital Signs: Last Vital Signs Temp 97.2 F 06/09/25 07:19 Pulse 85 06/09/25 07:59 Resp 18 06/09/25 07:59 BP 173/83 H 06/09/25 07:19 Pulse Ox 93 06/09/25 07:19 O2 Del Method Room Air 06/09/25 07:19 O2 Flow Rate 2 06/08/25 05:53 Oxygen Flow Rate 2 06/05/25 16:02 BMI result Body Mass Index 47.3 Const: Other: Awake alert no acute distress Resp: Other: Clear to auscultation bilaterally no rales rhonchi or wheezes Cardio: Other: No S4; positive S1-S2; no S3 murmurs rubs or gallops GI: Other: Soft nontender nondistended normoactive bowel sounds Extrem: Other: No edema bilaterally Objective Data Active Medications Acetaminophen (Acetaminophen 325 Mg Tablet) 650 mg PO Q6H PRN PRN Reason: Pain, Mild 1-3,fever,headache Last Admin: 06/09/25 07:35 Dose: 650 mg Documented By: IRINEO Alprazolam (Alprazolam 0.5 Mg Tablet) 0.5 mg PO DAILY PRN PRN Reason: Anxiety Last Admin: 06/09/25 07:32 Dose: 0.5 mg Documented By: IRINEO Amlodipine Besylate (Amlodipine Besylate 10 Mg Tablet) 10 mg PO DAILY [facility]; Protocol Last Admin: 06/09/25 08:47 Dose: 10 mg Documented By: IRINEO Apixaban (Apixaban 5 Mg Tablet) 5 mg PO BID ROD Last Admin: 06/09/25 07:35 Dose: 5 mg Documented By: IRINEO Atenolol (Atenolol 50 Mg Tablet) 50 mg PO DAILY [facility]; Protocol Last Admin: 06/09/25 07:35 Dose: 50 mg Documented By: IRINEO Atenolol (Atenolol 50 Mg Tablet) 25 mg PO BEDTIME [facility]; Protocol Last Admin: 06/08/25 21:03 Dose: 25 mg Documented By: KADY Carbamazepine (Carbamazepine 200 Mg Tablet) 100 mg PO BID [facility] Last Admin: 06/09/25 08:47 Dose: 100 mg Documented By: IRINEO Levothyroxine Sodium (Levothyroxine Sodium 75 Mcg Tablet) 75 mcg PO DAILY@0600 [facility] Last Admin: 06/09/25 05:06 Dose: 75 mcg Documented By: KADY Pravastatin Sodium (Pravastatin Sodium 20 Mg Tablet) 20 mg PO BEDTIME [facility] Sodium Chloride (Sodium Chloride Tab 1 Gm Tablet) 3 gm PO TID [facility] Last Admin: 06/09/25 07:32 Dose: 3 gm Documented By: IRINEO Sodium Chloride (0.9 % Sodium Chloride Flush 3 Ml Syringe) 3 ml IVFLUSH QSHIFT [facility] Last Admin: 06/09/25 07:35 Dose: 3 ml Documented By: IRINEO Tiotropium [place] (Tiotropium [place] 2.5 Mcg 1 Puff/2.5 Mcg Mist.Inhal) 2 puff INHALE RDAILY [facility] Last Admin: 06/09/25 07:56 Dose: 2 puff Documented By: DAVID Trimethoprim/Sulfamethoxazole (Sulfamethox/Trimeth 400/80 Tablet) 1 tab PO BID [facility] Last Admin: 06/09/25 07:32 Dose: 1 tab Documented By: IRINEO Labs 06/09/25 05:50 06/09/25 05:50 Labs: Laboratory Results - last 24 hr 06/09/25 05:50 MCV 77.7 L MCH 27.2 MCHC 35.1 H RDW 15.2 Plt Count 366 MPV 8.3 L Immature Gran % (Auto) 2.2 H Neut % (Auto) 80.4 H Lymph % (Auto) 9.6 L [place] % (Auto) 7.4 Eos % (Auto) 0.2 Baso % (Auto) 0.2 Lymph # (Auto) 1.2 [place] # (Auto) 0.9 Eos # (Auto) 0.0 Baso # (Auto) 0.0 Abs Immat Gran (auto) 0.27 H Absolute Neuts (auto) 9.7 H Absolute Nucleated RBC 0.000 Nucleated RBC % (auto) 0.0 Anion Gap 13 Estim Creat Clear Calc 128.4 Estimated GFR > 60 Random Glucose 99 Calcium 9.4 Phosphorus 3.0 Magnesium 1.5 L Albumin 3.4 L Assessment and Plan (1) Hyponatremia: Status: Acute (2) Atrial fibrillation: Status: Acute Plan 73-year-old female with hypertension hyperlipidemia AFib on Eliquis COPD and non-small cell lung cancer who deferred treatment presents to the emergency room with weakness. Found to have subacute hyponatremia... Sodium 114 on arrival. Patient was admitted to ICU and 2 doses IV fluids were utilized with a q.2 hours sodiums. Over the course of the next 48 hours her sodium abby appropriately and she was transferred out to the general medical floor. 1. Acute hyponatremia -appropriately responding to therapies -continue sodium chloride tabs 3 g t.i.d. -follow renals/divalents -nephrology following 2. AFib (chronic) -acceptable control on current therapies -continue Eliquis -adjust as indicated 3. Oes-nvvxc-gntx lung cancer -declines any therapies... Has peace with the decision 4. Hyperthyroidism -stable and well compensated DNR/DNI Eliquis Requires ongoing hospitalization to document appropriate normalization of sodium Quality Stroke Does the patient have a stroke diagnosis?: No VTE Prior VTE?: No VTE Risk Level:: Medical - moderate - high VTE Device Contraindication: N/A - Device Ordered VTE Drug Contraindication: N/A - Med Ordered
[2025-06-09 16:00] VITALS: BP 135/60; PULSE 72; RESP 18; TEMP 36.2; O2SAT 94
[2025-06-09 19:41] VITALS: BP 156/70; PULSE 76; RESP 18; TEMP 36; O2SAT 91
[2025-06-10 03:09] VITALS: BP 124/61; PULSE 60; RESP 18; TEMP 36.9; O2SAT 97
[2025-06-10 06:24] LABS: MANUAL DIFF FLAG NO
[2025-06-10 06:43] VITALS: BMI 47.9
[2025-06-10 06:52] LABS: Alanine Aminotransferase 20 U/L (0-31); Albumin Level 3.4 g/dL (3.5-5.0); Alkaline Phosphatase 91 U/L (39-117); Anion Gap 12 (12-20); Aspartate Amino Transferase 38 U/L (5-31); Blood Urea Nitrogen 12 mg/dL (9-16); Calcium 9.8 mg/dL (8.4-10.2); Carbon Dioxide 28 mmol/L (22-29); Chloride 91 mmol/L (96-108); Creatinine Clr Calc Pharmacy 124.6; Estimated Glomerular Filt Rate > 60; Hematocrit 26.2 % (37.0-47.0); Hemoglobin 8.6 g/dl (12.0-16.0); Imm Gran Abs Auto 0.33 X10*3/uL (0.00-0.03); Imm Gran Pct Auto 2.7 % (0.0-0.4); Lymphocytes Absolute Auto 1.0 X10*3/uL (1.2-4.9); Mean Corpuscular HGB Conc 32.8 g/dl (31.0-35.0); Mean Corpuscular Hemoglobin 26.4 pg (27.0-33.0); Mean Corpuscular Volume 80.4 fL (80.0-98.0); NRBC Abs Auto 0.020 X10*3/uL (0.0-0.012); NRBC Pct Auto 0.2 /100WBC (0.0-0.2); Platelet Count 392 X10*3/uL (160-400); Potassium 4.2 mmol/L (3.3-5.1); Red Blood Count 3.26 X10*6/uL (4.20-5.50); Sodium 127 mmol/L (135-145); Total Protein 6.1 g/dL (6.5-8.0); White Blood Count 12.2 X10*3/uL (4.8-10.8)
[2025-06-10] MEDS: Tiotropium Bromide 2.5 mcg 1 PUFF/2.5 MCG MIST.INHAL 2 PUFF INHALE (07:43)
[2025-06-10 07:44] VITALS: PULSE 73; RESP 18; O2SAT 95
[2025-06-10 08:00] VITALS: BP 145/65; PULSE 73; RESP 17; TEMP 36.5; O2SAT 95
[2025-06-10] MEDS: 0.9 % Sodium Chloride Flush 3 ML SYRINGE IVFLUSH ×3 (09:21→23:33)
[2025-06-10] MEDS: Sulfamethox/Trimeth 400/80 TABLET 1 TAB PO ×2 (09:27→21:03)
[2025-06-10] MEDS: Sodium Chloride Tab 1 GM TABLET 3 GM PO ×2 (09:27→21:05)
--- NOTE | 2025-06-10 09:41 | P.PNNP_ITS ---
Subjective Subjective Date of Service: 06/10/25 Interval history: No new events noted. Patient here since 06/05 with severe hyponatremia, initially 114 and was monitored in the ICU. transferred to floor on 06/09, sodium 124 at that time. Today, 06/10, sodium is 127. urine osm 515, urine sodium 22 on 06/05. Patient has non-small cell lung cancer, has elected not to pursue treatment. patient is currently on 1000ml/24 hour fluid restriction, requesting she can be increased to 1500ml/day. she is also taking 3grams salt tablets TID. Physical Exam 2 Vital Signs: Vital Signs: Last Vital Signs Temp 97.7 F 06/10/25 08:00 Pulse 73 06/10/25 08:00 Resp 17 06/10/25 08:00 BP 145/65 H 06/10/25 08:00 Pulse Ox 95 06/10/25 08:00 O2 Del Method Room Air 06/10/25 08:00 O2 Flow Rate 2 06/08/25 05:53 Oxygen Flow Rate 2 06/05/25 16:02 BMI result Body Mass Index 47.9 Const: General: no acute distress, alert and awake Resp: Effort & Inspection: normal respiratory effort and able to speak in complete sentences Cardio: Rate: regular rate Rhythm: regular rhythm Heart sounds: S1 normal heart sound present and S2 normal heart sound present GI: Palpation (GI): Soft to palpation and nontender Extrem: General: No edema Objective Data Labs 06/10/25 05:44 06/10/25 05:44 Labs: Laboratory Results - last 24 hr 06/10/25 05:44 WBC 12.2 H RBC 3.26 L Hgb 8.6 L Hct 26.2 L MCV 80.4 MCH 26.4 L MCHC 32.8 RDW 15.3 Plt Count 392 MPV 8.7 L Immature Gran % (Auto) 2.7 H Neut % (Auto) 79.9 H Lymph % (Auto) 8.4 L [place] % (Auto) 8.5 Eos % (Auto) 0.3 Baso % (Auto) 0.2 Lymph # (Auto) 1.0 L [place] # (Auto) 1.0 Eos # (Auto) 0.0 Baso # (Auto) 0.0 Abs Immat Gran (auto) 0.33 H Absolute Neuts (auto) 9.7 H Absolute Nucleated RBC 0.020 H Nucleated RBC % (auto) 0.2 Sodium 127 L Potassium 4.2 Chloride 91 L Carbon Dioxide 28 Anion Gap 12 BUN 12 Creatinine 0.53 Estim Creat Clear Calc 124.6 Estimated GFR > 60 Fasting Glucose 104 H Calcium 9.8 Total Bilirubin 0.6 AST 38 H ALT 20 Alkaline Phosphatase 91 Total Protein 6.1 L Albumin 3.4 L Microbiology Microbiology Results: Microbiology 06/05/25 17:48 Blood - Venous Blood Culture - Preliminary No growth after 48 hours. 06/05/25 17:48 Blood - Venous Blood Culture - Preliminary No growth after 48 hours. Procedures Date of Service Date of Service: 06/10/25 Assessment & Plan Assessment and plan (1) Hyponatremia: Status: Acute Plan SIADH likely secondary to lung cancer serum sodium continues to gradually improve at appropriate rate with fluid restriction and salt tablets May increase fluid restriction to 1500ml/24 hours per patient request given continued improvement in serum sodium. Continue with salt tablets 3grams PO TID, do not yet titrate down today given fluid restriction was liberalized today. Avoid thiazide type diuretics. Discussed with Dr Levine Time Spent With Patient Time: Total time managing care of this patient today ____ minutes. Progress Note: Quality Stroke Does the patient have a stroke diagnosis?: No
[2025-06-10 12:27] VITALS: BP 145/65; PULSE 73; O2SAT 95
--- NOTE | 2025-06-10 12:41 | MHC.CM.PN ---
EMR REVIEWED AND PER MD ROUNDS, PT IS NOT YET MEDICALLY CLEARED FOR DC TO STR. (MONITORING LABS) [facility] CM WILL CONTINUE TO FOLLOW FOR DC PLAN.
--- NOTE | 2025-06-10 14:41 | HO.PM.IMPN ---
Subjective Subjective Date of Service: 06/10/25 Interval History: No acute issues overnight. Sodium continues to respond appropriately to salt tab repletion Review of Systems Denies chest pain Denies shortness of breath Denies nausea vomiting diarrhea Denies fever chills Physical Exam Vital Signs: Vital Signs: Last Vital Signs Temp 97.7 F 06/10/25 08:00 Pulse 73 06/10/25 12:27 Resp 17 06/10/25 08:00 BP 145/65 H 06/10/25 12:27 Pulse Ox 95 06/10/25 12:27 O2 Del Method Room Air 06/10/25 08:00 O2 Flow Rate 2 06/08/25 05:53 Oxygen Flow Rate 2 06/05/25 16:02 BMI result Body Mass Index 47.9 Const: Other: Awake alert no acute distress Resp: Other: Clear to auscultation bilaterally no rales rhonchi or wheezes Cardio: Other: No S4; positive S1-S2; no S3 murmurs rubs or gallops GI: Other: Soft nontender nondistended normoactive bowel sounds Extrem: Other: No edema bilaterally Objective Data Active Medications Acetaminophen (Acetaminophen 325 Mg Tablet) 650 mg PO Q6H PRN PRN Reason: Pain, Mild 1-3,fever,headache Last Admin: 06/09/25 07:35 Dose: 650 mg Documented By: IRINEO Alprazolam (Alprazolam 0.5 Mg Tablet) 0.5 mg PO DAILY PRN PRN Reason: Anxiety Last Admin: 06/09/25 07:32 Dose: 0.5 mg Documented By: IRINEO Amlodipine Besylate (Amlodipine Besylate 10 Mg Tablet) 10 mg PO DAILY [facility]; Protocol Last Admin: 06/10/25 09:27 Dose: 10 mg Documented By: LESLEE Apixaban (Apixaban 5 Mg Tablet) 5 mg PO BID ROD Last Admin: 06/10/25 09:27 Dose: 5 mg Documented By: LESLEE Atenolol (Atenolol 50 Mg Tablet) 50 mg PO DAILY [facility]; Protocol Last Admin: 06/10/25 09:27 Dose: 50 mg Documented By: LESLEE Atenolol (Atenolol 50 Mg Tablet) 25 mg PO BEDTIME [facility]; Protocol Last Admin: 06/09/25 21:15 Dose: 25 mg Documented By: BHAVIK Carbamazepine (Carbamazepine 200 Mg Tablet) 100 mg PO BID [facility] Last Admin: 06/10/25 09:27 Dose: 100 mg Documented By: LESLEE Levothyroxine Sodium (Levothyroxine Sodium 75 Mcg Tablet) 75 mcg PO DAILY@0600 [facility] Last Admin: 06/10/25 06:37 Dose: 75 mcg Documented By: BHAVIK Magnesium Hydroxide (Milk Of Magnesia 30 Ml Oral.Susp) 30 ml PO DAILY PRN PRN Reason: Constipation Pravastatin Sodium (Pravastatin Sodium 20 Mg Tablet) 20 mg PO BEDTIME [facility] Last Admin: 06/09/25 21:13 Dose: 20 mg Documented By: BHAVIK Sodium Chloride (Sodium Chloride Tab 1 Gm Tablet) 3 gm PO TID [facility] Last Admin: 06/10/25 09:27 Dose: 3 gm Documented By: LESLEE Sodium Chloride (0.9 % Sodium Chloride Flush 3 Ml Syringe) 3 ml IVFLUSH QSHIFT [facility] Last Admin: 06/10/25 09:21 Dose: 3 ml Documented By: LESLEE Tiotropium [place] (Tiot[place] 2.5 Mcg 1 Puff/2.5 Mcg Mist.Inhal) 2 puff INHALE RDAILY [facility] Last Admin: 06/10/25 07:43 Dose: 2 puff Documented By: KATARINA Trimethoprim/Sulfamethoxazole (Sulfamethox/Trimeth 400/80 Tablet) 1 tab PO BID [facility] Last Admin: 06/10/25 09:27 Dose: 1 tab Documented By: LESLEE Labs 06/10/25 05:44 06/10/25 05:44 Labs: Laboratory Results - last 24 hr 06/10/25 05:44 MCV 80.4 MCH 26.4 L MCHC 32.8 RDW 15.3 Plt Count 392 MPV 8.7 L Immature Gran % (Auto) 2.7 H Neut % (Auto) 79.9 H Lymph % (Auto) 8.4 L [place] % (Auto) 8.5 Eos % (Auto) 0.3 Baso % (Auto) 0.2 Lymph # (Auto) 1.0 L [place] # (Auto) 1.0 Eos # (Auto) 0.0 Baso # (Auto) 0.0 Abs Immat Gran (auto) 0.33 H Absolute Neuts (auto) 9.7 H Absolute Nucleated RBC 0.020 H Nucleated RBC % (auto) 0.2 Anion Gap 12 Estim Creat Clear Calc 124.6 Estimated GFR > 60 Fasting Glucose 104 H Calcium 9.8 Total Bilirubin 0.6 AST 38 H ALT 20 Alkaline Phosphatase 91 Total Protein 6.1 L Albumin 3.4 L Assessment and Plan (1) Hyponatremia: Status: Acute (2) Persistent atrial fibrillation: Status: Acute Plan 73-year-old female with hypertension hyperlipidemia AFib on Eliquis COPD and non-small cell lung cancer who deferred treatment presents to the emergency room with weakness. Found to have subacute hyponatremia... Sodium 114 on arrival. Patient was admitted to ICU and 2 doses IV fluids were utilized with a q.2 hours sodiums. Over the course of the next 48 hours her sodium abby appropriately and she was transferred out to the general medical floor. 1. Acute hyponatremia -appropriately responding to therapies -continue sodium chloride tabs 3 g t.i.d... Given increase in free water restriction -follow renals/divalents -nephrology following 2. AFib (chronic) -acceptable control on current therapies -continue Eliquis -adjust as indicated 3. Okx-ivejs-nhek lung cancer -declines any therapies... Has peace with the decision 4. Hyperthyroidism -stable and well compensated DNR/DNI Eliquis Requires ongoing hospitalization to document appropriate normalization of sodium Quality Stroke Does the patient have a stroke diagnosis?: No VTE Prior VTE?: No VTE Risk Level:: Medical - moderate - high VTE Device Contraindication: N/A - Device Ordered VTE Drug Contraindication: N/A - Med Ordered
[2025-06-10 15:25] VITALS: BP 141/64; PULSE 80; RESP 16; TEMP 36.3; O2SAT 93
[2025-06-10] MEDS: Milk of Magnesia 30 ML ORAL.SUSP PO (15:58)
[2025-06-10 19:28] VITALS: BP 156/68; PULSE 95; RESP 18; TEMP 36.2; O2SAT 94
[2025-06-11 03:36] VITALS: BP 123/65; PULSE 72; RESP 17; TEMP 36.4; O2SAT 92
[2025-06-11 06:29] LABS: MANUAL DIFF FLAG NO
[2025-06-11 06:33] LABS: Hematocrit 25.3 % (37.0-47.0); Hemoglobin 8.5 g/dl (12.0-16.0); Imm Gran Abs Auto 0.26 X10*3/uL (0.00-0.03); Imm Gran Pct Auto 2.4 % (0.0-0.4); Lymphocytes Absolute Auto 1.4 X10*3/uL (1.2-4.9); Mean Corpuscular HGB Conc 33.6 g/dl (31.0-35.0); Mean Corpuscular Hemoglobin 27.0 pg (27.0-33.0); Mean Corpuscular Volume 80.3 fL (80.0-98.0); NRBC Abs Auto 0.000 X10*3/uL (0.0-0.012); NRBC Pct Auto 0.0 /100WBC (0.0-0.2); Platelet Count 349 X10*3/uL (160-400); Red Blood Count 3.15 X10*6/uL (4.20-5.50); White Blood Count 10.6 X10*3/uL (4.8-10.8)
[2025-06-11 06:54] LABS: Alanine Aminotransferase 20 U/L (0-31); Albumin Level 3.4 g/dL (3.5-5.0); Alkaline Phosphatase 92 U/L (39-117); Anion Gap 12 (12-20); Aspartate Amino Transferase 44 U/L (5-31); Blood Urea Nitrogen 12 mg/dL (9-16); Calcium 9.7 mg/dL (8.4-10.2); Carbon Dioxide 28 mmol/L (22-29); Chloride 93 mmol/L (96-108); Creatinine Clr Calc Pharmacy 122.2; Estimated Glomerular Filt Rate > 60; Potassium 4.4 mmol/L (3.3-5.1); Sodium 129 mmol/L (135-145); Total Protein 6.1 g/dL (6.5-8.0)
[2025-06-11 07:42] VITALS: BP 131/61; PULSE 76; RESP 18; TEMP 36.6; O2SAT 93
[2025-06-11 08:00] VITALS: PULSE 76; RESP 18; O2SAT 93
[2025-06-11] MEDS: Tiotropium Bromide 2.5 mcg 1 PUFF/2.5 MCG MIST.INHAL 2 PUFF INHALE (08:01)
[2025-06-11] MEDS: Sodium Chloride Tab 1 GM TABLET 3 GM PO ×3 (08:39→21:07)
[2025-06-11] MEDS: Sulfamethox/Trimeth 400/80 TABLET 1 TAB PO ×2 (08:40→20:21)
[2025-06-11] MEDS: Milk of Magnesia 30 ML ORAL.SUSP PO (08:53)
--- NOTE | 2025-06-11 13:21 | P.PNIM_ITS ---
Subjective Subjective Date of Service: 06/11/25 Interval History: No acute issues overnight. Sodium continues to rise despite decrease in fluid restriction Review of Systems Denies chest pain Denies shortness of breath Denies nausea vomiting diarrhea Denies fever chills Physical Exam 2 Vital Signs: Vital Signs: Last Vital Signs Temp 97.8 F 06/11/25 07:42 Pulse 76 06/11/25 08:00 Resp 18 06/11/25 08:00 BP 131/61 06/11/25 07:42 Pulse Ox 93 06/11/25 07:42 O2 Del Method Room Air 06/11/25 07:42 O2 Flow Rate 2 06/08/25 05:53 Oxygen Flow Rate 2 06/05/25 16:02 BMI result Body Mass Index 47.9 Const: Other: Awake alert no acute distress Resp: Other: Clear to auscultation bilaterally no rales rhonchi or wheezes Cardio: Other: No S4; positive S1-S2; no S3 murmurs rubs or gallops GI: Other: Soft nontender nondistended normoactive bowel sounds Extrem: Other: No edema bilaterally Objective Data Active Medications Acetaminophen (Acetaminophen 325 Mg Tablet) 650 mg PO Q6H PRN PRN Reason: Pain, Mild 1-3,fever,headache Last Admin: 06/09/25 07:35 Dose: 650 mg Documented By: IRINEO Amlodipine Besylate (Amlodipine Besylate 10 Mg Tablet) 10 mg PO DAILY [facility]; Protocol Last Admin: 06/11/25 08:40 Dose: 10 mg Documented By: JAELYN Apixaban (Apixaban 5 Mg Tablet) 5 mg PO BID [facility] Last Admin: 06/11/25 08:40 Dose: 5 mg Documented By: JAELYN Atenolol (Atenolol 50 Mg Tablet) 50 mg PO DAILY [facility]; Protocol Last Admin: 06/11/25 08:40 Dose: 50 mg Documented By: JAELYN Atenolol (Atenolol 50 Mg Tablet) 25 mg PO BEDTIME [facility]; Protocol Last Admin: 06/10/25 21:02 Dose: 25 mg Documented By: ELIAS Carbamazepine (Carbamazepine 200 Mg Tablet) 100 mg PO BID [facility] Last Admin: 06/11/25 08:39 Dose: 100 mg Documented By: JAELYN Levothyroxine Sodium (Levothyroxine Sodium 75 Mcg Tablet) 75 mcg PO DAILY@0600 [facility] Last Admin: 06/11/25 05:32 Dose: 75 mcg Documented By: ELIAS Magnesium Hydroxide (Milk Of Magnesia 30 Ml Oral.Susp) 30 ml PO DAILY PRN PRN Reason: Constipation Last Admin: 06/11/25 08:53 Dose: 30 ml Documented By: JAELYN Comments: okayed by Pravastatin Sodium (Pravastatin Sodium 20 Mg Tablet) 20 mg PO BEDTIME [facility] Last Admin: 06/10/25 21:04 Dose: 20 mg Documented By: ELIAS Sodium Chloride (Sodium Chloride Tab 1 Gm Tablet) 3 gm PO TID [facility] Last Admin: 06/11/25 08:39 Dose: 3 gm Documented By: JAELYN Sodium Chloride (0.9 % Sodium Chloride Flush 3 Ml Syringe) 3 ml IVFLUSH QSHIFT [facility] Last Admin: 06/11/25 08:49 Dose: Not Given Documented By: JAELYN Non-Admin Reason: Previously Administered Tiotropium [place] (Tiotropium [place] 2.5 Mcg 1 Puff/2.5 Mcg Mist.Inhal) 2 puff INHALE RDAILY [facility] Last Admin: 06/11/25 08:01 Dose: 2 puff Documented By: SWATHI Trimethoprim/Sulfamethoxazole (Sulfamethox/Trimeth 400/80 Tablet) 1 tab PO BID [facility] Last Admin: 06/11/25 08:40 Dose: 1 tab Documented By: JAELYN Labs 06/11/25 06:10 06/11/25 06:10 Labs: Laboratory Results - last 24 hr 06/11/25 06:10 MCV 80.3 MCH 27.0 MCHC 33.6 RDW 15.4 Plt Count 349 MPV 8.4 L Immature Gran % (Auto) 2.4 H Neut % (Auto) 74.6 H Lymph % (Auto) 13.3 L [place] % (Auto) 9.0 Eos % (Auto) 0.4 Baso % (Auto) 0.3 Lymph # (Auto) 1.4 [place] # (Auto) 1.0 Eos # (Auto) 0.0 Baso # (Auto) 0.0 Abs Immat Gran (auto) 0.26 H Absolute Neuts (auto) 7.9 Absolute Nucleated RBC 0.000 Nucleated RBC % (auto) 0.0 Anion Gap 12 Estim Creat Clear Calc 122.2 Estimated GFR > 60 Fasting Glucose 110 H Calcium 9.7 Total Bilirubin 0.6 AST 44 H ALT 20 Alkaline Phosphatase 92 Total Protein 6.1 L Albumin 3.4 L Microbiology Microbiology Results: Microbiology 06/05/25 17:48 Blood Culture - Final Blood - Venous No growth after 5 days. 06/05/25 17:48 Blood Culture - Final Blood - Venous No growth after 5 days. Assessment and Plan (1) Hyponatremia: Status: Acute (2) Persistent atrial fibrillation: Status: Acute Plan 73-year-old female with hypertension hyperlipidemia AFib on Eliquis COPD and non-small cell lung cancer who deferred treatment presents to the emergency room with weakness. Found to have subacute hyponatremia... Sodium 114 on arrival. Patient was admitted to ICU and 2 doses IV fluids were utilized with a q.2 hours sodiums. Over the course of the next 48 hours her sodium abby appropriately and she was transferred out to the general medical floor. 1. Acute hyponatremia -appropriately responding to therapies -continue sodium chloride tabs 3 g t.i.d. -follow renals/divalents -nephrology following 2. AFib (chronic) -acceptable control on current therapies -continue Eliquis -adjust as indicated 3. Fon-laaej-teej lung cancer -declines any therapies... Has peace with the decision 4. Hyperthyroidism -stable and well compensated DNR/DNI Eliquis Requires ongoing hospitalization to document appropriate normalization of sodium Quality Stroke Does the patient have a stroke diagnosis?: No VTE Prior VTE?: No VTE Risk Level:: Medical - moderate - high VTE Device Contraindication: N/A - Device Ordered VTE Drug Contraindication: N/A - Med Ordered
[2025-06-11 15:29] VITALS: BP 143/74; PULSE 87; RESP 18; TEMP 36.2; O2SAT 93
[2025-06-11] MEDS: 0.9 % Sodium Chloride Flush 3 ML SYRINGE IVFLUSH ×2 (16:11→20:21)
[2025-06-11 20:00] VITALS: BP 123/57; PULSE 76; RESP 20; TEMP 36.2; O2SAT 91
[2025-06-12] VITALS (7 sets, daily range): BP systolic 117–146; BP diastolic 57–67; PULSE 62–83; RESP 16–18; TEMP 36–36.6; O2SAT 91–94; BMI 47.2
[2025-06-12] MEDS: Tiotropium Bromide 2.5 mcg 1 PUFF/2.5 MCG MIST.INHAL 2 PUFF INHALE (07:37)
[2025-06-12] MEDS: Sodium Chloride Tab 1 GM TABLET 3 GM PO ×3 (08:09→21:01)
[2025-06-12] MEDS: Sulfamethox/Trimeth 400/80 TABLET 1 TAB PO ×2 (08:09→20:52)
[2025-06-12] MEDS: 0.9 % Sodium Chloride Flush 3 ML SYRINGE IVFLUSH ×2 (08:10→21:01)
[2025-06-12 09:07] LABS: Anion Gap 13 (12-20); Blood Urea Nitrogen 13 mg/dL (9-16); Calcium 10.2 mg/dL (8.4-10.2); Carbon Dioxide 28 mmol/L (22-29); Chloride 95 mmol/L (96-108); Creatinine Clr Calc Pharmacy 121.1; Estimated Glomerular Filt Rate > 60; Potassium 4.5 mmol/L (3.3-5.1); Sodium 131 mmol/L (135-145)
--- NOTE | 2025-06-12 12:31 | HO.PM.IMPN ---
Subjective Subjective Date of Service: 06/12/25 Interval History: No acute issues overnight. Sodium continues to improve Review of Systems Denies chest pain Denies shortness of breath Denies nausea vomiting diarrhea Denies fever chills Physical Exam Vital Signs: Vital Signs: Last Vital Signs Temp 97.5 F 06/12/25 08:00 Pulse 62 06/12/25 08:00 Resp 16 06/12/25 08:00 BP 144/67 H 06/12/25 08:10 Pulse Ox 93 06/12/25 08:00 O2 Del Method Room Air 06/12/25 08:00 O2 Flow Rate 2 06/08/25 05:53 Oxygen Flow Rate 2 06/05/25 16:02 BMI result Body Mass Index 47.2 Const: Other: Awake alert no acute distress Resp: Other: Clear to auscultation bilaterally no rales rhonchi or wheezes Cardio: Other: No S4; positive S1-S2; no S3 murmurs rubs or gallops GI: Other: Soft nontender nondistended normoactive bowel sounds Extrem: Other: No edema bilaterally Objective Data Active Medications Acetaminophen (Acetaminophen 325 Mg Tablet) 650 mg PO Q6H PRN PRN Reason: Pain, Mild 1-3,fever,headache Last Admin: 06/09/25 07:35 Dose: 650 mg Documented By: IRINEO Amlodipine Besylate (Amlodipine Besylate 10 Mg Tablet) 10 mg PO DAILY [facility]; Protocol Last Admin: 06/12/25 08:10 Dose: 10 mg Documented By: JAELYN Apixaban (Apixaban 5 Mg Tablet) 5 mg PO BID [facility] Last Admin: 06/12/25 08:09 Dose: 5 mg Documented By: JAELYN Atenolol (Atenolol 50 Mg Tablet) 50 mg PO DAILY [facility]; Protocol Last Admin: 06/12/25 08:10 Dose: 50 mg Documented By: JAELYN Atenolol (Atenolol 50 Mg Tablet) 25 mg PO BEDTIME [facility]; Protocol Last Admin: 06/11/25 20:21 Dose: 25 mg Documented By: ELIAS Carbamazepine (Carbamazepine 200 Mg Tablet) 100 mg PO BID [facility] Last Admin: 06/12/25 08:09 Dose: 100 mg Documented By: JAELYN Levothyroxine Sodium (Levothyroxine Sodium 75 Mcg Tablet) 75 mcg PO DAILY@0600 [facility] Last Admin: 06/12/25 05:59 Dose: 75 mcg Documented By: ELIAS Magnesium Hydroxide (Milk Of Magnesia 30 Ml Oral.Susp) 30 ml PO DAILY PRN PRN Reason: Constipation Last Admin: 06/11/25 08:53 Dose: 30 ml Documented By: JAELYN Comments: okayed by Polyethylene Glycol (Polyethylene Glycol 3350 17 Gm Powd.Pack) 17 gm PO DAILY PRN PRN Reason: Constipation Last Admin: 06/12/25 10:48 Dose: 17 gm Documented By: JAELYN Pravastatin Sodium (Pravastatin Sodium 20 Mg Tablet) 20 mg PO BEDTIME [facility] Last Admin: 06/11/25 20:21 Dose: 20 mg Documented By: ELIAS Sodium Chloride (Sodium Chloride Tab 1 Gm Tablet) 3 gm PO TID [facility] Last Admin: 06/12/25 08:09 Dose: 3 gm Documented By: JAELYN Sodium Chloride (0.9 % Sodium Chloride Flush 3 Ml Syringe) 3 ml IVFLUSH QSHIFT [facility] Last Admin: 06/12/25 08:10 Dose: 3 ml Documented By: JAELYN Tiotropium [place] (Tiotropium [place] 2.5 Mcg 1 Puff/2.5 Mcg Mist.Inhal) 2 puff INHALE RDAILY [facility] Last Admin: 06/12/25 07:37 Dose: 2 puff Documented By: TAON Trimethoprim/Sulfamethoxazole (Sulfamethox/Trimeth 400/80 Tablet) 1 tab PO BID [facility] Last Admin: 06/12/25 08:09 Dose: 1 tab Documented By: JAELYN Labs 06/11/25 06:10 06/12/25 08:40 Labs: Laboratory Results - last 24 hr 06/12/25 06/12/25 08:40 08:42 Hold Purple Top SEE NOTE Anion Gap 13 Estim Creat Clear Calc 121.1 Estimated GFR > 60 Random Glucose 119 H Calcium 10.2 Assessment and Plan (1) Hyponatremia: Status: Acute (2) Atrial fibrillation: Status: Acute Plan 73-year-old female with hypertension hyperlipidemia AFib on Eliquis COPD and non-small cell lung cancer who deferred treatment presents to the emergency room with weakness. Found to have subacute hyponatremia... Sodium 114 on arrival. Patient was admitted to ICU and 2 doses IV fluids were utilized with a q.2 hours sodiums. Over the course of the next 48 hours her sodium abby appropriately and she was transferred out to the general medical floor. 1. Acute hyponatremia -appropriately responding to therapies -continue sodium chloride tabs 3 g t.i.d. -increase fluid restriction to 2 L -follow renals/divalents -nephrology following 2. AFib (chronic) -acceptable control on current therapies -continue Eliquis -adjust as indicated 3. Amf-orwak-jjaw lung cancer -declines any therapies... Has peace with the decision 4. Hyperthyroidism -stable and well compensated DNR/DNI Eliquis Requires ongoing hospitalization to document appropriate normalization of sodium Quality Stroke Does the patient have a stroke diagnosis?: No VTE Prior VTE?: No VTE Risk Level:: Medical - moderate - high VTE Device Contraindication: N/A - Device Ordered VTE Drug Contraindication: N/A - Med Ordered
[2025-06-13 02:59] VITALS: BP 132/65; PULSE 68; RESP 18; TEMP 36.1; O2SAT 93
[2025-06-13 06:00] VITALS: BMI 46.9
[2025-06-13 07:32] VITALS: BP 140/63; PULSE 75; RESP 18; TEMP 36.1; O2SAT 93
[2025-06-13] MEDS: Tiotropium Bromide 2.5 mcg 1 PUFF/2.5 MCG MIST.INHAL 2 PUFF INHALE (07:37)
[2025-06-13 07:39] VITALS: PULSE 77; RESP 18; O2SAT 91
[2025-06-13] MEDS: Sulfamethox/Trimeth 400/80 TABLET 1 TAB PO (08:35)
[2025-06-13] MEDS: 0.9 % Sodium Chloride Flush 3 ML SYRINGE IVFLUSH ×2 (08:36→14:55)
[2025-06-13] MEDS: Sodium Chloride Tab 1 GM TABLET 3 GM PO ×2 (08:36→14:55)
--- NOTE | 2025-06-13 11:21 | P.PNNP_ITS ---
Subjective Subjective Date of Service: 06/13/25 Interval history: No new events noted.Follwoing for hyponatremia. Serum sodium 131 on 06/12. Patient has non-small cell lung cancer, has elected not to pursue treatment. patient is currently on 2000ml/24 hour fluid restriction (increased from 1500ml per pt request yesterday). she is also taking 3grams salt tablets TID. She denies new complaints/concerns. Physical Exam 2 Vital Signs: Vital Signs: Last Vital Signs Temp 97.0 F 06/13/25 07:32 Pulse 77 06/13/25 07:39 Resp 18 06/13/25 07:39 BP 140/63 H 06/13/25 07:32 Pulse Ox 93 06/13/25 07:32 O2 Del Method Room Air 06/13/25 07:32 O2 Flow Rate 2 06/08/25 05:53 Oxygen Flow Rate 2 06/05/25 16:02 BMI result Body Mass Index 46.9 Const: General: no acute distress, alert and awake Resp: Effort & Inspection: normal respiratory effort and able to speak in complete sentences Cardio: Rate: regular rate Rhythm: regular rhythm Heart sounds: S1 normal heart sound present and S2 normal heart sound present GI: Palpation (GI): Soft to palpation and nontender Extrem: General: No edema Objective Data Labs 06/11/25 06:10 06/12/25 08:40 Microbiology Microbiology Results: Microbiology 06/05/25 17:48 Blood - Venous Blood Culture - Final No growth after 5 days. 06/05/25 17:48 Blood - Venous Blood Culture - Final No growth after 5 days. 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 Continue with salt tablets 3grams PO TID- recommend continuing this dose as outpatient until she follows up with nephrology and/or PCP. Avoid thiazide type diuretics. She is ok for discharge from a renal standpoint- will arrange for outpatient follow up upon discharge. Discussed with Dr Cole. Time Spent With Patient Time: Total time managing care of this patient today ____ minutes. Progress Note: Quality Stroke Does the patient have a stroke diagnosis?: No
--- NOTE | 2025-06-13 12:10 | HO.WOUND ---
Wound Consult: Follow up 74yr old female admitted to [facility] on - See progress notes and H&P for detailed history.? Wound re-consult placed for Left Lower Leg.? Patient agreeable to assessment and photo documentation.? Patient reports she has sought care for her chronic left lower leg wounds in the past from outpt wound center -more recently when a wound occurs she treats with durafiber AG and wraps her legs. She does not wear compression at this time. She was educated on Edema wear and will be provided information at time of d/c. 06/06/25 06/13/25 Left Lower Leg Etiology: ?Venous Dermatitis Wound Bed: no open wounds at this time - thickened dry scaling skin - improved from previous assessment Drainage / Odor: None Edges: ? irregular and attached [place] wound: ?red pink dry thickened tissue No Induration, Fluctuance or Warmth noted Pain: denies Goals of Treatment: ? may leave [facility] at this time - provider to consider Ammounium lactate Recommendations: 1. Turn and Reposition every 2 hours and as needed for patient comfort.? Use pillows or wedges to support off loading positions. 2. Off Load all bony prominences with use of pillows and heel boots if needed.? Apply Preventative foams where needed. ? 3. Monitor for incontinence and moisture control, use barrier creams when needed for prevention and treatment. 4. Provide adequate and supplemental nutrition.? 5. Order low air loss mattress. 6. When applicable maintain blood glucose levels per Providers order. Bilateral Lower Legs - Elevate throughout the day with use of pillows. Routine cleansing. Apply Ammonium Lactate cream daily. Re-consult wound care Nurse for wound deterioration or wound changes.
--- NOTE | 2025-06-13 12:40 | P.PNIM_ITS ---
Subjective Subjective Date of Service: 06/13/25 Interval History: c/o constipation; Na improved; LUE in sling and L hand swollen Review of Systems Review of Systems: Yes all other systems are reviewed and are negative Physical Exam 2 Vital Signs: Vital Signs: Last Vital Signs Temp 97.0 F 06/13/25 07:32 Pulse 77 06/13/25 07:39 Resp 18 06/13/25 07:39 BP 140/63 H 06/13/25 07:32 Pulse Ox 93 06/13/25 07:32 O2 Del Method Room Air 06/13/25 07:32 O2 Flow Rate 2 06/08/25 05:53 Oxygen Flow Rate 2 06/05/25 16:02 BMI result Body Mass Index 46.9 Gen: in no acute distress HEENT: sclera anicteric, moist mucus membranes Neck: supple Lungs: clear to auscultation bilaterally Heart: regular rate and rhythm, no murmurs Abd: soft, non-tender, non-distended, obese Ext: LUE in sling, L hand swollen Skin: warm/well-perfused Neuro: alert and oriented x3, no focal findings Psych: appropriate affect Objective Data Active Medications Acetaminophen (Acetaminophen 325 Mg Tablet) 650 mg PO Q6H PRN PRN Reason: Pain, Mild 1-3,fever,headache Last Admin: 06/09/25 07:35 Dose: 650 mg Documented By: IRINEO Amlodipine Besylate (Amlodipine Besylate 10 Mg Tablet) 10 mg PO DAILY [facility]; Protocol Last Admin: 06/13/25 08:34 Dose: 10 mg Documented By: CALI Apixaban (Apixaban 5 Mg Tablet) 5 mg PO BID [facility] Last Admin: 06/13/25 08:35 Dose: 5 mg Documented By: CALI Atenolol (Atenolol 50 Mg Tablet) 50 mg PO DAILY [facility]; Protocol Last Admin: 06/13/25 08:35 Dose: 50 mg Documented By: CALI Atenolol (Atenolol 50 Mg Tablet) 25 mg PO BEDTIME [facility]; Protocol Last Admin: 06/12/25 20:53 Dose: 25 mg Documented By: NEELAM Carbamazepine (Carbamazepine 200 Mg Tablet) 100 mg PO BID [facility] Last Admin: 06/13/25 08:35 Dose: 100 mg Documented By: CALI Levothyroxine Sodium (Levothyroxine Sodium 75 Mcg Tablet) 75 mcg PO DAILY@0600 [facility] Last Admin: 06/13/25 05:21 Dose: 75 mcg Documented By: NEELAM Magnesium Hydroxide (Milk Of Magnesia 30 Ml Oral.Susp) 30 ml PO DAILY PRN PRN Reason: Constipation Last Admin: 06/11/25 08:53 Dose: 30 ml Documented By: JAELYN Comments: okayed by Polyethylene Glycol (Polyethylene Glycol 3350 17 Gm Powd.Pack) 17 gm PO DAILY PRN PRN Reason: Constipation Last Admin: 06/12/25 10:48 Dose: 17 gm Documented By: JAELYN Pravastatin Sodium (Pravastatin Sodium 20 Mg Tablet) 20 mg PO BEDTIME [facility] Last Admin: 06/12/25 20:52 Dose: 20 mg Documented By: NEELAM Sodium Chloride (Sodium Chloride Tab 1 Gm Tablet) 3 gm PO TID [facility] Last Admin: 06/13/25 08:36 Dose: 3 gm Documented By: CALI Sodium Chloride (0.9 % Sodium Chloride Flush 3 Ml Syringe) 3 ml IVFLUSH QSHIFT [facility] Last Admin: 06/13/25 08:36 Dose: 3 ml Documented By: CALI Tiotropium [place] (Tiotropium [place] 2.5 Mcg 1 Puff/2.5 Mcg Mist.Inhal) 2 puff INHALE RDAILY [facility] Last Admin: 06/13/25 07:37 Dose: 2 puff Documented By: DAVID Trimethoprim/Sulfamethoxazole (Sulfamethox/Trimeth 400/80 Tablet) 1 tab PO BID [facility] Last Admin: 06/13/25 08:35 Dose: 1 tab Documented By: CALI Labs 06/11/25 06:10 06/12/25 08:40 Assessment and Plan (1) Hyponatremia: Status: Acute (2) Atrial fibrillation: Status: Acute Plan d9, 73yo F with NSCLC not on treatment by pt choice, AF on apixaban, COPD, HTN, HLD, obesity presenting with weakness, found to have severe hypoNa with Na 114 and admitted to ICU, stepped down to medical-surgical unit 06/08 hypoNa - likely due to NSCLC + chlorthalidine [discontinued], continue 2L/d fluid restriciton, NaCl tabs 3g tid, repeat Na in 3-4d and follow up with Nephrology in 1wk proximal left humeral metadiaphysis fracture sustained prior to admission [seen in ED 05/30] - continue sling, Ortho outpt consult in 1 wk scheduled chronic AF: continue apixaban, atenolol HTN: atenolol, amlodipine; discontinued chlorthalidone COPD: tiotropium NSCLC: not on treatment by pt choice hypothyroidism: continue LT4 trigeminal neuralgia: carbamazepine VTE ppx: apixaban dispo: awaiting STR In my clinical judgment, the patient requires continued inpatient hospitalization for the following reasons: placement Total time managing care of this patient today: 35 minutes. Quality Stroke Does the patient have a stroke diagnosis?: No VTE Prior VTE?: No VTE Risk Level:: Medical - moderate - high VTE Device Contraindication: N/A - Device Ordered VTE Drug Contraindication: N/A - Med Ordered
--- NOTE | 2025-06-13 15:15 | PM.DS ---
DS: Providers Provider Date of Service: 06/13/25 Date of admission: 06/05/25 18:19 Date of discharge: 06/13/25 Primary care physician: Vaibhav Martin MD Consults: 06/06/25 05:18 Consult to Wound Care Routine Reason for consultation: Left leg ?old venous stasis wound 06/08/25 16:55 Consult to Nephrology Routine Consulting Provider: [facility] Reason for consultation: severe hyponatremia 06/13/25 02:09 Consult to Wound Care Routine Reason for consultation: Left leg old/healing venous stasis ulcer DS: Diagnosis Discharge Diagnosis (1) Hyponatremia: Status: Acute (2) Primary cancer of left lower lobe of lung: Status: Acute (3) Left humeral fracture: Status: Acute (4) Cellulitis: Status: Acute DS: Summary Hospital Course Hospital Course: From the history and physical by the admitting customer operations manager, Libertad Cnaas, 06/05/25: Patient is a 74 Y F w/ hypertension, hyperlipidemia, atrial fibrillation on apixaban, COPD, and non-small cell lung cancer who deferred treatment presenting to ED on 06/05 w/ weakness, found to have subacute hyponatremia in setting of decreased PO intake 73yo F with NSCLC not on treatment by pt choice, AF on apixaban, COPD, HTN, HLD, obesity presenting with weakness, found to have severe hypoNa with Na 114 and admitted to ICU, stepped down to medical-surgical unit 06/08. Hyponatremia likely due to NSCLC + chlorthalidine [discontinued]. Fluid restriction placed and slowly liberalized. Also started on sodium chloride tablets. Na on discharge 131. To continue 2L/d fluid restriciton, NaCl tabs 3g tid, repeat Na in 3-4d and follow up with Nephrology in 1wk. She was treated with 8d of Bactrim for lower extremity with complete resolution. Also noted was a proximal left humeral metadiaphysis fracture sustained prior to admission [seen in ED 05/30]; she is in a LUE sling and should see [facility] in 1 week. She was discharged to [facility] for short-term rehabilitation. Time Attestation Discharge Coordination Time (in mins): 45 Quality: Safe Use of Opioids Does Pt have an Active Cancer Diagnosis on the Problem List?: Yes Opioid Measure Date for CMS Report: 05/14/25 Opioid Measure Time for [facility] Report: 15:20 Quality: Stroke Does the patient have a stroke diagnosis?: No Physical Exam Vital Signs: Vital Signs: Last Vital Signs Temp 97.0 F 06/13/25 07:32 Pulse 77 06/13/25 07:39 Resp 18 06/13/25 07:39 BP 140/63 H 06/13/25 07:32 Pulse Ox 93 06/13/25 07:32 O2 Del Method Room Air 06/13/25 07:32 O2 Flow Rate 2 06/08/25 05:53 Oxygen Flow Rate 2 06/05/25 16:02 BMI result Body Mass Index 46.9 Gen: in no acute distress HEENT: sclera anicteric, moist mucus membranes Neck: supple Lungs: clear to auscultation bilaterally Heart: regular rate and rhythm, no murmurs Abd: soft, non-tender, non-distended, obese Ext: LUE in sling, L hand swollen Skin: warm/well-perfused Neuro: alert and oriented x3, no focal findings Psych: appropriate affect DS: Data Data Completed and Pending Completed studies during hospitalization [Text1]: Laboratory Results WBC 10.6 X10*3/uL (4.8-10.8) 06/11/25 06:10 RBC 3.15 X10*6/uL (4.20-5.50) L 06/11/25 06:10 Hgb 8.5 g/dl (12.0-16.0) L 06/11/25 06:10 Hct 25.3 % (37.0-47.0) L 06/11/25 06:10 MCV 80.3 fL (80.0-98.0) 06/11/25 06:10 MCH 27.0 pg (27.0-33.0) 06/11/25 06:10 MCHC 33.6 g/dl (31.0-35.0) 06/11/25 06:10 RDW 15.4 % (11.0-16.0) 06/11/25 06:10 Plt Count 349 X10*3/uL (160-400) 06/11/25 06:10 MPV 8.4 fL (9.4-12.3) L 06/11/25 06:10 Immature Gran % (Auto) 2.4 % (0.0-0.4) H 06/11/25 06:10 Neut % (Auto) 74.6 % (45-73) H 06/11/25 06:10 Lymph % (Auto) 13.3 % (20-40) L 06/11/25 06:10 Kings % (Auto) 9.0 % (2-11) 06/11/25 06:10 Eos % (Auto) 0.4 % (0-4) 06/11/25 06:10 Baso % (Auto) 0.3 % (0-2) 06/11/25 06:10 Lymph # (Auto) 1.4 X10*3/uL (1.2-4.9) 06/11/25 06:10 Kings # (Auto) 1.0 X10*3/uL (0.1-1.2) 06/11/25 06:10 Eos # (Auto) 0.0 X10*3/uL (0.0-0.4) 06/11/25 06:10 Baso # (Auto) 0.0 X10*3/uL (0.0-0.2) 06/11/25 06:10 Abs Immat Gran (auto) 0.26 X10*3/uL (0.00-0.03) H 06/11/25 06:10 Absolute Neuts (auto) 7.9 x10*3/uL (2.0-8.3) 06/11/25 06:10 Absolute Nucleated RBC 0.000 X10*3/uL (0.0-0.012) 06/11/25 06:10 Nucleated RBC % (auto) 0.0 /100WBC (0.0-0.2) 06/11/25 06:10 Hold Purple Top SEE NOTE 06/12/25 08:42 PT 16.9 SEC (10.9-12.4) H 06/08/25 05:33 INR 1.5 (0.9-1.1) H 06/08/25 05:33 VBG pH 7.44 (7.32-7.43) H 06/05/25 16:16 VBG pCO2 47 mmHg 06/05/25 16:16 VBG pO2 38 mmHg 06/05/25 16:16 VBG HCO3 32 mmol/L (22-26) H 06/05/25 16:16 VBG O2 Saturation 53.0 % 06/05/25 16:16 VBG Base Excess 7.0 mmol/L 06/05/25 16:16 Sodium 131 mmol/L (135-145) L 06/12/25 08:40 Potassium 4.5 mmol/L (3.3-5.1) 06/12/25 08:40 Chloride 95 mmol/L (96-108) L 06/12/25 08:40 Carbon Dioxide 28 mmol/L (22-29) 06/12/25 08:40 Anion Gap 13 (12-20) 06/12/25 08:40 BUN 13 mg/dL (9-16) 06/12/25 08:40 Creatinine 0.54 mg/dL (0.5-1.4) 06/12/25 08:40 Estim Creat Clear Calc 121.1 06/12/25 08:40 Estimated GFR > 60 06/12/25 08:40 Random Glucose 119 mg/dL (60-115) H 06/12/25 08:40 Fasting Glucose 110 mg/dL (60-99) H 06/11/25 06:10 Osmolality 239 mosm/kg (281-305) L 06/05/25 17:48 Lactic Acid 1.4 mmol/L (0.5-2.0) 06/05/25 17:20 Calcium 10.2 mg/dL (8.4-10.2) 06/12/25 08:40 Phosphorus 3.0 mg/dL (2.7-4.5) 06/09/25 05:50 Magnesium 1.5 mg/dL (1.6-2.6) L 06/09/25 05:50 Total Bilirubin 0.6 mg/dL (0.0-1.0) 06/11/25 06:10 AST 44 U/L (5-31) H 06/11/25 06:10 ALT 20 U/L (0-31) 06/11/25 06:10 Alkaline Phosphatase 92 U/L (39-117) 06/11/25 06:10 Troponin I High Sens < 2.7 ng/L (<3.5-17.0) 06/05/25 16:11 NT-Pro-B Natriuret Pep 1463.3 pg/mL (<300) H 06/05/25 16:11 Total Protein 6.1 g/dL (6.5-8.0) L 06/11/25 06:10 Albumin 3.4 g/dL (3.5-5.0) L 06/11/25 06:10 TSH 2.73 uIU/mL (0.32-4.0) 06/05/25 18:49 Urine Osmolality 515 mosm/kg (373-1093) 06/05/25 19:02 Ur Random Sodium 22.0 mmol/L 06/05/25 19:02 Discharge Plan Discharge Anticipated Discharge Date/Time: 06/13/25 15:10 Patient Disposition: Xfer SNF Discharge Diagnosis: hyponatremia humerus fracture Referrals: [facility] [Provider Group, Nephrology] - 1 Week [facility] [Provider Group] - 1 Week Vaibhav Martin MD [Primary Care Provider, Internal Medicine] - 1 Week Discharge Medications: New polyethylene glycol 3350 17 gram Powder In Packet 17 g PO DAILY PRN (Reason: Constipation) Qty: 1 0RF sodium chloride 1,000 mg Tablet,Soluble 3,000 mg PO TID Qty: 1 0RF Continued Eliquis 5 mg tablet 5 mg PO BID 90 Days Qty: 180 3RF amlodipine 10 mg tablet 10 mg PO DAILY Qty: 90 1RF Spiriva Respimat 2.5 mcg/actuation mist 2 puff PO DAILY Qty: 4 6RF carbamazepine 200 mg tablet 100 mg PO BID Qty: 90 1RF pravastatin 20 mg tablet 20 mg PO BEDTIME Qty: 90 3RF valsartan 80 mg tablet 80 mg PO DAILY Qty: 90 3RF atenolol 50 mg tablet 25 mg PO BEDTIME levothyroxine 75 mcg tablet 37.5 mcg PO DAILY atenolol 50 mg tablet 50 mg PO DAILY cholecalciferol (vitamin D3) 1,250 mcg (50,000 unit) capsule 1,250 mcg PO WESA alprazolam 0.5 mg tablet 0.5 mg PO DAILY PRN (Reason: anxiety) Qty: 30 0RF Discontinued chlorthalidone 25 mg tablet 25 mg PO DAILY Discharge Orders: Discharge Order (Routine); Ordered 06/13/25 Ordered By: Rosales Ga Diet: fluid restrict to 2L/d Activity on Discharge: As tolerated Stand Alone Forms: Patient Portal Discharge page Print Language: [place] Other Ambulatory Orders: Basic Metabolic Panel (Routine) Timeframe: 3 Days Facility: [facility] - Location: Laboratory Ordered By: Rosales Ga Care Plan Goals: normal sodium Health Concerns: hyponatremia humerus fracture Plan of Treatment: fluid restriction to 2L/day take sodium chloride tabs 3 grams 3x a day repeat BMP in 3 days see [facility] in 1 week [facility] in 1 week Please follow up with your primary care doctor within 1 week of discharge from rehabilitation. Return to the hospital if you experience recurrent or worsening symptoms. Assessment: See Discharge Summary.
[2025-06-13 15:33] VITALS: BP 129/74; PULSE 89; RESP 18; TEMP 36.2; O2SAT 92
--- NOTE | 2025-06-13 15:43 | MHC.CM.PN ---
PT IS AWARE STR AUTH HAS BEEN OB[facility] AND TRANSPORT HAS BEEN BOOKED FOR 1600 WITH [facility]
== END 2025-06-13 16:28 | disposition skilled nursing facility (03) | DRG 644 ==
LOC: HO.ED 16:40 → HO.EDOVER 18:28 → HO.ICU 18:49 → HO.S3 06-08 10:24
PROVIDERS: Hospitalist; Internal Medicine Pulmonary Disease; Nurse Practitioner Family; Registered Nurse Community Health; Admitting Provider Internal Medicine Critical Care Medicine; Emergency Provider Student in an Organized Health Care Education/Training Program; PCP Internal Medicine; Visit Provider Family Medicine
DX: E22.2 Syndrome of inappropriate secretion of antidiuretic hormone (principal); C34.92 Malignant neoplasm of unspecified part of left bronchus or lung; S42.302A Unspecified fracture of shaft of humerus, left arm, initial encounter for closed fracture; Z68.42 Body mass index [BMI] 45.0-49.9, adult; L03.116 Cellulitis of left lower limb; J44.9 Chronic obstructive pulmonary disease, unspecified; E66.01 Morbid (severe) obesity due to excess calories; I10 Essential (primary) hypertension; E03.9 Hypothyroidism, unspecified; I48.0 Paroxysmal atrial fibrillation; T50.2X5A Adverse effect of carbonic-anhydrase inhibitors, benzothiadiazides and other diuretics, initial encounter; G50.0 Trigeminal neuralgia; X58.XXXA Exposure to other specified factors, initial encounter; Z66 Do not resuscitate; Z87.891 Personal history of nicotine dependence; Z79.01 Long term (current) use of anticoagulants; Z79.890 Hormone replacement therapy; Z79.899 Other long term (current) drug therapy
CPT/HCPCS: 36415; 71045; 80048; 80053; 82040; 82803; 83605; 83735; 83880; 83930; 83935; 84100; 84300; 84443; 84484; 85025; 85610; 87040; 93005; 94640; 97162; 97530; 99285; J2543; J3475

== ENCOUNTER → 2025-06-05 15:38 | Outpatient (BNV) | payer MEDICARE, SELFPAY | PROVIDERS: Admitting Provider Internal Medicine Critical Care Medicine; Emergency Provider Student in an Organized Health Care Education/Training Program; PCP Internal Medicine; Visit Provider Internal Medicine Cardiovascular Disease | DX: I48.91 Unspecified atrial fibrillation (principal); I25.2 Old myocardial infarction | CPT/HCPCS: 93010 ==

== ENCOUNTER → 2025-06-05 16:50 | Outpatient (BNV) | payer MEDICARE, SELFPAY | PROVIDERS: Emergency Provider Student in an Organized Health Care Education/Training Program; PCP Internal Medicine; Visit Provider Specialist | DX: R06.02 Shortness of breath (principal); S42.302A Unspecified fracture of shaft of humerus, left arm, initial encounter for closed fracture | CPT/HCPCS: 71045 ==

== ENCOUNTER → 2025-06-05 18:19 | Outpatient (BNV) | payer MEDICARE, SELFPAY | PROVIDERS: Admitting Provider Internal Medicine Critical Care Medicine; Emergency Provider Student in an Organized Health Care Education/Training Program; PCP Internal Medicine; Visit Provider Internal Medicine Pulmonary Disease | DX: I48.0 Paroxysmal atrial fibrillation (principal); F41.9 Anxiety disorder, unspecified; E66.01 Morbid (severe) obesity due to excess calories; Z68.42 Body mass index [BMI] 45.0-49.9, adult; E87.1 Hypo-osmolality and hyponatremia; C34.32 Malignant neoplasm of lower lobe, left bronchus or lung | CPT/HCPCS: 99232 ==

== ENCOUNTER → 2025-06-05 18:19 | Outpatient (BNV) | payer MEDICARE, SELFPAY | PROVIDERS: Admitting Provider Internal Medicine Critical Care Medicine; Emergency Provider Student in an Organized Health Care Education/Training Program; PCP Internal Medicine; Visit Provider Internal Medicine Hypertension Specialist | DX: E87.1 Hypo-osmolality and hyponatremia (principal) | CPT/HCPCS: 99232 ==

== ENCOUNTER → 2025-06-05 18:19 | Outpatient (BNV) | payer MEDICARE, SELFPAY | PROVIDERS: Admitting Provider Internal Medicine Critical Care Medicine; Emergency Provider Student in an Organized Health Care Education/Training Program; PCP Internal Medicine; Visit Provider Nurse Practitioner Acute Care | DX: E87.1 Hypo-osmolality and hyponatremia (principal); I48.91 Unspecified atrial fibrillation | CPT/HCPCS: 99233; 99499 ==

== ENCOUNTER → 2025-06-05 18:19 | Outpatient (BNV) | payer MEDICARE, SELFPAY | PROVIDERS: Admitting Provider Internal Medicine Critical Care Medicine; Emergency Provider Student in an Organized Health Care Education/Training Program; PCP Internal Medicine; Visit Provider Nurse Practitioner Family | DX: E87.1 Hypo-osmolality and hyponatremia (principal); C34.32 Malignant neoplasm of lower lobe, left bronchus or lung; C34.92 Malignant neoplasm of unspecified part of left bronchus or lung | CPT/HCPCS: 99223 ==

== ENCOUNTER 2025-06-20 13:45 | Outpatient (AMB) | payer MEDICARE, SELFPAY ==
--- NOTE | 2025-06-20 13:45 | HO.NEPHOV ---
Vital Signs 06/20/25 13:46 Height 5 ft 4 in BP 146/80 H Blood Pressure Location Rt brachial Position Sitting Pulse 82 Pulse Source Pulse Oximeter Pulse Oximetry (%) 64 L Oxygen Delivery Method Room Air Intake Visit Reasons: 1 wk f/u Hyponatremia Rn Orthopedic Required: No Accompanied by: Self / Same As Patient Allergies cephalexin (From Keflex) Allergy (Mild, Verified 06/20/25 13:48) Numbness of the Lips Calcium Channel Blocking Agents-Dih (CALCIUM CHANNEL BLOCKING AGENTS-DIH) Allergy (Unknown, Verified 06/20/25 13:48) RESTLESSNESS meperidine (From DEMEROL) Allergy (Unknown, Verified 06/20/25 13:48) CRYING Neuromuscular Blockers, Steroidal (STEROIDAL NEUROMUSCULAR BLOCKERS) Allergy (Unknown, Verified 06/20/25 13:48) MOOD SWINGS tetracycline (TETRACYCLINE) Allergy (Unknown, Verified 06/20/25 13:48) NAUSEA/VOMITING Medication List - Last Reconciled 06/20/25 by Ward Hankins MD alprazolam 0.5 mg PO DAILY PRN amlodipine 10 mg PO DAILY apixaban (Eliquis) 5 mg PO BID 90 days atenolol 50 mg PO DAILY atenolol 25 mg PO BEDTIME carbamazepine 100 mg (1/2 x 200 mg) PO BID cholecalciferol (vitamin D3) 1,250 mcg PO WESA levothyroxine 37.5 mcg PO DAILY polyethylene glycol 3350 17 grams PO DAILY PRN pravastatin 20 mg PO BEDTIME tiotropium bromide 2.5 mcg/actuation (Spiriva Respimat) 2 puffs PO DAILY valsartan 80 mg PO DAILY HPI Comments Details: - The patient is a 74-year-old female presenting with hyponatremia and peripheral edema. - she was initially seen in consultation during the hospitalization for hyponatremia. Serum sodium was 114 millimoles per L. She was placed on fluid restriction and chlorthalidone was discontinued. She was also started on sodium chloride tablets 3 g 3 times a day while in the hospital and unfortunately she was she was discharged home with the same dose. Sodium level improved from 114 to 131 She comes today for follow-up - Persistent arm swelling - COPD with shortness of breath, - Current medications include amlodipine, carbamazepine, and sodium chloride, with adjustments ongoing. She usually weighs between 240-50 lb in the recent weights have been around 270 lb. [facility] Medical History (Updated 06/20/25 @ 14:02 by Ward Hankins MD) Chronic hyponatremia Prediabetes Anxiety Mammogram declined (~02/02/25) Colonoscopy refused (~02/02/25) Morbid obesity with BMI of 45.0-49.9, adult History of mammogram (~02/07/23) Venous insufficiency Trigeminal neuralgia Mild hypercholesterolemia Establishing care with new doctor, encounter for Hypercholesteremia Hypothyroid Atrial fibrillation Hypertension Surgical History History of colonoscopy (~04/19/14) History of tonsillectomy History of cholecystectomy History of hysterectomy History of appendectomy Family History Mother Graves' disease Father [place] type familial amyloid cardiomyopathy Renal failure Social History Household Members: Spouse Housing: House Are you a primary managed care manager to a significant other at home: No Do you presently have visiting nurse or other home services: No Alcohol intake: former Patient Tobacco Use Status: Former Tobacco user Tobacco use type: Cigarette Years Smoked: 50 Advance Directives Date on File: 07/11/21 service: No Current occupational status: retired Gender identity: Female Cognitive needs: No Hearing needs: No Vision needs: No Review of Systems Const Denies fever(s) and Denies weight loss Card Denies chest pain Resp Denies cough and Denies hemoptysis GI Denies abdominal pain, Denies diarrhea and Denies nausea Musc Denies back pain Neuro Denies focal weakness Physical Exam Exam Exam: In a wheelchair Vital Signs: Last Vital Signs Pulse 82 06/20/25 13:46 BP 146/80 H 06/20/25 13:46 Pulse Ox 64 L 06/20/25 13:46 Oxygen Delivery Method Room Air 06/20/25 13:46 Last Vital Signs Temp 97.2 F 06/09/25 07:19 Pulse 85 06/09/25 07:59 Resp 18 06/09/25 07:59 BP 173/83 H 06/09/25 07:19 Pulse Ox 93 06/09/25 07:19 O2 Del Method Room Air 06/09/25 07:19 O2 Flow Rate 2 06/08/25 05:53 Oxygen Flow Rate 2 06/05/25 16:02 BMI result Body Mass Index 47.3 Comfortable Neck supple no JVD. Lungs entry equal no rales. Heart S1-S2 heard no gallop or rub. Abdomen soft nontender. Neuro alert awake oriented. No asterixis. Extremities no edema. Const General: ill appearing Neck Neck: Yes supple Resp Auscultation: rhonchi Cardio Palpation: no palpable S3 Heart sounds: no rubs GI Palpation (GI): Soft to palpation Auscultation: normal bowel sounds Neuro Motor exam (neuro): no asterixis Extrem Other: Edema with skin changes in both lower extremities Left upper extremity: edema Results Reviewed Nephrology Results: Hgb, (12.0-16.0) 8.5 g/dl L 06/11/25 WBC, (4.8-10.8) 10.6 X10*3/uL 06/11/25 Plt Count, (160-400) 349 X10*3/uL 06/11/25 Sodium, (135-145) 131 mmol/L L 06/12/25 Potassium, (3.3-5.1) 4.5 mmol/L 06/12/25 Chloride, (96-108) 95 mmol/L L 06/12/25 Carbon Dioxide, (22-29) 28 mmol/L 06/12/25 BUN, (9-16) 13 mg/dL 06/12/25 Creatinine, (0.5-1.4) 0.54 mg/dL 06/12/25 Calcium, (8.4-10.2) 10.2 mg/dL 06/12/25 Phosphorus, (2.7-4.5) 3.0 mg/dL 06/09/25 Assessment & Plan Assessment & Plan (1) Essential hypertension: Code(s): I10 - Essential (primary) hypertension Category: Medical (2) Chronic hyponatremia: Code(s): E87.1 - Hypo-osmolality and hyponatremia Category: Medical (3) COPD (chronic obstructive pulmonary disease): Code(s): J44.9 - Chronic obstructive pulmonary disease, unspecified Category: Medical Qualifiers: COPD type: unspecified COPD Qualified Code(s): J44.9 - Chronic obstructive pulmonary disease, unspecified (4) Anasarca: Code(s): R60.1 - Generalized edema Category: Medical Plan Elderly woman with a history of severe hyponatremia while on chlorthalidone. Serum sodium has been gradually corrected. Rate of correction acceptable. Most recent serum sodium is 130 millimoles. Currently she appears fluid overloaded. Plan Discontinue sodium chloride tablets Add Lasix 20 mg p.o. daily to increase free water clearance. Maintain oral free water restriction. Recheck renal panel in the next 7-10 days Return to clinic in 3 weeks. Orders: Orders Basic Metabolic Panel 10 Days E87.1 - Hypo-osmolality and hyponatremia Medications: New furosemide (Lasix) 20 mg PO DAILY 90 tabs 1RF Coding Level of Care Code Est Pt Level 4 (50654) Diagnoses Essential hypertension I10 Chronic hyponatremia E87.1 COPD (chronic obstructive pulmonary disease) J44.9 COPD type: unspecified COPD Anasarca R60.1
[2025-06-20 13:46] VITALS: BP 146/80; PULSE 82; O2SAT 64
--- OUTSIDE RECORDS SUMMARY | 2025-06-20 16:13 | XMS_ITS | Clinical Summary ---
Author Organization [facility] Address [address] [place] [address] Phone Care Team Providers Care Forest Examiner Name Role Phone Santos Otoole DO Primary [...] VACCINE (#1) 2025 COVID-19 VACCINE ( - 2024-2 6 season) 2025 RSV VACCINE (1 - 1-dose [...] PPO BLUE REPLACEMENT MEDICARE PPO [place] [address] [address] [place] [address] [address] [address] [place] [address] MEDICARE [address]PO [place] [address] [address] [place] [address] MEDICARE PPO BL[place] REPLACEMENT [place] MED[place] P[place] BLUE REPLACEMENT Care Teams Forest Examiner Relationship Specialty Start Date End Date Santos Otoole DO [address] [place] [phone] PCP - General Internal Medicine 08/09/24 Additional Source Comments The information contained in this document represents components of the legal health record. It is not the complete legal health record.[facility]
== END 2025-06-20 14:07 | disposition home or self-care (01) ==
LOC: HO.HKA 13:46
PROVIDERS: PCP Internal Medicine; Visit Provider Internal Medicine Hypertension Specialist
DX: I10 Essential (primary) hypertension (principal); E87.1 Hypo-osmolality and hyponatremia; J44.9 Chronic obstructive pulmonary disease, unspecified; R60.1 Generalized edema
CPT/HCPCS: 99214

== ENCOUNTER → 2025-06-20 13:45 | Outpatient (BNVA) | payer MEDICARE, SELFPAY | PROVIDERS: PCP Internal Medicine; Visit Provider Internal Medicine Hypertension Specialist | DX: E87.1 Hypo-osmolality and hyponatremia (principal); I10 Essential (primary) hypertension; R60.1 Generalized edema; J44.9 Chronic obstructive pulmonary disease, unspecified | CPT/HCPCS: 99212 ==

== ENCOUNTER 2025-06-21 11:02 | Outpatient (REF) | payer MEDICARE, SELFPAY ==
--- NOTE | ~2025-06-21 | XR_ITS ---
EXAMINATION: XR SHOULDER, LEFT CLINICAL INFORMATION: M25.519 - Pain in unspecified shoulder COMPARISON: X-ray 05/30/2025 TECHNIQUE: Four views of the left shoulder. FINDINGS: Redemonstrated is comminuted fracture of the proximal humeral metadiaphysis. There is medial displacement of the distal fragment by a full shaft width of the distal bone. There is some overriding of the fracture fragments. No significant callus/new bone formation is seen. On the AP views, there is apparent slight inferior subluxation of the humeral head with respect to glenoid, which could be positioning/technique. No evidence of dislocation.. XR/XR shoulder LT min 2V IMPRESSION: Comminuted displaced fracture of the proximal humeral metadiaphysis. No significant callus/new bone formation is seen. Electronically signed by: Sergey Amaya MD 06/21/2025 11:49 AM EDT
== END 2025-06-21 11:03 | disposition home or self-care (01) ==
LOC: HO.HOSX 11:02
PROVIDERS: Visit Provider Physician Assistant
DX: S42.302A Unspecified fracture of shaft of humerus, left arm, initial encounter for closed fracture (principal); X58.XXXA Exposure to other specified factors, initial encounter
CPT/HCPCS: 73030; 99212

== ENCOUNTER 2025-06-21 11:24 | Outpatient (AMB) | payer MEDICARE, SELFPAY ==
--- NOTE | 2025-06-21 11:38 | A.OFFVIS_ITS ---
Vital Signs 06/21/25 11:43 Height 5 ft 4 in Weight 272 lb BMI 46.7 Intake Visit Reasons: ED/Fx of proximal end of LT humerus-DOI 05/30/25 Intake Note: Mary Beth is a 74 year old right hand dominant female who presents today for a follow up of her left proximal end of humerus, DOI . Patient was not able to report to me what happened, she did state that she isn't in any pain, or taken any medication for pain. IMPRESSION: Proximal left humeral metadiaphysis fracture. Allergies cephalexin (From Keflex) Allergy (Mild, Verified 06/21/25 11:41) Numbness of the Lips Calcium Channel Blocking Agents-Dih (CALCIUM CHANNEL BLOCKING AGENTS-DIH) Allergy (Unknown, Verified 06/21/25 11:41) RESTLESSNESS meperidine (From DEMEROL) Allergy (Unknown, Verified 06/21/25 11:41) CRYING Neuromuscular Blockers, Steroidal (STEROIDAL NEUROMUSCULAR BLOCKERS) Allergy (Unknown, Verified 06/21/25 11:41) MOOD SWINGS tetracycline (TETRACYCLINE) Allergy (Unknown, Verified 06/21/25 11:41) NAUSEA/VOMITING HPI HPI ED/Fx of proximal end of LT humerus-DOI 05/30/25: Details: Ms. Ware is a 74-year-old female who presents to the office today for a left proximal humerus fracture that she sustained after a mechanical fall on 05/30/2025 when she landed on the left shoulder. Patient has a past medical history significant for lung cancer in which she has elected to choose no further intervention. Patient understands that she is a poor surgical candidate . She is currently residing at [facility] recovering from this injury. [facility] Medical History (Updated 06/21/25 @ 09:10 by Roxana Peña [facility]) Persistent atrial fibrillation COPD (chronic obstructive pulmonary disease) Pulmonary edema Non-small cell cancer of left lung Paroxysmal atrial fibrillation Chronic hyponatremia Prediabetes Anxiety Mammogram declined (~02/02/25) Colonoscopy refused (~02/02/25) Morbid obesity with BMI of 45.0-49.9, adult History of mammogram (~02/07/23) Venous insufficiency Trigeminal neuralgia Mild hypercholesterolemia Establishing care with new doctor, encounter for Hypercholesteremia Hypothyroid Atrial fibrillation Hypertension Surgical History (Updated 06/21/25 @ 00:01 by Sofia Barrera) Primary cancer of left lower lobe of lung History of colonoscopy (~04/19/14) History of tonsillectomy History of cholecystectomy History of hysterectomy History of appendectomy Family History Mother Graves' disease Father [place] type familial amyloid cardiomyopathy Renal failure Social History Household Members: Spouse Housing: House Are you a primary special needs caregiver to a significant other at home: No Do you presently have visiting nurse or other home services: No Alcohol intake: former Patient Tobacco Use Status: Former Tobacco user Tobacco use type: Cigarette Years Smoked: 50 Advance Directives Date on File: 07/11/21 service: No Current occupational status: retired Gender identity: Female Cognitive needs: No Hearing needs: No Vision needs: No Review of Systems Const All systems reviewed & are unremarkable except as noted in HPI and below Physical Exam Vital Signs: BMI result Body Mass Index 46.7 Const General: cooperative, healthy appearing and no acute distress Resp Effort & Inspection: normal respiratory effort and able to speak in complete sentences Extrem Other: Left upper extremity significant swelling in the hand and forearm. The skin is weeping from edema on the dorsal aspect of the hand extending into the proximal forearm. Able to flex and extend all digits. Sensation is reportedly intact. Able to perform slight wrist extension. Radial pulse intact. Psych Appearance: grossly normal Mental Status: mental status grossly normal Attitude: cooperative Office Procedures AMB Fracture Care Fracture Billing Code: Fracture Billing Code Assessment & Plan Assessment & Plan (1) Left humeral fracture: Code(s): S42.302A - Unspecified fracture of shaft of humerus, left arm, initial encounter for closed fracture Category: Medical Plan Ms. Ware is a 74-year-old female who presents to the office today for a left proximal humerus fracture that she sustained after a mechanical fall on 05/30/2025 when she landed on the left shoulder. Patient has a past medical history significant for lung cancer in which she has elected to choose no further intervention. Patient understands that she is a poor surgical candidate. She is currently residing at [facility] recovering from this injury. All the office today, I have fit the patient for an ultra sling without the abduction pillow for more support and cushion. I instructed the rehab facility to closely monitor her skin as it is weeping from the amount of edema. Recommended elevating as much as possible and the sling was positioned where the hand is elevated on the chest. She may come out of the sling to let the arm hang occasionally as comfort allows. However, during this time they must monitor edema. If there is worsening edema she has to be back into the sling a nd elevate. Nonweightbearing left upper extremity. We will treat this nonoperatively. She will follow up in 4-6 weeks with repeat x-rays, sooner if needed. X-rays of the left shoulder which were obtained while in the office today and were reviewed by me, Heather Molina PA-C, revealed proximal humerus fracture with displacement. Orders: Orders XR shoulder LT min 2V Today M25.519 - Pain in unspecified shoulder Coding Level of Care Code Est Pt Level 4 (13812) Diagnoses Left humeral fracture S42.302A CPT Codes Fracture Care - Fracture Billing Code: Fracture Billing Code ([id number])
[2025-06-21 11:43] VITALS: BMI 46.7
== END 2025-06-21 12:50 | disposition home or self-care (01) ==
LOC: HO.HOS 11:24
PROVIDERS: PCP Internal Medicine; Visit Provider Physician Assistant
DX: S42.302A Unspecified fracture of shaft of humerus, left arm, initial encounter for closed fracture (principal)
CPT/HCPCS: 99214

== ENCOUNTER → 2025-06-21 11:26 | Outpatient (BNV) | payer MEDICARE, SELFPAY | PROVIDERS: Visit Provider Radiology Diagnostic Ultrasound | DX: S42.202A Unspecified fracture of upper end of left humerus, initial encounter for closed fracture (principal) | CPT/HCPCS: 73030 ==

== ENCOUNTER 2025-08-02 08:11 | Outpatient (REF) | payer MEDICARE, SELFPAY ==
--- OUTSIDE RECORDS SUMMARY | 2024-03-04 06:15 | XMS_ITS ---
Author Organization [facility] Address [address] [place] [address] Care Team Providers Care Tenter Frame Operator Name Role Phone Vaibhav Martin Primary Care Provider [phone] Meg Rasheed Unavailable [phone] Sourav Hutchinson Unavailable [phone] REASON FOR VISIT Wart(s), Painful nail(s) aggrevated by shoes and causing difficulty standing/walking. 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, bilateral legs I70.203 Assessments Encounter Date Diagnosis (ICD Code) Assessment Notes Treatment Notes Treatment Clinical Notes Section Notes 03/04/2024 Tinea unguium (ICD-10 - B35.1) 03/04/2024 Pain in right toe(s) (ICD-10 - M79.674) 03/04/2024 Pain in left toe(s) (ICD-10 - M79.675) 03/04/2024 Other viral warts (ICD-10 - B07.8) 03/04/2024 Pain in left foot (ICD-10 - M79.672) 03/04/2024 Pain in right foot (ICD-10 - M79.671) 03/04/2024 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, bilateral legs (ICD-10 - I70.203) Plan Of Treatment Next Appt Details Follow Up: 4 Months, Reason: Provider Name:Meg damian, 08/31/2025 11:00:00 AM, [address] [place], [address], Procedure Notes * Category Sub-Category Detail Notes Wart Treatment Procedure Verrucae(s) were debrided to pin-point bleeding margins with sterile surgical blade (72224), silver nitrate chemocautery applied Debride Nail 6-10 Nail debridement Nail debridem ent performed extensively to reduce/remove overall nail length and girth, subungual debris, and necrotic tissue, by manual and electrical means with use of a nail nipper and/or dremel, to more viable healthy nail plate or bed tissue 6-10. Silver nitrate used for any petechial bleeding as necessary. Patient chooses, no pharmaceutical tx (14901) Keratoma Treatment Parring or Cutting o f Benign Hyperkeratotic Lesion(s) 88846 (2-4 Lesions) - The Benign hyperkeratotic lesions, as described above were pared, and/or cut utilizing a sterile #15 blade, tissue nippers, and/or dremel, Q8 Progress Notes * Mary Beth ROSENTHAL CDOB:[birth year] (74 yo F)Acc No.[id number]:03/04/2024 Progress Note Patient: Mary Beth MURRELL Provider: Samy Tang DPM :1950 A ge:73 Y S ex:Female Date:03/04/2024 Address:[address] [place] [id number] Pcp:Vaibhav Martin Subjective: * Chief Complaints: * 1 . Wart(s). 2. Painful nail(s) aggrevated by shoes and causing difficulty standing/walking.. * HPI: W art: Pt States Last PCP Visit: D ate: 1 S kin problems: Nature: d ryness. Location: B /L , Heel/Rearfoot, Midfoot. Duration: s everal months. Treatments: p oor compliance with moisturizer. * ROS: G eneral/Constitutional: Nausea d enies. V omiting d enies. H stacey Thirst d enies. L oss appetite d enies. C hills d enies. F atigue d enies.?Fever d enies. N ight Sweats d enies. U nexplained weight loss d enies. U nexplained weight gain d enies. H EENTM: Dentures d enies. D izziness d enies. G lasses/contacts d enies. R etinopathy d enies. B lurred/double vision d enies. T MJ?denies. D ischarge/drainage d enies. I mplants d enies. S ore throat d enies. D ental implants d enies. H kelsi of hearing d enies. D ifficulty chewing/swallowing/speaking d enies. N ose bleeds d enies. S ore mouth d enies. ? R espiratory: On Oxygen d enies. P neumonia/pleurisy d enies.?Bronchitis d enies. E mphysema d enies. C oughing d enies. C ough blood?denies. S hortness of breath d enies. W heezing d enies. C ardiovascular: Pacemaker d enies. M COMMUNICATIONS MAINTAINER d enies. W PW d enies. C HF d enies. H eart attack d enies. S eptal defect d enies. R apid beat d enies. C hest pain d enies. A trial Fib. d enies. M urmur/Palpitations d enies. G astrointestinal: Hemorrhoids d enies. S tomach/Abdominal pain d enies. D ark blood stool d enies. I rritable bowel d enies. C onstipation d enies. D iarrhea d enies. H ematology: Swelling a dmits. C lots d enies. V aricose Veins d enies. B ruising d enies. B leeding problem d enies. G enitourinary: Blood urine d enies. F requent/Painfu/urination/bladder control d enies. K idney stones d enies. I nfection (UTI) d enies. N ephropathy d enies. s ex trans dis (STD) d enies. P rostate d enies. M usculoskeletal: Hammertoes d enies. B unions d enies. B ack Pain d enies. M uscle Cramps/ Resting d enies. M uscle cramps / walking d enies.?Generalized aches and pains a dmits. W eakness d enies. I nteg.: Harvey d enies. S cars d enies. C orns/calluses?admits. I ngrown nails d enies. P ainful nails d enies. O pen Sores d enies. R ashes d enies. N eurologic: Difficulty sleeping d enies. B rain disorder d enies. N umbness d enies. B alance trouble d enies. C onfusion d enies. F ainting/blackouts d enies. T ingling d enies. T remors d enies. * Medical History: Objective: * Vitals: * Examination: V ascular: DP PULSES (B): 1/4, B/L. PT PULSES (B): 0/4, B/L. CAPILLARY FILL TIME: 3 secs. per digit, B/L. TROPHIC CONDITION-TEXTURE/ELASTICITY/TURGOR/HAIR GROWTH (B):?normal, B/L. TEMPERTURE GRADIENT (C): w arm to cool, proximal to distal, B/L. PIGMENTATION: rubrous, B/L. EDEMA (C): 3/4, Left, 2/4, Right, B/L, Feet, Ankle(s), Leg(s) , no edema. TELANGECTASIA: severe. VARICOSITIES: present, moderate, nonpainful, B/L. ? N eurological: SENSORY: N eurological exam reveals intact sensorium, pain sensation normal, vibration sensation intact, pinprick sensation is normal in the lower extremities, Pt denies, anesthesia, burning, paresthesia, tingling, B/L , Neurological exam reveals intact sensorium, pain sensation normal, vibration sensation intact, pinprick sensation is normal in the lower extremities, pt denies, anesthesia, burning, paresthesia, tingling, B/L. TINEL'S COMPRESSION: N egative tarsal tunnel, magui pedis, and medial calcaneal nerves, B/L. BABINSKI REFLEX: A bsent, B/L. N ails: NAILS are: E longated, overgrown, dystrophic, lytic, greater than 3mm thick, discolored and friable with crumbly malodorous subungual debris, with pain on palpation, 1-5 Left foot, T5, T9. G eneral Examination: GENERAL APPEARANCE: p leasant, alert, well nourished, well developed, well hydrated, with good attention to hygene/body habitus, and in no acute distress. ORIENTED: p erson,place, and time. O rthopedic: MUSCLE STRENGTH: 5 /5 all groups in a symmetrical fashion B/L. GAIT ABNORMALITY: p ronated, abducted, B/L. ? D ermatologic: SKIN FINDINGS: S kin shows sign(s) of, dryness, scaling, in a stocking fashion, no fissure(s) present, B/L, Skin exam reveals Keratotic lesion(s) located at, Plantar, Heel(s), B/L . VERRUCA: R eveals a Single , multi-loculated , mosaically patterned, round, raised, flat- topped, petechial bleeding papulae(s), with cauliflower appearance and interrruption of skin lines, pain to lateral compression, and size estimated at __3__ mm diameter, plantar Forefoot, RIGHT. Assessment: * Assessment: 1. T inea unguium - B35.1 (Primary) 2 . P ain in right toe(s) - M79.674? 3. P ain in left toe(s) - M79.675 4 . O ther viral warts - B07.8 5 . P ain in left foot - M79.672 6 . P ain in right foot - M79.671 7 . 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 Silver nitrate used for any petechial bleeding as necessary. Patient chooses, no pharmaceutical tx (80987). K eratoma Treatment: Parring or Cutting of Benign Hyperkeratotic Lesion(s) 1 1056 (2-4 Lesions) - The Benign hyperkeratotic lesions, as described above were pared, and/or cut utilizing a sterile #15 blade, tissue nippers, and/or dremel, Q8. W art Treatment: Procedure V errucae(s) were debrided to pin-point bleeding margins with sterile surgical blade (20959), silver nitrate chemocautery applied. * Procedure Codes: 1 1721 DEBRIDE NAIL, 6 OR MORE, Modifiers: XS , 58248 Wart Destruction, 1-14, Modifiers: XS , 88752 TRIM SKIN LESIONS, 2 TO 4, Modifiers: Q8 * Follow Up: 4 Months * Images: * The named appointment provid er may or may not be the originator of this progress note, and it is not deemed complete until electronically signed by the appointment provider. Sign off status: Pending * Provider: Samy Tang DPM Date: 0 03/04/2024 Generated for Seng sears/Candy/Marilyn on: 1 10/03/2024 03:45 PM EST History and Physical Notes * HPI (History of Present Illness) Category Sub-Category Detail Notes Category Not es Wart Pt States Last PCP Visit: Date:: 06/16/2023 Skin problems Nature: dryness Location: B/L , Heel/Rearfoot, Midfoot Duration: several months Treatments: poor compliance with moisturizer Examination Category Sub-Category Detail Notes Category Not es Neurological SENSORY: Neurological exa m reveals intact sensorium, pain sensation normal, vibration sensation intact, pinprick sensation is normal in the lower extremities, Pt denies, anesthesia, burning, paresthesia, tingling, B/L , Neurological exam reveals intact sensorium, pain sensation normal, vibration sensation intact, pinprick sensation is normal in the lower extremities, pt denies, anesthesia, burning, paresthesia, tingling, B/L BABINSKI REFLEX: Absent, B/L TINEL'S COMPRESSION: Negative tarsal daysi moi, magui pedis, and medial calcaneal nerves, B/L Dermatologic SKIN FINDINGS: Skin shows sign( s) of, dryness, scaling, in a stocking fashion, no fissure(s) present, B/L, Skin exam reveals Keratotic lesion(s) located at, Plantar, Heel(s), B/L VERRUCA: Reveals a Single , m ulti-loculated , mosaically patterned, round, raised, flat-topped, petechial bleeding papulae(s), with cauliflower appearance and interrruption of skin lines, pain to lateral compression, and size estimated at __3__ mm diameter, plantar Forefoot, RIGHT Orthopedic GAIT ABNORMALITY: pronated, abducted, B/L MUSCLE STRENGTH: 5/5 all groups in a symmetrical fashion B/L General Examination GENERAL APPEARANCE: pleasant , alert, well nourished, well developed, well hydrated, with good attention to hygene/body habitus, and in no acute distress ORIENTED: person,place, and ti me Vascular DP PULSES (B): 1/4, B/L PT PULSES (B): 0/4, B/L CAPILLARY FILL TIME: 3 secs. per digit, B/L TEMPERTURE GRADIENT (C): warm to cool, p roximal to distal, B/L TROPHIC CONDITION-TEXTURE/ELASTICITY/TURGOR/HAIR GROWTH (B): normal, B/L EDEMA (C): 3/4, Left, 2/4, Righ t, B/L, Feet, Ankle(s), Leg(s) , no edema TELANGECTASIA: severe VARICOSITIES: present, moderate, n onpainful, B/L PIGMENTATION: rubrous, B/L Nails NAILS are: Elongated, overg rown, dystrophic, lytic, greater than 3mm thick, discolored and friable with crumbly malodorous subungual debris, with pain on palpation, 1-5 Left foot, T5, T9
--- OUTSIDE RECORDS SUMMARY | 2025-08-03 15:45 | XMS_ITS | Clinical Summary ---
Author Organization [facility] Address [address] [place] [phone] Phone Care Team Providers Care Oil Burner Mechanic Name Role Phone Santos Otoole DO Primary [...] on patient's age to complete this topic IPV VACCINES Aged Out No longer eligi ble based on patient's age to complete this topic MENINGOCOCCAL VACCINES (ACWY) Aged Out No longer eligible based on patient's age to complete this topic MENINGOCOCCAL VACCINES (B) Aged Out N o longer eligible based on patient's age to complete this topic Medical Devices Not on file Insurance [place] P[place]AC[place] BL[place] RE[place] MEDICARE PPO BLUE REPLACEMENT MEDICARE PPO BLUE REPLACEMENT MEDICARE PPO BLUE RE[place] BL[place] REPLACEMENT Care Teams Oil Burner Mechanic Relationship Specialty Start Date End Date Santos Otoole DO [address] [place] [phone] PCP - General Internal Medicine 08/09/24 Additional Source Comments The information contained in this document represents components of the legal health record. It is not the complete legal health record.[facility]
--- OUTSIDE RECORDS SUMMARY | 2025-08-03 15:45 | XMS_ITS | Patient Health Record ---
Author Organization [facility] Address [address] [place] [address] Care Team Providers Care Design Engineering Intern Name Role Phone Mario, Kartik Primary Care Provider Meg Rasheed Unavailable [phone] Allergies Allergen (clinical drug ingredient) Drug/Non Drug [...] ve dexamethasone Dexamethasone Unknown Drug Allergy Active Reason For Referral No Information Medications Medication SIG (Take, Route, Frequency, Duration) Notes Start Date End Date Status TEGretol 200 MG Orally Twice a day 1/2 tab Active Valsartan Active Levothyroxine Sodium 25 MCG 1 tablet every morning on an empty stomach Orally Once a day; Duration: 30 day(s) Active Pravastatin Sodium 20 MG 1 tablet Orally Once a day Active Chlorthalidone Not-T aking Aspirin 81 MG 1 tablet Orally Once a day; Duration: 30 day(s) Not-Taking Vitamin D Active carBAMazepine 120mg once a day Not-Taking Atenolol 25 MG 1 tablet Orally Once a day; Duration: 30 day(s) Active Synthroid Not-Taking Eliquis 5 MG Oral; Duration: 90 Active Vitamin D (Ergocalciferol) vit D2 Not-Taking Spiriva HandiHaler A ctive amLODIPine Besylate Active Pravachol 20 MG 1 tablet Orally Once a day; Duration: 30 day(s) Not-Taking Immunizations Vaccine Route Administration Date Status Comme nts Influenza Unknown 09/12/2021 Refused Influenza Unknown 06/22/2024 Administered COVID-19 Pfizer BioNTech Vaccine Unknown 07/20/2021 Administered 1st 12/04/2020 2nd 12/25/2020 Social History Tobacco Use: Social History Observation Description Date Details (start date - stop date) Never Smoker NA - NA Tobacco use other than smoking: Question Answer Notes Are you an other tobacco user? No Tobacco Control (Standard) Question Answer Notes Tobacco use: Nonsmoker Additional Findings: Tobacco non-user Current no nsmoker AUDIT-C (Standard) Question Answer Notes Did you have a drink containing alcohol in the p ast year? No Points 0 Interpretation Negative Problems Problem Type SNOMED Code ICD Code Onset Dates Problem Status W/U Status Risk Notes Problem Viral wart (05832627) Other viral warts (B07.8) Active confirmed Problem Plantar wart (53686070) Plantar wart (B07.0) Active confirmed Problem Bilateral atherosclerosis of arteries of lower limbs (disorder) (98540893562465315 ) Unspecified atherosclerosis of seminole arteries of extremities, bilateral legs (I70.203) Active confirmed Problem Peripheral venous insufficiency (54025550) Venous insufficiency of both lower extremities (I87.2) Active confirmed Problem Bilateral atherosclerosis of arteries of lower limbs (disorder) (97453791398588325 ) 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, with unspecified presence of clinical manifestation (I70.203) Active confirmed Q7(A), Q8(2B), Q9(1B,2 C) Vital Signs Blood pressure diastolic 65 mm Hg 05/04/2025 Height 5ft4in in 05/04/2025 Blood pressure systolic 142 mm Hg 05/04/2025 Weight 230 lbs 05/04/2025 BMI 39.48 kg/m2 05/04/2025 Procedures Procedure Date Ordered Date Performed Result Body Sit e 35840-ACRBZPA NAIL, 6 OR MORE 2024 N/A 37843-Kptw Destruction, 1-14 2024 N/A 80428-YKXS SKIN LESIONS, 2 TO 4 2024 N/A 14224-RPHUHJD NAIL, 6 OR MORE 01/03/2025 N/A 72196-QPHL SKIN LESIONS, OVER 4 01/03/2025 N/A 93178-KORVCKO NAIL, 6 OR MORE 05/04/2025 N/A 04282-Cfhg Destruction, 1-14 05/04/2025 N/A 06985-KCDR SKIN LESIONS, OVER 4 05/04/2025 N/A Encounters Encounter Location Date Provider Diagnosis [address] [address] 2024 Meg Rasheed 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, with unspecified presence of clinical manifestation I70.203 ; Tinea unguium B35.1 ; Pain in right toe(s) M79.674 ; Pain in left toe(s) M79.675 ; Right foot pain M79.671 and Plantar wart B07.[address] [address] 01/03/2025 Meg Rasheed 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, with unspecified presence of clinical manifestation I70.203 ; Tinea unguium B35.1 ; Pain in right toe(s) M79.674 and Pain in left toe(s) M79.[address] [address] 05/04/2025 Meg Rasheed 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, with unspecified presence of clinical manifestation I70.203 ; Tinea unguium B35.1 ; Pain in right toe(s) M79.674 ; Pain in left toe(s) M79.675 ; Right foot pain M79.671 ; Plantar wart B07.0 and Left foot pain M79.672 Assessments Encounter Date Diagnosis (ICD Code) Assessment Notes Treatment Notes Treatment Clinical Notes Section Notes 2024 Tinea unguium (ICD-10 - B35.1) 2024 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, with unspecified presence of clinical manifestation (ICD-10 - I70.203) Q7(A), Q8(2B), Q9(1B,2C) 01/03/2025 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, with unspecified presence of clinical manifestation (ICD-10 - I70.203) Q7(A), Q8(2B), Q9(1B,2C) 05/04/2025 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, with unspecified presence of clinical manifestation (ICD-10 - I70.203) Q7(A), Q8(2B), Q9(1B,2C) 05/04/2025 Tinea unguium (ICD-10 - B35.1) 01/03/2025 Tinea unguium (ICD-10 - B35.1) 2024 Pain in right toe(s) (ICD-10 - M79.674) 2024 Pain in left toe(s) (ICD-10 - M79.675) 01/03/2025 Pain in right toe(s) (ICD-10 - M79.674) 05/04/2025 Pain in right toe(s) (ICD-10 - M79.674) 05/04/2025 Pain in left toe(s) (ICD-10 - M79.675) 01/03/2025 Pain in left toe(s) (ICD-10 - M79.675) 2024 Right foot pain (ICD-10 - M79.671) 2024 Plantar wart (ICD-10 - B07.0) 05/04/2025 Right foot pain (ICD-10 - M79.671) 05/04/2025 Plantar wart (ICD-10 - B07.0) 05/04/2025 Left foot pain (ICD-10 - M79.672) Plan Of Treatment Pending Test Test Name Order Date 10771-GXGADEF NAIL, 6 OR MORE 12/09/2011 01314-IINEJST NAIL, 6 OR MORE 03/11/2012 92476-RLZULNX NAIL, 6 OR MORE 08/24/2012 29187-ODXNQEK NAIL, 6 OR MORE 11/18/2012 87158-QKGLVOT NAIL, 6 OR MORE 02/10/2013 05400-TRTQTUC NAIL, 6 OR MORE 06/03/2012 13689-KZXYHSA NAIL, 6 OR MORE 04/12/2013 94587-WVACDWU NAIL, 6 OR MORE 06/30/2013 46373-KRNRQHN NAIL, 6 OR MORE 09/29/2013 45405-FCEWQYW NAIL, 6 OR MORE 12/29/2013 20563-QHNQCXG NAIL, 6 OR MORE 03/30/2014 06840-SZRCQGG NAIL, 6 OR MORE 07/06/2014 02438-DDTFYDR NAIL, OR MORE 02/26/2018 27569-FJJMOTO NAIL, 6 OR MORE 2024 55439-KNDCFTH NAIL, 6 OR MORE 01/03/2025 73681-XZEHAXV NAIL, OR MORE 05/04/2025 55624-Lloc Destruction, 09-2808/23/2024 42205-Byry Destruction, 09-2809/29/2013 22988-Dyar Destruction, 09-2802/26/2018 74645-Gizu Destruction, 09-2805/28/2018 67371-Yceb Destruction, 09-2808/27/2018 78782-Onro Destruction, 09-2802/21/2016 16063-Hzgl Destruction, 09-2805/01/2016 71729-Pfiv Destruction, 09-2807/24/2016 84884-Vqkd Destruction, 09-2809/25/2016 00275-Xazs Destruction, 09-2812/09/2016 41741-Uzib Destruction, 09-2805/26/2017 30714-Bhqm Destruction, 09-2808/18/2017 73246-Wxyo Destruction, 09-2805/04/2025 80511-Cjwg Destruction, 09-2812/29/2013 64961-Vyaj Destruction, 09-2806/05/2015 57508-Docs Destruction, 09-2807/03/2015 23738-Nmzu Destruction, 09-2807/31/2015 71897-Ihvz Destruction, 09-2809/04/2015 76087-Mtno Destruction, 09-2810/16/2015 88967-Lokp Destruction, 09-2811/20/2015 39202-Fwlh Destruction, 09-2812/18/2015 03887-Ljtl Destruction, 09-2806/30/2013 46300-Fyrc Destruction, 09-2804/12/2013 04902-Mchg Destruction, 09-2806/03/2012 75416-Jxzd Destruction, 09-2802/10/2013 74214-Gsqm Destruction, 09-2803/11/2012 20656-Vzrz Destruction, 1-14 12/09/2011 81583-Xpktocxh Plate 12/09/2011 77355-Wxkwxsyv Plate 02/10/2013 32973-Wfwejeez Plate 09/29/2013 56309-Lzorhplx Plate 12/18/2015 48584-Cxcrklqy Plate 12/29/2013 41701-Fkwgsxfj Plate 03/30/2014 77479-Fwhtcjur Plate 07/06/2014 67305-Fhmgfgwi Plate 03/02/2015 76878-Gbfqnmrz Plate 06/05/2015 39170-Kvpvkaxv Plate Each Additional 85658-Ifidyvmu Plate Each Additional 06479-Izzwglze Plate Each Additional 01265-NHOB SKIN LESIONS, OVER 4 05/04/20 25 60321-VNWQ SKIN LESIONS, OVER 4 01/04/20 25 20987-UHGB SKIN LESIONS, 2 TO 4 08/23/20 24 83138-KHKQ SKIN LESIONS, 2 TO 4 09/25/19 23 Next Appt Details Provider Name:Meg damian, 08/31/2025 11:00:00 AM, [address] [place], [address], Insurance Providers Payer Name Payer Address Payer Phone Subscriber Number Group Number Insured Name Patient Relationship to Insured Coverage Start Date Coverage End Date [facility] 65 Medicare Preferred [address] [place] [address] [id number] Mary Beth Ware Self - patient is the insured Medical (General) History Medical History History ICD Code chicken pox measles mumps Hypothyroidism hypertension Surgical History Surgery Date(Month/Year) appendectomy tonsillectomy colon/intestinal surgery hysterectomy Lens replacement Hospital[place] History Reason Date(Month/[place] [facility] [place]- left 09/06 C - AFib 2 days 06/2021
== END 2025-08-02 08:12 | disposition home or self-care (01) ==
LOC: HO.HOSX 08:11
PROVIDERS: Visit Provider Physician Assistant
DX: Z13.89 Encounter for screening for other disorder (principal)